=== PATIENT | female | born 1960 | race Caucasian/White ===

== ENCOUNTER 2022-03-24 11:47 | Inpatient (IN) ==
[2022-03-24] MEDS ORDERED: SODIUM CHLORIDE 0.9% 1000ML 1,000 ML IV SCH (12:00)
[2022-03-24] MEDS ORDERED: ONDANSETRON INJ 2 MG/ML 2 ML VIAL IV STA (12:01)
--- NOTE | 2022-03-24 12:17 | Emergency Department Note ---
History of Present Illness General Chief complaint: Illness Stated complaint: MESTATIC BREAST CX/SICK FROM RADIATION TREATMENT Time Seen by Provider: 03/24/22 11:54 History of Present Illness Provider complaint: Diarrhea nausea vomiting headache Onset (ago): week(s) 1 Maximum Pain Intensity: 6 Associated symptoms: + headaches, + malaise and + nausea/vomiting; no chest pain or no fever/chills 61-year-old female with history of breast cancer being treated with radiation by Dr. Earl and chemotherapy with Dr. Kowalski presents emergency department for diarrhea [place] nausea vomiting and headache. Patient reports she started having diarrhea 1 week ago. She states it progressed to nausea and vomiting. The patient reports she has been having blood when wiping her stools. She also reports headache that started at 7 AM. No fever. No hematemesis or coffee- ground emesis. No cough chest pain or difficulty breathing. Home Medications Medication Instructions Recorded Confirmed Type albuterol sulfate 90 mcg/actuation 2 inh inhalation Q6H PRN Shortness 10/06/20 03/24/22 History breath activated powder inhaler Of Breath denosumab 120 mg/1.7 mL (70 mg/mL) 120 mg (1.7 mL) subcut .COMPLEX 10/11/20 03/24/22 Rx subcutaneous solution (Xgeva) breast cancer 3 doses #1.7 mL letrozole 2.5 mg tablet 2.5 mg PO DAILY #30 tabs 10/11/20 03/24/22 Rx ondansetron HCl 8 mg tablet 8 mg PO Q12H PRN Nausea And 01/10/21 03/24/22 History Vomiting venlafaxine 75 mg capsule,extended 150 mg PO DAILY 04/23/21 03/24/22 History release 24 hr (Effexor XR) lorazepam 1 mg tablet 1 mg PO BID PRN Anxiety 04/26/21 03/24/22 History tramadol 50 mg tablet 50 mg PO TID PRN Pain 09/13/21 03/24/22 History venlafaxine 37.5 mg 37.5 mg PO DAILY 09/13/21 03/24/22 History capsule,extended release 24 hr (Effexor XR) palbociclib 75 mg tablet (Ibrance) 100 mg PO DAILY 10/17/21 03/24/22 History Allergies Allergy/AdvReac Type Severity Reaction Status Date / Time No Known Allergies Allergy Verified 03/18/22 13:30 Past Med/Surg History Medical History (Updated 03/24/22 @ 17:08 by Bryce Cabral) Anxiety BRCA gene mutation negative Breast cancer metastasized to bone (~07/2020) History of chemotherapy Doxetaxel and Cyclophosphamide x4 cycles Herceptin x1 year Letrozole with Ibrance started 09/2020 Xgeva Malignant neoplasm of breast Polymyalgia rheumatica Rheumatoid arthritis Right foot pain Right shoulder pain Surgical History H/O lumpectomy Left Breast (2008 and 2009) History of biopsy (09/21/20) Right Breast History of biopsy (09/2020) Left Axillary Lymph Nodes S/P wisdom tooth extraction Family History Mother , Passed Age 74 Breast cancer, Onset Age: 46 COPD (chronic obstructive pulmonary disease) Grandmother (Maternal) , Passed Age 75 Breast cancer Grandmother (Paternal) , Passed Age 45 Breast cancer, Onset Age: 42 due to complication of Breast Cancer Aunt Breast cancer Uncle Myocardial infarction Bone cancer Father , Passed Age 92 COPD (chronic obstructive pulmonary disease) Prostate cancer, Onset Age: 60 Aunt Breast cancer Aunt Breast cancer Brother No problems noted. Brother Skin cancer Sister No problems noted. Son No problems noted. 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 Beliefs That Will Affect Care: None marital status: Current Living Situation: Spouse current occupational status: employed current occupation: [employer] How many Children do You have: 1 Feels Safe at Home: Yes Childhood Exposure to Second-Hand Smoke: Yes (Siblings) caffeine: Yes (daily) during the past year weight has: decreased > 10 lbs Dental Care, Regularly: Yes Physical Activity Frequency: Does not Exercise Seatbelt Use: always Assistive Devices: Glasses Review of Systems A total of 10 systems reviewed and were otherwise negative Physical Exam Vital Signs Vital Signs - 24 hr 03/24/22 11:51 03/24/22 12:46 03/24/22 12:46 Temperature 36.5 C Temperature Source Oral Pulse Rate 76 Pulse Rate [Apical] 63 Pulse Rhythm Regular Pulse Strength Normal Respiratory Rate 18 18 18 Respiratory Effort / Characteristics Non-Labored Spontaneous Non-Labored Non-Labored Respiratory Depth Normal Normal Respiratory Pattern Regular Regular Blood Pressure 132/75 Blood Pressure [Right Arm] 114/75 Blood Pressure Mean 94 Blood Pressure Mean [Right Arm] 88 Blood Pressure Position Sitting Pulse Oximetry 95 98 98 Oxygen Delivery Method Room Air Room Air Room Air Sepsis Recent Fever Within 48 Hours No Sepsis New/Unexplained Change in Mental Status No Sepsis Action Taken by Nursing No Action Required 03/24/22 12:46 03/24/22 13:16 03/24/22 13:16 Temperature Temperature Source Pulse Rate Pulse Rate [Apical] 70 Pulse Rhythm Pulse Strength Respiratory Rate 18 Respiratory Effort / Characteristics Non-Labored Non-Labored Respiratory Depth Normal Respiratory Pattern Blood Pressure Blood Pressure [Right Arm] 122/66 Blood Pressure Mean Blood Pressure Mean [Right Arm] 84 Blood Pressure Position Pulse Oximetry 98 97 Oxygen Delivery Method Room Air Room Air Sepsis Recent Fever Within 48 Hours Sepsis New/Unexplained Change in Mental Status Sepsis Action Taken by Nursing 03/24/22 14:14 03/24/22 14:14 03/24/22 15:02 Temperature Temperature Source Pulse Rate Pulse Rate [Apical] 64 75 Pulse Rhythm Pulse Strength Respiratory Rate 18 18 18 Respiratory Effort / Characteristics Non-Labored Spontaneous Non-Labored Non-Labored Respiratory Depth Normal Normal Respiratory Pattern Regular Blood Pressure Blood Pressure [Right Arm] 129/79 105/59 L Blood Pressure Mean Blood Pressure Mean [Right Arm] 95 74 Blood Pressure Position Pulse Oximetry 99 99 98 Oxygen Delivery Method Room Air Room Air Room Air Sepsis Recent Fever Within 48 Hours Sepsis New/Unexplained Change in Mental Status Sepsis Action Taken by Nursing 03/24/22 15:02 03/24/22 15:39 03/24/22 15:39 Temperature Temperature Source Pulse Rate Pulse Rate [Apical] 78 Pulse Rhythm Pulse Strength Respiratory Rate 20 Respiratory Effort / Characteristics Non-Labored Non-Labored Non-Labored Spontaneous Respiratory Depth Normal Respiratory Pattern Blood Pressure Blood Pressure [Right Arm] 107/79 Blood Pressure Mean Blood Pressure Mean [Right Arm] 88 Blood Pressure Position Pulse Oximetry 99 99 Oxygen Delivery Method Room Air Room Air Sepsis Recent Fever Within 48 Hours Sepsis New/Unexplained Change in Mental Status Sepsis Action Taken by Nursing Physical Exam HENT: Exam performed. -Head: Normocephalic and atraumatic. -Right Ear: External ear normal. No mastoid tenderness. -Left Ear: External ear normal. No mastoid tenderness. -Mouth/Throat: The oropharynx is clear and moist. No trismus in the jaw. No dental abscesses or uvula swelling. No oropharyngeal exudate or tonsillar abscesses. EYES: Conjunctivae and EOM are normal. Pupils are equal, round, and reactive to light. Right eye exhibits no discharge. Left eye exhibits no discharge. No scleral icterus. NECK: Normal range of motion. Neck supple. No JVD present. No spinous process tenderness present. No carotid bruit present. No rigidity. No tracheal deviation and normal range of motion present. No Brudzinski's sign and no Kernig's sign noted. CV: Normal rate, regular rhythm, normal heart sounds and intact distal pulses. There is no peripheral edema. Palpable radial pulses bue. PULM/CHEST: Effort normal and breath sounds normal. No respiratory distress. No stridor. She has no wheezes. She has no rales. -Chest Wall: She exhibits no tenderness. ABD: The abdomen is soft. Bowel sounds are normal. She has no distension. No mass is present. There is tenderness to palpation of the epigastric area. There is no rebound, no guarding, no Mcgregor's sign and no tenderness at McBurney's point. Rovsig negative MUSC/SKEL: Normal range of motion. There is no peripheral edema, tenderness or deformity. LYMPH: No cervical adenopathy. NEURO: She is alert and oriented to person, place, and time. She has normal strength. No cranial nerve deficit or sensory deficit. Coordination and gait normal. GCS eye subscore is 4. GCS verbal subscore is 5. GCS motor subscore is 6. Cerebellar tests wnl. SKIN: Skin is warm and dry. She is not diaphoretic. PSYCH: She has a normal mood and affect. Behavior is normal. Judgment and thought content normal. Course Course 1154: The patient was evaluated in room B6. A complete history and physical exam was performed Cardiac monitoring: An order was placed for continuous cardiac monitoring. The monitor shows a rate of 70 with sinus rhythm 1345: Vital signs stable. Cell count 2.03. Hemoglobin 11. Patient afebrile. Labs are all otherwise within normal limits. CT of the head she has became physically distributed of the calvarial metastatic disease. CT of the abdomen shows mild gallbladder wall thickening. Patient is having epigastric pain. Will order ultrasound 1525:Vital signs stable. Ultrasound shows cholelithiasis with mild gallbladder wall thickening. Patient will be treated empirically with antibiotics and admitted to the medicine service for GI and surgery consult. Dr. Carbajal's team notified. Administered Medications Discontinued Medications Sodium Chloride (Nss 1000ml) 1,000 mls @ 999 mls/hr IV .Q1H1M JAMES Stop: 03/24/22 13:00 Last Infusion: 03/24/22 14:16 Dose: 0 mls/hr Documented By: Admin: 03/24/22 12:31 Dose: 999 mls/hr Documented By: ANTONIO Metronidazole (Flagyl) 500 mg in 100 mls @ 100 mls/hr IV NOW STA Stop: 03/24/22 16:24 Last Admin: 03/24/22 16:38 Dose: Not Given Documented By: ANTONIO Ceftriaxone Sodium (Rocephin) 1,000 mg in 50 mls @ 100 mls/hr IV NOW STA Stop: 03/24/22 15:54 Last Infusion: 03/24/22 16:38 Dose: 0 mls/hr Documented By: Admin: 03/24/22 16:10 Dose: 100 mls/hr Documented By: ANTONIO Ioversol (Optiray 320 100ml) 94 ml IV ONCE ONE Stop: 03/24/22 12:55 Last Admin: 03/24/22 12:54 Dose: 94 ml Documented By: JENNIFER Ondansetron HCl (Ondansetron Inj 2 Mg/Ml 2 Ml Vial) 4 mg IV NOW STA Stop: 03/24/22 12:02 Last Admin: 03/24/22 12:30 Dose: 4 mg Documented By: ANTONIO Medical Decision Making Laboratory Data Result diagrams: 03/24/22 12:16 03/24/22 12:16 Lab Results 03/24/22 03/24/22 03/24/22 Range/Units 12:16 12:16 12:16 WBC 2.03 L (4.8-10.8) K/ul RBC 3.10 L (3.93-5.22) M/uL Hgb 11.0 L (12.0-16.0) g/dl POC Hgb (12.0-16.0) g/dl Hct 31.2 L (34.1-44.9) % POC Hct (37-47) % MCV 100.6 H (80.0-100.0) fL MCH 35.5 H (25.0-34.0) pg MCHC 35.3 (32.0-36.0) g/dL RDW Std Deviation 52.6 H (36.4-46.3) fL RDW Coeff of Aga 14.3 (11.5-14.5) % Plt Count 159 (130-400) K/uL MPV 8.8 L (9.4-12.3) fL Immature Gran % (Auto) 0.0 % Neut % (Auto) 63.0 % Lymph % (Auto) 17.2 % [place] % (Auto) 14.8 % Eos % (Auto) 3.0 % Baso % (Auto) 2.0 % Neut # (Auto) 1.28 L (1.4-6.5) K/uL Lymph # (Auto) 0.35 L (1.2-3.4) K/uL [place] # (Auto) 0.30 (0.24-0.82) K/uL Eos # (Auto) 0.06 (0-0.50) K/uL Baso # (Auto) 0.04 (0-0.2) K/uL Immature Gran # (Auto) 0.00 (0.00-0.02) K/uL PT 10.5 (9.0-12.0) Seconds INR 1.0 (0.9-1.1) APTT 24.5 (21.0-31.0) Seconds PTT Ratio 0.9 POC Sodium (135-144) mmol/L Sodium 139 (136-145) mmol/L POC Potassium (3.3-5.0) mmol/L Potassium 3.4 L (3.5-5.1) mmol/L POC Chloride (101-112) mmol/L Chloride 104 (98-107) mmol/L Carbon Dioxide 28 (21-32) mmol/L POC Total CO2 (24-31) mmol/L Anion Gap 7 (3-11) POC Anion Gap (16-25) mmol/L POC BUN (7-18) mg/dl BUN 11 (6-23) mg/dl Creatinine 0.52 L (0.6-1.2) mg/dl POC Creatinine (0.6-1.3) mg/dl Est Cr Clr Drug Dosing 106.2 ml/min Est GFR ( Amer) 119.5 ml/min Est GFR (Non-Af Amer) 103.1 ml/min BUN/Creatinine Ratio 21.2 H (10-20) Glucose 96 (70-99(Fasting)) mg/dl POC Glucose (other) (70-99) mg/dl Lactate (0.4-2.0) mmol/L Calcium 9.6 (8.5-10.1) mg/dl POC Ioniz Calcium Domenic (1.12-1.32) mmol/l Magnesium 1.7 (1.7-2.4) mg/dl Total Bilirubin 0.4 (0.2-1.0) mg/dl AST 15 (13-39) U/L ALT 10 (7-52) U/L Alkaline Phosphatase 37 (34-104) U/L Total Protein 7.1 (6.0-8.3) gm/dl Albumin 4.2 (3.4-5.0) gm/dl Globulin 2.9 (2.5-4.0) gm/dl Albumin/Globulin Ratio 1.4 (0.9-2) SARS-CoV-2 (PCR) (Negative) Influenza Type A (PCR) (Neg) Influenza Type B (PCR) (Neg) RSV (RT-PCR) (Neg) 03/24/22 03/24/22 03/24/22 Range/Units 12:16 12:23 13:13 WBC (4.8-10.8) K/ul RBC (3.93-5.22) M/uL Hgb (12.0-16.0) g/dl POC Hgb 10.5 L (12.0-16.0) g/dl Hct (34.1-44.9) % POC Hct 31 L (37-47) % MCV (80.0-100.0) fL MCH (25.0-34.0) pg MCHC (32.0-36.0) g/dL RDW Std Deviation (36.4-46.3) fL RDW Coeff of Aga (11.5-14.5) % Plt Count (130-400) K/uL MPV (9.4-12.3) fL Immature Gran % (Auto) % Neut % (Auto) % Lymph % (Auto) % [place] % (Auto) % Eos % (Auto) % Baso % (Auto) % Neut # (Auto) (1.4-6.5) K/uL Lymph # (Auto) (1.2-3.4) K/uL [place] # (Auto) (0.24-0.82) K/uL Eos # (Auto) (0-0.50) K/uL Baso # (Auto) (0-0.2) K/uL Immature Gran # (Auto) (0.00-0.02) K/uL PT (9.0-12.0) Seconds INR (0.9-1.1) APTT (21.0-31.0) Seconds PTT Ratio POC Sodium 140 (135-144) mmol/L Sodium (136-145) mmol/L POC Potassium 3.3 (3.3-5.0) mmol/L Potassium (3.5-5.1) mmol/L POC Chloride 103 (101-112) mmol/L Chloride (98-107) mmol/L Carbon Dioxide (21-32) mmol/L POC Total CO2 26 (24-31) mmol/L Anion Gap (3-11) POC Anion Gap 15.0 L (16-25) mmol/L POC BUN 11 (7-18) mg/dl BUN (6-23) mg/dl Creatinine (0.6-1.2) mg/dl POC Creatinine 0.5 L (0.6-1.3) mg/dl Est Cr Clr Drug Dosing ml/min Est GFR ( Amer) ml/min Est GFR (Non-Af Amer) ml/min BUN/Creatinine Ratio (10-20) Glucose (70-99(Fasting)) mg/dl POC Glucose (other) 103 H (70-99) mg/dl Lactate 0.8 (0.4-2.0) mmol/L Calcium (8.5-10.1) mg/dl POC Ioniz Calcium Domenic 1.15 (1.12-1.32) mmol/l Magnesium (1.7-2.4) mg/dl Total Bilirubin (0.2-1.0) mg/dl AST (13-39) U/L ALT (7-52) U/L Alkaline Phosphatase (34-104) U/L Total Protein (6.0-8.3) gm/dl Albumin (3.4-5.0) gm/dl Globulin (2.5-4.0) gm/dl Albumin/Globulin Ratio (0.9-2) SARS-CoV-2 (PCR) NEGATIVE (Negative) Influenza Type A (PCR) Negative (Neg) Influenza Type B (PCR) Negative (Neg) RSV (RT-PCR) Negative (Neg) Imaging Data Radiologist's Impression: Chest X-Ray 03/24/22 11:54 XR chest 1V portable CLINICAL HISTORY: Sepsis. History of breast cancer. COMPARISON STUDY: Chest CT September 20, 2021. FINDINGS: Lung volumes are mildly diminished. There are left axillary and left breast surgical clips. No pneumothorax or pleural effusion is present. Moderate sized hiatal hernia. Cardiomegaly is unchanged without evidence for pulmonary edema. No definite consolidation to suggest pneumonia. Apparent right midlung opacity is likely artifactual. IMPRESSION: 1. No definite acute cardiopulmonary findings. 2. Apparent lateral right midlung opacity. This is likely artifactual. A small focus of pneumonia could appear similar. Radiographic follow-up is recommended. ACT 112: Negative or not required by law. Electronically signed by: Jesús Knapp M.D. 03/24/2022 12:47 PM Abdomen/Pelvis CT 03/24/22 12:01 CT OF THE ABDOMEN AND PELVIS WITH CONTRAST CLINICAL HISTORY: Abdominal pain, nausea and vomiting. Breast cancer. COMPARISON STUDY: CT of the abdomen and pelvis September 20, 2021. PET/CT January 16, 2022. TECHNIQUE: Following IV administration of 94 mL of Optiray, axial images of the abdomen and pelvis were obtained from the lung bases to the proximal femurs. Images were reviewed in the axial, sagittal, and coronal planes. IV contrast was administered without complication. Automated exposure control was utilized for the study. A dose lowering technique was utilized adhering to the principles of ALARA. CT DOSE: 856.48 mGy.cm FINDINGS: Lung bases are unremarkable. Moderate sized hiatal hernia with partially intrathoracic stomach is noted. There are no hepatic lesions. Spleen, adrenal glands, kidneys and pancreas are unremarkable. There is no hydronephrosis. No biliary or pancreatic ductal dilatation. Splenule is noted. Mild gallbladder wall thickening is present. Major vasculature is patent. No evidence for a bowel obstruction. There is mild rectal wall thickening with mild perirectal stranding. There is apparent mild wall thickening of the descending colon with possible minimal pericolonic stranding. Appendix is normal. No lymphadenopathy is present. No ascites. No abscess. Numerous sclerotic skeletal lesions are similar in appearance to PET/CT of January 16, 2022. No new lesions are identified. There is no pathologic fracture. IMPRESSION: 1. Thickening of the rectum with mild perirectal stranding. Possible mild wall thickening of the descending colon with equivocal pericolonic thickening. These findings represent a nonspecific proctocolitis. No free air or abscess. 2. No bowel obstruction. 3. Mild gallbladder wall thickening, a nonspecific finding. If right upper quadrant pain, ultrasound is recommended. 4. No change in appearance of multiple skeletal metastases since PET/CT of January 16, 2022. ACT 112: Negative or not required by law. Electronically signed by: Jesús Knapp M.D. 03/24/2022 1:[address] 03/24/22 12:01 CT OF THE HEAD WITHOUT CONTRAST CLINICAL HISTORY: Headache. Breast cancer. COMPARISON STUDY: No previous studies for comparison. TECHNIQUE: Helical axial images of the head were obtained without IV contrast. Automated exposure control was utilized for the study. A dose lowering technique was utilized adhering to the principles of ALARA. FINDINGS: No acute intracranial hemorrhage, midline shift or mass effect is present. The ventricular system is unremarkable. The basal cisterns are patent. No extra-axial collections are present. There are no findings to suggest acute dural sinus thrombosis or acute territorial infarct. An 8 mm sclerotic occipital bone lesion on image 13 of 28 favors a skeletal metastasis. This was present on PET/CT of January 16, 2022. IMPRESSION: 1. No acute intracranial findings. 2. Redemonstration of an occipital calvarial metastasis. ACT 112: Negative or not required by law. Electronically signed by: Jesús Knapp M.D. 03/24/2022 1:05 PM Gallbladder Ultrasound 03/24/22 13:37 US gallbladder CLINICAL HISTORY: Right upper quadrant pain. COMPARISON STUDY: CT of the abdomen and pelvis March 24, 2022. FINDINGS: Liver is unremarkable. No hepatic lesions are identified. No biliary ductal dilatation. Common bile duct measures 4 mm in caliber. There are multiple gallstones within the gallbladder. Mild gallbladder wall thickening is noted which corresponds to the finding on CT. No definite sonographic Mcgregor sign. Pancreas is unremarkable by sonography although the tail is slightly obscured. No right hydronephrosis. IMPRESSION: 1. Cholelithiasis and mild gallbladder wall thickening. No definite sonographic Mcgregor sign. Findings equivocal for acute cholecystitis. Nuclear medicine hepatobiliary scan could be obtained as indicated. 2. No biliary ductal dilatation. ACT 112: Negative or not required by law. Electronically signed by: Jesús Knapp M.D. 03/24/2022 2:42 PM ECG Data Indication: + abdominal pain Rate (beats per minute): 67 Rhythm: + normal sinus ECG Intervals/blocks: + Normal GA and + Normal QT-c ECG ST segments: + Normal ST segments Additional Comments: QRS 68 MDM Narrative 1154: The patient was evaluated in room B6. A complete history and physical exam was performed Cardiac monitoring: An order was placed for continuous cardiac monitoring. The monitor shows a rate of 70 with sinus rhythm 1345: Vital signs stable. Cell count 2.03. Hemoglobin 11. Patient afebrile. Labs are all otherwise within normal limits. CT of the head she has became physically distributed of the calvarial metastatic disease. CT of the abdomen shows mild gallbladder wall thickening. Patient is having epigastric pain. Will order ultrasound 1525:Vital signs stable. Ultrasound shows cholelithiasis with mild gallbladder wall thickening. Patient will be treated empirically with antibiotics and admitted to the medicine service for GI and surgery consult. Dr. Carbajal's team notified. Impression & Plan Gallbladder calculus, Breast cancer metastasized to bone, Nausea, vomiting and diarrhea Discharge Plan Visit Data Chief Complaint: Illness Stated Complaint: MESTATIC BREAST CX/SICK FROM RADIATION TREATMENT ED Provider: Bryce Cabral Discharge Problem: Gallbladder calculus, Breast cancer metastasized to bone, Nausea, vomiting and diarrhea Patient Disposition: Admitted As Inpatient Forms Stand Alone Forms: [employer] Prescriptions Prescriptions: No Action venlafaxine [Effexor XR] 75 mg capsule,extended release 24hr 150 mg PO DAILY ondansetron HCl 8 mg tablet 8 mg PO Q12H PRN (Reason: Nausea And Vomiting) venlafaxine [Effexor XR] 37.5 mg capsule,extended release 24hr 37.5 mg PO DAILY tramadol 50 mg tablet 50 mg PO TID PRN (Reason: Pain) lorazepam 1 mg tablet 1 mg PO BID PRN (Reason: Anxiety) letrozole 2.5 mg tablet 2.5 mg PO DAILY Qty: 30 2RF Xgeva 120 mg/1.7 mL (70 mg/mL) solution 120 mg subcut .COMPLEX Qty: 1.7 0RF Rx Instructions: 120 mg subcut MONTHLY; next dose 04/05/2022 albuterol sulfate 90 mcg/actuation aerosol powdr breath activated 2 inh inhalation Q6H PRN (Reason: Shortness Of Breath) Ibrance 75 mg tablet 100 mg PO DAILY Rx Instructions: administer on days 1 through 21 of a 28-day treatment cycle Referrals Referrals: Ganesh Lovell MD [Primary Care Provider] -
[2022-03-24 12:38] LABS: iSTAT Creatinine 0.5 mg/dl (0.6-1.3); iSTAT Hemoglobin 10.5 g/dl (12.0-16.0); iSTAT Ionized Calcium 1.15 mmol/l (1.12-1.32); iSTAT Potassium 3.3 mmol/L (3.3-5.0)
[2022-03-24 12:40] LABS: Basophils # (auto) 0.04 K/uL (0-0.2); Eosinophils # (auto) 0.06 K/uL (0-0.50); Hematocrit (blood only) 31.2 % (34.1-44.9); Lymphocytes # (auto) 0.35 K/uL (1.2-3.4); Lymphocytes % (auto) 17.2 %; Mean Corpuscular Hemoglobin 35.5 pg (25.0-34.0); Mean Corpuscular Hgb Conc 35.3 g/dL (32.0-36.0); Mean Corpuscular Volume 100.6 fL (80.0-100.0); Mean Platelet Volume 8.8 fL (9.4-12.3); Monocytes % (auto) 14.8 %; Neutrophils # (auto) 1.28 K/uL (1.4-6.5); Platelet Count 159 K/uL (130-400); RDW Coefficient of Variation 14.3 % (11.5-14.5); RDW Standard Deviation 52.6 fL (36.4-46.3); White Blood Count 2.03 K/ul (4.8-10.8)
--- NOTE | 2022-03-24 12:48 | XRay Report ---
XR chest 1V portable CLINICAL HISTORY: Sepsis. History of breast cancer. COMPARISON STUDY: Chest CT September 20, 2021. FINDINGS: Lung volumes are mildly diminished. There are left axillary and left breast surgical clips. No pneumothorax or pleural effusion is present. Moderate sized hiatal hernia. Cardiomegaly is unchan ged without evidence for pulmonary edema. No definite consolidation to suggest pneumonia. Apparent ri ght midlung opacity is likely artifactual. IMPRESSION: 1. No definite acute cardiopulmonary findings. 2. Apparent lateral right midlung opacity. This is likely artifactual. A small focus of pneumonia cou ld appear similar. Radiographic follow-up is recommended. ACT 112: Negative or not required by law. Electronically signed by: Jesús Knapp M.D. 03/24/2022 12:47 PM
[2022-03-24 12:52] LABS: Partial Thromboplastin Ratio 0.9; Partial Thromboplastin Time 24.5 Seconds (21.0-31.0); Prothrombin Time 10.5 Seconds (9.0-12.0)
[2022-03-24] MEDS ORDERED: OPTIRAY 320 100ml IV ONE (12:54)
--- NOTE | 2022-03-24 13:07 | CT Scan Report ---
CT OF THE HEAD WITHOUT CONTRAST CLINICAL HISTORY: Headache. Breast cancer. COMPARISON STUDY: No previous studies for comparison. TECHNIQUE: Helical axial images of the head were obtained without IV contrast. Automated exposure con trol was utilized for the study. A dose lowering technique was utilized adhering to the principles o f ALARA. FINDINGS: No acute intracranial hemorrhage, midline shift or mass effect is present. The ventricular system is unremarkable. The basal cisterns are patent. No extra-axial collections are present. There are no findings to suggest acute dural sinus thrombosis or acute territorial infarct. An 8 mm sclerotic occipital bone lesion on image 13 of 28 favors a skeletal metastasis. This was pres ent on PET/CT of January 16, 2022. IMPRESSION: 1. No acute intracranial findings. 2. Redemonstration of an occipital calvarial metastasis. ACT 112: Negative or not required by law. Electronically signed by: Jesús Knapp M.D. 03/24/2022 1:05 PM
[2022-03-24 13:09] LABS: Albumin Globulin Ratio 1.4 (0.9-2); Albumin Level 4.2 gm/dl (3.4-5.0); BUN Creatinine Ratio 21.2 (10-20); Bilirubin,Total 0.4 mg/dl (0.2-1.0); Calcium 9.6 mg/dl (8.5-10.1); Creatinine Clr Calc Pharmacy 106.2 ml/min; Est GFR (African American) 119.5 ml/min; Est GFR (Non-African American) 103.1 ml/min; Globulin 2.9 gm/dl (2.5-4.0); Magnesium 1.7 mg/dl (1.7-2.4); Potassium 3.4 mmol/L (3.5-5.1); Total Protein 7.1 gm/dl (6.0-8.3)
--- NOTE | 2022-03-24 13:20 | CT Scan Report ---
CT OF THE ABDOMEN AND PELVIS WITH CONTRAST CLINICAL HISTORY: Abdominal pain, nausea and vomiting. Breast cancer. COMPARISON STUDY: CT of the abdomen and pelvis September 20, 2021. PET/CT January 16, 2022. TECHNIQUE: Following IV administration of 94 mL of Optiray, axial images of the abdomen and pelvis we re obtained from the lung bases to the proximal femurs. Images were reviewed in the axial, sagittal, and coronal planes. IV contrast was administered without complication. Automated exposure control wa s utilized for the study. A dose lowering technique was utilized adhering to the principles of ALARA . CT DOSE: 856.48 mGy.cm FINDINGS: Lung bases are unremarkable. Moderate sized hiatal hernia with partially intrathoracic stom ach is noted. There are no hepatic lesions. Spleen, adrenal glands, kidneys and pancreas are unremark able. There is no hydronephrosis. No biliary or pancreatic ductal dilatation. Splenule is noted. Mild gallbladder wall thickening is present. Major vasculature is patent. No evidence for a bowel obstruc tion. There is mild rectal wall thickening with mild perirectal stranding. There is apparent mild wal l thickening of the descending colon with possible minimal pericolonic stranding. Appendix is normal. No lymphadenopathy is present. No ascites. No abscess. Numerous sclerotic skeletal lesions are simil ar in appearance to PET/CT of January 16, 2022. No new lesions are identified. There is no pathologic fra cture. IMPRESSION: 1. Thickening of the rectum with mild perirectal stranding. Possible mild wall thickening of the desc ending colon with equivocal pericolonic thickening. These findings represent a nonspecific proctocoli tis. No free air or abscess. 2. No bowel obstruction. 3. Mild gallbladder wall thickening, a nonspecific finding. If right upper quadrant pain, ultrasound is recommended. 4. No change in appearance of multiple skeletal metastases since PET/CT of January 16, 2022. ACT 112: Negative or not required by law. Electronically signed by: Jesús Knapp M.D. 03/24/2022 1:17 PM
[2022-03-24 14:12] LABS: Influenza A virus by PCR Negative (Neg); Influenza B virus by PCR Negative (Neg); RSV by PCR Negative (Neg); SARS CoV2 RNA(COVID-19) InHosp NEGATIVE (Negative)
--- NOTE | 2022-03-24 14:44 | Ultrasound Report ---
US gallbladder CLINICAL HISTORY: Right upper quadrant pain. COMPARISON STUDY: CT of the abdomen and pelvis March 24, 2022. FINDINGS: Liver is unremarkable. No hepatic lesions are identified. No biliary ductal dilatation. Com mon bile duct measures 4 mm in caliber. There are multiple gallstones within the gallbladder. Mild ga llbladder wall thickening is noted which corresponds to the finding on CT. No definite sonographic Mu rphy sign. Pancreas is unremarkable by sonography although the tail is slightly obscured. No right hy dronephrosis. IMPRESSION: 1. Cholelithiasis and mild gallbladder wall thickening. No definite sonographic Mcgregor sign. Findings equivocal for acute cholecystitis. Nuclear medicine hepatobiliary scan could be obtained as indicate d. 2. No biliary ductal dilatation. ACT 112: Negative or not required by law. Electronically signed by: Jesús Knapp M.D. 03/24/2022 2:42 PM
[2022-03-24] MEDS ORDERED: metroNIDAZOLE 500 MG/100 ML BAG IV STA (15:25)
[2022-03-24] MEDS ORDERED: cefTRIAXone SODIUM 1,000 MG/50 ML BAG IV STA (15:25)
--- NOTE | 2022-03-24 17:02 | History & Physical Report ---
Date of Service March 24, 2022 Assessment & Plan (1) Nausea, vomiting and diarrhea: Plan: Watery diarrhea for 5 days. Some very mild blood on wiping and small streaks on the stool; not overly concerning for acute lower GI bleed. - Stool PCR testing -> If negative, can give Imodium - Zofran PRN (patient had not been taking because of concern for constipation) - IV fluids (2) Gallbladder calculus: Plan: CT a/p and RUQ u/s on admission both equivocal for acute cholecystitis. RUQ tenderness on exam, but no rebound or guarding. - HIDA scan ordered - Start Zosyn - Debated this given ongoing diarrhea and concern for C. diff, but patient is immunocompromised and would be worried about not treating - NPO @ midnight - Defer surgery consultation unless HIDA positive. (3) Breast cancer metastasized to bone: Plan: Follows with [facility]. With expected pancytopenia from bone marrow suppression. Counts overall stable. - Starts Ibrance on Friday, 03/26 for her chemotherapy cycle - Next dose of Xgeva is 04/05 - Continue home letrozole (4) Anxiety: Plan: - Continue home venlafaxine 187.5 mg daily - Continue home Ativan PRN (5) DVT prophylaxis: Plan: High risk patient with active cancer. - Lovenox 40 mg SQ daily DNR/DNI - Patient firmly reports DNR/DNI status with in room and aware of her decision. History of Present Illness Primary Care Provider: Ganesh Lovell MD 61yo F w/ hx of metastatic breast cancer who presents with nausea, vomiting, and diarrhea. She reports she was constipated for several days. She took a single dose of Milk of Magnesia on Friday, then on Friday began to have diarrhea. It was mostly watery initially without any blood or mucus. However, starting on , she noted some blood when she wiped. Yesterday, she felt that the stool was mostly water with just a small amount of stool in it. The stool had some mild bloody streaks on it, and she decided to present to the hospital. She denies any fevers or chills. She has not had chest pain or abdominal pain. She has not had any dysuria. She has had lots of nausea and some non-bloody emesis. She had stopped taking Zofran as she reports that someone in the radiation oncology office told her it causes constipation. Allergies Allergy/AdvReac Type Severity Reaction Status Date / Time No Known Allergies Allergy Verified 03/18/22 13:30 Home Medications Medication Instructions Recorded Confirmed Type albuterol sulfate 90 mcg/actuation 2 inh inhalation Q6H PRN Shortness 10/06/20 03/24/22 History breath activated powder inhaler Of Breath denosumab 120 mg/1.7 mL (70 mg/mL) 120 mg (1.7 mL) subcut .COMPLEX 10/11/20 03/24/22 Rx subcutaneous solution (Xgeva) breast cancer 3 doses #1.7 mL letrozole 2.5 mg tablet 2.5 mg PO DAILY #30 tabs 10/11/20 03/24/22 Rx ondansetron HCl 8 mg tablet 8 mg PO Q12H PRN Nausea And 01/10/21 03/24/22 History Vomiting venlafaxine 75 mg capsule,extended 150 mg PO DAILY 04/23/21 03/24/22 History release 24 hr (Effexor XR) lorazepam 1 mg tablet 1 mg PO BID PRN Anxiety 04/26/21 03/24/22 History tramadol 50 mg tablet 50 mg PO TID PRN Pain 09/13/21 03/24/22 History venlafaxine 37.5 mg 37.5 mg PO DAILY 09/13/21 03/24/22 History capsule,extended release 24 hr (Effexor XR) palbociclib 75 mg tablet (Ibrance) 100 mg PO DAILY 10/17/21 03/24/22 History Past Med/Surg History Medical History (Updated 03/24/22 @ 16:54 by Nigel Carbajal MD) Anxiety BRCA gene mutation negative Breast cancer metastasized to bone (~07/2020) History of chemotherapy Doxetaxel and Cyclophosphamide x4 cycles Herceptin x1 year Letrozole with Ibrance started 09/2020 Xgeva Malignant neoplasm of breast Polymyalgia rheumatica Rheumatoid arthritis Right foot pain Right shoulder pain Surgical History H/O lumpectomy Left Breast (2008 and 2009) History of biopsy (09/21/20) Right Breast History of biopsy (09/2020) Left Axillary Lymph Nodes S/P wisdom tooth extraction Family History Mother , Passed Age 74 Breast cancer, Onset Age: 46 COPD (chronic obstructive pulmonary disease) Grandmother (Maternal) , Passed Age 75 Breast cancer Grandmother (Paternal) , Passed Age 45 Breast cancer, Onset Age: 42 due to complication of Breast Cancer Aunt Breast cancer Uncle Myocardial infarction Bone cancer Father , Passed Age 92 COPD (chronic obstructive pulmonary disease) Prostate cancer, Onset Age: 60 Aunt Breast cancer Aunt Breast cancer Brother No problems noted. Brother Skin cancer Sister No problems noted. Son No problems noted. Denies family history of Ovarian cancer Colorectal cancer Uterine cancer Social History Smoking Status: Never smoker Tobacco Type: Cigarettes packs per day: 1; Years Smoked: 20; Second Hand Exposure: Yes (siblings); Hx Alcohol Use: Yes Alcohol type Comment: social Alcohol Intake Frequency: Monthly or Less Hx Substance Use: Yes (social) Prescribed Medications: Marijuana Preferred Language: Martiniquais Communication Ability: Effective Visual Impairment: Limited Hearing Ability: Normal Instrument Operator Required: No Beliefs That Will Affect Care: None marital status: Current Living Situation: Spouse current occupational status: employed 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 How many Children do You have: 1 Feels Safe at Home: Yes Childhood Exposure to Second-Hand Smoke: Yes (Siblings) caffeine: Yes (daily) during the past year weight has: decreased > 10 lbs Dental Care, Regularly: Yes Physical Activity Frequency: Does not Exercise Seatbelt Use: always Assistive Devices: Glasses Review of Systems Review of Systems: All systems reviewed & are unremarkable except as noted in HPI & below Physical Exam Constitutional: WD/WN, vitals as above Eyes: EOM intact bilaterally; no conjunctival abnormality ENMT: external ear and nose normal, oropharynx normal Neck: trachea midline, no thyromegaly normal visual inspection Respiratory: normal respiratory effort, lungs clear to auscultation no respiratory distress Cardiovascular: RRR, no murmur, no edema Gastrointestinal (Abdomen): Inspection/Auscultation: abdomen normal to inspection and + hypoactive bowel sounds; abdomen not distended P ercussion/Palpation: + abdomen tender (RUQ) and abdomen soft; no guarding and abdomen not rigid Musculoskeletal: no cyanosis or clubbing, extremities motor strength 5/5 Skin: no rashes, warm and dry Neurologic: moves all extremities and awake Psychiatric: Orientation: alert, oriented to person and cooperative Results & Data Results & Data ([facility]) Vital Signs (Past 12 Hours) Vital Signs Temp Pulse Pulse Resp BP BP Pulse Ox 03/24/22 15:39 99 03/24/22 15:39 78 20 107/79 99 03/24/22 15:02 75 18 105/59 L 98 03/24/22 14:14 64 18 129/79 99 03/24/22 14:14 18 99 03/24/22 13:16 70 18 122/66 97 03/24/22 12:46 98 03/24/22 12:46 18 98 03/24/22 12:46 63 18 114/75 98 03/24/22 11:51 36.5 C 76 18 132/75 95 O2 Del Method 03/24/22 15:39 Room Air 03/24/22 15:39 Room Air 03/24/22 15:02 Room Air 03/24/22 14:14 Room Air 03/24/22 14:14 Room Air 03/24/22 13:16 Room Air 03/24/22 12:46 Room Air 03/24/22 12:46 Room Air 03/24/22 12:46 Room Air 03/24/22 11:51 Room Air Code Status & VTE Plan VTE Prophylaxis Plan VTE Prophylaxis will be ordered: Yes PG Care Time/CCT Total # of Minutes Spent Total Time Spent with Patient: Total time spent is greater than 50% in coordination of care (as documented) at patient's floor/unit and/or counseling patient: Coding Level of Care Code INT OBSERVATION CARE 70M LVL 3 Diagnoses Nausea, vomiting and diarrhea R11.2; R19.7 Gallbladder calculus K80.20 Breast cancer metastasized to bone C50.919; C79.51 Anxiety F41.9 DVT prophylaxis Z29.9
[2022-03-24] MEDS: LACTATED RINGER'S 1,000 ML IV SCH (17:04)
[2022-03-24 18:16] LABS: Appearance Urine Clear (Clear); Bilirubin Urine Negative (Negative); Blood Urine Negative (Negative); Color Urine Yellow; Glucose Urine UA Negative (Negative); Ketones Urine Negative (Negative); Leukocyte Esterase Urine Negative (Negative); Nitrite Urine Negative (Negative); Protein Urine Negative (Negative); Specific Gravity Urine 1.018 (1.000-1.030); Urobilinogen Urine Negative (Negative); pH Urine 6.5 (4.5-7.5)
[2022-03-24] MEDS ORDERED: traMADol HCL 50 MG TABLET PO PRN (20:37)
[2022-03-24] MEDS ORDERED: ALBUTEROL HFA 8 GM INHALER INH PRN (20:43)
[2022-03-24] MEDS ORDERED: PIPERACILLIN/TAZOBACTAM 3.375 GM in DEXTROSE 5% 100 ML IV ONE (21:00)
[2022-03-24] MEDS: ONDANSETRON INJ 2 MG/ML 2 ML VIAL IV PRN (21:27)
[2022-03-24] MEDS: LORazepam 1 MG TAB PO PRN (21:28)
[2022-03-25] MEDS: LACTATED RINGER'S 1,000 ML IV SCH ×3 (02:51→22:42)
[2022-03-25] MEDS ORDERED: PIPERACILLIN/TAZOBACTAM 3.375 GM in DEXTROSE 5% 100 ML IV SCH ×2 (04:00→12:00)
--- NOTE | 2022-03-25 05:49 | Electrocardiogram Report ---
Test Reason : Blood Pressure : / mmHG Vent. Rate : 067 BPM Atrial Rate : 067 BPM P-R Int : 130 ms QRS Dur : 068 ms QT Int : 422 ms P-R-T Axes : 076 050 031 degrees QTc Int : 445 ms Normal sinus rhythm Normal ECG No previous ECGs available Confirmed by Ra Avila ([id number]) on 03/25/2022 5:48:49 AM Referred By: REFERRED SELF Confirmed By:Ra Avila
[2022-03-25] MEDS: ENOXAPARIN INJ 40 MG/0.4 ML SYR SQ SCH (06:08)
[2022-03-25] MEDS: VENLAFAXINE HCL XR 150 MG CAPXR PO SCH (07:45)
[2022-03-25] MEDS: VENLAFAXINE HCL XR 37.5 MG CAPXR PO SCH (07:45)
[2022-03-25] MEDS: LETROZOLE 2.5 MG TAB PO SCH (07:45)
[2022-03-25 08:00] LABS: Hematocrit (blood only) 30.9 % (34.1-44.9); Hemoglobin 10.5 g/dl (12.0-16.0); Mean Corpuscular Hemoglobin 34.5 pg (25.0-34.0); Mean Corpuscular Volume 101.6 fL (80.0-100.0); Mean Platelet Volume 8.8 fL (9.4-12.3); Platelet Count 151 K/uL (130-400); RDW Coefficient of Variation 14.3 % (11.5-14.5); RDW Standard Deviation 52.8 fL (36.4-46.3); Red Blood Count 3.04 M/uL (3.93-5.22)
[2022-03-25 08:29] LABS: Basophils # (auto) 0.05 K/uL (0-0.2); Basophils % (auto) 2.9 %; Eosinophils # (auto) 0.08 K/uL (0-0.50); Eosinophils % (auto) 4.7 %; Immature Granulocytes # (auto) 0.01 K/uL (0.00-0.02); Immature Granulocytes % (auto) 0.6 %; Lymphocytes # (auto) 0.42 K/uL (1.2-3.4); Lymphocytes % (auto) 24.7 %; Monocytes # (auto) 0.25 K/uL (0.24-0.82); Monocytes % (auto) 14.7 %; Neutrophils # (auto) 0.89 K/uL (1.4-6.5); Neutrophils % (auto) 52.4 %; Ovalocytes 1+
[2022-03-25 08:39] LABS: Albumin Globulin Ratio 1.4 (0.9-2); Albumin Level 3.6 gm/dl (3.4-5.0); BUN Creatinine Ratio 13.5 (10-20); Bilirubin,Total 0.5 mg/dl (0.2-1.0); Calcium 8.6 mg/dl (8.5-10.1); Creatinine Clr Calc Pharmacy 106.1 ml/min; Est GFR (African American) 119.5 ml/min; Est GFR (Non-African American) 103.1 ml/min; Globulin 2.6 gm/dl (2.5-4.0); Magnesium 1.7 mg/dl (1.7-2.4); Potassium 3.5 mmol/L (3.5-5.1); Total Protein 6.2 gm/dl (6.0-8.3)
--- NOTE | 2022-03-25 09:59 | Nuclear Medicine Report ---
NUCLEAR MEDICINE HEPATOBILIARY SCAN HISTORY: Equivocal RUQ u/s with right upper quadrant abdominal pain COMPARISON: Abdominal ultrasound 03/24/2022. TECHNIQUE: Immediately following the intravenous administration of 5.7 mCi Tc-99m Choletec, dynamic a nterior abdominal imaging was performed. FINDINGS: Uniform hepatic tracer accumulation is shown. Prompt intrahepatic biliary excretion is seen. The comm on bile duct and small bowel are visualized at 17 minutes. There is faint visualization of radiotrace r within the gallbladder at 60 minutes. This is confirmed on the 75 minute delayed image. IMPRESSION: 1. No evidence for cystic duct obstruction. ACT 112: Negative or not required by law. Electronically signed by: Maximus Murcia M.D. 03/25/2022 9:58 AM
[2022-03-25] MEDS: ONDANSETRON INJ 2 MG/ML 2 ML VIAL IV PRN (10:22)
[2022-03-25] MEDS ORDERED: PROCHLORPERAZINE 10 MG in SYRINGE 8 ML IV PRN (15:04)
[2022-03-25] MEDS ORDERED: ONDANSETRON INJ 2 MG/ML 2 ML VIAL IV PRN (15:05)
--- NOTE | 2022-03-25 15:27 | Hospitalist Progress Note ---
Date of Service March 25, 2022 Assessment & Plan (1) Nausea, vomiting and diarrhea: Plan: Await stool PCR testing but no more diarrhea; discussed with radiologythey are confident not diverticulitis; Pro-Gaetano negative, stopped Zosyn (2) Gallbladder calculus: Plan: HIDA negative; observe (3) Breast cancer metastasized to bone: Plan: Follows with [facility]. With expected pancytopenia from bone marrow suppression. Counts overall stable. - Starts Ibrance on Friday, 03/26 for her chemotherapy cycle - Next dose of Xgeva is 04/05 - Continue home letrozole 03/25: Profound neutropenia, noted dose reduction of Ibrance before, will solicit oncology input with respect to Ibrance and whether colony-stimulating factors indicated; not yet febrile neutropenia (4) Anxiety: Plan: - Continue home venlafaxine 187.5 mg daily - Continue home Ativan PRN (5) Neutropenia: Plan: Likely Ibrance induced; requested oncology input (6) Proctocolitis: Plan: No diarrhea at present; noted some bleeding on wiping; inclined to observe at present; await stool studies; likely radiation-induced at least to a large part (7) DVT prophylaxis: Plan: High risk patient with active cancer. - Lovenox 40 mg SQ daily DNR/DNI - Patient firmly reports DNR/DNI status with in room and aware of her decision. (8) Leukopenia: Admission and Anticipated Discharge Date Admission Date: March 24, 2022 Subjective Follow-up of presentation with nausea, vomiting, diarrheano diarrhea as such but nausea continues Physical Exam Physical Exam: Constitutional and general: No acute distress, looks biologic age Head and face: No puffiness, atraumatic Eyes: No scleral icterus, extraocular movements normal Neck: Supple, no JVD Musculoskeletal: No acute joint swelling, no bony abnormalities Skin/dermatologic/integument: No rash, no purpura Hematologic and lymphatic: pallor +, no petechia Gastrointestinal/abdomen: Nondistended, soft, nonacute Neurologic: Cranial nerves intact, nonfocal Psychiatry: Awake, alert, pleasant, communicative Cardiovascular: Heart rhythm regular, no rub, no murmur, no gallop Respiratory: Chest movements equal, no use of accessory muscles, no adventitious sounds Extremities: No edema, no cyanosis Results & Data Results & Data ([place]) Vital Signs (Past 12 Hours) Vital Signs Temp Pulse Resp BP Pulse Ox O2 Del Method 03/25/22 07:29 37.0 C 71 16 110/62 98 Room Air Laboratory Results Laboratory Results - last 24 hr 03/24/22 03/25/22 03/25/22 18:01 07:42 07:42 WBC 1.70 L RBC 3.04 L Hgb 10.5 L Hct 30.9 L MCV 101.6 H MCH 34.5 H MCHC 34.0 RDW Std Deviation 52.8 H RDW Coeff of Aga 14.3 Plt Count 151 MPV 8.8 L Immature Gran % (Auto) 0.6 Neut % (Auto) 52.4 Lymph % (Auto) 24.7 [place] % (Auto) 14.7 Eos % (Auto) 4.7 Baso % (Auto) 2.9 Neut # (Auto) 0.89 L* Lymph # (Auto) 0.42 L [place] # (Auto) 0.25 Eos # (Auto) 0.08 Baso # (Auto) 0.05 Immature Gran # (Auto) 0.01 Ovalocytes 1+ Sodium 140 Potassium 3.5 Chloride 104 Carbon Dioxide 30 Anion Gap 6 BUN 7 Creatinine 0.52 L Est Cr Clr Drug Dosing 106.1 Est GFR ( Amer) 119.5 Est GFR (Non-Af Amer) 103.1 BUN/Creatinine Ratio 13.5 Glucose 88 Calcium 8.6 Magnesium 1.7 Total Bilirubin 0.5 AST 15 ALT 14 Alkaline Phosphatase 32 L Total Protein 6.2 Albumin 3.6 Globulin 2.6 Albumin/Globulin Ratio 1.4 Procalcitonin Urine Color Yellow Urine Appearance Clear Urine pH 6.5 Ur Specific [place] 1.018 Urine Protein Negative Urine Glucose (UA) Negative Urine Ketones Negative Urine Blood Negative Urine Nitrite Negative Urine Bilirubin Negative Urine Urobilinogen Negative Ur Leukocyte Esterase Negative 03/25/22 11:31 WBC RBC Hgb Hct MCV MCH MCHC RDW Std Deviation RDW Coeff of Aga Plt Count MPV Immature Gran % (Auto) Neut % (Auto) Lymph % (Auto) [place] % (Auto) Eos % (Auto) Baso % (Auto) Neut # (Auto) Lymph # (Auto) [place] # (Auto) Eos # (Auto) Baso # (Auto) Immature Gran # (Auto) Ovalocytes Sodium Potassium Chloride Carbon Dioxide Anion Gap BUN Creatinine Est Cr Clr Drug Dosing Est GFR ( Amer) Est GFR (Non-Af Amer) BUN/Creatinine Ratio Glucose Calcium Magnesium Total Bilirubin AST ALT Alkaline Phosphatase Total Protein Albumin Globulin Albumin/Globulin Ratio Procalcitonin < 0.05 Urine Color Urine Appearance Urine pH Ur Specific [place] Urine Protein Urine Glucose (UA) Urine Ketones Urine Blood Urine Nitrite Urine Bilirubin Urine Urobilinogen Ur Leukocyte Esterase PG Care Time/CCT Total # of Minutes Spent Total Time Spent with Patient: Total time spent is greater than 50% in coordination of care (as documented) at patient's floor/unit and/or counseling patient: Coding Level of Care Code 14549 Subseq Obs Care Lvl 2 Diagnoses Nausea, vomiting and diarrhea R11.2; R19.7 Gallbladder calculus K80.10 Biliary obstruction: without biliary obstruction Cholecystitis acuity: unspecified acuity Cholecystitis presence: with cholecystitis Breast cancer metastasized to bone C50.919; C79.51 Laterality: unspecified laterality Anxiety F41.9 Neutropenia D70.9 Proctocolitis K52.9 DVT prophylaxis Z29.9 Leukopenia D72.819 (1) Gallbladder calculus Biliary obstruction: without biliary obstruction Cholecystitis acuity: unspecified acuity Cholecystitis presence: with cholecystitis Qualified Code(s): K80.10 - Calculus of gallbladder with chronic cholecystitis without obstruction (2) Breast cancer metastasized to bone Laterality: unspecified laterality Qualified Code(s): C50.919 - Malignant neoplasm of unspecified site of unspecified female breast; C79.51 - Secondary malignant neoplasm of bone
[2022-03-25] MEDS: LORazepam 1 MG TAB PO PRN (22:44)
[2022-03-26 06:11] LABS: Hematocrit (blood only) 29.4 % (34.1-44.9); Hemoglobin 10.2 g/dl (12.0-16.0); Mean Corpuscular Hemoglobin 34.7 pg (25.0-34.0); Mean Corpuscular Hgb Conc 34.7 g/dL (32.0-36.0); Mean Platelet Volume 8.5 fL (9.4-12.3); Platelet Count 143 K/uL (130-400); RDW Coefficient of Variation 13.9 % (11.5-14.5); RDW Standard Deviation 50.9 fL (36.4-46.3); Red Blood Count 2.94 M/uL (3.93-5.22); White Blood Count 1.58 K/ul (4.8-10.8)
[2022-03-26 06:35] LABS: Albumin Globulin Ratio 1.4 (0.9-2); Albumin Level 3.6 gm/dl (3.4-5.0); Bilirubin,Total 0.3 mg/dl (0.2-1.0); Calcium 8.7 mg/dl (8.5-10.1); Creatinine Clr Calc Pharmacy 106.1 ml/min; Est GFR (African American) 119.5 ml/min; Est GFR (Non-African American) 103.1 ml/min; Globulin 2.5 gm/dl (2.5-4.0); Magnesium 1.8 mg/dl (1.7-2.4); Phosphorus 2.9 mg/dl (2.5-4.9); Potassium 3.5 mmol/L (3.5-5.1); Total Protein 6.1 gm/dl (6.0-8.3)
[2022-03-26 06:52] LABS: Basophils # (auto) 0.04 K/uL (0-0.2); Basophils % (auto) 2.5 %; Eosinophils % (auto) 6.3 %; Lymphocytes # (auto) 0.46 K/uL (1.2-3.4); Lymphocytes % (auto) 29.1 %; Monocytes # (auto) 0.31 K/uL (0.24-0.82); Monocytes % (auto) 19.6 %; Neutrophils # (auto) 0.67 K/uL (1.4-6.5); Neutrophils % (auto) 42.5 %; Ovalocytes 1+
[2022-03-26] MEDS: ENOXAPARIN INJ 40 MG/0.4 ML SYR SQ SCH (08:21)
[2022-03-26] MEDS: LETROZOLE 2.5 MG TAB PO SCH (08:21)
[2022-03-26] MEDS: VENLAFAXINE HCL XR 37.5 MG CAPXR PO SCH (08:22)
[2022-03-26] MEDS: VENLAFAXINE HCL XR 150 MG CAPXR PO SCH (08:22)
[2022-03-26 10:37] LABS: Adenovirus F 40/41 PCR Not Detected (NotDetected); Astrovirus PCR Not Detected (NotDetected); Campylobacter PCR Not Detected (NotDetected); Clostridium diff Toxin A/B PCR Not Detected (NotDetected); Cryptosporidium PCR Not Detected (NotDetected); Cyclospora cayetanensis PCR Not Detected (NotDetected); Entamoeba histolytica PCR Not Detected (NotDetected); Enteroaggregative E.coli(EAEC) Not Detected (NotDetected); Enteropathogenic E.coli (EPEC) Not Detected (NotDetected); Enterotoxigenic E.coli (ETEC) Not Detected (NotDetected); Giardia lamblia PCR Not Detected (NotDetected); Norovirus GI/GII PCR Not Detected (NotDetected); Plesiomonas shigelloides PCR Not Detected (NotDetected); Rotavirus A PCR Not Detected (NotDetected); Salmonella PCR Not Detected (NotDetected); Sapovirus PCR Not Detected (NotDetected); Shiga-like Toxin E.coli (STEC) Not Detected (NotDetected); Shigella/Enteroinvasive E.coli Not Detected (NotDetected); Vibrio cholerae PCR Not Detected (NotDetected); Vibrio species PCR Not Detected (NotDetected); Yersinia enterocolitica PCR Not Detected (NotDetected)
[2022-03-26] MEDS: LOPERAMIDE HCL 2 MG CAP PO PRN ×2 (14:50→20:34)
--- NOTE | 2022-03-26 16:38 | Hospitalist Progress Note ---
Date of Service March 26, 2022 Assessment & Plan (1) Nausea, vomiting and diarrhea: Plan: Stool studies negative; could be radiation-induced enterocolitissymptomatic treatment (2) Gallbladder calculus: Plan: HIDA negative; observe (3) Breast cancer metastasized to bone: Plan: Follows with [facility]. With expected pancytopenia from bone marrow suppression. Counts overall stable. - Starts Ibrance on Friday, 03/26 for her chemotherapy cycle - Next dose of Xgeva is 04/05 - Continue home letrozole 03/25: Neutropenia, noted dose reduction of Ibrance before, will solicit oncology input with respect to Ibrance and whether colony-stimulating factors indicated; not yet febrile neutropenia 03/26: ANC downtrend but still not less than 500; stimulating factors only if less than 500 per discussion with oncology; hold Ibrance for now (4) Anxiety: Plan: - Continue home venlafaxine 187.5 mg daily - Continue home Ativan PRN (5) Neutropenia: Plan: Likely Ibrance induced; as above (6) Proctocolitis: Plan: Suspect radiation induced at least in partsymptomatic treatment; noted history of blood streaking but inclined to observe (7) DVT prophylaxis: Plan: High risk patient with active cancer. - Lovenox 40 mg SQ daily DNR/DNI - Patient firmly reports DNR/DNI status with in room and aware of her decision. (8) Leukopenia: Admission and Anticipated Discharge Date Admission Date: March 24, 2022 Subjective Follow-up of presentation with nausea, vomiting, diarrheabetter earlier and then 4 bouts of diarrhea Physical Exam Physical Exam: Constitutional and general: No acute distress, looks biologic age Head and face: No puffiness, atraumatic Eyes: No scleral icterus, extraocular movements normal Neck: Supple, no JVD Musculoskeletal: No acute joint swelling, no bony abnormalities Skin/dermatologic/integument: No rash, no purpura Hematologic and lymphatic: pallor +, no petechia Gastrointestinal/abdomen: Nondistended, soft, nonacute Neurologic: Cranial nerves intact, nonfocal Psychiatry: Awake, alert, pleasant, communicative Cardiovascular: Heart rhythm regular, no rub, no murmur, no gallop Respiratory: Chest movements equal, no use of accessory muscles, no adventitious sounds Extremities: No edema, no cyanosis Results & Data Results & Data ([place]) Vital Signs (Past 12 Hours) Vital Signs Temp Pulse Resp BP Pulse Ox O2 Del Method 03/26/22 15:45 37.0 C 72 14 105/70 96 Room Air 03/26/22 07:44 36.7 C 70 14 101/64 97 Room Air Laboratory Results Laboratory Results - last 24 hr 03/26/22 03/26/22 03/26/22 06:05 06:05 08:45 WBC 1.58 L RBC 2.94 L Hgb 10.2 L Hct 29.4 L MCV 100.0 MCH 34.7 H MCHC 34.7 RDW Std Deviation 50.9 H RDW Coeff of Aga 13.9 Plt Count 143 MPV 8.5 L Immature Gran % (Auto) 0.0 Neut % (Auto) 42.5 Lymph % (Auto) 29.1 [place] % (Auto) 19.6 Eos % (Auto) 6.3 Baso % (Auto) 2.5 Neut # (Auto) 0.67 L* Lymph # (Auto) 0.46 L [place] # (Auto) 0.31 Eos # (Auto) 0.10 Baso # (Auto) 0.04 Immature Gran # (Auto) 0.00 Ovalocytes 1+ Sodium 140 Potassium 3.5 Chloride 105 Carbon Dioxide 32 Anion Gap 3 BUN 5 L Creatinine 0.52 L Est Cr Clr Drug Dosing 106.1 Est GFR ( Amer) 119.5 Est GFR (Non-Af Amer) 103.1 Fasting Glucose 87 Calcium 8.7 Phosphorus 2.9 Magnesium 1.8 Total Bilirubin 0.3 AST 20 ALT 21 Alkaline Phosphatase 33 L Total Protein 6.1 Albumin 3.6 Globulin 2.5 Albumin/Globulin Ratio 1.4 Stl C. cayetanensis PCR Not Detected Stool Rotavirus A PCR Not Detected Stl Adenov F 40/41 PCR Not Detected Stool Astrovirus (PCR) Not Detected Stool Campylobacter PCR Not Detected Stl C. diff Tox A/B PCR Not Detected Stool Cryptosporidium PCR Not Detected Stl E.coli Shiga Tox PCR Not Detected Stl Enterotoxigenic E PCR Not Detected Stool EPEC (PCR) Not Detected Stool EAEC (PCR) Not Detected Stl E. histolytica PCR Not Detected Stool Giardia [place]lia PCR Not Detected Stool Salmonella PCR Not Detected Stool Sapovirus (PCR) Not Detected Stl P. shigelloides PCR Not Detected Stl Shigella/EIEC PCR Not Detected St Y.enterocolitica PCR Not Detected Stool Vibrio (PCR) Not Detected Stl Vibrio cholerae PCR Not Detected Stl Norovirus GI/GII PCR Not Detected PG Care Time/CCT Total # of Minutes Spent Total Time Spent with Patient: Total time spent is greater than 50% in coordination of care (as documented) at patient's floor/unit and/or counseling patient: Coding Level of Care Code 57338 Subseq Hosp Care Lvl 2 Diagnoses Nausea, vomiting and diarrhea R11.2; R19.7 Gallbladder calculus K80.10 Biliary obstruction: without biliary obstruction Cholecystitis acuity: unspecified acuity Cholecystitis presence: with cholecystitis Breast cancer metastasized to bone C50.919; C79.51 Laterality: unspecified laterality Anxiety F41.9 Neutropenia D70.9 Proctocolitis K52.9 DVT prophylaxis Z29.9 Leukopenia D72.819 (1) Gallbladder calculus Biliary obstruction: without biliary obstruction Cholecystitis acuity: unspecified acuity Cholecystitis presence: with cholecystitis Qualified Code(s): K80.10 - Calculus of gallbladder with chronic cholecystitis without obstruction (2) Breast cancer metastasized to bone Laterality: unspecified laterality Qualified Code(s): C50.919 - Malignant neoplasm of unspecified site of unspecified female breast; C79.51 - Secondary malignant neoplasm of bone
[2022-03-26] MEDS: ACETAMINOPHEN 325 MG TAB PO PRN (20:34)
[2022-03-27] MEDS: ENOXAPARIN INJ 40 MG/0.4 ML SYR SQ SCH (06:13)
[2022-03-27 06:28] LABS: Hemoglobin 10.2 g/dl (12.0-16.0); Mean Corpuscular Hemoglobin 35.4 pg (25.0-34.0); Mean Corpuscular Hgb Conc 35.2 g/dL (32.0-36.0); Mean Corpuscular Volume 100.7 fL (80.0-100.0); Mean Platelet Volume 8.9 fL (9.4-12.3); Platelet Count 152 K/uL (130-400); RDW Standard Deviation 51.8 fL (36.4-46.3); Red Blood Count 2.88 M/uL (3.93-5.22); White Blood Count 1.83 K/ul (4.8-10.8)
[2022-03-27 06:52] LABS: Albumin Globulin Ratio 1.4 (0.9-2); Albumin Level 3.6 gm/dl (3.4-5.0); Bilirubin,Total 0.3 mg/dl (0.2-1.0); Calcium 8.7 mg/dl (8.5-10.1); Creatinine Clr Calc Pharmacy 112.6 ml/min; Est GFR (African American) 121.9 ml/min; Est GFR (Non-African American) 105.2 ml/min; Globulin 2.5 gm/dl (2.5-4.0); Magnesium 1.8 mg/dl (1.7-2.4); Phosphorus 3.4 mg/dl (2.5-4.9); Potassium 3.3 mmol/L (3.5-5.1); Total Protein 6.1 gm/dl (6.0-8.3)
[2022-03-27 06:53] LABS: Basophils # (auto) 0.07 K/uL (0-0.2); Basophils % (auto) 3.8 %; Eosinophils # (auto) 0.12 K/uL (0-0.50); Eosinophils % (auto) 6.6 %; Immature Granulocytes # (auto) 0.01 K/uL (0.00-0.02); Immature Granulocytes % (auto) 0.5 %; Lymphocytes # (auto) 0.57 K/uL (1.2-3.4); Lymphocytes % (auto) 31.1 %; Monocytes # (auto) 0.37 K/uL (0.24-0.82); Monocytes % (auto) 20.2 %; Neutrophils # (auto) 0.69 K/uL (1.4-6.5); Neutrophils % (auto) 37.8 %
[2022-03-27] MEDS ORDERED: POTASSIUM CHLORIDE CRTAB 20 MEQ TABCR PO STA (07:09)
--- NOTE | 2022-03-27 08:10 | Discharge Summary ---
Date of Service March 27, 2022 Admission HPI Per Admitting Provider 61yo F w/ hx of metastatic breast cancer who presents with nausea, vomiting, and diarrhea. She reports she was constipated for several days. She took a single dose of Milk of Magnesia on Friday, then on Friday began to have diarrhea. It was mostly watery initially without any blood or mucus. However, starting on , she noted some blood when she wiped. Yesterday, she felt that the stool was mostly water with just a small amount of stool in it. The stool had some mild bloody streaks on it, and she decided to present to the hospital. She denies any fevers or chills. She has not had chest pain or abdominal pain. She has not had any dysuria. She has had lots of nausea and some non-bloody emesis. She had stopped taking Zofran as she reports that someone in the radiation oncology office told her it causes constipation. Principal Diagnosis Diarrhea, exact etiology not certain Discharge Exam Constitutional and general: No acute distress, looks biologic age Head and face: No puffiness, atraumatic Eyes: No scleral icterus, extraocular movements normal Neck: Supple, no JVD Musculoskeletal: No acute joint swelling, no bony abnormalities Skin/dermatologic/integument: No rash, no purpura Hematologic and lymphatic: pallor +, no petechia Gastrointestinal/abdomen: Nondistended, soft, nonacute Neurologic: Cranial nerves intact, nonfocal Psychiatry: Awake, alert, pleasant, communicative Discharge Data Allergies Allergy/AdvReac Type Severity Reaction Status Date / Time No Known Allergies Allergy Verified 03/18/22 13:30 Consultations 03/24/22 15:25 ED Decision to Admit Stat Ordered Studies 03/24/22 12:01 CT abd pelvis IV con only Stat CT head/brain wo con Stat 03/24/22 13:37 US gallbladder Stat Hospital Course (1) Nausea, vomiting and diarrhea: Possibly secondary to radiation-induced enterocolitis or post chemo mucositis Symptomatic treatment, outpatient GI, if persists might merit lower GI endoscopy Discussed ongoing stay versus DCshe wants to go home; may have secondary lactose intolerance, lactose-free diet (2) Gallbladder calculus: HIDA negative; observe (3) Breast cancer metastasized to bone: Follows with [facility]. With expected pancytopenia from bone marrow suppression. Counts overall stable. - Starts Ibrance on Friday, 03/26 for her chemotherapy cycle - Next dose of Xgeva is 04/05 - Continue home letrozole 03/25: Neutropenia, noted dose reduction of Ibrance before, will solicit oncology input with respect to Ibrance and whether colony-stimulating factors indicated; not yet febrile neutropenia 03/26: ANC downtrend but still not less than 500; stimulating factors only if less than 500 per discussion with oncology; hold Ibrance for now 03/27: ANC stabilized to uptrend (4) Anxiety: - Continue home venlafaxine 187.5 mg daily - Continue home Ativan PRN (5) Neutropenia: Likely Ibrance induced; as above (6) Proctocolitis: See #1 Plan Hypokalemiareplace, follow electrolytes as output hold Ibrance, hold Xgeva till notified otherwise by oncology Total Time Total Time Spent Total Time Spent (In Minutes): 35 Discharge Plan Discharge Items Patient Disposition: Home - Self-Care Reason For Visit: NVD, POSSIBLE CHOLECYSTITIS Discharge Diagnosis: 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 Non-emergency contact: Primary Care Provider and Oncologist Call non-emergency contact if: your symptoms worsen Follow-up/Referrals: Shubham Torrez DO [Physician] - (Ongoing diarrhea) Ganesh Lovell MD [Primary Care Provider] - Soraya Kowalski MD [Family Provider] - (Known to you, metastatic breast cancer) Diet: Regular and Other - See Diet Comment Diet Comment: Avoid lactose Addtl Attending Provider Instructions: Do not take Ibrance or Xgeva till you hear from your oncologist Pending Studies at Discharge: No Stand-Alone Forms: [facility], Smoking Cessation Medications and DC Order Prescriptions: New loperamide 2 mg Capsule 2 mg PO Q4 PRN (Reason: loose stool) Qty: 30 0RF Continued venlafaxine [Effexor XR] 75 mg capsule,extended release 24hr 150 mg PO DAILY ondansetron HCl 8 mg tablet 8 mg PO Q12H PRN (Reason: Nausea And Vomiting) venlafaxine [Effexor XR] 37.5 mg capsule,extended release 24hr 37.5 mg PO DAILY tramadol 50 mg tablet 50 mg PO TID PRN (Reason: Pain) lorazepam 1 mg tablet 1 mg PO BID PRN (Reason: Anxiety) letrozole 2.5 mg tablet 2.5 mg PO DAILY Qty: 30 2RF albuterol sulfate 90 mcg/actuation aerosol powdr breath activated 2 inh inhalation Q6H PRN (Reason: Shortness Of Breath) Discontinued Xgeva 120 mg/1.7 mL (70 mg/mL) solution 120 mg subcut .COMPLEX Qty: 1.7 0RF Rx Instructions: 120 mg subcut MONTHLY; next dose 04/05/2022 Ibrance 75 mg tablet 100 mg PO DAILY Rx Instructions: administer on days 1 through 21 of a 28-day treatment cycle Discharge Orders: Discharge Order (Routine); Ordered 03/27/22 Ordered By: Renay Vo Admission Data Admit Date/Time: 03/26/22 16:34 Attending Provider: Renay Vo Admit Provider: Nigel Carbajal Primary Care Provider: Ganesh Lovell V. Other Providers: Nigel Carbajal Coding Level of Care Code D/C DAY MANAGEMENT >30 MINS Diagnoses Nausea, vomiting and diarrhea R11.2; R19.7 Gallbladder calculus K80.10 Biliary obstruction: without biliary obstruction Cholecystitis acuity: unspecified acuity Cholecystitis presence: with cholecystitis Breast cancer metastasized to bone C50.919; C79.51 Laterality: unspecified laterality Anxiety F41.9 Neutropenia D70.9 Proctocolitis K52.9
[2022-03-27] MEDS: ACETAMINOPHEN 325 MG TAB PO PRN (08:33)
[2022-03-27] MEDS: LETROZOLE 2.5 MG TAB PO SCH (08:34)
[2022-03-27] MEDS: VENLAFAXINE HCL XR 37.5 MG CAPXR PO SCH (08:34)
[2022-03-27] MEDS: VENLAFAXINE HCL XR 150 MG CAPXR PO SCH (08:34)
--- NOTE | 2022-03-27 11:04 | Communication Note ---
Date of Service: March 27, 2022 Loose stool with what appears to be fresh bleeding; initially per discussion with oncology outpatient GI referral for consideration of endoscopy if ongoing diarrhea placed; now that bleeding hold discharge, GI input-it is possible that they may still observe or consider sigmoidoscopy
--- NOTE | 2022-03-27 13:07 | Gastrointestinal Consultation ---
Date of Consultation March 27, 2022 Assessment & Plan (1) GI bleeding: Patient reporting both bright red and sarah stools. H/H 10.2/29.0. CT shows proctocolitis. -Keep NPO -Add Protonix 40 mg BID -Seems like lower GI bleeding based on CT findings, however patient is noting some sarah stools as well so we will plan for EGD & colonoscopy on 03/28/2022. -Clear liquid diet today, NPO after midnight -Dulcolax 20 mg total today at 3PM. At 6PM, mix 119 gm Miralax with 32 oz Gatorade and drink. At 3AM, mix another 119 gm Miralax with 32 oz Gatorade and drink. -Monitor H/H Supervising Physician Co-Signing Physician Notes Agree with IFRAH Andrade as above Gen: A+Ox3, cooperative, Chronic ill-appearing, NAD Chest: CTA B/L CVS: RRR Abd: Soft, NT, ND, +BS Ext: -c/c/e Still having Bright red blood per rectum Will start Bowel prep tonight Colonoscopy in AM with Dr. Acuña History of Present Illness Reason for Consultation: Rectal bleeding Attending Physician: Renay Vo MD History of Present Illness Patient is a 61 yo female who was to be discharged from the hospital today (03/27/22) after a brief stay for nausea, vomiting, & diarrhea. She had been constipated for several days prior to her admission, but then began to have jason rrhea. She began noticing blood with wiping. This had improved during her hospitalization and she was monitored conservatively by the hospitalist team. She underwent an evaluation to rule out acute cholecystitis. She is currently on treatment for metastatic breast cancer and follows closely with oncology. She has recently had radiation. She was to be discharged from the hospital today but then developed red/brown stools halting her discharge. H/H is presently 10.2/29.0. She reports her last colonoscopy was approximately 5 years ago in [place], [place]. She denies abdominal pain at present but was previously having right sided pain. She denies significant NSAID use. She has a history of acid reflux in the past but nothing recent. She notes that the stool has varied in presentation with some appearing like coffee-grounds and dark, some has been BRBPR, and most recently she notes a sarah stool. She had a CT scan of the abd/pelv on 03/24/22 that indicated a possible proctocolitis. Allergies Allergy/AdvReac Type Severity Reaction Status Date / Time No Known Allergies Allergy Verified 03/18/22 13:30 Home Medications Medication Instructions Recorded Confirmed Type albuterol sulfate 90 mcg/actuation 2 inh inhalation Q6H PRN Shortness 10/06/20 03/24/22 History breath activated powder inhaler Of Breath letrozole 2.5 mg tablet 2.5 mg PO DAILY #30 tabs 10/11/20 03/24/22 Rx ondansetron HCl 8 mg tablet 8 mg PO Q12H PRN Nausea And 01/10/21 03/24/22 History Vomiting venlafaxine 75 mg capsule,extended 150 mg PO DAILY 04/23/21 03/24/22 History release 24 hr (Effexor XR) lorazepam 1 mg tablet 1 mg PO BID PRN Anxiety 04/26/21 03/24/22 History tramadol 50 mg tablet 50 mg PO TID PRN Pain 09/13/21 03/24/22 History venlafaxine 37.5 mg 37.5 mg PO DAILY 09/13/21 03/24/22 History capsule,extended release 24 hr (Effexor XR) loperamide 2 mg capsule 2 mg PO Q4 PRN loose stool #30 caps 03/27/22 Rx Patient History Medical History (Updated 03/27/22 @ 13:04 by Hayde Williamson PA-C) Anxiety BRCA gene mutation negative Breast cancer metastasized to bone (~07/2020) History of chemotherapy Doxetaxel and Cyclophosphamide x4 cycles Herceptin x1 year Letrozole with Ibrance started 09/2020 Xgeva Malignant neoplasm of breast Polymyalgia rheumatica Rheumatoid arthritis Right foot pain Right shoulder pain Surgical History H/O lumpectomy Left Breast (2008 and 2009) History of biopsy (09/21/20) Right Breast History of biopsy (09/2020) Left Axillary Lymph Nodes S/P wisdom tooth extraction Family History Mother , Passed Age 74 Breast cancer, Onset Age: 46 COPD (chronic obstructive pulmonary disease) Grandmother (Maternal) , Passed Age 75 Breast cancer Grandmother (Paternal) , Passed Age 45 Breast cancer, Onset Age: 42 due to complication of Breast Cancer Aunt Breast cancer Uncle Myocardial infarction Bone cancer Father , Passed Age 92 COPD (chronic obstructive pulmonary disease) Prostate cancer, Onset Age: 60 Aunt Breast cancer Aunt Breast cancer Brother No problems noted. Brother Skin cancer Sister No problems noted. Son No problems noted. 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 How many Children do You have: 1 Feels Safe at Home: Yes Childhood Exposure to Second-Hand Smoke: Yes (Siblings) caffeine: Yes (daily) during the past year weight has: decreased > 10 lbs Dental Care, Regularly: Yes Physical Activity Frequency: Does not Exercise Seatbelt Use: always Assistive Devices: None Review of Systems Constitutional: no fever and no chills Respiratory: no cough and no dyspnea Cardiovascular: no chest pain Gastrointestinal: + blood in stools; no abdominal pain Musculoskeletal: no problem reported Integumentary: no problem reported Psychiatric: no problem reported Hematologic / Lymphatic: no easy bleeding and no unexplained weight loss Physical Exam Constitutional: WD/WN, vitals as above Respiratory: normal respiratory effort, lungs clear to auscultation Cardiovascular: RRR, no murmur, no edema Gastrointestinal (Abdomen): normal bowel sounds, soft, nontender, no hepatosplenomegaly Musculoskeletal: Head/Neck/Chest: normocephalic Psychiatric: Orientation: alert and oriented x 3 Results & Data ([facility]) Vital Signs (Past 12 Hours) Vital Signs Temp Pulse Resp BP Pulse Ox O2 Del Method 03/27/22 07:09 37.2 C 72 16 106/71 97 Room Air PG Care Time/CCT Total # of Minutes Spent Total Time Spent with Patient: Total time spent is greater than 50% in coordination of care (as documented) at patient's floor/unit and/or counseling patient: Coding Level of Care Code 88886 Inpt Consult Level 4 Diagnoses GI bleeding K92.2
[2022-03-27] MEDS ORDERED: bisacodyL 5 MG TABEC PO ONE (15:00)
--- NOTE | 2022-03-27 15:29 | Hospitalist Progress Note ---
Date of Service March 27, 2022 Assessment & Plan (1) GI bleeding: Plan: GI consulted; noted plan for endoscopy in a.m. (2) Nausea, vomiting and diarrhea: Plan: Etiology not completely clear still suspect possible radiation induced versus chemo induced mucositis (GI mucosa has a second highest turnover after bone marrow) (3) Gallbladder calculus: Plan: HIDA negative; observe (4) Breast cancer metastasized to bone: Plan: Follows with [facility]. With expected pancytopenia from bone marrow suppression. Counts overall stable. - Starts Ibrance on Friday, 03/26 for her chemotherapy cycle - Next dose of Xgeva is 04/05 - Continue home letrozole 03/25: Neutropenia, noted dose reduction of Ibrance before, will solicit oncology input with respect to Ibrance and whether colony-stimulating factors indicated; not yet febrile neutropenia 03/26: ANC downtrend but still not less than 500; stimulating factors only if less than 500 per discussion with oncology; hold Ibrance for now 03/27: ANC stabilized to uptrend (5) Anxiety: Plan: - Continue home venlafaxine 187.5 mg daily - Continue home Ativan PRN (6) Neutropenia: Plan: Likely Ibrance induced; on hold (7) Proctocolitis: Plan: See #1 Plan Follow anemia, repeat hemoglobin in pm Admission and Anticipated Discharge Date Admission Date: March 26, 2022 Subjective Follow-up of presentation with nausea, vomiting, diarrheawhen seen in a.m. somewhat better although still with diarrhea, wanted to go home with symptomatic treatment; subsequently bleeding per rectum with some maroon stools Physical Exam Physical Exam: Constitutional and general: No acute distress, looks biologic age Head and face: No puffiness, atraumatic Eyes: No scleral icterus, extraocular movements normal Neck: Supple, no JVD Musculoskeletal: No acute joint swelling, no bony abnormalities Skin/dermatologic/integument: No rash, no purpura Hematologic and lymphatic: pallor +, no petechia Gastrointestinal/abdomen: Nondistended, soft, nonacute Neurologic: Cranial nerves intact, nonfocal Psychiatry: Awake, alert, pleasant, communicative Results & Data Results & Data ([facility]) Vital Signs (Past 12 Hours) Vital Signs Temp Pulse Resp BP Pulse Ox O2 Del Method 03/27/22 07:09 37.2 C 72 16 106/71 97 Room Air Laboratory Results Laboratory Results - last 24 hr 03/27/22 03/27/22 05:32 05:32 WBC 1.83 L RBC 2.88 L Hgb 10.2 L Hct 29.0 L MCV 100.7 H MCH 35.4 H MCHC 35.2 RDW Std Deviation 51.8 H RDW Coeff of Aga 14.0 Plt Count 152 MPV 8.9 L Immature Gran % (Auto) 0.5 Neut % (Auto) 37.8 Lymph % (Auto) 31.1 [place] % (Auto) 20.2 Eos % (Auto) 6.6 Baso % (Auto) 3.8 Neut # (Auto) 0.69 L* Lymph # (Auto) 0.57 L [place] # (Auto) 0.37 Eos # (Auto) 0.12 Baso # (Auto) 0.07 Immature Gran # (Auto) 0.01 Sodium 140 Potassium 3.3 L Chloride 105 Carbon Dioxide 30 Anion Gap 5 BUN 6 Creatinine 0.49 L Est Cr Clr Drug Dosing 112.6 Est GFR ( Amer) 121.9 Est GFR (Non-Af Amer) 105.2 Fasting Glucose 83 Calcium 8.7 Phosphorus 3.4 Magnesium 1.8 Total Bilirubin 0.3 AST 19 ALT 23 Alkaline Phosphatase 33 L Total Protein 6.1 Albumin 3.6 Globulin 2.5 Albumin/Globulin Ratio 1.4 PG Care Time/CCT Total # of Minutes Spent Total Time Spent with Patient: Total time spent is greater than 50% in coordination of care (as documented) at patient's floor/unit and/or counseling patient: Coding Level of Care Code 05615 Subseq Hosp Care Lvl 2 Diagnoses GI bleeding K92.2 Nausea, vomiting and diarrhea R11.2; R19.7 Gallbladder calculus K80.10 Biliary obstruction: without biliary obstruction Cholecystitis acuity: unspecified acuity Cholecystitis presence: with cholecystitis Breast cancer metastasized to bone C50.919; C79.51 Laterality: unspecified laterality Anxiety F41.9 Neutropenia D70.9 Proctocolitis K52.9 (1) Gallbladder calculus Biliary obstruction: without biliary obstruction Cholecystitis acuity: unspecified acuity Cholecystitis presence: with cholecystitis Qualified Code(s): K80.10 - Calculus of gallbladder with chronic cholecystitis without obstruction (2) Breast cancer metastasized to bone Laterality: unspecified laterality Qualified Code(s): C50.919 - Malignant neoplasm of unspecified site of unspecified female breast; C79.51 - Secondary malignant neoplasm of bone
[2022-03-27] MEDS ORDERED: POLYETHYLENE (MIRALAX) 17 GM PACK PO ONE (18:00)
[2022-03-27] MEDS: PANTOprazole 40 MG in SYRINGE 0 ML IV SCH (19:24)
[2022-03-27 19:46] LABS: Hematocrit (blood only) 29.9 % (34.1-44.9); Hemoglobin 10.2 g/dl (12.0-16.0); Mean Corpuscular Hemoglobin 34.5 pg (25.0-34.0); Mean Corpuscular Hgb Conc 34.1 g/dL (32.0-36.0); Mean Platelet Volume 8.8 fL (9.4-12.3); Platelet Count 163 K/uL (130-400); RDW Coefficient of Variation 14.2 % (11.5-14.5); RDW Standard Deviation 52.3 fL (36.4-46.3); Red Blood Count 2.96 M/uL (3.93-5.22); White Blood Count 2.13 K/ul (4.8-10.8)
[2022-03-27 20:52] LABS: Basophils # (auto) 0.07 K/uL (0-0.2); Basophils % (auto) 3.3 %; Eosinophils # (auto) 0.14 K/uL (0-0.50); Eosinophils % (auto) 6.6 %; Immature Granulocytes # (auto) 0.01 K/uL (0.00-0.02); Immature Granulocytes % (auto) 0.5 %; Lymphocytes # (auto) 0.48 K/uL (1.2-3.4); Lymphocytes % (auto) 22.5 %; Monocytes # (auto) 0.44 K/uL (0.24-0.82); Monocytes % (auto) 20.7 %; Neutrophils # (auto) 0.99 K/uL (1.4-6.5); Neutrophils % (auto) 46.4 %
[2022-03-28] MEDS ORDERED: POLYETHYLENE (MIRALAX) 17 GM PACK PO ONE ×2 (03:00)
[2022-03-28 06:42] LABS: Basophils # (auto) 0.07 K/uL (0-0.2); Basophils % (auto) 2.9 %; Eosinophils # (auto) 0.16 K/uL (0-0.50); Eosinophils % (auto) 6.6 %; Hematocrit (blood only) 32.9 % (34.1-44.9); Hemoglobin 11.4 g/dl (12.0-16.0); Immature Granulocytes # (auto) 0.01 K/uL (0.00-0.02); Immature Granulocytes % (auto) 0.4 %; Lymphocytes # (auto) 0.52 K/uL (1.2-3.4); Lymphocytes % (auto) 21.4 %; Mean Corpuscular Hgb Conc 34.7 g/dL (32.0-36.0); Mean Corpuscular Volume 100.9 fL (80.0-100.0); Mean Platelet Volume 8.8 fL (9.4-12.3); Monocytes # (auto) 0.35 K/uL (0.24-0.82); Monocytes % (auto) 14.4 %; Neutrophils # (auto) 1.32 K/uL (1.4-6.5); Neutrophils % (auto) 54.3 %; Platelet Count 185 K/uL (130-400); RDW Standard Deviation 51.8 fL (36.4-46.3); Red Blood Count 3.26 M/uL (3.93-5.22); White Blood Count 2.43 K/ul (4.8-10.8)
[2022-03-28 07:05] LABS: Albumin Globulin Ratio 1.5 (0.9-2); Albumin Level 4.3 gm/dl (3.4-5.0); Bilirubin,Total 0.3 mg/dl (0.2-1.0); Calcium 9.2 mg/dl (8.5-10.1); Creatinine Clr Calc Pharmacy 106.1 ml/min; Est GFR (African American) 119.5 ml/min; Est GFR (Non-African American) 103.1 ml/min; Globulin 2.9 gm/dl (2.5-4.0); Magnesium 1.9 mg/dl (1.7-2.4); Phosphorus 3.6 mg/dl (2.5-4.9); Potassium 3.4 mmol/L (3.5-5.1); Total Protein 7.2 gm/dl (6.0-8.3)
[2022-03-28] MEDS: ENOXAPARIN INJ 40 MG/0.4 ML SYR SQ SCH (07:14)
[2022-03-28] MEDS: PANTOprazole 40 MG in SYRINGE 0 ML IV SCH (08:01)
[2022-03-28] MEDS: POTASSIUM CHLORIDE / WTR 10 MEQ/100 ML PLCT IV SCH ×2 (09:23→11:02)
--- NOTE | 2022-03-28 09:49 | History & Physical Bridge Note ---
Date of Service March 28, 2022 History & Physical Bridge Note I have examined the patient, reviewed the History & Physical and in the interval since the performance of the History & Physical I have noted the following changes of clinical significance: no changes noted Patient notes that she has consumed the majority of her prep and is now having clear stools. H/H 11.4/32.9. She did have some blood while prepping. We discussed that she needs to be strictly NPO and we will proceed with EGD this afternoon.
--- NOTE | 2022-03-28 14:46 | Anesthesiology Consultation ---
Date of Service March 28, 2022 Assessment & Plan Chart Review Chart Review: Acceptable Risk for Surgery Consults Requested none Teaching & Discussion Detailed discussion about DNR status. 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 Arianne Acuña MD Height/Weight Height: 5 ft 4 in Weight: 65.9 kg Allergies Allergy/AdvReac Type Severity Reaction Status Date / Time No Known Allergies Allergy Verified 03/28/22 13:39 Medications Home Medications Medication Instructions Recorded Confirmed Last Taken albuterol sulfate 90 mcg/actuation 2 inh inhalation Q6H PRN Shortness 10/06/20 03/24/22 Unknown breath activated powder inhaler Of Breath letrozole 2.5 mg tablet 2.5 mg PO DAILY #30 tabs 10/11/20 03/24/22 Unknown ondansetron HCl 8 mg tablet 8 mg PO Q12H PRN Nausea And 01/10/21 03/24/22 Unknown Vomiting venlafaxine 75 mg capsule,extended 150 mg PO DAILY 04/23/21 03/24/22 Unknown release 24 hr (Effexor XR) lorazepam 1 mg tablet 1 mg PO BID PRN Anxiety 04/26/21 03/24/22 Unknown tramadol 50 mg tablet 50 mg PO TID PRN Pain 09/13/21 03/24/22 Unknown venlafaxine 37.5 mg 37.5 mg PO DAILY 09/13/21 03/24/22 Unknown capsule,extended release 24 hr (Effexor XR) loperamide 2 mg capsule 2 mg PO Q4 PRN loose stool #30 caps 03/27/22 Unknown Active Medications Generic Name Dose Route Start Last Admin Trade Name Freq PRN Reason Stop Dose Admin Acetaminophen 650 mg 03/24/22 20:37 03/27/22 08:33 Acetaminophen 325 Mg Tab PO 04/23/22 20:36 650 mg Q4H PRN Administration pain/fever Enoxaparin Sodium 40 mg 03/25/22 07:00 03/28/22 07:14 Enoxaparin Inj 40 Mg/0.4 Ml Syr SQ 04/24/22 06:59 Not Given Q24H JAMES Pantoprazole Sodium 40 mg/ 10 mls @ 5 mls/min 03/27/22 21:00 03/28/22 08:01 Syringe IV 04/26/22 20:59 5 mls/min BID JAMES Administration Letrozole 2.5 mg 03/25/22 09:00 03/27/22 08:34 Letrozole 2.5 Mg Tab PO 04/24/22 08:59 2.5 mg DAILY JAMES Administration Loperamide HCl 2 mg 03/26/22 14:01 03/26/22 20:34 Loperamide Hcl 2 Mg Cap PO 04/25/22 14:00 2 mg Q6 PRN Administration Diarrhea Lorazepam 1 mg 03/24/22 20:37 03/25/22 22:44 Lorazepam 1 Mg Tab PO 04/23/22 20:36 1 mg TID PRN Administration Anxiety Venlafaxine HCl 37.5 mg 03/25/22 09:00 03/27/22 08:34 Venlafaxine Hcl Xr 37.5 Mg Capxr PO 04/24/22 08:59 37.5 mg DAILY JAMES Administration Venlafaxine HCl 150 mg 03/25/22 09:00 03/27/22 08:34 Venlafaxine Hcl Xr 150 Mg Capxr PO 04/24/22 08:59 150 mg DAILY JAMES Administration NPO Date Last Intake of Fluids: 03/28/22 Time Last Intake of Fluids: 10:30 Date Last Intake of Solids: 03/23/22 Time Last Intake of Solids: 15:00 Past Medical History Medical History Anxiety BRCA gene mutation negative Breast cancer metastasized to bone (~07/2020) History of chemotherapy Doxetaxel and Cyclophosphamide x4 cycles Herceptin x1 year Letrozole with Ibrance started 09/2020 Xgeva Malignant neoplasm of breast Polymyalgia rheumatica Rheumatoid arthritis Right foot pain Right shoulder pain Exercise / Class Metabolic Activity III < 4 Walking/Shop/Light housework Past Family History Family History Mother , Passed Age 74 Breast cancer, Onset Age: 46 COPD (chronic obstructive pulmonary disease) Grandmother (Maternal) , Passed Age 75 Breast cancer Grandmother (Paternal) , Passed Age 45 Breast cancer, Onset Age: 42 due to complication of Breast Cancer Aunt Breast cancer Uncle Myocardial infarction Bone cancer Father , Passed Age 92 COPD (chronic obstructive pulmonary disease) Prostate cancer, Onset Age: 60 Aunt Breast cancer Aunt Breast cancer Brother No problems noted. Brother Skin cancer Sister No problems noted. Son No problems noted. Denies family history of Ovarian cancer Colorectal cancer Uterine cancer Past Surgical History Surgical History H/O lumpectomy Left Breast (2008 and 2009) History of biopsy (09/21/20) Right Breast History of biopsy (09/2020) Left Axillary Lymph Nodes S/P wisdom tooth extraction Past Anesthesia History No Hx of Anesthesia Complications and No Family Hx of Anesthesia Complications History of PONV No Hx of PONV and No Hx of Motion Sickness Social History Smoking Status: Never smoker Hx Alcohol Use: No Hx Substance Use: No Review of Systems Constitutional: as per Subjective / HPI Eyes: as per Subjective / HPI Ear, Nose, Mouth, Throat: as per Subjective / HPI Respiratory: as per Subjective / HPI Cardiovascular: as per Subjective / HPI Gastrointestinal: as per Subjective / HPI Genitourinary (Female): as per Subjective / HPI Musculoskeletal: as per Subjective / HPI Integumentary: as per Subjective / HPI Neurologic: as per Subjective / HPI Psychiatric: as per Subjective / HPI Endocrine: as per Subjective / HPI Hematologic / Lymphatic: as per Subjective / HPI Allergy / Immunological: as per Subjective / HPI Physical Exam Vital Signs Last Vital Signs Temp 36.7 C 03/28/22 07:40 Pulse 64 03/28/22 07:40 Resp 16 03/28/22 07:40 BP 118/77 03/28/22 07:40 Pulse Ox 96 03/28/22 07:40 O2 Del Method 03/27/22 23:43 ENMT Mouth: no TMJ abnormality and no dentition abnormality Thyromental Distance: > or= 3.5 Finger Breadths Mallampati Class: II Neck normal visual inspection Respiratory normal respiratory effort Auscultation: lungs clear to auscultation bilaterally Cardiovascular Rate/Rhythm: regular rate and regular rhythm Heart Sounds: no murmur Neurologic moves all extremities Psychiatric Orientation: alert and oriented x 3 Testing Laboratory Results 03/28/22 05:49 03/28/22 05:49 PT 10.5 Seconds (9.0-12.0) 03/24/22 12:16 INR 1.0 (0.9-1.1) 03/24/22 12:16 APTT 24.5 Seconds (21.0-31.0) 03/24/22 12:16 Urine Color Yellow 03/24/22 18:01 Urine Appearance Clear (Clear) 03/24/22 18:01 Urine pH 6.5 (4.5-7.5) 03/24/22 18:01 Ur Specific [place] 1.018 (1.000-1.030) 03/24/22 18:01 Urine Protein Negative (Negative) 03/24/22 18:01 Urine Glucose (UA) Negative (Negative) 03/24/22 18:01 Urine Ketones Negative (Negative) 03/24/22 18:01 Urine Nitrite Negative (Negative) 03/24/22 18:01 Ur Leukocyte Esterase Negative (Negative) 03/24/22 18:01 03/24/22 13:13 Aerobic Blood Culture - Preliminary Blood No growth in Aerobic bottle after 48 hours. Anaerobic Blood Culture - Final 03/24/22 12:16 Aerobic Blood Culture - Preliminary Blood No growth in Aerobic bottle after 48 hours. Anaerobic Blood Culture - Preliminary No growth in Anaerobic bottle after 48 hours.
--- NOTE | 2022-03-28 14:49 | Anesthesiology Progress Note ---
Date of Service March 28, 2022 Anesthesia Post Procedure Vital Signs Vital Signs: Temp Pulse Resp BP Pulse Ox O2 Del Method 03/28/22 07:40 36.7 C 64 16 118/77 96 03/27/22 23:43 37.0 C 91 H 17 93/59 L 99 Room Air 03/27/22 15:33 37.0 C 83 20 106/69 95 Room Air Pain Intensity Head: Pain Intensity: 3 Right Hip: Pain Intensity: 2 Transfer of Care Handoff Completed per policy Notes Mental Status: alert / awake / arousable and participated in evaluation Patient Amnestic to Procedure: Yes Nausea / Vomiting: adequately controlled Pain: adequately controlled Airway Patency, RR, SpO2: stable & adequate BP & HR: stable & adequate Hydration State: stable & adequate Anesthetic Complications: no major complications apparent and Pt Satisfied with anesthetic care
[2022-03-28] MEDS ORDERED: ONDANSETRON INJ 2 MG/ML 2 ML VIAL ONE (14:50)
[2022-03-28] MEDS ORDERED: GLYCOPYRROLATE 0.2 MG/ML VIAL ONE (14:50)
[2022-03-28] MEDS ORDERED: LIDOCAINE 2% MPF LOCAL 5 ML VIAL INFIL ONE (14:50)
[2022-03-28] MEDS ORDERED: PROPOFOL IV EMULSION 10 MG/ML 20 ML VIAL IV ONE ×2 (14:50→15:06)
--- NOTE | 2022-03-28 15:13 | GI REPORT ---
Patient Name: Divya Colon Procedure Date: 03/28/2022 2:36 PM Date of : 1960 Admit Type: Inpatient Age: 61 Gender: Female Attending MD: Miky Acuña MD Procedure: Upper GI endoscopy Providers: Miky Acuña MD Referring MD: Referred Self, Renay Vo Md Indications: Gastrointestinal bleeding of unknown origin Medicines: Monitored Anesthesia Care Complications: No immediate complications. Estimated blood loss: None. Estimated Blood Loss: Estimated blood loss: none. Procedure: Pre-Anesthesia Assessment: - Prior Anticoagulants: The patient has taken no previous anticoagulant or antiplatelet agents. - ASA Grade Assessment: II - A patient with mild systemic disease. After obtaining informed consent, the endoscope was passed under direct vision. Throughout the procedure, the patient's blood pressure, pulse, and oxygen saturations were monitored continuously. The Colonoscope was introduced through the mouth, and advanced to the second part of duodenum. The upper GI endoscopy was accomplished without difficulty. The patient tolerated the procedure well. Findings: The examined esophagus was normal. The entire examined stomach was normal. The duodenal bulb and second portion of the duodenum were normal. Impression: - Normal esophagus. - Normal stomach. - Normal duodenal bulb and second portion of the duodenum. - No specimens collected. Recommendation: - [facility]. - Advance diet as tolerated today. Miky Acuña MD 03/28/2022 3:12:18 PM This report has been signed electronically. Note Initiated On: 03/28/2022 2:36 PM Number of Addenda: 0 I attest to the content of the Intraoperative Record and orders documented therein, exceptions below {[id number]}
--- NOTE | 2022-03-28 15:14 | GI REPORT ---
Addendum Number: 1 Addendum Date: 03/28/2022 3:15:13 PM correction: return patient to [facility] for ongoing care. Miky Acuña MD 03/28/2022 3:15:33 PM This report has been signed electronically. Patient Name: Divya Colon Procedure Date: 03/28/2022 2:35 PM Date of : 1960 Admit Type: Inpatient Age: 61 Gender: Female Attending MD: Miky Acuña MD Procedure: Colonoscopy Providers: Miky Acuña MD Referring MD: Referred Self, Renay Vo Md Indications: Gastrointestinal bleeding Medicines: Monitored Anesthesia Care Complications: No immediate complications. Estimated blood loss: None. Estimated Blood Loss: Estimated blood loss: none. Procedure: Pre-Anesthesia Assessment: - Prior Anticoagulants: The patient has taken no previous anticoagulant or antiplatelet agents. - ASA Grade Assessment: II - A patient with mild systemic disease. After I obtained informed consent, the scope was passed under direct vision. Throughout the procedure, the patient's blood pressure, pulse, and oxygen saturations were monitored continuously. The Colonoscope was introduced through the anus and advanced to the cecum, identified by appendiceal orifice and ileocecal valve. The colonoscopy was performed without difficulty. The patient tolerated the procedure well. The quality of the bowel preparation was fair. Findings: A localized area of mildly granular mucosa was found in the ascending colon at 95 cm from the anus. Biopsies were taken with a cold forceps for histology. Estimated blood loss: none. A few small-mouthed diverticula were found in the sigmoid colon. Non-bleeding internal hemorrhoids were found. The hemorrhoids were small. Impression: - Preparation of the colon was fair. - Granular mucosa in the ascending colon. Biopsied. - Diverticulosis in the sigmoid colon. - Non-bleeding internal hemorrhoids. Recommendation: - Discharge patient to home (with escort). - Resume previous diet today. - Await pathology results. Miky Acuña MD 03/28/2022 3:14:05 PM This report has been signed electronically. Note Initiated On: 03/28/2022 2:35 PM Number of Addenda: 1 I attest to the content of the Intraoperative Record and orders documented therein, exceptions below {[id number]}
[2022-03-28 15:52] VITALS: BP 104/71; PULSE 71; TEMP 97.9; O2SAT 100
--- NOTE | 2022-03-28 16:48 | Discharge Summary ---
Date of Service March 28, 2022 Admission HPI Per Admitting Provider 61yo F w/ hx of metastatic breast cancer who presents with nausea, vomiting, and diarrhea. She reports she was constipated for several days. She took a single dose of Milk of Magnesia on Friday, then on Friday began to have diarrhea. It was mostly watery initially without any blood or mucus. However, starting on , she noted some blood when she wiped. Yesterday, she felt that the stool was mostly water with just a small amount of stool in it. The stool had some mild bloody streaks on it, and she decided to present to the hospital. She denies any fevers or chills. She has not had chest pain or abdominal pain. She has not had any dysuria. She has had lots of nausea and some non-bloody emesis. She had stopped taking Zofran as she reports that someone in the radiation oncology office told her it causes constipation. Principal Diagnosis Diarrheaexact etiology not certain Discharge Exam No acute distress Abdomen benign Looks well Vital Signs Temp Pulse Resp BP Pulse Ox O2 Del Method 03/28/22 15:51 36.6 C 71 14 104/71 100 03/28/22 15:41 74 18 114/65 99 Room Air 03/28/22 15:26 79 18 102/59 L 100 Room Air 03/28/22 15:12 94 H 18 92/53 L 97 Room Air 03/28/22 07:40 36.7 C 64 16 118/77 96 03/27/22 23:43 37.0 C 91 H 17 93/59 L 99 Room Air Intake and Output 03/28/22 03/28/22 03/28/22 06:59 14:59 22:59 Intake Total 950 / 1630 200 / 200 Output Total 3 / 3 Balance 950 / 1630 197 / 197 Intake: IV 200 / 200 Potassium Chloride / Wtr 10 meq 200 / 200 In 100 ml @ 100 mls/hr IV Q1H JAMES Rx#:[id number] Oral 950 / 1630 Output: # Bowel Movements 3 / 3 Other: Other Intake Source miralax in 32oz powerade # Unmeasured Voids 1 1 Weight 65.9 kg Patient Weight 03/29/22 06:59 Weight 65.9 kg Discharge Data Allergies Allergy/AdvReac Type Severity Reaction Status Date / Time No Known Allergies Allergy Verified 03/28/22 13:39 Consultations 03/24/22 15:25 ED Decision to Admit Stat 03/27/22 11:02 Consult Gastroenterology Routine Procedures Performed Operation Date: 03/28/22 17:00 Actual Procedures p Esophagogastroduodenoscopy - Miky Acuña MD s Colonoscopy Biopsy Cytology - Miky Acuña MD Ordered Studies 03/24/22 12:01 CT abd pelvis IV con only Stat CT head/brain wo con Stat 03/24/22 13:37 US gallbladder Stat Hospital Course (1) GI bleeding: No more bleeding; hemoglobin if at all better; colonoscopy; granular mucosa in ascending colonbiopsied and results pending; uncertain if any relation to bleeding; EGD normalshe wants to go home (2) Nausea, vomiting and diarrhea: Etiology not completely clear but appears to be resolvedsymptomatic treatment (3) Gallbladder calculus: HIDA negative; observe (4) Breast cancer metastasized to bone: ANC now more than thousand; continue all prior therapy including Ibrance and Xgeva on discharge; oncology follow-up (5) Anxiety: - Continue home venlafaxine 187.5 mg daily - Continue home Ativan PRN (6) Neutropenia: ANC improvingfollow Total Time Total Time Spent Total Time Spent (In Minutes): 25 Discharge Plan Discharge Items Patient Disposition: Home - Self-Care Reason For Visit: NVD, POSSIBLE CHOLECYSTITIS Discharge Diagnosis: Diarrheaexact etiology not clear Activity: As commented below Activity Comment: As tolerated. Non-emergency contact: Primary Care Provider and Oncologist Call non-emergency contact if: your symptoms worsen Follow-up/Referrals: Cathy Conde PA-C [Physician Peeler Operator] - 04/03/22 11:00 am (Please follow up with Cathy Conde PA-C on Friday04/03/22 at 11:00 am. Please arrive to the office at 10:45 am for your appointment. If you are unable to keep this appointment, please call the office to reschedule at [phone].) Shubham Torrez DO [Physician] - (Ongoing diarrhea. Needs outpatient colonoscopy per hospitalist) Ganesh Lovell MD [Primary Care Provider] - (Follow up appointment scheduled with Cathy Conde PA-C.) Soraya Kowalski MD [Family Provider] - (Dr. Kowalski's office will contact you to schedule follow up appointment.) Diet: Regular Addtl Attending Provider Instructions: -return immediately if fever Take Ibrance and Xgeva as previously instructed Do not drive till 24 hours after today's procedures Pending Studies at Discharge: No Stand-Alone Forms: [facility] [place], Smoking Cessation Medications and DC Order Prescriptions: New loperamide 2 mg Capsule 2 mg PO Q4 PRN (Reason: loose stool) Qty: 30 0RF Ibrance 100 mg capsule 100 mg PO DAILY Qty: 28 0RF Rx Instructions: administer on days 1 through 21 of a 28-day treatment cycle Xgeva 120 mg/1.7 mL (70 mg/mL) solution 120 mg subcut .qmonth Qty: 1.7 0RF Continued venlafaxine [Effexor XR] 75 mg capsule,extended release 24hr 150 mg PO DAILY ondansetron HCl 8 mg tablet 8 mg PO Q12H PRN (Reason: Nausea And Vomiting) venlafaxine [Effexor XR] 37.5 mg capsule,extended release 24hr 37.5 mg PO DAILY tramadol 50 mg tablet 50 mg PO TID PRN (Reason: Pain) lorazepam 1 mg tablet 1 mg PO BID PRN (Reason: Anxiety) letrozole 2.5 mg tablet 2.5 mg PO DAILY Qty: 30 2RF albuterol sulfate 90 mcg/actuation aerosol powdr breath activated 2 inh inhalation Q6H PRN (Reason: Shortness Of Breath) Discontinued Xgeva 120 mg/1.7 mL (70 mg/mL) solution 120 mg subcut .COMPLEX Qty: 1.7 0RF Rx Instructions: 120 mg subcut MONTHLY; next dose 04/05/2022 Ibrance 75 mg tablet 100 mg PO DAILY Rx Instructions: administer on days 1 through 21 of a 28-day treatment cycle Discharge Orders: Discharge Order (Routine); Ordered 03/28/22 Ordered By: Renay Liriano/Other Patient Handouts: Self-Care for Vomiting and Diarrhea Admission Data Admit Date/Time: 03/26/22 16:34 Attending Provider: Renay Vo Admit Provider: Nigel Carbajal Primary Care Provider: Ganesh Lovell V. Other Providers: Nigel Carbajal ; Shubham Torrez Other Interventions: Discharge Summary Assessment (RN) Last Done: 03/28/22 15:16 Coding Level of Care Code D/C DAY MANAGEMENT <30 MINS Diagnoses GI bleeding K92.2 Nausea, vomiting and diarrhea R11.2; R19.7 Gallbladder calculus K80.10 Biliary obstruction: without biliary obstruction Cholecystitis acuity: unspecified acuity Cholecystitis presence: with cholecystitis Breast cancer metastasized to bone C50.919; C79.51 Laterality: unspecified laterality Anxiety F41.9 Neutropenia D70.9
[2022-03-28] MEDS: LETROZOLE 2.5 MG TAB PO SCH (17:06)
[2022-03-28] MEDS: VENLAFAXINE HCL XR 37.5 MG CAPXR PO SCH (17:06)
[2022-03-28] MEDS: VENLAFAXINE HCL XR 150 MG CAPXR PO SCH (17:06)
--- NOTE | 2022-05-28 06:27 | Coding Query ---
CODING QUERY To promote full compliance with coding requirements relating to patient care, provider participation is requested in all cases of voltage tester uncertainty. Please assist us with the question(s) below: Coding Question(s): Please clarify if the gallbladder calculus was ruled out. Physician's Response(s): Thank you Anny Schreiber Principal Diagnosis: "that condition established after study, to be chiefly responsible for occasioning the admission of the patient to the hospital for care." Co-Existing Principal Diagnosis: "when two or more diagnoses equally meet the criteria for principal diagnosis as determined by the circumstances of admission, diagnostic work up, and/or therapy provided, and the Alphabetic Index, Tabular List, or another coding guideline does not provide sequencing direction, any one of the diagnoses may be sequenced first." "When the physician has documented what appears to be a current diagnosis in the body of the record, but has not included the diagnosis in the final diagnostic statement, the physician should be asked whether the diagnosis should be added." (Source [facility] 2 QTR90. p3-4) FABBY
--- NOTE | 2022-06-18 08:33 | Coding Query ---
CODING QUERY To promote full compliance with coding requirements relating to patient care, provider participation is requested in all cases of medical records coder uncertainty. Please assist us with the question(s) below: Coding Question(s): Please clarify if the gallbladder calculus was ruled out. Physician's Response(s):patient had a gallbladder calculous on ultrasound. her HIDA scan was negative. but she does have gallstones. Thank you Anny Schreiber Principal Diagnosis: "that condition established after study, to be chiefly responsible for occasioning the admission of the patient to the hospital for care." Co-Existing Principal Diagnosis: "when two or more diagnoses equally meet the criteria for principal diagnosis as determined by the circumstances of admission, diagnostic work up, and/or therapy provided, and the Alphabetic Index, Tabular List, or another coding guideline does not provide sequencing direction, any one of the diagnoses may be sequenced first." "When the physician has documented what appears to be a current diagnosis in the body of the record, but has not included the diagnosis in the final diagnostic statement, the physician should be asked whether the diagnosis should be added." (Source Coding [facility] 2 QTR90. p3-4) FABBY
== END 2022-03-28 17:46 | disposition home or self-care (01) | DRG 392 ==
LOC: ED 11:47 → 3E 11:47 → SUATTDRO 16:47 → 3E 20:00
DX: Z66 Do not resuscitate; K80.20 Calculus of gallbladder without cholecystitis without obstruction; K57.90 Diverticulosis of intestine, part unspecified, without perforation or abscess without bleeding; D89.9 Disorder involving the immune mechanism, unspecified; C50.919 Malignant neoplasm of unspecified site of unspecified female breast; K62.5 Hemorrhage of anus and rectum; E87.6 Hypokalemia; D61.818 Other pancytopenia; K64.8 Other hemorrhoids; F41.9 Anxiety disorder, unspecified; R19.7 Diarrhea, unspecified; C79.51 Secondary malignant neoplasm of bone

== ENCOUNTER 2024-08-13 20:14 | Inpatient (IN) ==
[2024-08-13] MEDS: SODIUM CHLORIDE 0.9% 1,000 ML IV STA (21:12)
[2024-08-13] MEDS: ONDANSETRON INJ 2 MG/ML 2 ML VIAL IV STA (21:13)
[2024-08-13] MEDS: PROMETHAZINE 25 MG/51 ML BAG IV STA (21:32)
[2024-08-13] MEDS: FAMOTIDINE 20MG IV PUSH 20 MG/5 ML SYR IV STA (21:32)
[2024-08-13 21:34] LABS: Albumin Globulin Ratio 1.5 (0.9-2); Albumin Level 3.9 gm/dl (3.4-5.0); Bilirubin,Total 0.8 mg/dl (0.2-1.0); Calcium 9.1 mg/dl (8.6-10.3); Creatinine Clr Calc Pharmacy 103.7 ml/min; Globulin 2.6 gm/dl (2.5-4.0); Potassium 3.7 mmol/L (3.5-5.1); Total Protein 6.5 gm/dl (6.0-8.3)
[2024-08-13 21:38] LABS: INR 1.1 (0.9-1.1); Prothrombin Time 11.9 Seconds (9.0-12.0)
[2024-08-13 21:40] LABS: Troponin I High Sensitivity 3.1 pg/ml (0-14)
[2024-08-13 21:45] LABS: Basophils # (auto) 0.05 K/uL (0.00-0.20); Basophils % (auto) 1.4 %; Eosinophils # (auto) 0.14 K/uL (0.00-0.50); Eosinophils % (auto) 3.9 %; Immature Granulocytes # (auto) 0.04 K/uL (0.01-0.20); Immature Granulocytes % (auto) 1.1 %; Lymphocytes # (auto) 0.29 K/uL (1.20-3.40); Mean Corpuscular Hemoglobin 35.1 pg (25.0-34.0); Mean Corpuscular Hgb Conc 35.7 g/dL (32.0-36.0); Mean Corpuscular Volume 98.2 fL (80.0-100.0); Mean Platelet Volume 9.4 fL (9.4-12.4); Monocytes # (auto) 0.37 K/uL (0.11-0.59); Monocytes % (auto) 10.2 %; Neutrophils # (auto) 2.72 K/uL (1.40-6.50); Neutrophils % (auto) 75.4 %; Nucleated RBC # (auto) 0.02 K/uL (0.00-0.12); Nucleated RBC % (auto) 0.6 %; Platelet Count 167 K/uL (130-400); RDW Coefficient of Variation 13.6 % (11.5-14.5); RDW Standard Deviation 49.5 fL (36.4-46.3); Red Blood Count 2.85 M/uL (4.20-5.40); White Blood Count 3.61 K/ul (4.8-10.8)
--- NOTE | 2024-08-13 21:58 | Emergency Department Note ---
Impression & Plan Metastatic disease, Appendicitis, Gastric mass, Intractable nausea and vomiting ED Provider Note NAME: WANG AU AGE: 63 SEX: F : 1960 ARRIVES VIA: Walk-In INFORMANT: Patient ED PROVIDER(S): Jean Claude Burleson MD CHIEF COMPLAINT: Nausea, vomiting PLAN: Disposition: Admit MEDICAL DECISION MAKING: The patient is a 63-year-old woman with a past medical history of metastatic breast cancer on oral chemotherapy who presents to the emergency department via walk-in accompanied by her for evaluation of ongoing nausea and vomiting for the past couple weeks which became worse over the past 24 hours in the setting of having endoscopy on Friday for biopsy of gastric lesion as well as bone graft from the left iliac. Patient reports she has been unable to keep down her oral chemotherapy and has had poor oral intake. She reports pain at the site of her left iliac biopsy. She denies any abdominal pain. She denies any fevers, cough, congestion, urinary symptoms. On my evaluation the patient is acute on chronically ill-appearing but no acute distress, afebrile with stable vital signs. She appears clinically dry. Abdomen is nontender. EKG without overt acute ischemia. WBC 3.6K without neutrophilia or left shift. H/H approximate 2 prior range values. Platelets within normal limits. Chemistry without metabolic acidosis. AST and ALT are 116 and 87, respectively, slightly increased from prior. Total bilirubin within normal limits. High-sensitivity troponin 3.1, within normal limits. Procalcitonin is not elevated. UA without evidence of infection. Respiratory BioFire was negative. CT of the abdomen pelvis was performed and demonstrates appendix measuring 1 cm with surrounding inflammatory change and fluid. However, additional note is made of focal thickening of the wall of the rectum as well as the wall of the stomach which had recently been assessed for malignancy given recent PET scan. Nonspecific thickening of the wall of the ascending and transverse colon is described. Additional note is made of nodularity of the omentum consistent with metastatic disease. Diffuse osseous metastases are described. Additional description of airspace opacities in lower lobes is noted. Findings were reviewed with the patient on reassessment and she did report improvement in her nausea though still present. Abdomen remained nontender. Thus, unclear if CT findings of the appendix reflect appendicitis versus malignancy. Blood cultures were ordered and empiric treatment initiated with IV Zosyn. Case was discussed with [facility] general surgery REYNA with Dr. Cl camacho on-call. Appreciate consultation and recommendations. Recommend IV antibiotics admission to medicine service. Case was discussed with JERRI Hurd hospitalist, who will evaluate the patient for admission. Further management per admitting team. Triage Nursing notes reviewed and agree them. Prior/external medical records reviewed Vital Signs: reviewed Differential diagnosis: Gastroenteritis, food borne illness, infections, appendicitis, diverticulitis, inflammatory bowel disease, obstruction, GI bleed, biliary pathology, volvulus, as well as other pathologies. ER treatment provided: See below. Diagnostics interpreted by me: ECG: Normal sinus rhythm, 91 bpm, no ectopy, no overt ST elevation or depression, QTc 440, QRS 78. Cardiac Monitoring: An order for continuous cardiac monitoring was placed and demonstrated Normal sinus rhythm, 91 bpm, no ectopy, Laboratory studies: See below Imaging studies: See below Consultation(s): Twin camacho PA-C with Dr. Cl camacho on-call. JERRI Hurd hospitalist. HPI: The patient is a 63-year-old woman with a past medical history of metastatic breast cancer on oral chemotherapy who presents to the emergency department via walk-in accompanied by her for evaluation of ongoing nausea and vomiting for the past couple weeks which became worse over the past 24 hours in the setting of having endoscopy on Friday for biopsy of gastric lesion as well as bone graft from the left iliac. Patient reports she has been unable to keep down her oral chemotherapy and has had poor oral intake. She reports pain at the site of her left iliac biopsy. She denies any abdominal pain. She denies any fevers, cough, congestion, urinary symptoms. ROS: See above HPI for pertinent positives & negatives. A total of 10 systems reviewed and were otherwise negative. VITALS:See Below PHYSICAL EXAMINATION: GENERAL: Awake, alert, fatigued/acute on chronically ill-appearing, in no distress HENT: Normocephalic, atraumatic. Oropharynx with dry mucous membranes and otherwise unremarkable. EYES: Normal conjunctiva. Sclera non-icteric. NECK: Supple. No nuchal rigidity. FROM. No JVD. RESPIRATORY: Clear to auscultation. CARDIAC: Regular rate, normal rhythm. Extremities warm and well perfused. Pulses equal. ABDOMEN: Soft, non-distended. No tenderness to palpation. No rebound or guarding. MUSCULOSKELETAL: Chest examination reveals no tenderness. No midline tenderness to palpation or step-offs of the CTL spine. Left posterior iliac biopsy site without evidence of infection. There is no CVA tenderness to palpation. No joint edema. LOWER EXTREMITIES: Calves are equal size bilaterally and non-tender. No edema. No discoloration. NEURO: Normal sensorium. No sensory or motor deficits noted. SKIN: No rash or jaundice noted. Jean Claude Burleson MD Past Med/Surg History Problem List (Updated 08/14/24 @ 07:17 by Jean Claude Burleson MD) Intractable nausea and vomiting (Acute) Metastatic disease (Acute) Gastric mass (Acute) Bilateral pneumonia Appendicitis (Acute) Dysphagia Cholelithiasis following with general surgery RUQ abdominal pain Vomiting Chest discomfort pt denies any chest discomfort at present time 07/28/24 Echocardiogram abnormal S/P left knee arthroscopy Medial meniscus tear Body, loose, knee Left knee DJD Hamstring strain Internal derangement of knee Knee instability Sacral fracture (08/02/23) from a fall Lung nodule, multiple Thoracic compression fracture (08/02/23) Compression fracture of T5 vertebra-from a fall Epidermoid cyst Hiatal hernia Breast cancer metastasized to bone (Chronic) dx'd 2019 - Ibranz, Letrozole, Xgeva + radiation (spine, rt hip) Emphysematous COPD Arthritis Anemia Mass of left axilla per pt, biopsied and found to be benign Degenerative disc disease, thoracic Leukopenia Proctocolitis Neutropenia Gallbladder calculus (Acute) History of chemotherapy Doxetaxel and Cyclophosphamide x4 cycles Herceptin x1 year Letrozole with Ibrance started 09/2020 Xgeva Anxiety Breast cancer metastasized to bone (Chronic ~07/2020) Medical History Breast cancer metastasized to bone 2019 breast ca (new primary) with mets to spine at time of diagnosis History of postoperative nausea and vomiting can drink apple juice afterward, if drinks water, starts throwing up History of COVID-13 Jul 2023; not hospitalized; no ongoing sx COPD (chronic obstructive pulmonary disease) "mild" per pt > no inhalers Lung nodule, multiple just monitoring, " PET scans are showing they are gone" per pt Hiatal hernia "large" per pt Thoracic compression fracture T5, treated with radiation for pain in October 2023, "the pain comes and goes" Sacral fracture Jul 2023 > no pain now Leukopenia follows with Heme/Onc Osteoarthritis DDD (degenerative disc disease) Anemia follows with Heme/Onc History of breast cancer 2008 L breast: tx with lumpectomy, XRT, chemo; dx of new primary 2019 (with mets to bone at time of diagnosis): tx with oral chemo, XRT (also had L axillary LN dissection) Bipolar disorder Anxiety and depression Snores no apnea dx, no device History of back problems known mets in spine causing pain: T1, T5, T6, T7, T10 BRCA gene mutation negative Polymyalgia rheumatica saw Rheum; per pt no specific dx given; was tx with short course of oral steroids and sx resolved Rheumatoid arthritis saw Rheum; per pt no specific dx given; was tx with short course of oral steroids and sx resolved Surgical History H/O left knee surgery arthroscopy Hx of left cataract extraction History of right cataract extraction History of esophagogastroduodenoscopy (EGD) History of surgery removal of port-A-cath 2009 History of vascular access device 2008 placed; has since been removed Hx of colonoscopy S/P wisdom tooth extraction History of biopsy (09/2020) Left Axillary Lymph Nodes History of biopsy (09/21/20) Right Breast H/O lumpectomy Left Breast (2008 and 2009) Family History Mother , Passed Age 74 Breast cancer, Onset Age: 46 COPD (chronic obstructive pulmonary disease) Hypertension Grandmother (Maternal) , Passed Age 75 Breast cancer Grandmother (Paternal) , Passed Age 45 Breast cancer, Onset Age: 42 due to complication of Breast Cancer Aunt Breast cancer Uncle Diabetes Bone cancer Myocardial infarction Father , Passed Age 92 Prostate cancer, Onset Age: 60 COPD (chronic obstructive pulmonary disease) Cancer Hypertension Aunt Breast cancer Aunt Breast cancer Brother Diabetes Thyroid disorder Brother Skin cancer Sister PONV (postoperative nausea and vomiting) Thyroid disorder Son No problems noted. Denies family history of Ovarian cancer Colorectal cancer Uterine cancer Social History Smoking Status: Former smoker Tobacco Type: Cigarettes Age Started Using Tobacco: 17; Age Quit Using Tobacco: 28; packs per day: 1; Smoking End Date: 20+ years ago; Second Hand Exposure: No; Do You Dip or Chew Tobacco: No; Hx Alcohol Use: Yes Alcohol type: wine Alcohol type Comment: social Alcohol Intake Frequency: Monthly or Less Alcohol Intake Frequency Comment: socially Hx Substance Use: No Preferred Language: Sinhala Communication Ability: Effective Visual Impairment: No Limitations Hearing Ability: Normal 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 Layout 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 Required: No Beliefs That Will Affect Care: None marital status: Current Living Situation: Spouse current occupational status: employed 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 How many Children do You have: 1 Feels Safe at Home: Yes Safety Concerns: Feels Safe At This Time Childhood Exposure to Second-Hand Smoke: Yes (Siblings) Diet: regular caffeine: Yes (daily) during the past year weight has: remained stable Dental Care, Regularly: Yes Physical Activity Frequency: Does not Exercise Seatbelt Use: always Assistive Devices: Denture - Upper and Glasses Assistive Devices Comment: reading glasses, upper permanent bridge Allergies Allergies Allergy/AdvReac Type Severity Reaction Status Date / Time No Known Allergies Allergy Verified 08/09/24 09:09 Home Meds Home Medications Medication Instructions Recorded Confirmed palbociclib 75 mg capsule (Ibrance) 75 mg PO QPM 07/10/22 07/28/24 denosumab 120 mg/1.7 mL (70 mg/mL) 125 mg subcut .qmonth 12/13/22 08/09/24 subcutaneous solution (Xgeva) cyanocobalamin (vitamin B-12) 1,000 mcg IM MONTHLY 12/16/22 07/28/24 1,000 mcg/mL injection solution letrozole 2.5 mg tablet 2.5 mg PO QPM 12/16/22 07/28/24 fentanyl 12 mcg/hr transdermal 1 patch transdermal Q72H PRN Pain 10/09/23 07/28/24 patch valacyclovir 1 gram tablet 2,000 mg PO BID PRN Rash 10/09/23 07/28/24 (Valtrex) calcium 500 mg (as 1 tab PO DAILY 01/23/24 07/28/24 carbonate)-vitamin D3 3.125 mcg (125 unit) tablet Previous Rx's Medication Instructions Recorded ondansetron 4 mg disintegrating 4 mg PO Q6H PRN nausea and 08/02/23 tablet vomiting #10 tabs lorazepam 1 mg tablet 1 mg PO BID PRN Anxiety #30 tabs 09/04/23 cholecalciferol (vitamin D3) 50 50 mcg PO DAILY #90 caps 12/08/23 mcg (2,000 unit) capsule venlafaxine 150 mg 150 mg PO QPM #90 caps 05/23/24 capsule,extended release 24 hr venlafaxine 75 mg capsule,extended 75 mg PO QPM #90 caps 05/23/24 release 24 hr Results & Data (ED) Vital Signs Vital Signs - 24 hr 08/13/24 20:25 08/13/24 21:17 08/13/24 21:36 Temperature 36.4 C L Temperature Source Temporal Artery Scan Pulse Rate 84 Pulse Rate [Apical] Respiratory Rate Respiratory Effort / Characteristics Respiratory Depth Blood Pressure [Left Radial Artery] Blood Pressure Mean [Left Radial Artery] Pulse Oximetry 96 Oxygen Delivery Method Room Air Sepsis New/Unexplained Change in Mental Status No Sepsis Action Taken by Nursing No Action Required 08/13/24 21:36 08/13/24 22:05 08/14/24 00:24 Temperature Temperature Source Pulse Rate Pulse Rate [Apical] 82 97 H 95 H Respiratory Rate 16 18 18 Respiratory Effort / Characteristics Non-Labored Spontaneous Respiratory Depth Normal Blood Pressure [Left Radial Artery] 108/68 127/76 98/60 L Blood Pressure Mean [Left Radial Artery] 81 93 72 Pulse Oximetry 97 95 96 Oxygen Delivery Method Room Air Sepsis New/Unexplained Change in Mental Status Sepsis Action Taken by Nursing 08/14/24 01:32 Temperature Temperature Source Pulse Rate 88 Pulse Rate [Apical] Respiratory Rate Respiratory Effort / Characteristics Respiratory Depth Blood Pressure [Left Radial Artery] Blood Pressure Mean [Left Radial Artery] Pulse Oximetry Oxygen Delivery Method Sepsis New/Unexplained Change in Mental Status Sepsis Action Taken by Nursing Laboratory Data Attestation: I reviewed the patient's lab results. 08/13/24 21:00 08/13/24 21:00 Lab Results 08/13/24 08/13/24 08/13/24 Range/Units 21:00 22:56 Unknown WBC 3.61 L (4.8-10.8) K/ul RBC 2.85 L (4.20-5.40) M/uL Hgb 10.0 L (12.0-16.0) g/dl Hct 28.0 L (37.0-47.0) % MCV 98.2 (80.0-100.0) fL MCH 35.1 H (25.0-34.0) pg MCHC 35.7 (32.0-36.0) g/dL RDW Std Deviation 49.5 H (36.4-46.3) fL RDW Coeff of Aga 13.6 (11.5-14.5) % Plt Count 167 (130-400) K/uL MPV 9.4 (9.4-12.4) fL Immature Gran % (Auto) 1.1 % Neut % (Auto) 75.4 % Lymph % (Auto) 8.0 % [place] % (Auto) 10.2 % Eos % (Auto) 3.9 % Baso % (Auto) 1.4 % Neut # (Auto) 2.72 (1.40-6.50) K/uL Lymph # (Auto) 0.29 L (1.20-3.40) K/uL [place] # (Auto) 0.37 (0.11-0.59) K/uL Eos # (Auto) 0.14 (0.00-0.50) K/uL Baso # (Auto) 0.05 (0.00-0.20) K/uL Immature Gran # (Auto) 0.04 (0.01-0.20) K/uL Absolute Nucleated RBC 0.02 (0.00-0.12) K/uL Nucleated RBC % (auto) 0.6 % PT 11.9 (9.0-12.0) Seconds INR 1.1 (0.9-1.1) Sodium 135 L (136-145) mmol/L Potassium 3.7 (3.5-5.1) mmol/L Chloride 103 (98-107) mmol/L Carbon Dioxide 25 (21-32) mmol/L Anion Gap 7 (3-11) BUN 13 (6-23) mg/dl Creatinine 0.50 L (0.6-1.2) mg/dl Est Cr Clr Drug Dosing 103.7 ml/min eGFR 105.32 BUN/Creatinine Ratio 26.0 H (10-20) Glucose 119 H (70-99(Fasting)) mg/dl Lactate 0.8 (0.4-2.0) mmol/L Calcium 9.1 (8.6-10.3) mg/dl Magnesium 2.0 (1.7-2.4) mg/dl Total Bilirubin 0.8 (0.2-1.0) mg/dl AST 116 H (13-39) U/L ALT 87 H (7-52) U/L Alkaline Phosphatase 106 H (34-104) U/L Troponin I High Sens 3.1 (0-14) pg/ml Total Protein 6.5 (6.0-8.3) gm/dl Albumin 3.9 (3.4-5.0) gm/dl Globulin 2.6 (2.5-4.0) gm/dl Albumin/Globulin Ratio 1.5 (0.9-2) Lipase 14 (11-82) U/L Procalcitonin 0.07 (0-0.5) ng/ml Urine Color Yellow Urine Appearance Clear (Clear) Urine pH 5.5 (4.5-7.5) Ur Specific [place] 1.019 (1.000-1.030) Urine Protein Negative (Negative) Urine Glucose (UA) Negative (Negative) Urine Ketones 1+ H (Negative) Urine Blood Negative (Negative) Urine Nitrite Negative (Negative) Urine Bilirubin Negative (Negative) Urine Urobilinogen Negative (Negative) Ur Leukocyte Esterase Negative (Negative) Adenovirus (PCR) Not Detected (NotDetected) B. pertussis DNA (PCR) Not Detected (NotDetected) B.parapertussis DNA PCR Not Detected (NotDetected) C. pneumoniae DNA (PCR) Not Detected (NotDetected) Coronavirus OC43 (PCR) Not Detected (NotDetected) Coronavirus HKU1 (PCR) Not Detected (NotDetected) Coronavirus 229E (PCR) Not Detected (NotDetected) SARS-CoV-2 (PCR) Not Detected (NotDetected) Coronavirus NL63 (PCR) Not Detected (NotDetected) Human Metapneumovir PCR Not Detected (NotDetected) Influenza Type A (PCR) Not Detected (NotDetected) Influenza Type B (PCR) Not Detected (NotDetected) M. pneumoniae (PCR) Not Detected (NotDetected) Parainfluenza 1 (PCR) Not Detected (NotDetected) Parainfluenza 2 (PCR) Not Detected (NotDetected) Parainfluenza 3 (PCR) Not Detected (NotDetected) Parainfluenza 4 (PCR) Not Detected (NotDetected) RSV (PCR) Not Detected (NotDetected) Entero/Rhino (PCR) Not Detected (NotDetected) Administered Medications Potassium Chloride/Sodium Chloride (Normal Saline W/20 Meq Kcl) 20 meq in 1,000 mls @ 100 mls/hr IV .Q10H JAMES Stop: 08/14/24 22:29 Last Admin: 08/14/24 06:14 Dose: 100 mls/hr Documented By: DORENE Vancomycin HCl 1,250 mg/ (Sodium Chloride) 525 mls @ 200 mls/hr IV NOW ONE Stop: 08/14/24 08:22 Last Admin: 08/14/24 06:14 Dose: 200 mls/hr Documented By: DORENE Miscellaneous (Fentanyl Patch Remove & Waste) 1 each N/A Q3D JAMES Stop: 09/13/24 04:10 Last Admin: 08/14/24 05:49 Dose: 1 each Documented By: DORENE Co-signed By: [facility] Discontinued Medications Sodium Chloride (Nss) 1,000 mls @ 999 mls/hr IV .Q1H1M STA Stop: 08/13/24 21:32 Last Infusion: 08/13/24 22:06 Dose: Infused Documented By: Admin: 08/13/24 21:12 Dose: 999 mls/hr Documented By: DENISE Famotidine (Pepcid 20mg Iv Push) 20 mg in 5 mls @ 2.5 mls/min IV NOW STA Stop: 08/13/24 21:23 Last Admin: 08/13/24 21:32 Dose: 2.5 mls/min Documented By: BUTCH Promethazine HCl (Phenergan) 25 mg in 51 mls @ 204 mls/hr IV NOW STA Stop: 08/13/24 21:36 Last Infusion: 08/13/24 21:54 Dose: Infused Documented By: Admin: 08/13/24 21:32 Dose: 204 mls/hr Documented By: BUTCH Acetaminophen (Ofirmev) 1,000 mg in 100 mls @ 400 mls/hr IV NOW STA Stop: 08/13/24 22:10 Last Infusion: 08/13/24 22:23 Dose: Infused Documented By: Admin: 08/13/24 22:01 Dose: 400 mls/hr Documented By: BUTCH Sodium Chloride (Nss) 500 mls @ 125 mls/hr IV .Q4H JAMES Stop: 08/14/24 01:59 Last Infusion: 08/14/24 02:25 Dose: Infused Documented By: Admin: 08/13/24 22:03 Dose: 125 mls/hr Documented By: BUTCH Piperacillin Sod/Tazobactam Sod (Zosyn) 4.5 gm in 100 mls @ 200 mls/hr IV NOW ONE; Protocol Stop: 08/14/24 01:49 Last Infusion: 08/14/24 02:41 Dose: Infused Documented By: Admin: 08/14/24 01:57 Dose: 200 mls/hr Documented By: CARLY Daptomycin 250 mg/ Syringe 5 mls @ 2.5 mls/min IV Q24H JAMES; Protocol Stop: 08/24/24 02:59 Last Admin: 08/14/24 02:39 Dose: 2.5 mls/min Documented By: CARLY Ioversol (Optiray 320 100ml) 90 ml IV ONCE ONE Stop: 08/13/24 22:21 Last Admin: 08/13/24 22:20 Dose: 90 ml Documented By: EARL Morphine Sulfate (Morphine Sulfate 4 Mg/Ml 1 Ml Carp\\Vial) 4 mg IV NOW STA Stop: 08/13/24 21:57 Last Admin: 08/13/24 22:01 Dose: 4 mg Documented By: BUTCH Ondansetron HCl (Ondansetron Inj 2 Mg/Ml 2 Ml Vial) 4 mg IV NOW STA Stop: 08/13/24 20:33 Last Admin: 08/13/24 21:13 Dose: 4 mg Documented By: DENISE Imaging Data Radiologist's Impression: Abdomen/Pelvis CT 08/13/24 21:56 CR Exam(s): CT ABDOMEN + PELVIS With Contrast IV Amt: 90 cc opti 320 EXAM: CT Abdomen and Pelvis With Intravenous Contrast CLINICAL HISTORY: Nausea and vomiting. Patient has a history of metastatic breast cancer status post endoscopy. TECHNIQUE: Axial computed tomography images of the abdomen and pelvis with intravenous contrast. CTDI is 17.35 mGy and DLP is 855.77 mGy-cm. Automated exposure control was utilized for the study. A dose lowering technique was utilized adhering to the principles of ALARA. CONTRAST: Patient received 90 cc opti 320 of IV contrast COMPARISON: CT abdomen and pelvis 07/21/2024 FINDINGS: Lung bases: Airspace opacities of the lower lobes are greater on the right. Mediastinum: Small hiatal hernia. ABDOMEN: Liver: Unremarkable. No mass. Gallbladder and bile ducts: Unremarkable. No calcified stones. No ductal dilation. Pancreas: Unremarkable. No mass. No ductal dilation. Spleen: Unremarkable. No splenomegaly. Adrenals: Unremarkable. No mass. Kidneys and ureters: Unremarkable. No solid mass. No hydronephrosis. Stomach and bowel: There is focal thickening of the wall of the rectum. Marked thickening of the wall of the stomach. Nonspecific thickening of the wall of the ascending and transverse colon. Diverticulosis. No obstruction. PELVIS: Appendix: Acute appendicitis. The appendix measures 1 cm. Bladder: Unremarkable. No mass. Reproductive: Unremarkable as visualized. ABDOMEN and PELVIS: Intraperitoneal space: Nonspecific free fluid in the abdomen or pelvis. Nodularity of the omentum is most consistent with metastatic disease. No free air. Bones/joints: Diffuse osseous metastases. Mild left wrist Pain. No acute fracture. No dislocation. Soft tissues: Unremarkable. Vasculature: Unremarkable. No abdominal aortic aneurysm. Lymph nodes: Unremarkable. No enlarged lymph nodes. IMPRESSION: 1. Acute appendicitis. The appendix measures 1 cm. No abscess or perforation. 2. Airspace opacities of the lower lobes are greater on the right. This may represent atypical infection and/or aspiration. 3. Nonspecific thickening of the wall of the ascending and transverse colon. This could be infectious or inflammatory, malignancy is considered less likely. 4. Marked thickening of the wall of the stomach. This could be infectious, inflammatory or neoplastic. 5. There is focal thickening of the wall of the rectum. Recommend correlation with colonoscopy as malignancy needs to be excluded. 6. Diffuse osseous metastases. 7. Small hiatal hernia. 8. Nodularity of the omentum is most consistent with metastatic disease. 9. Diverticulosis. 10. Nonspecific free fluid in the abdomen or pelvis. Communications: Call Doctor Appendicitis Electronically signed by: Katherine Edmond MD 08/14/24 01:02 AM Discharge Plan Visit Data Chief Complaint: Vomiting Stated Complaint: VOMITING, NOT EATING, STAGE 4 CANCER ED Provider: Jean Claude Burleson Discharge Problem: Metastatic disease, Appendicitis, Gastric mass, Intractable nausea and vomiting Patient Disposition: Admitted As Inpatient Discharge Instructions Interventions: ED Discharge Assessment Last Done: 08/14/24 03:40 Discharge Problem: Metastatic disease Qualifiers: Area of secondary neoplastic involvement: unspecified site Qualified Code(s): C 79.9 - Secondary malignant neoplasm of unspecified site Appendicitis Qualifiers: Appendicitis type: acute appendicitis Acute appendicitis type: unspecified acute appendicitis type Qualified Code(s): K35.80 - Unspecified acute appendicitis
[2024-08-13] MEDS: ACETAMINOPHEN 1,000 MG/100 ML VIAL IV STA (22:01)
[2024-08-13] MEDS: MoRPHine SULFATE 4 MG/ML 1 ML CARP\\VIAL IV STA (22:01)
[2024-08-13] MEDS: SODIUM CHLORIDE 0.9% 500 ML IV SCH (22:03)
[2024-08-13] MEDS: OPTIRAY 320 100ml IV ONE (22:20)
[2024-08-13 22:36] LABS: Adenovirus PCR Not Detected (NotDetected); Bordetella parapertussis PCR Not Detected (NotDetected); Bordetella pertussis PCR Not Detected (NotDetected); Chlamydia pneumoniae PCR Not Detected (NotDetected); Coronavirus 229E PCR Not Detected (NotDetected); Coronavirus CoV-2 (COVID19)PCR Not Detected (NotDetected); Coronavirus HKU1 PCR Not Detected (NotDetected); Coronavirus NL63 PCR Not Detected (NotDetected); Coronavirus OC43PCR Not Detected (NotDetected); Human Metapneumovirus PCR Not Detected (NotDetected); Influenza A PCR Not Detected (NotDetected); Influenza B PCR Not Detected (NotDetected); Mycoplasma pneumoniae PCR Not Detected (NotDetected); Parainfluenza Virus 1 PCR Not Detected (NotDetected); Parainfluenza Virus 2 PCR Not Detected (NotDetected); Parainfluenza Virus 3 PCR Not Detected (NotDetected); Parainfluenza Virus 4 PCR Not Detected (NotDetected); Respiratory Syncytial VirusPCR Not Detected (NotDetected); Rhinovirus/Enterovirus PCR Not Detected (NotDetected)
[2024-08-13 23:07] LABS: Appearance Urine Clear (Clear); Bilirubin Urine Negative (Negative); Blood Urine Negative (Negative); Color Urine Yellow; Glucose Urine UA Negative (Negative); Ketones Urine 1+ (Negative); Leukocyte Esterase Urine Negative (Negative); Nitrite Urine Negative (Negative); Protein Urine Negative (Negative); Specific Gravity Urine 1.019 (1.000-1.030); Urobilinogen Urine Negative (Negative); pH Urine 5.5 (4.5-7.5)
--- NOTE | 2024-08-14 01:03 | CT Scan Report ---
Exam(s): CT ABDOMEN + PELVIS With Contrast IV Amt: 90 cc opti 320 EXAM: CT Abdomen and Pelvis With Intravenous Contrast CLINICAL HISTORY: Nausea and vomiting. Patient has a history of metastatic breast cancer status post endoscopy. TECHNIQUE: Axial computed tomography images of the abdomen and pelvis with intravenous contrast. CTDI is 17.35 mGy and DLP is 855.77 mGy-cm. Automated exposure control was utilized for the study. A dose lowering technique was utilized adhering to the principles of ALARA. CONTRAST: Patient received 90 cc opti 320 of IV contrast COMPARISON: CT abdomen and pelvis 07/21/2024 FINDINGS: Lung bases: Airspace opacities of the lower lobes are greater on the right. Mediastinum: Small hiatal hernia. ABDOMEN: Liver: Unremarkable. No mass. Gallbladder and bile ducts: Unremarkable. No calcified stones. No ductal dilation. Pancreas: Unremarkable. No mass. No ductal dilation. Spleen: Unremarkable. No splenomegaly. Adrenals: Unremarkable. No mass. Kidneys and ureters: Unremarkable. No solid mass. No hydronephrosis. Stomach and bowel: There is focal thickening of the wall of the rectum. Marked thickening of the wall of the stomach. Nonspecific thickening of the wall of the ascending and transverse colon. Diverticulosis. No obstruction. PELVIS: Appendix: Acute appendicitis. The appendix measures 1 cm. Bladder: Unremarkable. No mass. Reproductive: Unremarkable as visualized. ABDOMEN and PELVIS: Intraperitoneal space: Nonspecific free fluid in the abdomen or pelvis. Nodularity of the omentum is most consistent with metastatic disease. No free air. Bones/joints: Diffuse osseous metastases. Mild left wrist Pain. No acute fracture. No dislocation. Soft tissues: Unremarkable. Vasculature: Unremarkable. No abdominal aortic aneurysm. Lymph nodes: Unremarkable. No enlarged lymph nodes. IMPRESSION: 1. Acute appendicitis. The appendix measures 1 cm. No abscess or perforation. 2. Airspace opacities of the lower lobes are greater on the right. This may represent atypical infection and/or aspiration. 3. Nonspecific thickening of the wall of the ascending and transverse colon. This could be infectious or inflammatory, malignancy is considered less likely. 4. Marked thickening of the wall of the stomach. This could be infectious, inflammatory or neoplastic. 5. There is focal thickening of the wall of the rectum. Recommend correlation with colonoscopy as malignancy needs to be excluded. 6. Diffuse osseous metastases. 7. Small hiatal hernia. 8. Nodularity of the omentum is most consistent with metastatic disease. 9. Diverticulosis. 10. Nonspecific free fluid in the abdomen or pelvis. Communications: Call Doctor Appendicitis Electronically signed by: Katherine Edmond MD 08/14/24 01:02 AM
[2024-08-14] MEDS: PIPERACILLIN/TAZOBACTAM 4.5 GM/100 ML BAG IV ONE (01:57)
--- NOTE | 2024-08-14 02:05 | Surgery Consultation ---
Date of Consultation August 14, 2024 Assessment & Plan (1) Appendicitis: I discussed with the treating emergency room physician and due to the patient's underlying medical comorbidities would recommend admission the hospital service. From surgery perspective we recommend the following: As the patient has documented metastases to her GI tract we feel be best to treat the patient in a conservative manner without surgical invention at the present time Would recommend keeping the patient n.p.o. for the present time Antibiotics in form of Zosyn have been initiated and he should continue Would recommend hydrating her with intravenous fluids Provide analgesics Provide antiemetics Follow serial labs I did discuss the rationale for conservative management with the patient as outlined above. She is in agreement. I did discuss with her that she would be reevaluated the morning of 08/14/2024 to see if there is any interval change in her clinical status and additional recommendations will be made thereafter At the present time the patient is nontoxic-appearing. Addendum (5:10 AM) Patient revisited at bedside upon transfer from the emergency department to the [facility]. She notes that she has noted some slight improvement in her presenting symptomatology. Since arrival to the floor she has not had any nausea or vomiting. She does continue to have some abdominal tenderness similar to what was noted at time in the emergency department. She has not had any fevers. Will continue with plan as outlined above with additional recommendations to follow based on her clinical course as it unfolds History of Present Illness Reason for Consultation: Appendicitis History of Present Illness This is a 63-year-old female who presented to the emergency department secondary to nausea and vomiting and inability to keep any oral intake down for approximately 2 weeks. Patient notes that she has a history of breast cancer. She says it was initially diagnosed in 2008 and she underwent lumpectomy x 2 of her left breast and she also completed chemotherapy and radiation. She said that her breast cancer was HER-2 positive and she also completed an oral chemoth erapy regimen. She does note that in 2019 she was diagnosed with metastatic breast cancer on the right. Concerning treatment for her metastatic breast cancer she is currently receiving an oral chemotherapy medication by the name of Orserdu. Unfortunately the patient notes that she has recently undergone various diagnostic studies that show that she has worsening of her metastatic breast cancer. She underwent a PET scan on 06/30/2024. This showed the patient had numerous sclerotic metastases. She was also noted to have a hypodense FDG avid hepatic lobe lesion. The patient was noted to have gastric wall thickening with FDG uptake in a moderate fashion. She did undergo a CT scan of the abdomen and pelvis on 07/21/2024 that showed diffuse gastric wall thickening. Because of these findings the patient did undergo an EGD on August 09 which showed concerns for metastases to the stomach. Biopsies were taken and did confirm adenocarcinoma on these biopsies. She also underwent a bone biopsy on August 11 and the pathology showed findings consistent with metastatic carcinoma of the breast. Patient further reports that she did go to [facility] for more advanced endoscopy which patient had an endoscopic ultrasound as well as an EGD we will patient was noted to have an infiltrating malignant appearing gastric tumor involving gastric body and antrum presumably from metastatic breast cancer. Pathology from this was not available. Concerning patient's current presentation she does report some generalized abdominal pain over the past 2 weeks that is worse with eating. She has not had any fevers, shakes, or chills. She does note at the present time her pain is most pronounced in the right lower quadrant of her abdomen. She has not had any prior abdominal surgeries. Since arrival of [facility] this evening the patient has had labs and imaging which I independently reviewed. A CT scan of the abdomen pelvis showed findings concerning for acute appendicitis with her appendix measuring 1 cm with no evidence of abscess or perforation. There is an airspace opacities in the lower lobes of the lungs felt to represent either atypical infection or aspiration. She was also noted to have some nonspecific thickening of the wall of the ascending and transverse colon felt to represent either infectious, inflammatory, or malignant processes. Patient was also noted to have some focal thickening of the rectum and diffuse osseous metastases were noted on this study. CBC revealed white blood cell count was 3.6. Hemoglobin and hematocrit were 10.0 and 28.0. Platelet count was normal. Coagulation studies were normal. Ponce profile showed sodium was 135 with a normal potassium. BUN and creatinine were 13 and 0.5. Lactic acid level was not elevated at 0.8. Urinalysis was not indicative of infection and a bio fire study was negative for all viruses tested. At the time of my interview she was resting comfortably in bed and she was in no distress. Allergies Allergy/AdvReac Type Severity Reaction Status Date / Time No Known Allergies Allergy Verified 08/09/24 09:09 Home Medications Medication Instructions Recorded Confirmed Type palbociclib 75 mg capsule (Ibrance) 75 mg PO QPM 07/10/22 07/28/24 History denosumab 120 mg/1.7 mL (70 mg/mL) 125 mg subcut .qmonth 12/13/22 08/09/24 History subcutaneous solution (Xgeva) cyanocobalamin (vitamin B-12) 1,000 mcg IM MONTHLY 12/16/22 07/28/24 History 1,000 mcg/mL injection solution letrozole 2.5 mg tablet 2.5 mg PO QPM 12/16/22 07/28/24 History ondansetron 4 mg disintegrating 4 mg PO Q6H PRN nausea and 08/02/23 08/09/24 Rx tablet vomiting #10 tabs lorazepam 1 mg tablet 1 mg PO BID PRN Anxiety #30 tabs 09/04/23 07/28/24 Rx fentanyl 12 mcg/hr transdermal 1 patch transdermal Q72H PRN Pain 10/09/23 07/28/24 History patch valacyclovir 1 gram tablet 2,000 mg PO BID PRN Rash 10/09/23 07/28/24 History (Valtrex) cholecalciferol (vitamin D3) 50 50 mcg PO DAILY #90 caps 12/08/23 07/28/24 Rx mcg (2,000 unit) capsule calcium 500 mg (as 1 tab PO DAILY 01/23/24 07/28/24 History carbonate)-vitamin D3 3.125 mcg (125 unit) tablet venlafaxine 150 mg 150 mg PO QPM #90 caps 05/23/24 07/28/24 Rx capsule,extended release 24 hr venlafaxine 75 mg capsule,extended 75 mg PO QPM #90 caps 05/23/24 07/28/24 Rx release 24 hr Patient History Medical History Breast cancer metastasized to bone 2019 breast ca (new primary) with mets to spine at time of diagnosis History of postoperative nausea and vomiting can drink apple juice afterward, if drinks water, starts throwing up History of COVID-13 Jul 2023; not hospitalized; no ongoing sx COPD (chronic obstructive pulmonary disease) "mild" per pt > no inhalers Lung nodule, multiple just monitoring, " PET scans are showing they are gone" per pt Hiatal hernia "large" per pt Thoracic compression fracture T5, treated with radiation for pain in October 2023, "the pain comes and goes" Sacral fracture Jul 2023 > no pain now Leukopenia follows with Heme/Onc Osteoarthritis DDD (degenerative disc disease) Anemia follows with Heme/Onc History of breast cancer 2008 L breast: tx with lumpectomy, XRT, chemo; dx of new primary 2020 (with mets to bone at time of diagnosis): tx with oral chemo, XRT (also had L axillary LN dissection) Bipolar disorder Anxiety and depression Snores no apnea dx, no device History of back problems known mets in spine causing pain: T1, T5, T6, T7, T10 BRCA gene mutation negative Polymyalgia rheumatica saw Rheum; per pt no specific dx given; was tx with short course of oral steroids and sx resolved Rheumatoid arthritis saw Rheum; per pt no specific dx given; was tx with short course of oral steroids and sx resolved Surgical History H/O left knee surgery arthroscopy Hx of left cataract extraction History of right cataract extraction History of esophagogastroduodenoscopy (EGD) History of surgery removal of port-A-cath 2009 History of vascular access device 2008 placed; has since been removed Hx of colonoscopy S/P wisdom tooth extraction History of biopsy (09/2020) Left Axillary Lymph Nodes History of biopsy (09/21/20) Right Breast H/O lumpectomy Left Breast (2008 and 2009) Family History Mother , Passed Age 74 Breast cancer, Onset Age: 46 COPD (chronic obstructive pulmonary disease) Hypertension Grandmother (Maternal) , Passed Age 75 Breast cancer Grandmother (Paternal) , Passed Age 45 Breast cancer, Onset Age: 42 due to complication of Breast Cancer Aunt Breast cancer Uncle Diabetes Bone cancer Myocardial infarction Father , Passed Age 92 Prostate cancer, Onset Age: 60 COPD (chronic obstructive pulmonary disease) Cancer Hypertension Aunt Breast cancer Aunt Breast cancer Brother Diabetes Thyroid disorder Brother Skin cancer Sister PONV (postoperative nausea and vomiting) Thyroid disorder Son No problems noted. Denies family history of Ovarian cancer Colorectal cancer Uterine cancer Social History Smoking Status: Former smoker Tobacco Type: Cigarettes Age Started Using Tobacco: 17; Age Quit Using Tobacco: 28; packs per day: 1; Smoking End Date: 20+ years ago; Second Hand Exposure: No; Do You Dip or Chew Tobacco: No; Hx Alcohol Use: Yes Alcohol type: wine Alcohol type Comment: social Alcohol Intake Frequency: Monthly or Less Alcohol Intake Frequency Comment: socially Hx Substance Use: No Preferred Language: Moroccan Communication Ability: Effective Visual Impairment: No Limitations Hearing Ability: Normal Material Hauler Required: No Beliefs That Will Affect Care: None marital status: Current Living Situation: Spouse current occupational status: employed 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 How many Children do You have: 1 Feels Safe at Home: Yes Safety Concerns: Feels Safe At This Time Childhood Exposure to Second-Hand Smoke: Yes (Siblings) Diet: regular caffeine: Yes (daily) during the past year weight has: remained stable Dental Care, Regularly: Yes Physical Activity Frequency: Does not Exercise Seatbelt Use: always Assistive Devices: Denture - Upper and Glasses Assistive Devices Comment: reading glasses, upper permanent bridge Review of Systems Review of Systems: All systems reviewed & are unremarkable except as noted in HPI & below Physical Exam Constitutional: WD/WN, vitals as above Eyes: no conjunctival abnormality ENMT: Ears: no hearing impairment and no external ear abnormality Mouth: no oropharynx abnormality Neck: trachea midline Respiratory: normal respiratory effort, lungs clear to auscultation Cardiovascular: Rate/Rhythm: regular rate and regular rhythm Gastrointestinal (Abdomen): Abdomen, at the time of my exam, was soft and nondistended. There is no rebound tenderness or guarding. Patient did have some generalized pain with palpation which appear to be greatest in the right lower quadrant. Musculoskeletal: No calf tenderness, feet are warm and well-perfused. Dorsalis pedis pulses are palpable. Skin: no rashes Neurologic: moves all extremities Psychiatric: A+Ox3, euthymic affect Results & Data Vital Signs (Past 12 Hours) Vital Signs Temp Pulse Pulse Resp BP Pulse Ox O2 Del Method 08/14/24 00:24 95 H 18 98/60 L 96 Room Air 08/13/24 22:05 97 H 18 127/76 95 08/13/24 21:36 82 16 108/68 97 08/13/24 21:36 96 Room Air 08/13/24 21:17 84 08/13/24 20:25 36.4 C L PG Care Time/CCT Total # of Minutes Spent Total Time Spent with Patient: Total time spent is greater than 50% in coordination of care (as documented) at patient's floor/unit and/or counseling patient: Coding Level of Care Code 59307 IN/OBS CONSULT LVL 5,80M Diagnoses Appendicitis K37
--- NOTE | 2024-08-14 02:26 | History & Physical Report ---
Date of Service August 14, 2024 Assessment & Plan (1) Appendicitis: (2) Bilateral pneumonia: (3) Breast cancer metastasized to bone: (4) Emphysematous COPD: (5) History of chemotherapy: (6) Breast cancer metastasized to bone: (7) Gastric mass: Plan Acute appendicitis- Decision has been made to treat medically, due to metastatic cancer to bone, gastric mass and GI tract Initially started on daptomycin IV and Zosyn IV Changing to vancomycin IV and Zosyn IV, to address bibasilar pneumonia as well N.p.o. Zofran 4 mg IV every 6 hours as needed Pantoprazole 40 mg IV daily Status post 1 L normal saline bolus in the ED Maintenance IV fluids NSS + KCl 20 mEq at 100 mL/h x 2 L Morphine sulfate 2 mg IV every 3 hours as needed for moderate pain Morphine sulfate 4 mg IV every 3 hours as needed for severe pain General Surgery consulted and following Bibasilar pneumonia- Unclear if secondary to aspiration or HAP Antibiotics changed from daptomycin IV and Zosyn IV to vancomycin IV and Zosyn IV MRSA swab DuoNebs every 2 hours as needed Nasal cannula oxygen, titrate to keep pulse ox greater than 94%- BioFire negative Metastatic breast cancer- Imaging with diffuse osseous mets metastases, CT scan abdomen pelvis with nonspecific thickening of the wall of the ascending and transverse colon, thickening of the wall of the stomach, focal thickening of the wall of the rectum. Nodularity of the omentum is most consistent with metastatic disease Endoscopic EUS at [facility] noted gastric mass yesterday Consult her oncologist Dr. Kowalski History of Present Illness Chief Complaint: The patient presents to the emergency department with symptoms of abdominal pain, nausea and vomiting, having started oral chemotherapy for metastatic breast cancer about 2 to 3 weeks ago. She reports the development of nausea, abdominal pain worsening over the past 24 hours, thus presenting to the ED for assessment. Primary Care Provider: Ganesh Lovell MD The patient is a 63-year-old female with a past medical history including metastatic cancer to bone, with recently diagnosed gastric mass on endoscopic EUS performed yesterday at [facility] in [place]. She presents to the emergency department with nausea and vomiting, generalized abdominal pain and malaise. CT scan of abdomen and pelvis questioned the possibility of acute appendicitis, however, with CT also suggesting metastases to the GI tract and stomach, and bone, decision has been made to admit to medicine and assess response to IV antibiotics, IV fluids, IV pain control and nausea control. Allergies Allergy/AdvReac Type Severity Reaction Status Date / Time No Known Allergies Allergy Verified 08/09/24 09:09 Home Medications Medication Instructions Recorded Confirmed Type palbociclib 75 mg capsule (Ibrance) 75 mg PO QPM 07/10/22 07/28/24 History denosumab 120 mg/1.7 mL (70 mg/mL) 125 mg subcut .qmonth 12/13/22 08/09/24 History subcutaneous solution (Xgeva) cyanocobalamin (vitamin B-12) 1,000 mcg IM MONTHLY 12/16/22 07/28/24 History 1,000 mcg/mL injection solution letrozole 2.5 mg tablet 2.5 mg PO QPM 12/16/22 07/28/24 History ondansetron 4 mg disintegrating 4 mg PO Q6H PRN nausea and 08/02/23 08/09/24 Rx tablet vomiting #10 tabs lorazepam 1 mg tablet 1 mg PO BID PRN Anxiety #30 tabs 09/04/23 07/28/24 Rx fentanyl 12 mcg/hr transdermal 1 patch transdermal Q72H PRN Pain 10/09/23 07/28/24 History patch valacyclovir 1 gram tablet 2,000 mg PO BID PRN Rash 10/09/23 07/28/24 History (Valtrex) cholecalciferol (vitamin D3) 50 50 mcg PO DAILY #90 caps 12/08/23 07/28/24 Rx mcg (2,000 unit) capsule calcium 500 mg (as 1 tab PO DAILY 01/23/24 07/28/24 History carbonate)-vitamin D3 3.125 mcg (125 unit) tablet venlafaxine 150 mg 150 mg PO QPM #90 caps 05/23/24 07/28/24 Rx capsule,extended release 24 hr venlafaxine 75 mg capsule,extended 75 mg PO QPM #90 caps 05/23/24 07/28/24 Rx release 24 hr Past Med/Surg History Problem List (Updated 08/14/24 @ 05:47 by Sarkis Banegas MD) Gastric mass Bilateral pneumonia Appendicitis Dysphagia Cholelithiasis following with general surgery RUQ abdominal pain Vomiting Chest discomfort pt denies any chest discomfort at present time 07/28/24 Echocardiogram abnormal S/P left knee arthroscopy Medial meniscus tear Body, loose, knee Left knee DJD Hamstring strain Internal derangement of knee Knee instability Sacral fracture (08/02/23) from a fall Lung nodule, multiple Thoracic compression fracture (08/02/23) Compression fracture of T5 vertebra-from a fall Epidermoid cyst Hiatal hernia Breast cancer metastasized to bone (Chronic) dx'd 2019 - Ibranz, Letrozole, Xgeva + radiation (spine, rt hip) Emphysematous COPD Arthritis Anemia Mass of left axilla per pt, biopsied and found to be benign Degenerative disc disease, thoracic Leukopenia Proctocolitis Neutropenia Gallbladder calculus (Acute) History of chemotherapy Doxetaxel and Cyclophosphamide x4 cycles Herceptin x1 year Letrozole with Ibrance started 09/2020 Xgeva Anxiety Breast cancer metastasized to bone (Chronic ~07/2020) Medical History Breast cancer metastasized to bone 2019 breast ca (new primary) with mets to spine at time of diagnosis History of postoperative nausea and vomiting can drink apple juice afterward, if drinks water, starts throwing up History of COVID-13 Jul 2023; not hospitalized; no ongoing sx COPD (chronic obstructive pulmonary disease) "mild" per pt > no inhalers Lung nodule, multiple just monitoring, " PET scans are showing they are gone" per pt Hiatal hernia "large" per pt Thoracic compression fracture T5, treated with radiation for pain in October 2023, "the pain comes and goes" Sacral fracture Jul 2023 > no pain now Leukopenia follows with Heme/Onc Osteoarthritis DDD (degenerative disc disease) Anemia follows with Heme/Onc History of breast cancer 2008 L breast: tx with lumpectomy, XRT, chemo; dx of new primary 2019 (with mets to bone at time of diagnosis): tx with oral chemo, XRT (also had L axillary LN dissection) Bipolar disorder Anxiety and depression Snores no apnea dx, no device History of back problems known mets in spine causing pain: T1, T5, T6, T7, T10 BRCA gene mutation negative Polymyalgia rheumatica saw Rheum; per pt no specific dx given; was tx with short course of oral steroids and sx resolved Rheumatoid arthritis saw Rheum; per pt no specific dx given; was tx with short course of oral steroids and sx resolved Surgical History H/O left knee surgery arthroscopy Hx of left cataract extraction History of right cataract extraction History of esophagogastroduodenoscopy (EGD) History of surgery removal of port-A-cath 2010 History of vascular access device 2009 placed; has since been removed Hx of colonoscopy S/P wisdom tooth extraction History of biopsy (09/2020) Left Axillary Lymph Nodes History of biopsy (09/21/20) Right Breast H/O lumpectomy Left Breast (2008 and 2009) Family History Mother , Passed Age 74 Breast cancer, Onset Age: 46 COPD (chronic obstructive pulmonary disease) Hypertension Grandmother (Maternal) , Passed Age 75 Breast cancer Grandmother (Paternal) , Passed Age 45 Breast cancer, Onset Age: 42 due to complication of Breast Cancer Aunt Breast cancer Uncle Diabetes Bone cancer Myocardial infarction Father , Passed Age 92 Prostate cancer, Onset Age: 60 COPD (chronic obstructive pulmonary disease) Cancer Hypertension Aunt Breast cancer Aunt Breast cancer Brother Diabetes Thyroid disorder Brother Skin cancer Sister PONV (postoperative nausea and vomiting) Thyroid disorder Son No problems noted. Denies family history of Ovarian cancer Colorectal cancer Uterine cancer Social History Smoking Status: Former smoker Tobacco Type: Cigarettes Age Started Using Tobacco: 17; Age Quit Using Tobacco: 28; packs per day: 1; Smoking End Date: 20+ years ago; Second Hand Exposure: No; Do You Dip or Chew Tobacco: No; Hx Alcohol Use: Yes Alcohol type: wine Alcohol type Comment: social Alcohol Intake Frequency: Monthly or Less Alcohol Intake Frequency Comment: socially Hx Substance Use: No Preferred Language: Syriac Communication Ability: Effective Visual Impairment: No Limitations Hearing Ability: Normal [employer] Required: No Beliefs That Will Affect Care: None marital status: Current Living Situation: Spouse current occupational status: employed current occupation: [employer] How many Children do You have: 1 Feels Safe at Home: Yes Safety Concerns: Feels Safe At This Time Childhood Exposure to Second-Hand Smoke: Yes (Siblings) Diet: regular caffeine: Yes (daily) during the past year weight has: remained stable Dental Care, Regularly: Yes Physical Activity Frequency: Does not Exercise Seatbelt Use: always Assistive Devices: Denture - Upper and Glasses Assistive Devices Comment: reading glasses, upper permanent bridge Review of Systems Review of Systems: The patient denies chest pain, palpitations, shortness of breath, dyspnea on exertion, cough, lower extremity swelling, sore throat, fevers, chills, sweats, blood in urine or stool, dysuria, urinary frequency or urgency, memory loss, loss of consciousness, rash, abnormal bruising or bleeding, imbalance, focal weakness, numbness or tingling in arms or legs, or night sweat s. The review of systems is otherwise negative other than for that already noted above, and at least 10 systems have been reviewed. Physical Exam Physical Exam: The patient is awake, alert and oriented 3, showing signs of weight loss, fatigued, normocephalic and atraumatic, lying in bed and in no acute distress. HEENT--PERRL, EOMI, mucous membranes and oropharynx mildly dry. Neck--supple. No JVD. No bruits. Thyroid normal, trachea midline, no adenopathy. Heart--normal S1 and S2. No murmurs, rubs or gallops. Lungs--clear bilaterally, no respiratory distress, no accessory muscle use. Abdomen--normal bowel sounds and soft. Nontender. Nondistended, no hernias or masses, no organomegaly. Extremities--no cyanosis or clubbing. No edema. Dermatologic--normal skin turgor, normal color, no abnormal lymph nodes, no rash. Neurologic--cranial nerves II through XII grossly intact. Rheumatologic--normal range of motion. Psychiatric--normal affect. Results & Data Results & Data Vital Signs (Past 12 Hours) Vital Signs Temp Pulse Pulse Resp BP Pulse Ox O2 Del Method 08/14/24 01:32 88 08/14/24 00:24 95 H 18 98/60 L 96 Room Air 08/13/24 22:05 97 H 18 127/76 95 08/13/24 21:36 82 16 108/68 97 08/13/24 21:36 96 Room Air 08/13/24 21:17 84 08/13/24 20:25 36.4 C L Laboratory Results Laboratory Results WBC 3.61 K/ul (4.8-10.8) L 08/13/24 21:00 RBC 2.85 M/uL (4.20-5.40) L 08/13/24 21:00 Hgb 10.0 g/dl (12.0-16.0) L 08/13/24 21:00 Hct 28.0 % (37.0-47.0) L 08/13/24 21:00 MCV 98.2 fL (80.0-100.0) 08/13/24 21:00 MCH 35.1 pg (25.0-34.0) H 08/13/24 21:00 MCHC 35.7 g/dL (32.0-36.0) 08/13/24 21:00 RDW Std Deviation 49.5 fL (36.4-46.3) H 08/13/24 21:00 RDW Coeff of Aga 13.6 % (11.5-14.5) 08/13/24 21:00 Plt Count 167 K/uL (130-400) 08/13/24 21:00 MPV 9.4 fL (9.4-12.4) 08/13/24 21:00 Immature Gran % (Auto) 1.1 % 08/13/24 21:00 Neut % (Auto) 75.4 % 08/13/24 21:00 Lymph % (Auto) 8.0 % 08/13/24 21:00 [place] % (Auto) 10.2 % 08/13/24 21:00 Eos % (Auto) 3.9 % 08/13/24 21:00 Baso % (Auto) 1.4 % 08/13/24 21:00 Neut # (Auto) 2.72 K/uL (1.40-6.50) 08/13/24 21:00 Lymph # (Auto) 0.29 K/uL (1.20-3.40) L 08/13/24 21:00 [place] # (Auto) 0.37 K/uL (0.11-0.59) 08/13/24 21:00 Eos # (Auto) 0.14 K/uL (0.00-0.50) 08/13/24 21:00 Baso # (Auto) 0.05 K/uL (0.00-0.20) 08/13/24 21:00 Immature Gran # (Auto) 0.04 K/uL (0.01-0.20) 08/13/24 21:00 Absolute Nucleated RBC 0.02 K/uL (0.00-0.12) 08/13/24 21:00 Nucleated RBC % (auto) 0.6 % 08/13/24 21:00 PT 11.9 Seconds (9.0-12.0) 08/13/24 21:00 INR 1.1 (0.9-1.1) 08/13/24 21:00 Sodium 135 mmol/L (136-145) L 08/13/24 21:00 Potassium 3.7 mmol/L (3.5-5.1) 08/13/24 21:00 Chloride 103 mmol/L (98-107) 08/13/24 21:00 Carbon Dioxide 25 mmol/L (21-32) 08/13/24 21:00 Anion Gap 7 (3-11) 08/13/24 21:00 BUN 13 mg/dl (6-23) 08/13/24 21:00 Creatinine 0.50 mg/dl (0.6-1.2) L 08/13/24 21:00 Est Cr Clr Drug Dosing 103.7 ml/min 08/13/24 21:00 eGFR 105.32 08/13/24 21:00 BUN/Creatinine Ratio 26.0 (10-20) H 08/13/24 21:00 Glucose 119 mg/dl (70-99(Fasting)) H 08/13/24 21:00 Lactate 0.8 mmol/L (0.4-2.0) 08/13/24 21:00 Calcium 9.1 mg/dl (8.6-10.3) 08/13/24 21:00 Magnesium 2.0 mg/dl (1.7-2.4) 08/13/24 21:00 Total Bilirubin 0.8 mg/dl (0.2-1.0) 08/13/24 21:00 AST 116 U/L (13-39) H 08/13/24 21:00 ALT 87 U/L (7-52) H 08/13/24 21:00 Alkaline Phosphatase 106 U/L (34-104) H 08/13/24 21:00 Troponin I High Sens 3.1 pg/ml (0-14) 08/13/24 21:00 Total Protein 6.5 gm/dl (6.0-8.3) 08/13/24 21:00 Albumin 3.9 gm/dl (3.4-5.0) 08/13/24 21:00 Globulin 2.6 gm/dl (2.5-4.0) 08/13/24 21:00 Albumin/Globulin Ratio 1.5 (0.9-2) 08/13/24 21:00 Lipase 14 U/L (11-82) 08/13/24 21:00 Procalcitonin 0.07 ng/ml (0-0.5) 08/13/24 21:00 Urine Color Yellow 08/13/24 22:56 Urine Appearance Clear (Clear) 08/13/24 22:56 Urine pH 5.5 (4.5-7.5) 08/13/24 22:56 Ur Specific [place] 1.019 (1.000-1.030) 08/13/24 22:56 Urine Protein Negative (Negative) 08/13/24 22:56 Urine Glucose (UA) Negative (Negative) 08/13/24 22:56 Urine Ketones 1+ (Negative) H 08/13/24 22:56 Urine Blood Negative (Negative) 08/13/24 22:56 Urine Nitrite Negative (Negative) 08/13/24 22:56 Urine Bilirubin Negative (Negative) 08/13/24 22:56 Urine Urobilinogen Negative (Negative) 08/13/24 22:56 Ur Leukocyte Esterase Negative (Negative) 08/13/24 22:56 Adenovirus (PCR) Not Detected (NotDetected) 08/13/24 Unknown B. pertussis DNA (PCR) Not Detected (NotDetected) 08/13/24 Unknown B.parapertussis DNA PCR Not Detected (NotDetected) 08/13/24 Unknown C. pneumoniae DNA (PCR) Not Detected (NotDetected) 08/13/24 Unknown Coronavirus OC43 (PCR) Not Detected (NotDetected) 08/13/24 Unknown Coronavirus HKU1 (PCR) Not Detected (NotDetected) 08/13/24 Unknown Coronavirus 229E (PCR) Not Detected (NotDetected) 08/13/24 Unknown SARS-CoV-2 (PCR) Not Detected (NotDetected) 08/13/24 Unknown Coronavirus NL63 (PCR) Not Detected (NotDetected) 08/13/24 Unknown Human Metapneumovir PCR Not Detected (NotDetected) 08/13/24 Unknown Influenza Type A (PCR) Not Detected (NotDetected) 08/13/24 Unknown Influenza Type B (PCR) Not Detected (NotDetected) 08/13/24 Unknown M. pneumoniae (PCR) Not Detected (NotDetected) 08/13/24 Unknown Parainfluenza 1 (PCR) Not Detected (NotDetected) 08/13/24 Unknown Parainfluenza 2 (PCR) Not Detected (NotDetected) 08/13/24 Unknown Parainfluenza 3 (PCR) Not Detected (NotDetected) 08/13/24 Unknown Parainfluenza 4 (PCR) Not Detected (NotDetected) 08/13/24 Unknown RSV (PCR) Not Detected (NotDetected) 08/13/24 Unknown Entero/Rhino (PCR) Not Detected (NotDetected) 08/13/24 Unknown Impressions Abdomen/Pelvis CT 08/13/24 21:56 CR Exam(s): CT ABDOMEN + PELVIS With Contrast IV Amt: 90 cc opti 320 EXAM: CT Abdomen and Pelvis With Intravenous Contrast CLINICAL HISTORY: Nausea and vomiting. Patient has a history of metastatic breast cancer status post endoscopy. TECHNIQUE: Axial computed tomography images of the abdomen and pelvis with intravenous contrast. CTDI is 17.35 mGy and DLP is 855.77 mGy-cm. Automated exposure control was utilized for the study. A dose lowering technique was utilized adhering to the principles of ALARA. CONTRAST: Patient received 90 cc opti 320 of IV contrast COMPARISON: CT abdomen and pelvis 07/21/2024 FINDINGS: Lung bases: Airspace opacities of the lower lobes are greater on the right. Mediastinum: Small hiatal hernia. ABDOMEN: Liver: Unremarkable. No mass. Gallbladder and bile ducts: Unremarkable. No calcified stones. No ductal dilation. Pancreas: Unremarkable. No mass. No ductal dilation. Spleen: Unremarkable. No splenomegaly. Adrenals: Unremarkable. No mass. Kidneys and ureters: Unremarkable. No solid mass. No hydronephrosis. Stomach and bowel: There is focal thickening of the wall of the rectum. Marked thickening of the wall of the stomach. Nonspecific thickening of the wall of the ascending and transverse colon. Diverticulosis. No obstruction. PELVIS: Appendix: Acute appendicitis. The appendix measures 1 cm. Bladder: Unremarkable. No mass. Reproductive: Unremarkable as visualized. ABDOMEN and PELVIS: Intraperitoneal space: Nonspecific free fluid in the abdomen or pelvis. Nodularity of the omentum is most consistent with metastatic disease. No free air. Bones/joints: Diffuse osseous metastases. Mild left wrist Pain. No acute fracture. No dislocation. Soft tissues: Unremarkable. Vasculature: Unremarkable. No abdominal aortic aneurysm. Lymph nodes: Unremarkable. No enlarged lymph nodes. IMPRESSION: 1. Acute appendicitis. The appendix measures 1 cm. No abscess or perforation. 2. Airspace opacities of the lower lobes are greater on the right. This may represent atypical infection and/or aspiration. 3. Nonspecific thickening of the wall of the ascending and transverse colon. This could be infectious or inflammatory, malignancy is considered less likely. 4. Marked thickening of the wall of the stomach. This could be infectious, inflammatory or neoplastic. 5. There is focal thickening of the wall of the rectum. Recommend correlation with colonoscopy as malignancy needs to be excluded. 6. Diffuse osseous metastases. 7. Small hiatal hernia. 8. Nodularity of the omentum is most consistent with metastatic disease. 9. Diverticulosis. 10. Nonspecific free fluid in the abdomen or pelvis. Communications: Call Doctor Appendicitis Electronically signed by: Katherine Edmond MD 08/14/24 01:02 AM Code Status & VTE Plan Code Status DNR/DNI VTE Prophylaxis Plan VTE Prophylaxis will be ordered: Yes PG Care Time/CCT Total # of Minutes Spent Total Time Spent with Patient: Total time spent is greater than 50% in coordination of care (as documented) at patient's floor/unit and/or counseling patient: Coding Level of Care Code 01381 INT INP/OBS CARE 3/75MIN Diagnoses Appendicitis K37 Bilateral pneumonia J18.9 Breast cancer metastasized to bone C50.919; C79.51 Emphysematous COPD J43.9 History of chemotherapy Z92.21 Gastric mass K31.89
[2024-08-14] MEDS: DAPTOmycin 250 MG in SYRINGE 0 ML IV SCH (02:39)
[2024-08-14] MEDS ORDERED: fentaNYL 12 MCG/HR TDSY TD PRN (04:11)
--- OUTSIDE RECORDS SUMMARY | 2024-08-14 04:38 | External Medical Summary | Summary of Care ---
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 Name Role Phone Ganesh Maloney MD [facility] Care Provider Reason for Visit * Auth/Cert Specialty Diagnoses / Procedures Referred By Contjusto t Referred To Contact Diagnoses Acute gastritis Breast cancer (HCC) Acute gastritis [K29.00] Breast cancer (HCC) [C50.919] Procedures EGD, FLEXIBLE, DIAGNOSTIC EGD, W/ENDOSCOPIC US ESOPHAGOGASTRODUODENOSCOPY (EGD), FLEXIBLE, TRANSORAL, DIAGNOSTIC ESOPHAGOGASTRODUODENOSCOPY (EGD), FLEXIBLE, TRANSORAL, ENDOSCOPIC ULTRASOUND Phoebe Mills DO [address] [place] [address] Phone: tel: fax: OR [facility], Operating Room, [facility] - 4th Floor [address] [place] [address] Phone: tel: Referral ID Status Reason Start Date Expiration Date Visits Re quested Visits Authorized [id number] Encounter Details Date Type Department Care Team (Latest Contact Info) Description 08/12/2024 12:21 PM EST - 08/12/2024 4:01 PM EST Hospital Encounter OR [facility], Operating Room, [facility] - 4th Floor [address] [place] [phone] Phoebe Mills DO [address] [place] [address] Various: UEUS,UGI Discharge Disposition: Home - Self Care Allergies No known active allergiesdocumented as of this encounter (statuses as of 08/13/2024) Medications LORazepam 1 MG Oral Tablet (Ativan) Take 1 Tablet by mouth. As needed 09/26/19 21 Active oxyCODONE HCl 5 MG Oral Tablet (Oxy IR) Take 1 Tablet by mouth every 8 hours as needed. Active Venlafaxine HCl 75 MG Oral Tablet (Effexor) Take 1 Tablet by mouth in the morning. Active Ondansetron HCl 4 MG Oral Tablet (Zofran) Take 1 Tablet by mouth every 8 hours as needed for Nausea. Active Docusate Sodium 100 MG Oral Capsule Take 1 Capsule by mouth in the morning and 1 Capsule at noon and 1 Capsule before bedtime. Active Xgeva 120 MG/1.7ML Subcutaneous Solution (Denosumab) Inject 120 mg under the skin once. Active Cyanocobalamin 1000 MCG/ML Injection Solution (Cyanocobalamin) Inject 1 mL into a large muscle every 30 days. Active Venlafaxine HCl ER 150 MG Oral Capsule Extended Release 24 Hour (Effexor XR) Take 1 Capsule by mouth daily. Active fentaNYL 12 MCG/HR Transdermal Patch 72 Hour (Duragesic) Place 1 Patch topically on the skin every 3 days. Active Letrozole 2.5 MG Oral Tablet (Femara) Take 1 tablet by mouth daily. 90 Tablet 3 4 10:16 AM EST 10/29/19 24 Active Calcium 250 MG Oral Capsule Take by mouth. Active Vitamin D3 1.25 MG (84543 UT) Oral Tablet Take by mouth. Active Ibrance 75 MG Oral Capsule (Palbociclib) Take 1 tablet by mouth daily. Take on days 1 through 21 of a 28-day treatment cycle. 21 Capsule 6 07/07/20 24 Active Ondansetron 4 MG Oral Tablet Disintegrating (Zofran) Dissolve 1 Tablet on tongue every 8 hours as needed for Nausea. 30 Tablet 1 4 3:31 PM EST 08/12/20 24 Active Venlafaxine HCl ER 37.5 MG Oral Capsule Extended Release 24 Hour (Effexor XR) Take 1 Capsule by mouth in the morning. 2023 Discontinued methylPREDNISolon e 4 MG Oral Tablet Therapy Pack (Medrol Dosepack)Indicati ons:Sinus pain,Otalgia of both ears follow package directions 21 Tablet 07/16/20 23 2023 Discontinued Palbociclib 75 MG Oral Tablet Take 1 Tablet by mouth Daily. Administer on days 1 through 21 of a 28-day treatment cycle. 21 Tablet 6 4 10:16 AM EST 03/17/20 24 2023 Discontinued documented as of this encounter (statuses as of 08/13/2024) Active Problems Problem Noted Date Diagnosed Date History of polymyalgia rheumatica Primary malignant neoplasm of breast with metast asis Overview (12/26/2020): multiple bone mets documented as of this encounter (statuses as of 08/13/2024) Immunizations Name Administration Dates Next Due COVID-19 mRNA, LNP-s, No Pre serve, 2-Dose Series ([employer]) 12/21/2020,12/01/2020 documented as of this encounter Social History Tobacco Use Types Packs/Day Years Used Date Smoking Tobacco: Former Cigarettes Smokeless Tobacco: Never Alcohol Use Standard Drinks/Week Comments Not Currently 0 (1 standard drink = 0.6 oz pur e alcohol) Comments No Sex and Gender Information Value Date Recorded Sex Assigned at Female 08/11/2024 2:30 PM EST Legal Sex Female 9:55 AM EST Gender Identity Female 08/11/2024 2:30 PM EST Sexual Orientation Not on file documented as of this encounter Last Filed Vital Signs Vital Sign Reading Time Taken Comments Blood Pressure 104/64 08/12/2024 3:59 PM EST Pulse 98 08/12/2024 3:59 PM EST Temperature 36.9 C (98.4 F) 08/12/2024 3:59 PM ES T Respiratory Rate 16 08/12/2024 3:59 PM EST Oxygen Saturation 94% 08/12/2024 3:59 PM EST Inhaled Oxygen Concentration - - Weight 67.1 kg (148 lb) 08/12/2024 12:41 PM EST Height 160 cm (5' 2.99") 08/12/2024 12:41 PM EST Body Mass Index 26.22 08/12/2024 12:41 PM EST documented in this encounter H&P Notes * Phoebe Mills DO - 08/12/2024 1:19 PM EST Endoscopy Pre-Procedure Assessment Name: Divya Colon Date: 08/12/2024 Time: 1:19 PM Procedure(s): Upper GI Endoscopy; with Indication(s) of upper abdominal symptoms that persist despite an appropriate trial of therapy Endoscopic Ultrasound; with Indication(s) of evaluation of abnormalities seen during routine endoscopy and evaluation of abnormalities on radiologic study Endoscopy Pre-Procedure Assessment: Prior to the procedure, the patient is identified. The patient's history, medications and allergieshave been reviewed. The patient is competent. The risks and benefits of the proposed procedure and the planned sedation have been discussed with the patient. All questions have been answered and informed consent for the procedure has been obtained. Prior to Admission medications Medication Sig Last Dose Discont. Ibrance 75 MG Oral Capsule (Palbociclib) Take 1 tablet by mouth daily. Take on days 1 through 21 ofa 28-day treatment cycle. 08/06/2024 Calcium 250 MG Oral Capsule Take by mouth. Past Month Vitamin D3 1.25 MG (44856 UT) Oral Tablet Take by mouth. Past Month Letrozole 2.5 MG Oral Tablet (Femara) Take 1 tablet by mouth daily. 08/11/2024 fentaNYL 12 MCG/HR Transdermal Patch 72 Hour (Duragesic) Place 1 Patch topically on the skin every 3 days. Unknown Venlafaxine HCl ER 150 MG Oral Capsule Extended Release 24 Hour (Effexor XR) Take 1 Capsule by mouth daily. 08/11/2024 Cyanocobalamin 1000 MCG/ML Injection Solution (Cyanocobalamin) Inject 1 mL into a large muscle every 30 days. Past Month Xgeva 120 MG/1.7ML Subcutaneous Solution (Denosumab) Inject 120 mg under the skin once. Past Month Docusate Sodium 100 MG Oral Capsule Take 1 Capsule by mouth in the morning and 1 Capsule at noon and 1 Capsule before bedtime. Past Week LORazepam 1 MG Oral Tablet (Ativan) Take 1 Tablet by mouth. As needed Unknown Ondansetron HCl 4 MG Oral Tablet (Zofran) Take 1 Tablet by mouth every 8 hours as needed for Nausea. 08/11/2024 oxyCODONE HCl 5 MG Oral Tablet (Oxy IR) Take 1 Tablet by mouth every 8 hours as needed. Unknown Venlafaxine HCl 75 MG Oral Tablet (Effexor) Take 1 Tablet by mouth in the morning. 08/11/2024 Review of patient's allergies indicates: No Known Allergies BP 107/77 | Pulse 114 | Temp 36.5 C (97.7 F) (Temporal Artery) | Resp 18 | Ht 1.6 m (5' 2.99")| Wt 67.1 kg (148 lb) | SpO2 95% | BMI 26.22 kg/m | BSA 1.73 m Physical Exam: Mental Status Examination: alert and oriented. Airway Examination: normal oropharyngeal airway and neck mobility. Respiratory Examination: clear to auscultation. CV Examination: systolic murmur. ASA Grade: III - A patient with severe systemic disease. Abdomen: nontender EGD pathology A. Stomach, "gastric body biopsy" (biopsy): - Adenocarcinoma (see comment). B. Stomach, antrum (biopsy): - Multiple benign strips of antral mucosa with no pathologic diagnoses are seen. - See comment. Comment: The biopsy tissue submitted in part B shows no significant inflammation and therefore a Helicobacter pylori immunohistochemical stain is not performed. No H. pylori organisms are noted on the routine H&E stain, however this is less sensitive than the immunohistochemical stain, and may not detect small numbers of organisms. If there is a clinical indication that warrants a Helicobacter pylori immunohistochemical stain (ex. ulcer not sampled, follow-up for recent H. pylori treatment), then testing may be ordered through the laboratory and an addendum will be issued to this report upon completion The fragments of tissue submitted in part A, gastric body biopsy, reveal benign gastric mucosa and multiple foci of atypical epithelial cells arranged in flat sheets and small clusters. Gland formation is not seen. Focally, cytoplasmic lumina are identified. The individual atypical cells reveal nucleomegaly, increased nuclear to cytoplasmic ratios, and mild nuclear hyperchromasia. Macronucleoli are not seen but mitotic figures are identified. The differential diagnoses lies between a neuroendocrine tumor versus a poorly differentiated adenocarcinoma. Multiple immunohistochemical stains were obtained to address this differential diagnoses along with a proliferation marker and an alcian blue histochemical stain. The malignant cells are negative for chromogranin, synaptophysin, CD56, and CDX2. These same cells are focally positive for alcian blue. The cells are positive for cytokeratin Gary, CEA, and REGI. An immunohistochemical stain for the Helicobacter pylori organisms is negative. Despite the positive stain for CD56, the immunohistochemical stains in this case strongly favor adenocarcinoma, poorly differentiated, over a neuroendocrine tumor. In particular, please note the carcinoma is Alcian blue positive and positive for CEA and REGI which should be negative in a neuroendocrine tumor. Thus, this patient has an adenocarcinoma at this site. Significantly, the immunohistochemical stain for Ki-67 reveals a remarkably high proliferation rate as 90% of the malignant cells are positive for this antigen. Clearly, this would be atypical for a Surgical Pathology Report Page 1 of 2 This patient has undergone a preprocedural evaluation. A determination has been made to proceed with the planned procedure under [facility] procedural guidelines and the [facility] Non-Emergent, Elective Medical Services and Treatment Recommendations (published on 11-30-19). The community and hospital prevalence of COVID-19 has been discussed as well as this patient's specific risks associated with SARS-CoV-19 infection. Based upon the clinical acuity and patient-specific care considerations, this procedure is deemed a Tier II - Intermediate acuity treatment or service with either progression or the threat of progressive disease related to the delay in treatment. Not providing the service has the potential for increasing morbidity or mortality. After reviewing the risks and benefits, the patient is deemed in satisfactory condition to undergo the procedure. The anesthesia plan is to use general anesthesia. We have discussed the risks and benefits of upper endoscopy to include bleeding, infection, perforation, discomfort, aspiration and need for follow-up studies. I have discussed the risks and benefits of EUS to include (not limited to) bleeding, infection, perforation, pain, aspiration, cardiac complications, pancreatitis and insufficient cellularity. Phoebe Mills DO 08/12/2024 documented in this encounter Procedure Notes * Soraya Kowalski MD - 08/12/2024 1:39 PM ESTAssociated Order(s): UPPER ENDOSCOPIC U/S [facility] Patient Name: Divya Colon Procedure Date: 08/12/2024 1:39 PM Date of : 1960 Admit Type: Outpatient Note Status: Finalized Date of : 1960 Admit Type: Outpatient Age: 63 Room: OR 2 Gender: Female Note Status: Finalized Procedure: Upper EUS Indications: Suspected mass in stomach on CT scan, Suspected mass in liver on CT scan Providers: Phoebe Mills DO (Doctor) Referring MD: Soraya Kowalski MD Medicines: General Anesthesia Complications: No immediate complications. Estimated blood loss: Minimal. Procedure: Pre-Anesthesia Assessment: - Prior to the procedure, a History and Physical was performed, and patient medications, allergies and sensitivities were reviewed. The patient's tolerance of previous anesthesia was reviewed. - The risks and benefits of the procedure and the sedation options and risks were discussed with the patient. All questions were answered and informed consent was obtained. - Patient identification and proposed procedure were verified prior to the procedure by the physician, the nurse and the personnel consultant. The procedure was verified in the procedure room. - Pre-procedure physical examination revealed no contraindications to sedation. - ASA Grade Assessment: III - A patient with severe systemic disease. - After reviewing the risks and benefits, the patient was deemed in satisfactory condition to undergo the procedure. - The anesthesia plan was to use general anesthesia. - Immediately prior to administration of medications, the patient was re- assessed for adequacy to receive sedatives. - The heart rate, respiratory rate, oxygen saturations, blood pressure, adequacy of pulmonary ventilation, and response to care were monitored throughout the procedure. - The physical status of the patient was re-assessed after the procedure. After obtaining informed consent, the endoscope was passed under direct vision. All instruments were visually inspected immediately before and after removal from the patient to ensure they are fully intact. Throughout the procedure, the patient's blood pressure, pulse, and oxygen saturations were monitored continuously.The upper EUS was accomplished without difficulty. The Endosonoscope (loner UCT-180) was introduced through the mouth, and advanced to the antrum of the stomach, it would not traverse the antrum to the pylorus due to fixation of the stomach from an infiltrating mass. Findings & Specimens: ENDOSONOGRAPHIC FINDING: : There was no sign of significant endosonographic abnormality in the left lobe of the liver. Homogeneous parenchyma, no focal pathology and no masses were identified. No lymph nodes were seen during endosonographic examination in the subcarinal mediastinum (level 7), in the retrocardiac region, in the gastrohepatic ligament (level 18), in the celiac region (level 20) and in the perigastric region. Diffuse wall thickening was visualized endosonographically in the greater curve of the stomach, in the body of the stomach and in the antrum of the stomach. This appeared to primarily be due to thickening within the intramural wall, but the wall layer could not be determined. The gastric wall measured up to 12 mm in thickness. Impression: - There was no evidence of significant pathology in the left lobe of the liver. - Wall thickening was seen in the greater curve of the stomach, in the body of the stomach and in the antrum of the stomach. The thickening appeared to be primarily within the intramural wall, but the wall layer could not be determined. This likely represents visceral spread of her underlying MBC. - No specimens collected during EUS. - Unable to pass the EUS endoscope beyond the antrum due to extensive infiltration of a gastric mass. Recommendation: - The patient will be observed post-procedure, until all discharge criteria are met. - Full liquid diet. Phoebe Mills DO 08/12/2024 2:38:07 PM This report has been signed electronically. Estimated Blood Loss: Estimated blood loss was minimal. * Soraya Kowalski MD - 08/12/2024 1:39 PM ESTAssociated Order(s): UPPER GI ENDOSCOPY [facility] Patient Name: Divya Colon Procedure Date: 08/12/2024 1:39 PM Date of : 1960 Admit Type: Outpatient Note Status: Finalized Date of : 1960 Admit Type: Outpatient Age: 63 Room: OR 2 Gender: Female Note Status: Finalized Procedure: Upper GI endoscopy Indications: Epigastric abdominal pain, Nausea with vomiting Providers: Phoebe Mills DO (Doctor) Referring MD: Soraya Kowalski MD, Ganesh Adhikari Medicines: General Anesthesia Complications: No immediate complications. Estimated blood loss: Minimal. Procedure: Pre-Anesthesia Assessment: - Prior to the procedure, a History and Physical was performed, and patient medications, allergies and sensitivities were reviewed. The patient's tolerance of previous anesthesia was reviewed. - The risks and benefits of the procedure and the sedation options and risks were discussed with the patient. All questions were answered and informed consent was obtained. - Patient identification and proposed procedure were verified prior to the procedure by the physician, the nurse and the personnel consultant. The procedure was verified in the procedure room. - Pre-procedure physical examination revealed no contraindications to sedation. - ASA Grade Assessment: III - A patient with severe systemic disease. - After reviewing the risks and benefits, the patient was deemed in satisfactory condition to undergo the procedure. - The anesthesia plan was to use general anesthesia. - Immediately prior to administration of medications, the patient was re- assessed for adequacy to receive sedatives. - The heart rate, respiratory rate, oxygen saturations, blood pressure, adequacy of pulmonary ventilation, and response to care were monitored throughout the procedure. - The physical status of the patient was re-assessed after the procedure. After obtaining informed consent, the endoscope was passed under direct vision. All instruments were visually inspected immediately before and after removal from the patient to ensure they are fully intact. Throughout the procedure, the patient's blood pressure, pulse, and oxygen saturations were monitored continuously.The upper GI endoscopy was accomplished without difficulty. The patient tolerated the procedure well. The GIF-Q190 Endoscope ([id number]) was introduced through the mouth, and advanced to the antrum of the stomach but could not be advanced to the pylorus or duodenum due to resistence of an infiltrating gastric mass. Therefore an XP-190 Endoscope was introduced through the mouth, and advanced to the third part of duodenum after completion of the endoscopic ultrasound. Findings & Specimens: The examined esophagus was normal. The Z-line was regular and was found 38 cm from the incisors. An infiltrating, frond-like/villous, circumferential mass with no bleeding and no stigmata of recent bleeding was found extending from the upper portion of the gastric body up to the pre-pyloric region in the antrum. The mass was thickened in appearance with luminal narrowing and poor distension with CO2 insufflation. The standard GIF endoscope would not traverse the pylorus due to fixed resistence from the infiltrating mass. Biopsies were taken from the stomach body with a cold forceps for histology.The pathology specimen was placed into Bottle A. Estimated blood loss was minimal We exchanged endoscopes to the UCT-180 for a limited EUS (not passed beyond the entrum). After the EUS an XP-180 was utiltizied to evaluate the distal stomach and duodenum. The pylorus was easily traversed after exchanging to the XP-190. The duodenal bulb, second portion of the duodenum and third portion of the duodenum were normal. Impression: - Normal esophagus. - Z-line regular, 38 cm from the incisors. - Infiltratinmg, malignant gastric tumor involving the gastric body and antrum likely from metastatic breast cancer. Biopsied. - Normal duodenal bulb, second portion of the duodenum and third portion of the duodenum. Recommendation: - Perform an upper endoscopic ultrasound (UEUS) today. - Await pathology results - Follow-up with Medical Oncology at [facility]. Phoebe Mills DO 08/12/2024 2:41:05 PM This report has been signed electronically. Estimated Blood Loss: Estimated blood loss was minimal. documented in this encounter Nursing Notes * Kelsi Mccormack RN - 08/12/2024 2:08 PM EST EGD/EUS completed in [facility] OR. Patient tolerated procedure well. Airway patent. Sedated by [facility] anesthesia staff, see anesthesia record for medications and vital signs. Abd soft. Resting with HOB elevated. Transferred to [facility] via stretcher by anesthesia staff and endo staff. Report given at time of transport. Specimens verified with physician and sent to lab by endo staff nurse. Bedside pre clean of endoscope at completion of procedure performed by Yves Wagner RN documented in this encounter Plan of Treatment Pending Results Name Type Priority Associated Diagnoses Date /Time SURGICAL PATHOLOGY Pathology Routine 2023 2:11 PM EST Scheduled Orders Name Type Priority Associated Diagnoses Orde r Schedule SURGICAL PATHOLOGY Pathology Routine One Ti me for 1 Occurrences starting 08/12/2024 until 08/12/2024, 1 completed Health Maintenance Due Date Last Done Comments Lipid Panel 1960 Pneumococcal Vaccine: Pediatrics (0 to 5 Years) and At-Risk Patients (6 to 64 Years) (1 of 2 - PCV) 1966 Depression Screening 1972 HIV Screening 1975 Hepatitis C Screening 1978 DTap/Tdap Vaccines (1 - Tdap) 1979 Pap Smear 1981 Cervical Cancer Screening 1990 HPV/Co-Test 1990 Cologuard 2005 Fecal Occult Blood Test 2005 Sigmoidoscopy 2005 COVID-19 Vaccine (3 - Pfizer risk series) 01/18/2021 12/21/2020, 12/01/2020 Mammogram 11/30/2023 11/29/2022, 08/26, 06/23/2020, Additional history exists Diabetes Screening 12/01/2023 11/30/2020 Colonoscopy 03/28/2032 03/28/2022 Colorectal Cancer Screening 03/28/2032 Zoster Vaccines Completed 03/12/2023, 07/0 08/2022, 12/23/2022, Additional history exists Influenza Vaccine (FLU shot) Completed , 05/23/2022, 06/28/2021, Additional history exists HPV (Gardasil) Vaccine Aged Out No lo nger eligible based on patient's age to complete this topic Hepatitis B Vaccine Aged Out No longe r eligible based on patient's age to complete this topic MENINGOCOCCAL (MENACTRA/MENVEO) Aged Out No longer eligible based on patient's age to complete this topic documented as of this encounter Medical Devices Not on filedocumented as of this encounter Procedures Procedure Name Priority Date/Time Associated Diagnosis Comments UPPER ENDOSCOPIC U/S 08/12/2024 1:39 PM EST UPPER GI ENDOSCOPY 08/12/2024 1: 39 PM EST documented in this encounter Results * UPPER ENDOSCOPIC U/S (08/12/2024 1:39 PM EST) 08/12/2024 1:39 PM EST Narrative Procedure Note Soraya Kowalski MD - 08/12/2024 1:39 PM EST [facility] Patient Name: Divya Colon Procedure Date: 08/12/2024 1:39 PMMRN: [id number] Date of : 1960 Admit Type: Outpatient Note Status:Finalized Date of : 1960 Admit Type: Outpatient Age: 63 Room: OR 2 Gender: Female Note Status: Finalized Procedure: Upper EUS Indications: Suspected mass in stomach on CT scan, Suspectedmass in liver on CT scan Providers: Phoebe Mills DO (Doctor) Referring MD: Soraya Kowalski MD Medicines: General Anesthesia Complications: No immediate complications. Estimated blood loss:Minimal. Procedure: Pre-Anesthesia Assessment: - Prior to the procedure, a History and Physicalwas performed, and patient medications, allergies and sensitivities werereviewed. The patient's tolerance of previous anesthesia was reviewed. - The risks and benefits of the procedure and thesedation options and risks were discussed with the patient. All questions wereanswered and informed consent was obtained. - Patient identification and proposed procedurewere verified prior to the procedure by the physician, the nurse and the personnel consultant.The procedure was verified in the procedure room. - Pre-procedure physical examination revealed nocontraindications to sedation. - ASA Grade Assessment: III - A patient with severesystemic disease. - After reviewing the risks and benefits, thepatient was deemed in satisfactory condition to undergo the procedure. - The anesthesia plan was to use generalanesthesia. - Immediately prior to administration ofmedications, the patient was re-assessed for adequacy to receive sedatives. - The heart rate, respiratory rate, oxygensaturations, blood pressure, adequacy of pulmonary ventilation, and response to care weremonitored throughout the procedure. - The physical status of the patient wasre-assessed after the procedure. After obtaining informed consent, the endoscope waspassed under direct vision. All instruments were visually inspected immediatelybefore and after removal from the patient to ensure they are fully intact. Throughoutthe procedure, the patient's blood pressure, pulse, and oxygen saturations weremonitored continuously.The upper EUS was accomplished without difficulty. TheEndosonoscope (loner UCT-180) was introduced through the mouth, and advanced to theantrum of the stomach, it would not traverse the antrum to the pylorus due to fixationof the stomach from an infiltrating mass. Findings & Specimens: ENDOSONOGRAPHIC FINDING: : There was no sign of significant endosonographic abnormality in theleft lobe of the liver. Homogeneous parenchyma, no focal pathology and no masses were identified. No lymph nodes were seen during endosonographic examination in thesubcarinal mediastinum (level 7), in the retrocardiac region, in the gastrohepatic ligament (level 18), inthe celiac region (level 20) and in the perigastric region. Diffuse wall thickening was visualized endosonographically in thegreater curve of the stomach, in the body of the stomach and in the antrum of the stomach. This appearedto primarily be due to thickening within the intramural wall, but the wall layer could not bedetermined. The gastric wall measured up to 12 mm in thickness. Impression: - There was no evidence of significant pathology inthe left lobe of the liver. - Wall thickening was seen in the greater curve ofthe stomach, in the body of the stomach and in the antrum of the stomach. Thethickening appeared to be primarily within the intramural wall, but the wall layercould not be determined. This likely represents visceral spread of her underlying MBC. - No specimens collected during EUS. - Unable to pass the EUS endoscope beyond theantrum due to extensive infiltration of a gastric mass. Recommendation: - The patient will be observed post-procedure,until all discharge criteria are met. - Full liquid diet. Phoebe Mills DO 08/12/2024 2:38:07 PM This report has been signed electronically. Estimated Blood Loss: Estimated blood loss was minimal. us Soraya Kowalski MD GASTRO UPPER Final Result * UPPER GI ENDOSCOPY (08/12/2024 1:39 PM EST) 08/12/2024 1:39 PM EST Narrative Procedure Note Soraya Kowalski MD - 08/12/2024 1:39 PM EST [facility] Patient Name: Divya Colon Procedure Date: 08/12/2024 1:39 PMMRN: [id number] Date of : 1960 Admit Type: Outpatient Note Status:Finalized Date of : 1960 Admit Type: Outpatient Age: 63 Room: OR 2 Gender: Female Note Status: Finalized Procedure: Upper GI endoscopy Indications: Epigastric abdominal pain, Nausea with vomiting Providers: Phoebe Mills DO (Doctor) Referring MD: Soraya Kowalski MD, Ganesh Adhikari Medicines: General Anesthesia Complications: No immediate complications. Estimated blood loss:Minimal. Procedure: Pre-Anesthesia Assessment: - Prior to the procedure, a History and Physicalwas performed, and patient medications, allergies and sensitivities werereviewed. The patient's tolerance of previous anesthesia was reviewed. - The risks and benefits of the procedure and thesedation options and risks were discussed with the patient. All questions wereanswered and informed consent was obtained. - Patient identification and proposed procedurewere verified prior to the procedure by the physician, the nurse and the personnel consultant.The procedure was verified in the procedure room. - Pre-procedure physical examination revealed nocontraindications to sedation. - ASA Grade Assessment: III - A patient with severesystemic disease. - After reviewing the risks and benefits, thepatient was deemed in satisfactory condition to undergo the procedure. - The anesthesia plan was to use generalanesthesia. - Immediately prior to administration ofmedications, the patient was re-assessed for adequacy to receive sedatives. - The heart rate, respiratory rate, oxygensaturations, blood pressure, adequacy of pulmonary ventilation, and response to care weremonitored throughout the procedure. - The physical status of the patient wasre-assessed after the procedure. After obtaining informed consent, the endoscope waspassed under direct vision. All instruments were visually inspected immediatelybefore and after removal from the patient to ensure they are fully intact. Throughoutthe procedure, the patient's blood pressure, pulse, and oxygen saturations weremonitored continuously.The upper GI endoscopy was accomplished without difficulty.The patient tolerated the procedure well. The GIF-Q190 Endoscope ([id number]) wasintroduced through the mouth, and advanced to the antrum of the stomach but could not beadvanced to the pylorus or duodenum due to resistence of an infiltrating gastric mass.Therefore an XP-190 Endoscope was introduced through the mouth, and advanced to thethird part of duodenum after completion of the endoscopic ultrasound. Findings & Specimens: The examined esophagus was normal. The Z-line was regular and was found 38 cm from the incisors. An infiltrating, frond-like/villous, circumferential mass with nobleeding and no stigmata of recent bleeding was found extending from the upper portion of the gastricbody up to the pre-pyloric region in the antrum. The mass was thickened in appearance with luminalnarrowing and poor distension with CO2 insufflation. The standard GIF endoscope would not traverse thepylorus due to fixed resistence from the infiltrating mass. Biopsies were taken from the stomach body witha cold forceps for histology. The pathology specimen was placed into Bottle A. Estimated blood loss wasminimal We exchanged endoscopes to the UCT-180 for a limited EUS (not passed beyond the entrum).After the EUS an XP-180 was utiltizied to evaluate the distal stomach and duodenum. The pylorus was easilytraversed after exchanging to the XP-190. The duodenal bulb, second portion of the duodenum and third portionof the duodenum were normal. Impression: - Normal esophagus. - Z-line regular, 38 cm from the incisors. - Infiltratinmg, malignant gastric tumor involvingthe gastric body and antrum likely from metastatic breast cancer. Biopsied. - Normal duodenal bulb, second portion of theduodenum and third portion of the duodenum. Recommendation: - Perform an upper endoscopic ultrasound (UEUS)today. - Await pathology results - Follow-up with Medical Oncology at [facility]. Phoebe Mills DO 08/12/2024 2:41:05 PM This report has been signed electronically. Estimated Blood Loss: Estimated blood loss was minimal. us Soraya Kowalski MD GASTRO UPPER Final Result documented in this encounter Visit Diagnoses Diagnosis Gastric mass- Primary Unspecified disorder of stomach and duodenum documented in this encounter Administered Medications Inactive Administered Medications - up to 3 most recent administrations Medication Order MAR Action Action Date Dose Rate Site Famotidine (Pepcid) inj 20 mg 20 mg, IV Push, ONCE, On Samantha 08/12/24 at 1400, For 1 dose, Give IV push over 2 minutes. Given 08/12/2024 1:21 PM EST 20 mg Isolyte-S pH 7.4 infusion Intravenous, at 25 mL/hr, All Patients EXCEPT Dialysis patients Plasma-LYTE 148, isolyte-S, and isolyte-S pH 7.4 are considered equivalent - including for MAR barcode scanning., CONTINUOUS, Starting on Samantha 08/12/24 at 1345, Until Samantha 08/12/24 at 2000, Pre-Op Restarted 08/12/2024 1:55 PM EST Continue from Pre-Op 08/12/2024 1:42 PM EST 25 mL/hr New Bag 08/12/2024 1:21 PM EST 25 mL/hr 25 mL/hr ondansetron (Zofran) inj 4 mg 4 mg, IV Push, ONCE, On Samantha 08/12/24 at 1400, For 1 dose Given 08/12/2024 1:21 PM EST 4 mg documented in this encounter Active and Recently Administered Medications Times are shown in EST. Scheduled Medication Order 08/10/2024 08/11/2024 08/12/2024 Famotidine (Pepcid) inj 20 mg (COMPLETED) 20 mg, IV Push, ONCE, On Samantha 08/12/24 at 1400, For 1 dose, Give IV push over 2 minutes. 1321 (Given - Provid er: Sara Baez RN) hyoscyamine (Levsin) tab 0.125 mg 0.125 mg, Sublingual, ONCE, On Samantha 08/12/24 at 1515, For 1 dose 1515 (Not Given - Pr ovider: Roselyn Abraham RN - Reason: Parameter(s) Not Met) ondansetron (Zofran) inj 4 mg (COMPLETED) 4 mg, IV Push, ONCE, On Samantha 08/12/24 at 1400, For 1 dose 1321 (Given - Provid er: Sara Baez RN) Continuous Medication Order 08/10/2024 08/11/2024 08/12/2024 Isolyte-S pH 7.4 infusion Intravenous, at 25 mL/hr, All Patients EXCEPT Dialysis patients Plasma-LYTE 148, isolyte-S, and isolyte-S pH 7.4 are considered equivalent - including for MAR barcode scanning., CONTINUOUS, Starting on Samantha 08/12/24 at 1345, Until Samantha 08/12/24 at 2000, Pre-Op 1321 (New Bag - Prov ider: Sara Baez RN)1342 (Continue from Pre-Op - Provider: Saloni Grady CRNA)1354 (Paused - Provider: Saloni Grady CRNA - Comment: Switch to gravity)1355 (Restarted - Provider: Saloni Grady CRNA)1438 (Anes Intra-Op Fluid - Provider: Kishore Monahan CRNA)1445 (Anes Intra-Op Fluid - Provider: Kishore Monahan CRNA) documented in this encounter Care Teams Retail Advertising Sales Manager Relationship Specialty Start Date End Date Ganesh Maloney MD [address] [address] PCP - General Internal Medicine 12/26/20 documented as of this encounter
--- OUTSIDE RECORDS SUMMARY | 2024-08-14 04:39 | External Medical Summary | Summary of Care ---
Author Name Unknown Organization [facility] Address [address] [place] [address] Phone [phone] Care Team Providers Care Gynaecological Oncologist Name Role Phone Ganesh Maloney MD [facility] Care Provider Reason for Visit * Reason Onset Date Comments Appointment 08/10/2024 ? Encounter Details Date Type Department Care Team (Late st Contact Info) Description 08/10/2024 Telephone Gastroenterology, [address] [address] Phoebe Mills, DO [address] [place], [place] [phone] Appointment (? ) Allergies No known active allergiesdocumented as of this encounter (statuses as of 08/10/2024) Medications LORazepam 1 MG Oral Tablet (Ativan) Take 1 Tablet by mouth. As needed 1 Active oxyCODONE HCl 5 MG Oral Tablet [...] noon and 1 Capsule before bedtime. Active Venlafaxine HCl ER 37.5 MG Oral Capsule Extended Release 24 Hour (Effexor XR) Take 1 Capsule by mouth in the morning. Active Xgeva 120 MG/1.7ML Subcutaneous Solution (Denosumab) Inject 120 mg under the skin once. Active Cyanocobalamin 1000 MCG/ML Injection Solution (Cyanocobalamin) Inject 1,000 mcg into a large muscle every 30 days. Active methylPREDNISolo ne 4 MG Oral Tablet Therapy Pack (Medrol Dosepack)Indicat ions:Sinus pain,Otalgia of both ears follow package directions 21 Tablet 3 Active Additional Information Patient not taking.Reported on 10/28/2023 Venlafaxine HCl ER 150 MG Oral Capsule Extended Release 24 Hour (Effexor XR) Take 1 Capsule by mouth daily. Active fentaNYL 12 MCG/HR Transdermal Patch 72 Hour (Duragesic) Place 1 Patch topically on the skin every 3 days. Active Letrozole 2.5 MG Oral Tablet (Femara) Take 1 tablet by mouth daily. 90 Tablet 3 08/06/2024 10:16 AM EST 4 Active Calcium 250 MG Oral Capsule Take by mouth. Ac tive Vitamin D3 1.25 MG (10097 UT) Oral Tablet Take by mouth. Act gee Palbociclib 75 MG Oral Tablet Take 1 Tablet by mouth Daily. Administer on days 1 through 21 of a 28-day treatment cycle. 21 Tablet 6 08/06/2024 10:16 AM EST 4 Active Ibrance 75 MG Oral Capsule (Palbociclib) Take 1 tablet by mouth daily. Take on days 1 through 21 of a 28-day treatment cycle. 21 Capsule 6 4 Active documented as of this encounter (statuses as of 08/10/2024) Active Problems Problem Noted Date Diagnosed Date History of polymyalgia rheumatica Primary malignant neoplasm of breast with metast asis Overview (12/26/2020): multiple bone mets documented as of this encounter (statuses as of 08/10/2024) Immunizations Name Administration Dates Next Due COVID-19 mRNA, LNP-s, No Pre serve, 2-Dose Series ([employer]) 12/21/2020,12/01/2020 documented as of this encounter Social History Tobacco Use Types Packs/Day Years Used Date Smoking Tobacco: Former Cigarettes Smokeless Tobacco: Never Alcohol Use Standard Drinks/Week Comments Not Currently 0 (1 standard drink = 0.6 oz pur e alcohol) Utilities Answer Date Recorded Do you have trouble paying y our heating, water, or electric bill? (Adult - for ages 18 years and over) Not on file 02/10/2024 Is your family able to pay t he heat, water, or electric bill? (Household - for ages 0-17 years) Not on file 02/10/2024 Does your family have access to good internet? (Household - for ages 0-17 years) Not on file 02/10/2024 Social Connections Answer Date Recorded How often do you feel lonely or isolated from those around you? (Adult - for ages 18 years and over) Not on file 02/10/2024 Comments No Sex and Gender Information Value Date Recorded Sex Assigned at Not on file Legal Sex Female 9:55 AM EST Gender Identity Not on file Sexual Orientation Not on file documented as of this encounter Miscellaneous Notes * Telephone Encounter - Carrie Lora OSA - 08/10/2024 4:04 PM EST Pt was referred from [facility] / says EUS. Does patient needs anything else. Can you review records from [facility]. Thank you. documented in this encounter Plan of Treatment Health Maintenance Due Date Last Done Comments [...] Cancer Screening 03/28/2032 Zoster Vaccines Completed 03/12/2023, 070 08/2022, 12/23/2022, Additional history exists Influenza Vaccine [...] Not on filedocumented as of this encounter Care Teams Gynaecological Oncologist Relationship Specialty Start Date End Date Ganesh Maloney MD [address] [address] PCP - General Internal Medicine 12/26/20 documented as of this encounter
--- OUTSIDE RECORDS SUMMARY | 2024-08-14 04:39 | External Medical Summary | Summary of Care ---
Author Name Unknown Organization [facility] Address [address] [place] [address] Phone [phone] Care Team Providers Care Advertising Executive Name Role Phone Ganesh Maloney MD [facility] Care Provider Reason for Visit * Reason Onset Date Comments Appointment 08/10/2024 ? Encounter Details Date Type Department Care Team (Late st Contact Info) Description 08/10/2024 Telephone Gastroenterology, [address] [address] Phoebe Mills, DO [address] [place], [place] [phone] Appointment (? ) Allergies No known active allergiesdocumented as of this encounter (statuses as of 08/11/2024) Medications LORazepam 1 MG Oral Tablet (Ativan) [...] mouth. Ac tive Vitamin D3 1.25 MG (51801 UT) Oral Tablet Take by mouth. Act [...] as of this encounter (statuses as of 08/11/2024) Active Problems Problem Noted Date Diagnosed Date History of polymyalgia rheumatica Primary malignant neoplasm of breast with metast asis Overview (12/26/2020): multiple bone mets documented as of this encounter (statuses as of 08/11/2024) Immunizations Name Administration Dates Next Due COVID-19 mRNA, LNP-s, No Pre serve, 2-Dose Series ([employer]) 12/21/2020,12/01/2020 documented as of this encounter Social [...] encounter Miscellaneous Notes * Telephone Encounter - Neeta Mcgowan OSA - 08/11/2024 11:23 AM EST Lmm * Telephone Encounter - Phoebe Mills DO - 08/11/2024 8:35 AM EST Based on the available information it appears the patient has a history of metastatic breast cancer. Direct to upper endoscopy with endoscopic ultrasound Timing: Within 4 weeks Cytology: Likely to be needed Can we obtained pathology results from the patient's recent upper endoscopy * Telephone Encounter - Carrie Lora OSA - 08/10/2024 4:04 PM EST Pt was referred from [facility]astro group / says EUS. Does patient needs anything else. Can you review records from [facility]. Thank you. documented in this [...] filedocumented as of this encounter Care Teams Advertising Executive Relationship Specialty Start Date End Date Ganesh Maloney MD [address] [place] [address] PCP - General Internal Medicine 12/26/20 documented as of this encounter
--- OUTSIDE RECORDS SUMMARY | 2024-08-14 04:39 | External Medical Summary | Summary of Care ---
Author Name Unknown Organization [facility] Address [address] [place] [address] Phone [phone] Care Team Providers Care Trencher Driver Name Role Phone Ganesh Maloney MD [facility] Care Provider Reason for Visit * Reason Onset Date Comments Appointment 08/10/2024 ? Encounter Details Date Type Department Care Team (Late st Contact Info) Description 08/10/2024 Telephone Gastroenterology, [address] [address] Phoebe Mills, DO [address] [place], [place] [phone] Appointment (? ) Allergies No known active [...] mouth. Ac tive Vitamin D3 1.25 MG (67891 UT) Oral Tablet Take by mouth. Act [...] mRNA, LNP-s, No Pre serve, 2-Dose Series (FieldE[employer]) 12/21/2020,12/01/2020 documented as of this encounter Social [...] 4:04 PM EST Pt was referred from [facility]astro group / says EUS. Does patient needs anything else. Can you review records from [facility]. Thank you. documented in this encounter [...] filedocumented as of this encounter Care Teams Trencher Driver Relationship Specialty Start Date End Date Ganesh Maloney MD [address] [address] PCP - General Internal Medicine 12/26/20 documented as of this encounter
--- OUTSIDE RECORDS SUMMARY | 2024-08-14 04:39 | External Medical Summary | Summary of Care ---
Author Name Unknown Organization [facility] Address [address] [place] [address] Phone [phone] Care Team Providers Care Cio Name Role Phone Ganesh Maloney MD [facility] Care Provider Reason for Visit * Reason Onset Date Comments Appointment 08/10/2024 ? Encounter Details Date Type Department Care Team (Late st Contact Info) Description 08/10/2024 Telephone Gastroenterology, [address] [address] Phoebe Mills, DO [address] [place], [place] [phone] Appointment (? ) Allergies No known active [...] mouth. Ac tive Vitamin D3 1.25 MG (54064 UT) Oral Tablet Take by mouth. Act [...] mRNA, LNP-s, No Pre serve, 2-Dose Series ([employer]) 12/21/2020,12/01/2020 documented as of this encounter Social [...] encounter Miscellaneous Notes * Telephone Encounter - Phoebe Mills DO [...] 4:04 PM EST Pt was referred from [facility]astro group / says EUS. Does patient needs anything else. Can you review records from [facility]. Thank you. documented in this encounter [...] filedocumented as of this encounter Care Teams Cio Relationship Specialty Start Date End Date Ganesh Maloney MD [address] [place] [address] PCP - General Internal Medicine 12/26/20 documented as of this encounter
--- OUTSIDE RECORDS SUMMARY | 2024-08-14 04:39 | External Medical Summary | Summary of Care ---
Author Name Unknown Organization [facility] Address [address] [place] [address] Phone [phone] Care Team Providers Care Stretcher Drier Operator Name Role Phone Ganesh Maloney MD [facility] Care Provider Reason for Visit * Reason Onset Date Comments Appointment 08/10/2024 ? Encounter Details Date Type Department Care Team (Late st Contact Info) Description 08/10/2024 Telephone Gastroenterology, [address] [address] Phoebe Mills, DO [address] [place], [place] [phone] Appointment (? ) Allergies No known active [...] mouth. Ac tive Vitamin D3 1.25 MG (70474 UT) Oral Tablet Take by mouth. Act [...] mRNA, LNP-s, No Pre serve, 2-Dose Series ([employer]) 12/21/2020,12/01/2020 documented as of this encounter Social [...] 4:04 PM EST Pt was referred from [facility] / says EUS. Does patient needs anything else. Can you review records from [facility]. Thank you. documented in this encounter Plan [...] filedocumented as of this encounter Care Teams Stretcher Drier Operator Relationship Specialty Start Date End Date Ganesh Maloney MD [address] [address] PCP - General Internal Medicine 12/26/20 documented as of this encounter
[2024-08-14] MEDS ORDERED: VANCOMYCIN CONSULT ACTIVE PRN (05:45)
[2024-08-14] MEDS: NSS + 20MEQ KCL 20 MEQ/1,000 ML BAG IV SCH (06:14)
[2024-08-14] MEDS: VANCOMYCIN HCL 1,250 MG in SODIUM CHLORIDE 0.9% 500 ML IV ONE (06:14)
[2024-08-14 07:21] LABS: Basophils # (auto) 0.04 K/uL (0.00-0.20); Basophils % (auto) 1.5 %; Eosinophils # (auto) 0.16 K/uL (0.00-0.50); Eosinophils % (auto) 6.1 %; Hematocrit (blood only) 25.7 % (37.0-47.0); Hemoglobin 8.7 g/dl (12.0-16.0); Immature Granulocytes # (auto) 0.06 K/uL (0.01-0.20); Immature Granulocytes % (auto) 2.3 %; Lymphocytes # (auto) 0.34 K/uL (1.20-3.40); Mean Corpuscular Hemoglobin 33.9 pg (25.0-34.0); Mean Corpuscular Hgb Conc 33.9 g/dL (32.0-36.0); Mean Platelet Volume 9.1 fL (9.4-12.4); Monocytes # (auto) 0.35 K/uL (0.11-0.59); Monocytes % (auto) 13.4 %; Neutrophils # (auto) 1.66 K/uL (1.40-6.50); Neutrophils % (auto) 63.7 %; Platelet Count 137 K/uL (130-400); RDW Coefficient of Variation 14.2 % (11.5-14.5); RDW Standard Deviation 51.8 fL (36.4-46.3); Red Blood Count 2.57 M/uL (4.20-5.40); White Blood Count 2.61 K/ul (4.8-10.8)
[2024-08-14 07:43] LABS: Albumin Globulin Ratio 1.2 (0.9-2); BUN Creatinine Ratio 25.5 (10-20); Bilirubin,Total 0.6 mg/dl (0.2-1.0); Creatinine Clr Calc Pharmacy 111.7 ml/min; Globulin 2.5 gm/dl (2.5-4.0); Potassium 3.4 mmol/L (3.5-5.1); Total Protein 5.5 gm/dl (6.0-8.3)
--- NOTE | 2024-08-14 07:44 | Electrocardiogram Report ---
Test Reason : Blood Pressure : */* mmHG Vent. Rate : 91 BPM Atrial Rate : 91 BPM P-R Int : 118 ms QRS Dur : 78 ms QT Int : 358 ms P-R-T Axes : 49 26 44 degrees QTcB Int : 440 ms Normal sinus rhythm Normal ECG When compared with ECG of 27-Feb-2024 15:29, No significant change was found Confirmed by Ra Avila ([id number]) on 08/14/2024 7:43:27 AM Referred By: REFERRED SELF Confirmed By: Ra Avila
[2024-08-14] MEDS ORDERED: CHECK fentaNYL PATCH PLACEMENT SCH (08:00)
[2024-08-14] MEDS: PANTOprazole 40 MG/10 ML SYR IV SCH (09:47)
[2024-08-14] MEDS: PIPERACILLIN/TAZOBACTAM 4.5 GM/100 ML BAG IV SCH (09:51)
[2024-08-14] MEDS: ENOXAPARIN INJ 40 MG/0.4 ML SYR SQ SCH (09:55)
--- NOTE | 2024-08-14 11:01 | Surgery Progress Note ---
Date of Service August 14, 2024 Assessment & Plan (1) Gastric mass: Plan: clinically not c/w acute appendicitis. would keep on antibiotics anyway secondary to CT findings will let her try full liquids ( she needs to eat with her oncologic meds) will continue to follow for now. no surgical plans (2) Metastatic disease: (3) Intractable nausea and vomiting: Admission and Anticipated Discharge Date Admission Date: August 14, 2024 Subjective pt feeling much better. no RLQ pain. no nausea. would like a diet Physical Exam Constitutional: WD/WN, vitals as above no acute distress and not ill appearing Eyes: PERRL, conjunctivae normal, anicteric sclerae EOM intact bilaterally ENMT: external ear and nose normal, oropharynx normal Ears: no hearing impairment Neck: trachea midline, no thyromegaly Respiratory: normal respiratory effort; no respiratory distress and does not use accessory muscles Cardiovascular: Rate/Rhythm: regular rate and regular rhythm Gastrointestinal (Abdomen): normal bowel sounds, soft, nontender, no hepatosplenomegaly Skin: no rashes, warm and dry Psychiatric: Orientation: alert, oriented x 3 and cooperative Results & Data Vital Signs (Past 12 Hours) Vital Signs Temp Pulse Pulse Resp BP BP BP 08/14/24 07:58 36.8 C 86 17 90/59 L 08/14/24 07:05 80 08/14/24 06:31 36.6 C 61 16 104/68 08/14/24 04:00 36 C L 84 18 104/69 08/14/24 03:40 77 18 95/59 L 08/14/24 02:41 82 16 94/66 L 08/14/24 01:32 88 08/14/24 00:24 95 H 18 98/60 L Pulse Ox O2 Del Method 08/14/24 07:58 93 Room Air 08/14/24 07:05 08/14/24 06:31 96 Room Air 08/14/24 04:00 91 Room Air 08/14/24 03:40 93 Room Air 08/14/24 02:41 93 Room Air 08/14/24 01:32 08/14/24 00:24 96 Room Air PG Care Time/CCT Total # of Minutes Spent Total Time Spent with Patient: Total time spent is greater than 50% in coordination of care (as documented) at patient's floor/unit and/or counseling patient: Coding Level of Care Code 25392 SUB INP/OBS CARE 09/18MIN Diagnoses Gastric mass K31.89 Metastatic disease C79.9 Area of secondary neoplastic involvement: unspecified site Intractable nausea and vomiting R11.2 (2) Metastatic disease Area of secondary neoplastic involvement: unspecified site Qualified Code(s): C79.9 - Secondary malignant neoplasm of unspecified site
--- NOTE | 2024-08-14 11:21 | Pharmacy Report ---
Pharmacy PK ABX Note - Date of Service August 14, 2024 - Assessment and Plan Assessment 63 year old F receiving vancomycin/zosyn for treatment of possible appendicitis/GI infection/bibasilar pneumonia. patient has hx of metastatic breast cancer with recent oral chemotherapy. Pertinent microbiologic data includes: MRSA nasal swab ordered, uncollected/ blood cultures pending. Plan Vancomycin * Loading dose: 1250 mg IV x 1 * Maintenance dose: 1250 mg IV every 12 hours * Regimen is predicted to achieve target AUC/DENNIS of 400-600 mg/L.hr * Random level ordered for 08/15 @1000 Pharmacy will continue to follow and will adjust dose/frequency as necessary. Thank you. Pharmacy has transitioned to AUC monitoring for vancomycin. AUC/DENNIS is the preferred PK/PD target and is associated with decreased risk of nephrotoxicity compared to traditional trough targets.
--- NOTE | 2024-08-14 11:43 | Hospitalist Progress Note ---
Date of Service August 14, 2024 Assessment & Plan (1) Appendicitis: (2) Bilateral pneumonia: (3) Breast cancer metastasized to bone: (4) Emphysematous COPD: (5) History of chemotherapy: (6) Gastric mass: Plan Patient presents to the [facility] with abd pain CT abd and pelvis shows evidence of acute appendicitis Decision has been made to treat medically, due to metastatic cancer to bone, gastric mass and GI tract Initially started on daptomycin IV and Zosyn IV Changing to vancomycin IV and Zosyn IV, to address bibasilar pneumonia as well Abd pain much improved this morning, started on liquid diet Zofran 4 mg IV every 6 hours as needed Pain control General Surgery consulted and following Bibasilar pneumonia- Unclear if secondary to aspiration or HAP Antibiotics changed from daptomycin IV and Zosyn IV to vancomycin IV and Zosyn IV MRSA swab DuoNebs every 2 hours as needed Nasal cannula oxygen, titrate to keep pulse ox greater than 94%- BioFire negative Metastatic breast cancer- Imaging with diffuse osseous mets metastases, CT scan abdomen pelvis with nonspecific thickening of the wall of the ascending and transverse colon, thickening of the wall of the stomach, focal thickening of the wall of the rectum. Nodularity of the omentum is most consistent with metastatic disease Endoscopic EUS at [facility] noted gastric mass yesterday Consult her oncologist Dr. Kowalski Admission and Anticipated Discharge Date Admission Date: August 14, 2024 Subjective patient seen and examined, says abd pain is better this morning Review of Systems Review of Systems: All systems reviewed are negative, apart from the ones contained in the history. Physical Exam Physical Exam: The patient is awake, alert and oriented 3, well developed and well nourished, normocephalic and atraumatic, lying in bed and in no acute distress. HEENT--PERRL, EOMI, mucous membranes and oropharynx mildly dry Neck--supple. No JVD. No bruits. Thyroid normal, trachea midline, no adenopathy. Heart--normal S1 and S2. No murmurs, rubs or gallops. Lungs--clear bilaterally, no respiratory distress, no accessory muscle use. Abdomen--normal bowel sounds and soft. Extremities--no cyanosis or clubbing. No edema. Dermatologic--normal skin turgor, normal color, no abnormal lymph nodes, no rash. Neurologic--cranial nerves II through XII grossly intact. Rheumatologic--normal range of motion. Psychiatric--normal affect. Results & Data Results & Data Vital Signs (Past 12 Hours) Vital Signs Temp Pulse Pulse Resp BP BP BP 08/14/24 07:58 98.2 F 86 17 90/59 L 08/14/24 07:05 80 08/14/24 06:31 97.9 F 61 16 104/68 08/14/24 04:00 96.8 F L 84 18 104/69 08/14/24 03:40 77 18 95/59 L 08/14/24 02:41 82 16 94/66 L 08/14/24 01:32 88 08/14/24 00:24 95 H 18 98/60 L Pulse Ox O2 Del Method 08/14/24 07:58 93 Room Air 08/14/24 07:05 08/14/24 06:31 96 Room Air 08/14/24 04:00 91 Room Air 08/14/24 03:40 93 Room Air 08/14/24 02:41 93 Room Air 08/14/24 01:32 08/14/24 00:24 96 Room Air PG Care Time/CCT Total # of Minutes Spent Total Time Spent with Patient: Total time spent is greater than 50% in coordination of care (as documented) at patient's floor/unit and/or counseling patient: Coding Level of Care Code 80837 SUB INP/OBS CARE 2/35MIN Diagnoses Appendicitis K35.80 Acute appendicitis type: unspecified acute appendicitis type Appendicitis type: acute appendicitis Bilateral pneumonia J18.9 Breast cancer metastasized to bone C50.919; C79.51 Emphysematous COPD J43.9 History of chemotherapy Z92.21 Gastric mass K31.89 Time Spent (min) 35 (1) Appendicitis Acute appendicitis type: unspecified acute appendicitis type Appendicitis type: acute appendicitis Qualified Code(s): K35.80 - Unspecified acute a ppendicitis
[2024-08-14] MEDS: MoRPHine SULFATE 4 MG/ML 1 ML CARP\\VIAL IV PRN (13:30)
[2024-08-14] MEDS: ONDANSETRON INJ 2 MG/ML 2 ML VIAL IV PRN (13:30)
[2024-08-14] MEDS: VANCOMYCIN HCL 1,250 MG in SODIUM CHLORIDE 0.9% 250 ML IV SCH (13:40)
[2024-08-14] MEDS: ONDANSETRON 4 MG OD TAB PO PRN (16:57)
[2024-08-14] MEDS: [UNRECOGNIZED DRUG - OTHER] PO SCH (20:19)
[2024-08-15] MEDS: PROMETHAZINE 12.5 MG/50.5 ML BAG IV PRN (00:24)
--- NOTE | 2024-08-15 05:26 | Surgery Progress Note ---
Date of Service August 15, 2024 Assessment & Plan (1) Gastric mass: Plan: Patient has been admitted on the hospitalist service. From surgery perspective we recommend the following: CT scan of the abdomen pelvis on 08/13/2024 showed concern for acute appendi citis with an appendiceal diameter of 1 cm. There is no abscess or perforation Patient has metastatic breast cancer with metastatic disease to her GI tract She also has concern for potential colitis of the ascending colon and transverse colon Due to her underlying medical comorbidities and the fact that her abdominal current exam is not entirely consistent with appendicitis we will continue conservative measures with antibiotics Some of her symptomatology may be related to metastatic disease Continue antiemetics and analgesics as needed Continue clear liquids as tolerated At the present time no surgical intervention planned Check a.m. labs when available Patient is receiving Lovenox for DVT prophylaxis as above. primary symptom is nausea. poor appetite. would continue the IV antibiotics for "appendicitis/colitis" Dr. Kowalski requestiong an access port to initiate chemo. will put on OR schedule for tomorrow. no urgent indication for surgical intervention (2) Metastatic disease: (3) Intractable nausea and vomiting: Admission and Anticipated Discharge Date Admission Date: August 14, 2024 Subjective Patient is currently resting comfortably in bed. She notes that since admission her abdominal pain has improved. She does note that she is having some intermittent nausea and vomiting. She denies any fevers, shakes, or chills Physical Exam Gastrointestinal (Abdomen): At the time of my exam this morning abdomen is soft and nondistended. There is no rebound tenderness or guarding and minimal pain with palpation in the right lower quadrant. Results & Data Vital Signs (Past 12 Hours) Vital Signs Temp Pulse Resp BP BP Pulse Ox O2 Del Method 08/15/24 03:51 37.2 C 86 18 110/77 91 Room Air 08/14/24 23:33 37.2 C 92 H 22 107/56 L 93 Room Air 08/14/24 20:00 37.0 C 94 H 20 111/67 94 Room Air PG Care Time/CCT Total # of Minutes Spent Total Time Spent with Patient: Total time spent is greater than 50% in coordination of care (as documented) at patient's floor/unit and/or counseling patient: Coding Level of Care Code 77514 SUB INP/OBS CARE 09/18MIN Diagnoses Gastric mass K31.89 Metastatic disease C79.9 Area of secondary neoplastic involvement: unspecified site Intractable nausea and vomiting R11.2 (2) Metastatic disease Area of secondary neoplastic involvement: unspecified site Qualified Code(s): C79.9 - Secondary malignant neoplasm of unspecified site
--- NOTE | 2024-08-15 06:44 | Oncology Consultation ---
Date of Consultation August 15, 2024 Assessment & Plan (1) Intractable nausea and vomiting: (2) Metastatic disease: (3) Gastric mass: (4) Breast cancer metastasized to bone: Plan Patient with metastatic breast cancer initially diagnosed in 2020 with stable disease on Ibrance/letrozole up until now. Upper endoscopy recently revealed gastric mass for which biopsy revealed adenocarcinoma with possible primary being gastric cancer versus breast cancer. She underwent EUS on 08/12/2024 with biopsy pending at time of today's visit.She was admitted for possible appendicitis. Unclear if she actually has aucute appendicitis or if her symptoms are due to Gastric mass -Had an excessive discussion with patient and her today. Explained to them that based on recent pathology, gastric mass appears fairly aggressive with high Ki-67 and she will need IV chemotherapy regardless of whether it is primary breast malignancy versus gastric malignancy. Since she has poor IV access, recommend consideration for Mediport placement while she is inpatient. -Plan to see her in clinic within 1 to 2 weeks to start IV chemotherapy treatment as this would be more likely to improve her symptoms more rapidly. Thank you for this consult.Will continue to follow peripherally. Please feel free to call if you have any further questions. History of Present Illness Reason for Consultation: Gastric mass, metastatic breast cancer Attending Physician: Elliott Richey MD History of Present Illness Pleasant female known to me for several years with metastatic breast cancer diagnosed originally in 2020 for which she has since been on Ibrance/letrozole.She was recently diagnosed with gastric mass with pathology from EGD On 08/09/2024 revealing adenocarcinoma ? Primary. She underwent EUS with biopsy less than a week ago with pathology pending. She presented with nausea and vomiting. CT abdomen and pelvis on 08/13/2024 revealed acute appendicitis, space opacities of lower lobes possibly representing atypical infection and/or aspiration, nonspecific thickening of the wall of the ascending and transverse colon, marked thickening of the wall of the stomach, focal thickening of the wall of the rectum. Allergies Allergy/AdvReac Type Severity Reaction Status Date / Time No Known Allergies Allergy Verified 08/09/24 09:09 Home Medications Medication Instructions Recorded Confirmed Type palbociclib 75 mg capsule (Ibrance) 75 mg PO QPM 07/10/22 07/28/24 History denosumab 120 mg/1.7 mL (70 mg/mL) 125 mg subcut .qmonth 12/13/22 08/09/24 History subcutaneous solution (Xgeva) cyanocobalamin (vitamin B-12) 1,000 mcg IM MONTHLY 12/16/22 07/28/24 History 1,000 mcg/mL injection solution letrozole 2.5 mg tablet 2.5 mg PO QPM 12/16/22 07/28/24 History ondansetron 4 mg disintegrating 4 mg PO Q6H PRN nausea and 08/02/23 08/09/24 Rx tablet vomiting #10 tabs lorazepam 1 mg tablet 1 mg PO BID PRN Anxiety #30 tabs 09/04/23 07/28/24 Rx fentanyl 12 mcg/hr transdermal 1 patch transdermal Q72H PRN Pain 10/09/23 07/28/24 History patch valacyclovir 1 gram tablet 2,000 mg PO BID PRN Rash 10/09/23 07/28/24 History (Valtrex) cholecalciferol (vitamin D3) 50 50 mcg PO DAILY #90 caps 12/08/23 07/28/24 Rx mcg (2,000 unit) capsule calcium 500 mg (as 1 tab PO DAILY 01/23/24 07/28/24 History carbonate)-vitamin D3 3.125 mcg (125 unit) tablet venlafaxine 150 mg 150 mg PO QPM #90 caps 05/23/24 07/28/24 Rx capsule,extended release 24 hr venlafaxine 75 mg capsule,extended 75 mg PO QPM #90 caps 05/23/24 07/28/24 Rx release 24 hr Patient History Medical History Breast cancer metastasized to bone 2019 breast ca (new primary) with mets to spine at time of diagnosis History of postoperative nausea and vomiting can drink apple juice afterward, if drinks water, starts throwing up History of COVID-13 Jul 2023; not hospitalized; no ongoing sx COPD (chronic obstructive pulmonary disease) "mild" per pt > no inhalers Lung nodule, multiple just monitoring, " PET scans are showing they are gone" per pt Hiatal hernia "large" per pt Thoracic compression fracture T5, treated with radiation for pain in October 2023, "the pain comes and goes" Sacral fracture Jul 2023 > no pain now Leukopenia follows with Heme/Onc Osteoarthritis DDD (degenerative disc disease) Anemia follows with Heme/Onc History of breast cancer 2008 L breast: tx with lumpectomy, XRT, chemo; dx of new primary 2020 (with mets to bone at time of diagnosis): tx with oral chemo, XRT (also had L axillary LN dissection) Bipolar disorder Anxiety and depression Snores no apnea dx, no device History of back problems known mets in spine causing pain: T1, T5, T6, T7, T10 BRCA gene mutation negative Polymyalgia rheumatica saw Rheum; per pt no specific dx given; was tx with short course of oral steroids and sx resolved Rheumatoid arthritis saw Rheum; per pt no specific dx given; was tx with short course of oral steroids and sx resolved Surgical History H/O left knee surgery arthroscopy Hx of left cataract extraction History of right cataract extraction History of esophagogastroduodenoscopy (EGD) History of surgery removal of port-A-cath 2009 History of vascular access device 2008 placed; has since been removed Hx of colonoscopy S/P wisdom tooth extraction History of biopsy (09/2020) Left Axillary Lymph Nodes History of biopsy (09/21/20) Right Breast H/O lumpectomy Left Breast (2008 and 2009) Family History Mother , Passed Age 74 Breast cancer, Onset Age: 46 COPD (chronic obstructive pulmonary disease) Hypertension Grandmother (Maternal) , Passed Age 75 Breast cancer Grandmother (Paternal) , Passed Age 45 Breast cancer, Onset Age: 42 due to complication of Breast Cancer Aunt Breast cancer Uncle Diabetes Bone cancer Myocardial infarction Father , Passed Age 92 Prostate cancer, Onset Age: 60 COPD (chronic obstructive pulmonary disease) Cancer Hypertension Aunt Breast cancer Aunt Breast cancer Brother Diabetes Thyroid disorder Brother Skin cancer Sister PONV (postoperative nausea and vomiting) Thyroid disorder Son No problems noted. Denies family history of Ovarian cancer Colorectal cancer Uterine cancer Social History Smoking Status: Former smoker Tobacco Type: Cigarettes Age Started Using Tobacco: 17; Age Quit Using Tobacco: 28; packs per day: 1; Smoking End Date: 20+ years ago; Second Hand Exposure: No; Do You Dip or Chew Tobacco: No; Hx Alcohol Use: Yes Alcohol type: wine Alcohol type Comment: social Alcohol Intake Frequency: Monthly or Less Alcohol Intake Frequency Comment: socially Hx Substance Use: No Preferred Language: Belarusian Communication Ability: Effective Visual Impairment: No Limitations Hearing Ability: Normal Physician/Ophthalmologist Required: No Beliefs That Will Affect Care: None marital status: Current Living Situation: Spouse current occupational status: employed 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 How many Children do You have: 1 Feels Safe at Home: Yes Safety Concerns: Feels Safe At This Time Childhood Exposure to Second-Hand Smoke: Yes (Siblings) Diet: regular caffeine: Yes (daily) during the past year weight has: remained stable Dental Care, Regularly: Yes Physical Activity Frequency: Does not Exercise Seatbelt Use: always Assistive Devices: Denture - Upper and Glasses Assistive Devices Comment: reading glasses, upper permanent bridge Results & Data Vital Signs (Past 12 Hours) Vital Signs Temp Pulse Resp BP BP Pulse Ox Pulse Ox 08/15/24 04:11 91 08/15/24 03:51 37.2 C 86 18 110/77 91 08/14/24 23:33 37.2 C 92 H 22 107/56 L 93 08/14/24 20:00 37.0 C 94 H 20 111/67 94 O2 Del Method O2 Del Method O2 Flow Rate 08/15/24 04:11 Nasal Cannula 1 08/15/24 03:51 Room Air 08/14/24 23:33 Room Air 08/14/24 20:00 Room Air (2) Metastatic disease Area of secondary neoplastic involvement: unspecified site Qualified Code(s): C79.9 - Secondary malignant neoplasm of unspecified site
--- NOTE | 2024-08-15 10:13 | Hospitalist Progress Note ---
Date of Service August 15, 2024 Assessment & Plan (1) Appendicitis: (2) Bilateral pneumonia: (3) Breast cancer metastasized to bone: (4) Emphysematous COPD: (5) History of chemotherapy: (6) Gastric mass: Plan Patient presents to the [facility] with abd pain CT abd and pelvis shows evidence of acute appendicitis Decision has been made to treat medically, due to metastatic cancer to bone, gastric mass and GI tract Initially started on daptomycin IV and Zosyn IV Changing to vancomycin IV and Zosyn IV, to address bibasilar pneumonia as well Abd pain much improved this morning, started on liquid diet, but she became nauseous Zofran 4 mg IV every 6 hours as needed Pain control General Surgery consulted and following Bibasilar pneumonia- Unclear if secondary to aspiration or HAP Antibiotics changed from daptomycin IV and Zosyn IV to vancomycin IV and Zosyn IV MRSA swab DuoNebs every 2 hours as needed Nasal cannula oxygen, titrate to keep pulse ox greater than 94%- BioFire negative Will de escalate abx if cultures remain negative Metastatic breast cancer- Imaging with diffuse osseous mets metastases, CT scan abdomen pelvis with nonspecific thickening of the wall of the ascending and transverse colon, thickening of the wall of the stomach, focal thickening of the wall of the rectum. Nodularity of the omentum is most consistent with metastatic disease Endoscopic EUS at [facility] noted gastric mass a day prior to presentation Consult her oncologist Dr. Kowalski Admission and Anticipated Discharge Date Admission Date: August 14, 2024 Subjective patient seen and examined, tried some liquid diet, but became nauseous Review of Systems Review of Systems: All systems reviewed are negative, apart from the ones contained in the history. Physical Exam Physical Exam: The patient is awake, alert and oriented 3, well developed and well nourished, normocephalic and atraumatic, lying in bed and in no acute distress. HEENT--PERRL, EOMI, mucous membranes and oropharynx mildly dry Neck--supple. No JVD. No bruits. Thyroid normal, trachea midline, no adenopathy. Heart--normal S1 and S2. No murmurs, rubs or gallops. Lungs--clear bilaterally, no respiratory distress, no accessory muscle use. Abdomen--normal bowel sounds and soft. Extremities--no cyanosis or clubbing. No edema. Dermatologic--normal skin turgor, normal color, no abnormal lymph nodes, no rash. Neurologic--cranial nerves II through XII grossly intact. Rheumatologic--normal range of motion. Psychiatric--normal affect. Results & Data Results & Data Vital Signs (Past 12 Hours) Vital Signs Temp Pulse Resp BP Pulse Ox Pulse Ox O2 Del Method 08/15/24 07:56 99.1 F 93 H 19 108/74 90 Room Air 08/15/24 04:11 91 08/15/24 03:51 99.0 F 86 18 110/77 91 Room Air 08/14/24 23:33 99.0 F 92 H 22 107/56 L 93 Room Air O2 Del Method O2 Flow Rate 08/15/24 07:56 08/15/24 04:11 Nasal Cannula 1 08/15/24 03:51 08/14/24 23:33 PG Care Time/CCT Total # of Minutes Spent Total Time Spent with Patient: Total time spent is greater than 50% in coordination of care (as documented) at patient's floor/unit and/or counseling patient: Coding Level of Care Code 07647 SUB INP/OBS CARE 2/35MIN Diagnoses Appendicitis K35.80 Acute appendicitis type: unspecified acute appendicitis type Appendicitis type: acute appendicitis Bilateral pneumonia J18.9 Breast cancer metastasized to bone C50.919; C79.51 Emphysematous COPD J43.9 History of chemotherapy Z92.21 Gastric mass K31.89 Time Spent (min) 35 (1) Appendicitis Acute appendicitis type: unspecified acute appendicitis type Appendicitis type: acute appendicitis Qualified Code(s): K35.80 - Unspecified acute appendicitis
[2024-08-15 10:32] LABS: Basophils # (auto) 0.07 K/uL (0.00-0.20); Eosinophils # (auto) 0.21 K/uL (0.00-0.50); Eosinophils % (auto) 6.1 %; Hematocrit (blood only) 26.6 % (37.0-47.0); Hemoglobin 9.1 g/dl (12.0-16.0); Immature Granulocytes # (auto) 0.13 K/uL (0.01-0.20); Immature Granulocytes % (auto) 3.7 %; Lymphocytes # (auto) 0.32 K/uL (1.20-3.40); Lymphocytes % (auto) 9.2 %; Mean Corpuscular Hemoglobin 34.7 pg (25.0-34.0); Mean Corpuscular Hgb Conc 34.2 g/dL (32.0-36.0); Mean Corpuscular Volume 101.5 fL (80.0-100.0); Mean Platelet Volume 9.3 fL (9.4-12.4); Monocytes # (auto) 0.48 K/uL (0.11-0.59); Monocytes % (auto) 13.8 %; Neutrophils # (auto) 2.26 K/uL (1.40-6.50); Neutrophils % (auto) 65.2 %; Nucleated RBC # (auto) 0.02 K/uL (0.00-0.12); Nucleated RBC % (auto) 0.6 %; Platelet Count 170 K/uL (130-400); RDW Coefficient of Variation 14.2 % (11.5-14.5); RDW Standard Deviation 52.9 fL (36.4-46.3); Red Blood Count 2.62 M/uL (4.20-5.40); White Blood Count 3.47 K/ul (4.8-10.8)
[2024-08-15 10:45] LABS: Albumin Globulin Ratio 1.2 (0.9-2); Albumin Level 3.3 gm/dl (3.4-5.0); BUN Creatinine Ratio 10.6 (10-20); Bilirubin,Total 0.8 mg/dl (0.2-1.0); Calcium 8.3 mg/dl (8.6-10.3); Creatinine Clr Calc Pharmacy 80.7 ml/min; Globulin 2.7 gm/dl (2.5-4.0); Potassium 4.5 mmol/L (3.5-5.1)
[2024-08-15] MEDS: VANCOMYCIN LEVEL ONE (11:03)
[2024-08-15 11:04] LABS: Ferritin 351.9 ng/ml (8-388)
[2024-08-15 11:08] LABS: Folate (Folic Acid),Ser orPlas 10.56 ng/ml (>5.38)
[2024-08-16] MEDS: ACETAMINOPHEN 1,000 MG/100 ML VIAL IV STA (03:28)
[2024-08-16] MEDS: FAMOTIDINE 20MG IV PUSH 20 MG/5 ML SYR IV STA (03:56)
--- NOTE | 2024-08-16 07:55 | Surgery Progress Note ---
Date of Service August 16, 2024 Assessment & Plan (1) Metastatic disease: Plan: Proceed with port placement with fluoroscopy today Consent obtained, risks discussed bleeding, infection, pneumothorax requiring chest tube placement Admission and Anticipated Discharge Date Admission Date: August 14, 2024 Subjective Patient seen and examined. No acute events overnight. She is for Mediport placement this morning. She is displaced for chemotherapy. Review of Systems Constitutional: no fever and no chills Respiratory: no cough and no dyspnea Cardiovascular: no chest pain and no dyspnea on exertion Gastrointestinal: no abdominal pain, no bloating and no nausea Musculoskeletal: no back pain and no neck pain Integumentary: no acne and no changing lesions Physical Exam Constitutional: WD/WN, vitals as above Respiratory: normal respiratory effort, lungs clear to auscultation Cardiovascular: RRR, no murmur, no edema Gastrointestinal (Abdomen): normal bowel sounds, soft, nontender, no hepatosplenomegaly Musculoskeletal: no cyanosis or clubbing, extremities motor strength 5/5 Skin: no rashes, warm and dry Results & Data Vital Signs (Past 12 Hours) Vital Signs Temp Pulse Pulse Resp BP Pulse Ox O2 Del Method 08/16/24 07:47 36.7 C 84 18 96/65 L 95 Room Air 08/16/24 04:00 08/16/24 03:05 100/64 08/16/24 02:46 37.9 C H 91 H 18 90/63 L 94 Room Air 08/15/24 22:40 37.6 C H 88 18 99/66 L 91 Room Air 08/15/24 22:00 83 O2 Del Method 08/16/24 07:47 08/16/24 04:00 Room Air 08/16/24 03:05 08/16/24 02:46 08/15/24 22:40 08/15/24 22:00 PG Care Time/CCT Total # of Minutes Spent Total Time Spent with Patient: Total time spent is greater than 50% in coordination of care (as documented) at patient's floor/unit and/or counseling patient: Coding Level of Care Code 70576 SUB INP/OBS CARE 25MIN Diagnoses Metastatic disease C79.9 Area of secondary neoplastic involvement: unspecified site (1) Metastatic disease Area of secondary neoplastic involvement: unspecified site Qualified Code(s): C79.9 - Secondary malignant neoplasm of unspecified site
[2024-08-16 07:59] LABS: Basophils # (auto) 0.04 K/uL (0.00-0.20); Basophils % (auto) 1.5 %; Eosinophils # (auto) 0.19 K/uL (0.00-0.50); Eosinophils % (auto) 6.9 %; Hematocrit (blood only) 25.7 % (37.0-47.0); Hemoglobin 8.9 g/dl (12.0-16.0); Immature Granulocytes # (auto) 0.11 K/uL (0.01-0.20); Lymphocytes # (auto) 0.31 K/uL (1.20-3.40); Lymphocytes % (auto) 11.3 %; Mean Corpuscular Hemoglobin 34.2 pg (25.0-34.0); Mean Corpuscular Hgb Conc 34.6 g/dL (32.0-36.0); Mean Corpuscular Volume 98.8 fL (80.0-100.0); Mean Platelet Volume 9.1 fL (9.4-12.4); Monocytes # (auto) 0.35 K/uL (0.11-0.59); Monocytes % (auto) 12.7 %; Neutrophils # (auto) 1.75 K/uL (1.40-6.50); Neutrophils % (auto) 63.6 %; Platelet Count 149 K/uL (130-400); RDW Coefficient of Variation 13.9 % (11.5-14.5); White Blood Count 2.75 K/ul (4.8-10.8)
[2024-08-16 08:18] LABS: Albumin Globulin Ratio 1.2 (0.9-2); BUN Creatinine Ratio 13.1 (10-20); Creatinine Clr Calc Pharmacy 87.2 ml/min; Globulin 2.6 gm/dl (2.5-4.0); Magnesium 1.9 mg/dl (1.7-2.4); Potassium 3.2 mmol/L (3.5-5.1); Total Protein 5.6 gm/dl (6.0-8.3)
[2024-08-16] MEDS ORDERED: ATROPINE SULFATE 0.1 MG/ML 10ML SYR IV PRN (08:27)
[2024-08-16] MEDS ORDERED: HYDROmorphone INJ 1 MG/ML SYRINGE IV PRN (08:27)
[2024-08-16] MEDS ORDERED: fentaNYL citrate PF 100 MCG/2 ML VIAL IV PRN (08:27)
[2024-08-16] MEDS ORDERED: ePHEDrine sulfate 50 MG/ML AMP IV PRN (08:27)
[2024-08-16] MEDS ORDERED: ONDANSETRON INJ 2 MG/ML 2 ML VIAL IV PRN (08:27)
--- NOTE | 2024-08-16 08:27 | Anesthesiology Consultation ---
Date of Service August 16, 2024 Assessment & Plan ASA ASA4 Proposed Anesthesia Anesthesia Type: MAC Risk / Benefits Reviewed With: PT / POA / Parent / Guardian, Accepts Plan and Informed Consent Obtained History Surgery Operation Date: 08/16/24 07:00 Proposed Procedures p Mediport Insertion - Freddie Vivas DO Height/Weight Height: 5 ft 3 in Weight: 67.7 kg Allergies Allergy/AdvReac Type Severity Reaction Status Date / Time No Known Allergies Allergy Verified 08/09/24 09:09 Medications Home Medications Medication Instructions Recorded Confirmed Last Taken palbociclib 75 mg capsule (Ibrance) 75 mg PO QPM 07/10/22 07/28/24 08/08/24 denosumab 120 mg/1.7 mL (70 mg/mL) 125 mg subcut .qmonth 12/13/22 08/09/24 07/24/24 subcutaneous solution (Xgeva) cyanocobalamin (vitamin B-12) 1,000 mcg IM MONTHLY 12/16/22 07/28/24 08/08/24 1,000 mcg/mL injection solution letrozole 2.5 mg tablet 2.5 mg PO QPM 12/16/22 07/28/24 08/08/24 ondansetron 4 mg disintegrating 4 mg PO Q6H PRN nausea and 08/02/23 08/09/24 08/08/24 tablet vomiting #10 tabs lorazepam 1 mg tablet 1 mg PO BID PRN Anxiety #30 tabs 09/04/23 07/28/24 Unknown fentanyl 12 mcg/hr transdermal 1 patch transdermal Q72H PRN Pain 10/09/23 07/28/24 Unknown patch valacyclovir 1 gram tablet 2,000 mg PO BID PRN Rash 10/09/23 07/28/24 Unknown (Valtrex) cholecalciferol (vitamin D3) 50 50 mcg PO DAILY #90 caps 12/08/23 07/28/24 08/08/24 mcg (2,000 unit) capsule calcium 500 mg (as 1 tab PO DAILY 01/23/24 07/28/24 08/08/24 carbonate)-vitamin D3 3.125 mcg (125 unit) tablet venlafaxine 150 mg 150 mg PO QPM #90 caps 05/23/24 07/28/24 08/08/24 capsule,extended release 24 hr venlafaxine 75 mg capsule,extended 75 mg PO QPM #90 caps 05/23/24 07/28/24 Unknown release 24 hr Active Medications Generic Name Dose Route Start Last Admin Trade Name Freq PRN Reason Stop Dose Admin Enoxaparin Sodium 40 mg 08/14/24 09:00 08/15/24 08:07 Enoxaparin Inj 40 Mg/0.4 Ml Syr SQ 09/13/24 08:59 40 mg Q24H JAMES Administration Piperacillin Sod/Tazobactam Sod 4.5 gm in 100 mls @ 25 mls/hr 08/14/24 08:00 08/16/24 04:00 Zosyn IV 08/24/24 07:59 Infused Q8H JAMES Infusion Protocol Pantoprazole Sodium 40 mg in 10 mls @ 5 mls/min 08/14/24 09:00 08/15/24 08:17 Protonix IV 09/13/24 08:59 5 mls/min DAILY JAMES Administration Promethazine HCl 12.5 mg in 50.5 mls @ 202 mls/hr 08/15/24 00:06 08/15/24 23:30 Phenergan IV 09/14/24 00:05 Infused Q6H PRN Infusion Nausea And Vomiting Morphine Sulfate 4 mg 08/14/24 04:11 08/15/24 16:01 Morphine Sulfate 4 Mg/Ml 1 Ml Carp\\Vial IV 08/28/24 04:10 4 mg Q3H PRN Administration Severe Pain (Scale 7, 8, 9,10) Elacestrant: Non- 1 each 08/14/24 12:00 08/15/24 09:46 Formulary Patient's PO 09/13/24 11:59 Not Given Own Med QDB JAMES NPO Date Last Intake of Fluids: 08/15/24 Time Last Intake of Fluids: 23:00 Date Last Intake of Solids: 08/15/24 Time Last Intake of Solids: 23:00 Past Medical History Medical History Breast cancer metastasized to bone 2019 breast ca (new primary) with mets to spine at time of diagnosis History of postoperative nausea and vomiting can drink apple juice afterward, if drinks water, starts throwing up History of COVID-13 Jul 2023; not hospitalized; no ongoing sx COPD (chronic obstructive pulmonary disease) "mild" per pt > no inhalers Lung nodule, multiple just monitoring, " PET scans are showing they are gone" per pt Hiatal hernia "large" per pt Thoracic compression fracture T5, treated with radiation for pain in October 2023, "the pain comes and goes" Sacral fracture Jul 2023 > no pain now Leukopenia follows with Heme/Onc Osteoarthritis DDD (degenerative disc disease) Anemia follows with Heme/Onc History of breast cancer 2008 L breast: tx with lumpectomy, XRT, chemo; dx of new primary 2019 (with mets to bone at time of diagnosis): tx with oral chemo, XRT (also had L axillary LN dissection) Bipolar disorder Anxiety and depression Snores no apnea dx, no device History of back problems known mets in spine causing pain: T1, T5, T6, T7, T10 BRCA gene mutation negative Polymyalgia rheumatica saw Rheum; per pt no specific dx given; was tx with short course of oral steroids and sx resolved Rheumatoid arthritis saw Rheum; per pt no specific dx given; was tx with short course of oral steroids and sx resolved Exercise / Class Metabolic Activity II 4-5 Yardwork/Stairs/Walk up hill Past Family History Family History Mother , Passed Age 74 Breast cancer, Onset Age: 46 COPD (chronic obstructive pulmonary disease) Hypertension Grandmother (Maternal) , Passed Age 75 Breast cancer Grandmother (Paternal) , Passed Age 45 Breast cancer, Onset Age: 42 due to complication of Breast Cancer Aunt Breast cancer Uncle Diabetes Bone cancer Myocardial infarction Father , Passed Age 92 Prostate cancer, Onset Age: 60 COPD (chronic obstructive pulmonary disease) Cancer Hypertension Aunt Breast cancer Aunt Breast cancer Brother Diabetes Thyroid disorder Brother Skin cancer Sister PONV (postoperative nausea and vomiting) Thyroid disorder Son No problems noted. Denies family history of Ovarian cancer Colorectal cancer Uterine cancer Past Surgical History Surgical History H/O left knee surgery arthroscopy Hx of left cataract extraction History of right cataract extraction History of esophagogastroduodenoscopy (EGD) History of surgery removal of port-A-cath 2009 History of vascular access device 2008 placed; has since been removed Hx of colonoscopy S/P wisdom tooth extraction History of biopsy (09/2020) Left Axillary Lymph Nodes History of biopsy (09/21/20) Right Breast H/O lumpectomy Left Breast (2008 and 2009) Past Anesthesia History No Hx of Anesthesia Complications and No Family Hx of Anesthesia Complications History of PONV No Hx of PONV and No Hx of Motion Sickness Social History Smoking Status: Former smoker Do You Dip or Chew Tobacco: No Smoking End Date: 20+ years ago Hx Alcohol Use: Yes Alcohol type: wine alcohol intake frequency: holidays/special occasions only Hx Substance Use: No substance use type: does not use Review of Systems denies fever/cough/ colds/ chest pain/ SOB/ SANCHEZ denies SANCHEZ Physical Exam Vital Signs Last Vital Signs Temp 36.9 C 08/16/24 08:00 Pulse 82 08/16/24 08:00 Resp 20 08/16/24 08:00 BP 113/67 08/16/24 08:00 Pulse Ox 95 08/16/24 08:00 O2 Del Method Room Air 08/16/24 08:00 O2 Flow Rate 1 08/15/24 04:11 ENMT Mouth: no TMJ abnormality and no dentition abnormality Thyromental Distance: > or= 3.5 Finger Breadths Mallampati Class: II Neck neck extension not limited Respiratory normal respiratory effort; no respiratory distress Auscultation: lungs clear to auscultation bilaterally Cardiovascular Rate/Rhythm: regular rate and regular rhythm Neurologic moves all extremities Psychiatric Orientation: alert and oriented x 3 Testing Laboratory Results 08/16/24 07:30 08/16/24 07:30 PT 11.9 Seconds (9.0-12.0) 08/13/24 21:00 INR 1.1 (0.9-1.1) 08/13/24 21:00 Urine Color Yellow 08/13/24 22:56 Urine Appearance Clear (Clear) 08/13/24 22:56 Urine pH 5.5 (4.5-7.5) 08/13/24 22:56 Ur Specific [place] 1.019 (1.000-1.030) 08/13/24 22:56 Urine Protein Negative (Negative) 08/13/24 22:56 Urine Glucose (UA) Negative (Negative) 08/13/24 22:56 Urine Ketones 1+ (Negative) H 08/13/24 22:56 Urine Nitrite Negative (Negative) 08/13/24 22:56 Ur Leukocyte Esterase Negative (Negative) 08/13/24 22:56 08/14/24 01:53 Aerobic Blood Culture - Preliminary Blood No growth in Aerobic bottle after 48 hours. Anaerobic Blood Culture - Preliminary No growth in Anaerobic bottle after 48 hours. 08/14/24 01:43 Aerobic Blood Culture - Preliminary Blood No growth in Aerobic bottle after 48 hours. Anaerobic Blood Culture - Preliminary No growth in Anaerobic bottle after 48 hours.
[2024-08-16] MEDS ORDERED: PROPOFOL IV EMULSION 10 MG/ML 20 ML VIAL IV ONE (08:56)
[2024-08-16] MEDS ORDERED: LIDOCAINE 2% 2 ML VIAL/AMP(20MG/ML) INFIL ONE (08:56)
[2024-08-16] MEDS ORDERED: fentaNYL citrate PF 100 MCG/2 ML VIAL ONE (08:57)
[2024-08-16] MEDS ORDERED: MIDAZOLAM HCL 1 MG/ML 2ML VIAL ONE (08:57)
[2024-08-16] MEDS: HEPARIN (PORCINE) 1000 UNIT/ML 10 ML (CATH LAB USE ONLY) ONE (09:40)
[2024-08-16] MEDS: BUPIVACAINE/EPINEPHRINE 0.25% 1:200,000 30 ML VIAL ONE (09:40)
--- NOTE | 2024-08-16 09:44 | Post Operative Brief Note ---
PG Immediate Post Op with CF Date of Surgery August 16, 2024 Pre & Post Diagnosis Operation Date: 08/16/24 07:00 Pre-Op Diagnosis: Breast Cancer Metastatasized to bone Post-Op Diagnosis: Breast Cancer Metastatasized to bone I identified the patient and participated in the time-out.: Yes Procedure Operation Date: 08/16/24 07:00 Actual Procedures p Insertion Access Port with Flouroscopy(Left) - Freddie Vivas DO Surgeon Freddie Vivas DO Community Association Manager Quentin AVENDANO Estimated Blood Loss 5 Findings Consistent with Post-Op Diagnosis Specimens Specimen Description: no specimens per surgeon Anesthesia Type General Complications none Disposition Disposition: Recovery Room
--- NOTE | 2024-08-16 09:47 | Operative Report ---
PG Post Operative Report Pre & Post Diagnosis Operation Date: 08/16/24 07:00 Pre-Op Diagnosis: Breast Cancer Metastatasized to bone Post-Op Diagnosis: Breast Cancer Metastatasized to bone I identified the patient and participated in the time-out.: Yes Procedure Operation Date: 08/16/24 07:00 Actual Procedures p Insertion Access Port with Flouroscopy(Left) - Freddie Vivas DO Surgeon Freddie Vivas DO Career Agent Quentin AVENDANO Estimated Blood Loss 5 Findings Consistent with Post-Op Diagnosis Specimens None Drains Mediport Anesthesia Type General Complications none Disposition Disposition: Recovery Room Indications 63 yo female with metastatic cancer with need for vascular access Description of Procedure Patient was brought to the operating room and placed in the supine position with both arms tucked. At this time MAC sedation was administered and the patients bilateral chest and neck were prepped and draped in the usual sterile fashion. A timeout was called, the procedure was verified as insertion of mediport. Appropriate pre-operative antibiotics were administered. Surgical, anesthesia and nursing teams agreed and the procedure was begun. The patient was placed in steep Trendelenburg position. The area of the left chest as well as the trajectory of the subclavian access point were anesthetized using 0.25% Marcaine with epinephrine. At this point the left subclavian vein was accessed without issue and non-pulsatile blood flow returned. Guide wire was introduced and fluoroscopy confirmed position. At this point using a #15 blade scalpel a transverse incision was made on the left chest and the port pocket was made using blunt dissection. The dilator-sheath complex was then introduced under di rect fluoroscopy. The catheter was then tunneled from the incision to the needle stick point and introduced into the sheath. Adequate position was confirmed using fluoroscopy. The sheath was then removed while holding the catheter in place. The catheter was then attached onto the port. Port was accessed and blood return was noted. Port was then flushed using heparinized saline and placed in the pocket. Hemostasis was achieved using electrocautery and was complete. The incision was then closed using 3-0 Vicryl suture at the deep dermal level and 4-0 Monocryl in the skin in a running subcuticular fashion. Surgical glue was applied to the incision and stab incision. The patient was awakened from anesthesia having remained stable throughout the entire case and transported to PACU. Post-operative chest X-ray was ordered. The nurse practitioner was present and scrubbed for the entire case. She was essential in positioning, prepping and draping the patient, retraction and expos ure, closure of the incision and placement of the dressing. I attest to the content of the Intraoperative Record and any orders documented therein. Any exceptions are noted below.
--- NOTE | 2024-08-16 09:48 | Operative Report ---
PG Post Operative Report Pre & Post Diagnosis Operation Date: 08/16/24 07:00 Pre-Op Diagnosis: Breast Cancer Metastatasized to bone Post-Op Diagnosis: Breast Cancer Metastatasized to bone I identified the patient and participated in the time-out.: Yes Procedure Operation Date: 08/16/24 07:00 Actual Procedures p Insertion Access Port with Flouroscopy(Left) - Freddie Vivas DO Surgeon Freddie Vivas DO Non Licensed Nuclear Plant Operator Quentin AVENDANO Estimated Blood Loss 5 Findings Consistent with Post-Op Diagnosis Specimens None Anesthesia Type General Complications none Disposition Disposition: Recovery Room Indications 63 yo female with metastatic cancer with need for vascular access Description of Procedure I personally used and interpreted the intra-operative fluoroscopy images which guided proper catheter placement during the procedure. I attest to the content of the Intraoperative Record and any orders documented therein. Any exceptions are noted below.
--- NOTE | 2024-08-16 10:34 | XRay Report ---
XR chest 1V portable CLINICAL HISTORY: s/p mediport insertion COMPARISON STUDY: Chest CT July 21, 2024. FINDINGS: There is no pneumothorax following placement of a left subclavian [id number]. Catheter i s intact. Tip projects over the mid SVC. Interstitial thickening and bilateral opacities have progres sed since prior CT. There are trace bilateral pleural effusions. Sclerotic skeletal metastases are be tter depicted on prior CT. There is left hilar fullness. IMPRESSION: 1. No pneumothorax following placement of a left subclavian [id number]. 2. Interstitial thickening and bilateral opacities which have significantly progressed since prior CT . These are nonspecific but favor pulmonary edema. Superimposed pneumonia could appear similar. 3. Trace bilateral pleural effusions. ACT 112: Negative or not required by law. Electronically signed by: Jesús Knapp M.D. 08/16/2024 10:33 AM
--- NOTE | 2024-08-16 11:10 | Anesthesiology Progress Note ---
Date of Service August 16, 2024 Anesthesia Post Procedure Vital Signs Vital Signs: Temp Pulse Pulse Pulse Resp BP Pulse Ox 08/16/24 11:00 94 H 16 106/63 97 08/16/24 10:45 93 H 16 106/72 96 08/16/24 10:35 91 H 14 107/74 97 08/16/24 10:25 90 13 103/72 98 08/16/24 10:15 36.6 C 94 H 15 112/77 93 08/16/24 10:05 101 H 16 107/74 94 08/16/24 09:56 36.6 C 101 H 16 122/73 95 08/16/24 08:00 83 08/16/24 08:00 36.9 C 82 20 113/67 95 08/16/24 07:47 36.7 C 84 18 96/65 L 95 08/16/24 04:00 08/16/24 03:05 100/64 08/16/24 02:46 37.9 C H 91 H 18 90/63 L 94 08/15/24 22:40 37.6 C H 88 18 99/66 L 91 08/15/24 22:00 83 08/15/24 19:27 37.8 C H 86 18 101/66 91 08/15/24 15:30 37.1 C 92 H 20 104/71 90 O2 Del Method O2 Del Method O2 Flow Rate 08/16/24 11:00 Nasal Cannula 2 08/16/24 10:45 Nasal Cannula 2 08/16/24 10:35 Nasal Cannula 2 08/16/24 10:25 Nasal Cannula 2 08/16/24 10:15 Room Air 08/16/24 10:05 Room Air 08/16/24 09:56 Nasal Cannula 3 08/16/24 08:00 08/16/24 08:00 Room Air 08/16/24 07:47 Room Air 08/16/24 04:00 Room Air 08/16/24 03:05 08/16/24 02:46 Room Air 08/15/24 22:40 Room Air 08/15/24 22:00 08/15/24 19:27 Room Air 08/15/24 15:30 Room Air Pain Intensity Bilateral Generalized: Pain Intensity: 2 Transfer of Care Handoff Completed per policy Notes Mental Status: alert / awake / arousable and participated in evaluation Patient Amnestic to Procedure: Yes Nausea / Vomiting: adequately controlled Pain: adequately controlled Airway Patency, RR, SpO2: stable & adequate BP & HR: stable & adequate Hydration State: stable & adequate Anesthetic Complications: no major complications apparent and Pt Satisfied with anesthetic care Notes: pt c/o right lower lung pain with breathing. pt cta b/l. pt was indicating area near her hips which maybe referred cancer pain. pt also has a bibasiliar pneumonia.
--- NOTE | 2024-08-16 11:41 | Hospitalist Progress Note ---
Date of Service August 16, 2024 Assessment & Plan (1) Appendicitis: Plan: Ruled out. She has no current clinical signs or symptoms of acute appendicitis (2) Bilateral pneumonia: Plan: Suspected on admission although she has no sputum production at this time. She remains on intravenous antibiotics. (3) Breast cancer metastasized to bone: Plan: Supportive care. Pain control measures. Appreciate oncology consultation and recommendations (4) Emphysematous COPD: Plan: Stable. Continue current medical management (5) Gastric mass: Plan: Seen on imaging. This will need further outpatient evaluation Plan Hopeful discharge to home tomorrow, August 17 Admission and Anticipated Discharge Date Admission Date: August 14, 2024 Subjective The patient is seen after placement of her venous access port. She is alert and oriented and states her nausea and vomiting have resolved. She has no symptoms or clinical findings of acute appendicitis at this time. Full liquid diet has been started and IV fluids discontinued. Hopefully she can go home tomorrowAugust 17 Review of Systems 2 Review of Systems: Constitutionalno fever or chills ENTno blurred vision, no double vision, no epistaxis, no sore throat Respiratoryno cough, no wheezing, no shortness of breath Cardiacno palpitations, no chest pain, no syncope Terry nausea, vomiting, diarrhea, melena, hematochezia GUno urinary retention, no urinary incontinence, no dysuria, no hematuria Musculoskeletalno joint pain, no muscle tenderness Skinno bruising, no rashes, no pruritus Neurono isolated weakness, no paresthesia, no weakness Psychno depression, no anxiety Physical Exam 2 Physical Exam: General-alert and oriented x3, no fever, no chills HEENT-head atraumatic and normocephalic, pupils equal and reactive to light, extraocular muscles intact Neck-no lymphadenopathy or thyromegaly, trachea midline Chest-clear to auscultation. No rales, wheezing or rhonchi. Left upper anterior chest wall venous access port site is unremarkable Cardiac-regular rate and rhythm, normal S1 and S2 Abdomen-normal bowel sounds, no hepatosplenomegaly. No right lower quadrant tenderness Extremities-no cyanosis, clubbing, or edema Neuro-cranial nerves II through XII intact, motor and sensory function within normal limits, strength symmetrical, no focal deficits Psych-normal affect, normal mood Results & Data Results & Data Vital Signs (Past 12 Hours) Vital Signs Temp Pulse Pulse Pulse Resp BP Pulse Ox 08/16/24 11:00 94 H 16 106/63 97 08/16/24 10:45 93 H 16 106/72 96 08/16/24 10:35 91 H 14 107/74 97 08/16/24 10:25 90 13 103/72 98 08/16/24 10:15 36.6 C 94 H 15 112/77 93 08/16/24 10:05 101 H 16 107/74 94 08/16/24 09:56 36.6 C 101 H 16 122/73 95 08/16/24 08:00 83 08/16/24 08:00 36.9 C 82 20 113/67 95 08/16/24 07:47 36.7 C 84 18 96/65 L 95 08/16/24 04:00 08/16/24 03:05 100/64 08/16/24 02:46 37.9 C H 91 H 18 90/63 L 94 O2 Del Method O2 Del Method O2 Flow Rate 08/16/24 11:00 Nasal Cannula 2 08/16/24 10:45 Nasal Cannula 2 08/16/24 10:35 Nasal Cannula 2 08/16/24 10:25 Nasal Cannula 2 08/16/24 10:15 Room Air 08/16/24 10:05 Room Air 08/16/24 09:56 Nasal Cannula 3 08/16/24 08:00 08/16/24 08:00 Room Air 08/16/24 07:47 Room Air 08/16/24 04:00 Room Air 08/16/24 03:05 08/16/24 02:46 Room Air Laboratory Results 08/16/24 07:30 08/16/24 07:30 PG Care Time/CCT Total # of Minutes Spent Total Time Spent with Patient: Total time spent is greater than 50% in coordination of care (as documented) at patient's floor/unit and/or counseling patient: Coding Level of Care Code 20375 SUB INP/OBS CARE 3/50MIN Diagnoses Appendicitis K35.80 Acute appendicitis type: unspecified acute appendicitis type Appendicitis type: acute appendicitis Bilateral pneumonia J18.9 Breast cancer metastasized to bone C50.919; C79.51 Emphysematous COPD J43.9 Gastric mass K31.89 (1) Appendicitis Acute appendicitis type: unspecified acute appendicitis type Appendicitis type: acute appendicitis Qualified Code(s): K35.80 - Unspecified acute appendicitis
[2024-08-16] MEDS: POTASSIUM CHLORIDE / WTR 10 MEQ/100 ML PLCT IV SCH (12:07)
[2024-08-16] MEDS: D5NSS + 20MEQ KCL 20 MEQ/1,000 ML BAG IV SCH (12:58)
[2024-08-16] MEDS: OPTIRAY 320 125ml IV ONE (14:29)
--- NOTE | 2024-08-16 15:08 | CT Scan Report ---
CT ANGIOGRAPHY OF THE CHEST, PULMONARY EMBOLUS PROTOCOL CLINICAL HISTORY: Evaluate for pulmonary embolus. Sepsis. Metastatic breast cancer. COMPARISON STUDY: Chest CT July 21, 2024. TECHNIQUE: Following IV administration of 120 mL of Optiray, helical axial images of the chest were o btained utilizing the pulmonary embolus protocol. Maximal intensity projections and sagittal and cor onal reformats were viewed on an independent 3D workstation. IV contrast was administered without co mplication. Automated exposure control was utilized for the study. A dose lowering technique was ut ilized adhering to the principles of ALARA. CT DOSE: 442.26 mGy.cm FINDINGS: Left subclavian [id number]-[id number] is in place. There is no thoracic aortic dissection. There i s no pericardial effusion. No pulmonary emboli are identified although the segmental and subsegmental pulmonary arteries are suboptimally assessed due to respiratory motion. No enlarged axillary, medias tinal or hilar lymph nodes are present. A moderate size right pleural effusion is noted. This contain s hyperdense material. No acute right-sided rib fractures are identified. There is a small low-attenu ation left pleural effusion. There is no pneumothorax. Subpleural lower lobe opacities are present. A symmetric interlobular septal thickening within the left upper lobe is noted. Left upper lung opaciti es are present. These are increased compared to prior chest CT. Patchy additional airspace opacities within lungs have also progressed. Pleural effusions have significantly increased since CT of e 2023. Numerous sclerotic skeletal metastases are present. Peritoneal/omental nodularity within the visualized upper abdomen is noted. There is gastric wall thickening. IMPRESSION: 1. No pulmonary emboli identified although segmental and subsegmental pulmonary arteries suboptimally assessed. 2. Moderate size right pleural effusion which has developed since CT of August 13, 2024. This conta ins hyperdense material which raises the possibility of a hemothorax. Small low-attenuation left pleu ral effusion. 3. Multifocal airspace opacities which have progressed since CT of July 21, 2024. These could ref lect pneumonia, alveolar pulmonary edema or treatment related pneumonitis. Interlobular septal thicke patty which could reflect asymmetric interstitial pulmonary edema or lymphangitic tumor. 4. Peritoneal/omental nodularity within visualized portions of the upper abdomen which raises the pos sibility of peritoneal carcinomatosis. 5. Redemonstration of numerous sclerotic skeletal metastases. ACT 112: Negative or not required by law. Electronically signed by: Jesús Knapp M.D. 08/16/2024 3:06 PM
--- NOTE | 2024-08-17 00:08 | Communication Note ---
Date of Service: August 17, 2024 I was notified by shift supervisor hospitalist at approximately 11:40 PM the patient underwent a CT scan of the chest earlier today. This study showed the patient had no evidence of pulmonary emboli. The patient was noted to have a moderate size pleural effusion on the right which appear to be new when compared to previous imaging. Hyperdense material was noted in the interpreting radiologist could not exclude hemothorax. Earlier this admission on 08/13/2024 the patient did have an abdominal CT scan and this study did visualize the inferior portion of the pleural spaces and there did not appear to be any pleural effusion noted. The patient did undergo a left-sided a port placement earlier today by Dr. Freddie Vivas of [facility] general surgery. (This is the contralateral side of the noted moderate-sized pleural effusion) the patient did have a postoperative chest x-ray performed that showed no evidence of pneumothorax. Postoperative chest x-ray by my interpretation did suggest patient had the possibility of small bilateral pleural effusions. I did report to the patient's bedside to evaluate her within 5 minutes of receiving the notification from the hospitalist. Patient was resting comfortably in bed. She did report some slight pain particular at the right base of her chest with deep inspirations. She said while she was resting in bed she is not short of breath. Physical exam reveals patient's blood pressure is 96/65 (this value is consistent with what her blood pressure has been running since hospitalization). Her pulse is 84 and regular and she is afebrile. Her pulse ox is 95% on 2 L (this is consistent with what her oxygenation has been since admission). Auscultation of her chest revealed breath sounds are decreased at the bases bilaterally with the right being greater than the left. She was not using accessory muscles to aid in respiration. She did not appear dyspneic on inspection. As the patient is stable and not feel any intervention is required emergently at this time. I do feel tomorrow consultation to be placed with either pulmonary medicine or interventional radiology to see if ultrasound-guided thoracentesis is warranted. I did discuss with the patient that the best way to ascertain the cause of the fluid would be to sample this and send it for analysis. I did tell her that the possibilities of her pleural effusion include malignant effusion, hemothorax, or even the possibility of an infectious pleural effusion. Again, the patient is resting comfortably in bed is noted hemodynamically stable. Will continue to monitor closely.
[2024-08-17] MEDS: FAMOTIDINE 20MG IV PUSH 20 MG/5 ML SYR IV STA (05:00)
[2024-08-17] MEDS: MoRPHine SULFATE 2 MG/ML CARP IV PRN (08:45)
[2024-08-17 08:49] LABS: Basophils # (auto) 0.05 K/uL (0.00-0.20); Basophils % (auto) 1.4 %; Eosinophils # (auto) 0.17 K/uL (0.00-0.50); Eosinophils % (auto) 4.8 %; Hematocrit (blood only) 23.8 % (37.0-47.0); Hemoglobin 8.2 g/dl (12.0-16.0); Immature Granulocytes # (auto) 0.12 K/uL (0.01-0.20); Immature Granulocytes % (auto) 3.4 %; Lymphocytes # (auto) 0.29 K/uL (1.20-3.40); Lymphocytes % (auto) 8.2 %; Mean Corpuscular Hemoglobin 34.5 pg (25.0-34.0); Mean Corpuscular Hgb Conc 34.5 g/dL (32.0-36.0); Mean Platelet Volume 9.5 fL (9.4-12.4); Monocytes # (auto) 0.31 K/uL (0.11-0.59); Monocytes % (auto) 8.8 %; Neutrophils # (auto) 2.58 K/uL (1.40-6.50); Neutrophils % (auto) 73.4 %; Nucleated RBC # (auto) 0.02 K/uL (0.00-0.12); Nucleated RBC % (auto) 0.6 %; Platelet Count 165 K/uL (130-400); RDW Standard Deviation 51.1 fL (36.4-46.3); Red Blood Count 2.38 M/uL (4.20-5.40); White Blood Count 3.52 K/ul (4.8-10.8)
[2024-08-17 08:59] LABS: BUN Creatinine Ratio 12.1 (10-20); Calcium 8.4 mg/dl (8.6-10.3); Creatinine Clr Calc Pharmacy 91.3 ml/min; Potassium 3.2 mmol/L (3.5-5.1)
[2024-08-17] MEDS: ALBUT/IPRATROP 3MG/0.5MG NEB 3 ML VIAL NEB PRN (10:36)
--- NOTE | 2024-08-17 11:38 | XRay Report ---
XR chest 1V portable CLINICAL HISTORY: Hypoxia. COMPARISON STUDY: Chest radiograph and chest CT August 16, 2024. FINDINGS: Left subclavian [id number]-n-Ptcf is in place. Small moderate bilateral pleural effusions, bila teral airspace opacities and interstitial thickening have progressed. There is no pneumothorax. IMPRESSION: 1. Progression of interstitial thickening. This favors pulmonary edema. Increase in bilateral airspac e opacities, left greater than right. The findings may represent superimposed pneumonia. 2. Increase in small to moderate bilateral pleural effusions. ACT 112: Negative or not required by law. Electronically signed by: Jesús Knapp M.D. 08/17/2024 11:36 AM
--- NOTE | 2024-08-17 12:16 | Surgery Progress Note ---
Date of Service August 17, 2024 Assessment & Plan (1) History of vascular access device: Plan POD 1 Mediport placement during exam pt in NAD, on room air (took O2 off for lunch) no respiratory distress CTA last night showing concern for Moderate size right pleural effusion which has developed since CT of August 13, 2024. This contains hyperdense material which raises the possibility of a hemothorax. Likely from surgical placement of Mediport . Consult pulmonary for recommendations. dermabond to post surgical site CDI Continue care per medicine pt seen and examined with Dr. Vivas Admission and Anticipated Discharge Date Admission Date: August 14, 2024 Supervising Physician Co-Signing Physician Notes Postop day 1 left subclavian port placement She is doing well and her CT of the chest was reviewed from yesterday Her small amount hemothorax is likely due to her port placement There is almost no signs of active bleeding or increasing oxygen requirements, likely nothing needs to be done other than had to be followed Would have pulmonary on board to follow the patient and give recommendations The port is functioning well, surgery will sign off at this time, please call back with any questions or concerns Subjective pt reports slight decrease in SOB post respiratory tx no pain Review of Systems Respiratory: + dyspnea Physical Exam Constitutional: cooperative and comfortable; no acute distress Respiratory: normal respiratory effort and able to speak in complete sentences; no respiratory distress Chest (Breasts): Chest: + vascular access device or port Results & Data Vital Signs (Past 12 Hours) Vital Signs Temp Pulse Pulse Resp BP Pulse Ox O2 Del Method 08/17/24 11:20 97.9 F 87 18 88/50 L 96 Nasal Cannula 08/17/24 10:36 85 16 96 Nasal Cannula 08/17/24 08:00 Nasal Cannula 08/17/24 08:00 78 08/17/24 07:43 98.1 F 77 18 92/61 L 96 Nasal Cannula 08/17/24 03:25 98.8 F 83 18 88/60 L 97 Room Air O2 Flow Rate 08/17/24 11:20 2 08/17/24 10:36 2 08/17/24 08:00 2 08/17/24 08:00 08/17/24 07:43 2 08/17/24 03:25 Diagnostic Findings [facility], [place] [phone] CT Scan Report Patient: ANGELYWANG Emmy Admit Date: 08/14/24 MR#: [id number] [address] Acct ID:[id number] Address2: Date: 1960 [facility] Zip: [place] [address] Age: 63 Location: 2S Sex: F Room/Bed: [facility] Att Phy: Rogers Head MD Diagnosis: SEPSIS,APPENDICITIS,BREAST CA W/METS, GASTRIC MASS Yennifer Phy: RV. Ballard MD Service Date: 08/16/24 [facility] Phy: Interpreting Phy: Jesús Knapp MDAdmit Phy: Sarkis Banegas MD Ordering Phy: Rogers Head MD cc: ~ CT ANGIOGRAPHY OF THE CHEST, PULMONARY EMBOLUS PROTOCOL CLINICAL HISTORY: Evaluate for pulmonary embolus. Sepsis. Metastatic breast cancer. COMPARISON STUDY: Chest CT July 21, 2024. TECHNIQUE: Following IV administration of 120 mL of Optiray, helical axial images of the chest were obtained utilizing the pulmonary embolus protocol. Maximal intensity projections and sagittal and coronal reformats were viewed on an independent 3D workstation. IV contrast was administered without complication. Automated exposure control was utilized for the study. A dose lowering technique was utilized adhering to the principles of ALARA. CT DOSE: 442.26 mGy.cm FINDINGS: Left subclavian Hailrv-m-Yyue is in place. There is no thoracic aortic dissection. There is no pericardial effusion. No pulmonary emboli are identified although the segmental and subsegmental pulmonary arteries are suboptimally assessed due to respiratory motion. No enlarged axillary, mediastinal or hilar lymph nodes are present. A moderate size right pleural effusion is noted. This contains hyperdense material. No acute right-sided rib fractures are identified. There is a small low-attenuation left pleural effusion. There is no pneumothorax. Subpleural lower lobe opacities are present. Asymmetric interlobular septal thickening within the left upper lobe is noted. Left upper lung opacities are present. These are increased compared to prior chest CT. Patchy additional airspace opacities within lungs have also progressed. Pleural effusions have significantly increased since CT of August 13, 2024. Numerous sclerotic skeletal metastases are present. Peritoneal/omental nodularity within the visualized upper abdomen is noted. There is gastric wall thickening. IMPRESSION: 1. No pulmonary emboli identified although segmental and subsegmental pulmonary arteries suboptimally assessed. 2. Moderate size right pleural effusion which has developed since CT of August 13, 2024. This contains hyperdense material which raises the possibility of a hemothorax. Small low-attenuation left pleural effusion. 3. Multifocal airspace opacities which have progressed since CT of July 21, 2024. These could reflect pneumonia, alveolar pulmonary edema or treatment related pneumonitis. Interlobular septal thickening which could reflect asymmetric interstitial pulmonary edema or lymphangitic tumor. 4. Peritoneal/omental nodularity within visualized portions of the upper abdomen which raises the possibility of peritoneal carcinomatosis. 5. Redemonstration of numerous sclerotic skeletal metastases. ACT 112: Negative or not required by law. Electronically signed by: Jesús Knapp M.D. 08/16/2024 3:06 PM Dictated: 08/16/24 1449 Transcribed: 08/16/24 1452 PG Care Time/CCT Total # of Minutes Spent Total Time Spent with Patient: Total time spent is greater than 50% in coordination of care (as documented) at patient's floor/unit and/or counseling patient: Coding Level of Care Code 01611 Post Operative Follow-Up Diagnoses History of vascular access device Z98.890
--- NOTE | 2024-08-17 12:22 | Pulmonary Consultation ---
Date of Consultation August 17, 2024 Assessment & Plan (1) Acute respiratory failure with hypoxia: (2) Pleural effusion: (3) Emphysematous COPD: (4) Breast cancer metastasized to bone: Laterality: unspecified laterality Qualified Code(s): C50.919 - Malignant neoplasm of unspecified site of unspecified female breast; C79.51 - Secondary malignant neoplasm of bone (5) Abnormal chest CT: Plan CT chest 08/16/2024 personally reviewed: Centrilobular emphysema appreciated bilaterally Groundglass opacities appreciated bilaterally with consolidative process on the periphery left upper lobe Bilateral pleural effusion moderate on the right, small on the left Dependent atelectasis of the right lower lobe No significant mediastinal lymphadenopathy 2D echo 05/25/2024: EF 45-50%, grade 1 diastolic dysfunction, RV normal in size and function -- Acute hypoxic respiratory failure Multifactorial Likely secondary to pleural effusion along with atelectasis of the right lower lobe Respiratory BioFire negative for everything on 08/13/2024 Nasal MRSA negative 08/14/2024 Procalcitonin 0.07 --Bilateral pleural effusion R>L New compared to CT abdomen 08/13/2024 On bedside ultrasound 08/17/2024, there was minimal pleural effusion on the right side but significant atelectasis of the right lung. Small left-sided pleural effusion -- COPD with emphysema Not on any inhalers at home --Abnormal chest CT Patient likely has scarring of the left upper lobe anteriorly because she got the radiation back in 2009 --Metastatic breast cancer Plan: In/out: +7.5 L since coming to the hospital, there has been no strict output measurement Recommend strict urine output measurement Recommend diuresis Follow-up BNP No indication for thoracentesis. Recommend monitoring H&H I highly doubt hemothorax in this patient. This is most likely dilutional drop in hemoglobin. Recommend incentive spirometry Budesonide and Brovana nebulized Mucinex with flutter valve Case was discussed with RN at bedside Please note the above document was generated using voice recognition software. It may contain grammatical, syntax or spelling errors.Any formal questions or concerns about the content, text or information contained within the body of this dictation should be directly addressed to the provider for clarification. History of Present Illness Attending Physician: Rogers Head MD History of Present Illness 63-year-old female admitted to the hospital for abdominal pain Past medical history: Metastatic breast cancer initially diagnosed 2009 s/p chemo and radiation, recent metastatic right-sided breast cancer Pulmonary consulted for possibility of hemothorax At the time of examination patient was saturating 97% on 2 L nasal cannula She was not in any respiratory distress. She stated she is feeling better compared to before She does complain of pain when she takes of breath and on the right side posteriorly. It is nonradiating Occasional cough with clear phlegm. Denies any hemoptysis No unusual headache or blurry vision No dysuria, no diarrhea No hematuria, no hematochezia Afebrile in the last 48 hours Social history: Approximately [id number] smoking quit in 1995 History of lung cancer in one of the aunts who was a heavy smoker Allergies Allergy/AdvReac Type Severity Reaction Status Date / Time No Known Allergies Allergy Verified 08/09/24 09:09 Home Medications Medication Instructions Recorded Confirmed Type palbociclib 75 mg capsule (Ibrance) 75 mg PO QPM 07/10/22 07/28/24 History denosumab 120 mg/1.7 mL (70 mg/mL) 125 mg subcut .qmonth 12/13/22 08/09/24 History subcutaneous solution (Xgeva) cyanocobalamin (vitamin B-12) 1,000 mcg IM MONTHLY 12/16/22 07/28/24 History 1,000 mcg/mL injection solution letrozole 2.5 mg tablet 2.5 mg PO QPM 12/16/22 07/28/24 History ondansetron 4 mg disintegrating 4 mg PO Q6H PRN nausea and 08/02/23 08/09/24 Rx tablet vomiting #10 tabs lorazepam 1 mg tablet 1 mg PO BID PRN Anxiety #30 tabs 09/04/23 07/28/24 Rx fentanyl 12 mcg/hr transdermal 1 patch transdermal Q72H PRN Pain 10/09/23 07/28/24 History patch valacyclovir 1 gram tablet 2,000 mg PO BID PRN Rash 10/09/23 07/28/24 History (Valtrex) cholecalciferol (vitamin D3) 50 50 mcg PO DAILY #90 caps 12/08/23 07/28/24 Rx mcg (2,000 unit) capsule calcium 500 mg (as 1 tab PO DAILY 01/23/24 07/28/24 History carbonate)-vitamin D3 3.125 mcg (125 unit) tablet venlafaxine 150 mg 150 mg PO QPM #90 caps 05/23/24 07/28/24 Rx capsule,extended release 24 hr venlafaxine 75 mg capsule,extended 75 mg PO QPM #90 caps 05/23/24 07/28/24 Rx release 24 hr Patient History Medical History (Updated 08/17/24 @ 13:33 by Keon Aquino MD, [facility]) Breast cancer metastasized to bone 2019 breast ca (new primary) with mets to spine at time of diagnosis History of postoperative nausea and vomiting can drink apple juice afterward, if drinks water, starts throwing up History of COVID-13 Jul 2023; not hospitalized; no ongoing sx COPD (chronic obstructive pulmonary disease) "mild" per pt > no inhalers Lung nodule, multiple just monitoring, " PET scans are showing they are gone" per pt Hiatal hernia "large" per pt Thoracic compression fracture T5, treated with radiation for pain in October 2023, "the pain comes and goes" Sacral fracture Jul 2023 > no pain now Leukopenia follows with Heme/Onc Osteoarthritis DDD (degenerative disc disease) Anemia follows with Heme/Onc History of breast cancer 2008 L breast: tx with lumpectomy, XRT, chemo; dx of new primary 2019 (with mets to bone at time of diagnosis): tx with oral chemo, XRT (also had L axillary LN dissection) Bipolar disorder Anxiety and depression Snores no apnea dx, no device History of back problems known mets in spine causing pain: T1, T5, T6, T7, T10 BRCA gene mutation negative Polymyalgia rheumatica saw Rheum; per pt no specific dx given; was tx with short course of oral steroids and sx resolved Rheumatoid arthritis saw Rheum; per pt no specific dx given; was tx with short course of oral steroids and sx resolved Surgical History (Updated 08/17/24 @ 12:12 by ROMANA Cheney) Port-A-Cath in place (08/16/24) Insertion Access Port with Flouroscopy(Left) - Freddie Vivas, H/O left knee surgery arthroscopy Hx of left cataract extraction History of right cataract extraction History of esophagogastroduodenoscopy (EGD) History of surgery removal of port-A-cath 2009 Hx of colonoscopy S/P wisdom tooth extraction History of biopsy (09/2020) Left Axillary Lymph Nodes History of biopsy (09/21/20) Right Breast H/O lumpectomy Left Breast (2008 and 2009) Family History Mother , Passed Age 74 Breast cancer, Onset Age: 46 COPD (chronic obstructive pulmonary disease) Hypertension Grandmother (Maternal) , Passed Age 75 Breast cancer Grandmother (Paternal) , Passed Age 45 Breast cancer, Onset Age: 42 due to complication of Breast Cancer Aunt Breast cancer Uncle Diabetes Bone cancer Myocardial infarction Father , Passed Age 92 Prostate cancer, Onset Age: 60 COPD (chronic obstructive pulmonary disease) Cancer Hypertension Aunt Breast cancer Aunt Breast cancer Brother Diabetes Thyroid disorder Brother Skin cancer Sister PONV (postoperative nausea and vomiting) Thyroid disorder Son No problems noted. Denies family history of Ovarian cancer Colorectal cancer Uterine cancer Social History Smoking Status: Former smoker Tobacco Type: Cigarettes Age Started Using Tobacco: 17; Age Quit Using Tobacco: 28; packs per day: 1; Smoking End Date: 20+ years ago; Second Hand Exposure: No; Do You Dip or Chew Tobacco: No; Hx Alcohol Use: Yes Alcohol type: wine Alcohol type Comment: social Alcohol Intake Frequency: Monthly or Less Alcohol Intake Frequency Comment: socially Hx Substance Use: No Preferred Language: Stateless Communication Ability: Effective Visual Impairment: No Limitations Hearing Ability: Normal Coach Required: No Beliefs That Will Affect Care: None marital status: Current Living Situation: Spouse current occupational status: employed current occupation: [employer] How many Children do You have: 1 Feels Safe at Home: Yes Safety Concerns: Feels Safe At This Time Childhood Exposure to Second-Hand Smoke: Yes (Siblings) Diet: regular caffeine: Yes (daily) during the past year weight has: remained stable Dental Care, Regularly: Yes Physical Activity Frequency: Does not Exercise Seatbelt Use: always Assistive Devices: None Assistive Devices Comment: reading glasses, upper permanent bridge Review of Systems 2 Review of Systems: All systems reviewed & are unremarkable except as noted in HPI & below Physical Exam 2 Physical Exam: Constitutional: No acute distress HEENT: EOMI, PERRLA Respiratory system: Decreased air entry bilaterally, no wheeze, rhonchi, mild crackles bilateral lower lobes CVS: S1-S2 positive, no murmurs or gallops Abdomen: Soft, nontender, nondistended, positive bowel sounds x4 Extremities: +2 pulses bilaterally radialis/ dorsalis pedis, no cyanosis, no edema Neuro: Awake alert oriented x3 Psych: Normal mood and affect G/U: No Khan Skin: no rashes, warm and dry Lymphatic: no cervical or axillary lymphadenopathy Results & Data Results & Data Vital Signs (Past 12 Hours) Vital Signs Temp Pulse Pulse Resp BP Pulse Ox O2 Del Method 08/17/24 11:20 36.6 C 87 18 88/50 L 96 Nasal Cannula 08/17/24 10:36 85 16 96 Nasal Cannula 08/17/24 08:00 Nasal Cannula 08/17/24 08:00 78 08/17/24 07:43 36.7 C 77 18 92/61 L 96 Nasal Cannula 08/17/24 03:25 37.1 C 83 18 88/60 L 97 Room Air O2 Flow Rate 08/17/24 11:20 2 08/17/24 10:36 2 08/17/24 08:00 2 08/17/24 08:00 08/17/24 07:43 2 08/17/24 03:25 Laboratory Results 08/17/24 08:23 08/17/24 08:23 PG Care Time/CCT Total # of Minutes Spent Total Time Spent with Patient: Total time spent is greater than 50% in coordination of care (as documented) at patient's floor/unit and/or counseling patient: Coding Level of Care Code 86774 INT INP/OBS CARE 3/75MIN Diagnoses Acute respiratory failure with hypoxia J96.01 Pleural effusion J90 Emphysematous COPD J43.9 Breast cancer metastasized to bone C50.919; C79.51 Laterality: unspecified laterality Abnormal chest CT R93.89
[2024-08-17] MEDS: POTASSIUM CHLORIDE / WTR 10 MEQ/100 ML PLCT IV SCH (12:31)
--- NOTE | 2024-08-17 13:35 | Procedure Note ---
Procedure Note Date of Service August 17, 2024 Bedside Ultrasound: Lung: Right:-Minimal limited right-sided pleural effusion, no septation, significant atelectasis of the right lower lobe Left:-Small left-sided pleural effusion Please note the above document was generated using voice recognition software. It may contain grammatical, syntax or spelling errors.Any formal questions or concerns about the content, text or information contained within the body of this dictation should be directly addressed to the provider for clarification. [facility] [place] Procedure Codes (Charges) Pulmonary/Thoracic Procedure 1: Pulmonary and Thoracic: 06920 US, Chest, real time with imaging documentation Coding CPT Codes Pulmonary/Thoracic - Pulmonary and Thoracic: 30484 US, Chest, real time with imaging documentation ([id number]) Additional Codes Date of Service (PG.SURGERY)
--- NOTE | 2024-08-17 14:53 | Hematology/Oncology Prog Note ---
Date of Service August 17, 2024 Assessment & Plan (1) Breast cancer metastasized to bone: (2) Gastric mass: Plan Patient with metastatic breast cancer to the gastric wall. Discussed pathology results with patient and her . Discussed treatment options and patient would like to be aggressive. Given rapid disease progression, recommend starting chemotherapy with carboplatin/gemcitabine. If she is still inpatient on , we will plan to start while inpatient. If she is discharged prior to , plan to start treatment on Friday outpatient Admission and Anticipated Discharge Date Admission Date: August 14, 2024 Subjective Discussed with pathologist at [facility] [place]. EUS with biopsy consistent with poorly differentiated adenocarcinoma of breast primary. Prognostic markers for ER/UT and HER2 receptors pending. Results & Data Vital Signs (Past 12 Hours) Vital Signs Temp Pulse Pulse Resp BP Pulse Ox O2 Del Method 08/17/24 11:20 36.6 C 87 18 88/50 L 96 Nasal Cannula 08/17/24 10:36 85 16 96 Nasal Cannula 08/17/24 08:00 Nasal Cannula 08/17/24 08:00 78 08/17/24 07:43 36.7 C 77 18 92/61 L 96 Nasal Cannula 08/17/24 03:25 37.1 C 83 18 88/60 L 97 Room Air O2 Flow Rate 08/17/24 11:20 2 08/17/24 10:36 2 08/17/24 08:00 2 08/17/24 08:00 08/17/24 07:43 2 08/17/24 03:25 (1) Breast cancer metastasized to bone Laterality: unspecified laterality Qualified Code(s): C50.919 - Malignant neoplasm of unspecified site of unspecified female breast; C79.51 - Secondary malignant neoplasm of bone
--- NOTE | 2024-08-17 15:27 | Hospitalist Progress Note ---
Date of Service August 17, 2024 Assessment & Plan (1) Appendicitis: Plan: Ruled out. She has no current clinical signs or symptoms of acute appendicitis (2) Bilateral pneumonia: Plan: Suspected on admission although she has no sputum production at this time. She remains on intravenous antibiotics. (3) Breast cancer metastasized to bone: Plan: Supportive care. Pain control measures. Appreciate oncology consultation and recommendations. She may have developed lymphangitic spread involving the lungs (4) Emphysematous COPD: Plan: Stable. Continue current medical management. Small bilateral pleural effusions now present along with right lower lobe atelectasis. Incentive spirometry ordered. Appreciate pulmonary medicine consultation recommendations. 1 dose of parenteral Lasix ordered today, August 17, in order to induce diuresis. Repeat chest x-ray again tomorrowAugust 18 (5) Gastric mass: Plan: Recent biopsy reveals adenocarcinoma. Oncology is aware (6) Hypokalemia: Plan: Parenteral and oral supplementation underway. Serial labs Plan Hopeful discharge to home tomorrowAugust 18 Admission and Anticipated Discharge Date Admission Date: August 14, 2024 Subjective Alert and oriented. No distress. She has atelectasis of the right lower lobe with associated small bilateral pleural effusions. Highly doubt presence of hemothorax as suggested as a possibility by the chest CTA. Pulmonary medicine consultation noted. Will repeat portable chest x-ray again tomorrowAugust 18. 1 dose of parenteral Lasix ordered. Potassium supplementation underway. Hopefully she can go home tomorrow, August 18, to spend [place] with her family, if she is stable Review of Systems 2 Review of Systems: Constitutionalno fever or chills ENTno blurred vision, no double vision, no epistaxis, no sore throat Respiratoryno cough, no wheezing, no shortness of breath Cardiacno palpitations, no chest pain, no syncope Terry nausea, vomiting, diarrhea, melena, hematochezia GUno urinary retention, no urinary incontinence, no dysuria, no hematuria Musculoskeletalno joint pain, no muscle tenderness Skinno bruising, no rashes, no pruritus Neurono isolated weakness, no paresthesia, no weakness Psychno depression, no anxiety Physical Exam 2 Physical Exam: General-alert and oriented x3, no fever, no chills HEENT-head atraumatic and normocephalic, pupils equal and reactive to light, extraocular muscles intact Neck-no lymphadenopathy or thyromegaly, trachea midline Chest-clear to auscultation. No rales, wheezing or rhonchi. Left upper anterior chest wall venous access port site is unremarkable Cardiac-regular rate and rhythm, normal S1 and S2 Abdomen-normal bowel sounds, no hepatosplenomegaly. No right lower quadrant tenderness Extremities-no cyanosis, clubbing, or edema Neuro-cranial nerves II through XII intact, motor and sensory function within normal limits, strength symmetrical, no focal deficits Psych-normal affect, normal mood Results & Data Results & Data Vital Signs (Past 12 Hours) Vital Signs Temp Pulse Pulse Resp BP Pulse Ox O2 Del Method 08/17/24 15:07 87 08/17/24 15:04 36.7 C 88 18 90/60 L 96 Nasal Cannula 08/17/24 11:20 36.6 C 87 18 88/50 L 96 Nasal Cannula 08/17/24 10:36 85 16 96 Nasal Cannula 08/17/24 08:00 Nasal Cannula 08/17/24 08:00 78 08/17/24 07:43 36.7 C 77 18 92/61 L 96 Nasal Cannula 08/17/24 03:25 37.1 C 83 18 88/60 L 97 Room Air O2 Flow Rate 08/17/24 15:07 08/17/24 15:04 1 08/17/24 11:20 2 08/17/24 10:36 2 08/17/24 08:00 2 08/17/24 08:00 08/17/24 07:43 2 08/17/24 03:25 Laboratory Results 08/17/24 08:23 08/17/24 08:23 PG Care Time/CCT Total # of Minutes Spent Total Time Spent with Patient: Total time spent is greater than 50% in coordination of care (as documented) at patient's floor/unit and/or counseling patient: Coding Level of Care Code 54990 SUB INP/OBS CARE 3/50MIN Diagnoses Appendicitis K35.80 Acute appendicitis type: unspecified acute appendicitis type Appendicitis type: acute appendicitis Bilateral pneumonia J18.9 Breast cancer metastasized to bone C50.919; C79.51 Emphysematous COPD J43.9 Gastric mass K31.89 Hypokalemia E87.6 (1) Appendicitis Acute appendicitis type: unspecified acute appendicitis type Appendicitis type: acute appendicitis Qualified Code(s): K35.80 - Unspecified acute appendicitis
[2024-08-17] MEDS: HEPARIN 100 UNIT/ML 5ML FLUSH FLUSH PRN (15:58)
[2024-08-17] MEDS: POTASSIUM CHLORIDE CRTAB 20 MEQ TABCR PO SCH (17:44)
[2024-08-17] MEDS: FUROSEMIDE 40 MG/4 ML VIAL IV ONE (17:44)
[2024-08-17] MEDS: FORMOTEROL 20 MCG/2 ML VIAL INH SCH (19:18)
[2024-08-17] MEDS: BUDESONIDE 0.5 MG/2 ML VIAL (PULMICORT) NEB SCH (19:19)
[2024-08-17] MEDS: guaiFENesin 600 MG TABCR PO SCH (21:12)
[2024-08-18] MEDS: MoRPHine SULFATE 2 MG/ML CARP IV STA (05:03)
[2024-08-18 07:14] LABS: Basophils # (auto) 0.06 K/uL (0.00-0.20); Basophils % (auto) 1.8 %; Eosinophils # (auto) 0.14 K/uL (0.00-0.50); Eosinophils % (auto) 4.2 %; Hematocrit (blood only) 22.1 % (37.0-47.0); Hemoglobin 7.6 g/dl (12.0-16.0); Immature Granulocytes # (auto) 0.14 K/uL (0.01-0.20); Immature Granulocytes % (auto) 4.2 %; Lymphocytes # (auto) 0.28 K/uL (1.20-3.40); Lymphocytes % (auto) 8.4 %; Mean Corpuscular Hemoglobin 33.9 pg (25.0-34.0); Mean Corpuscular Hgb Conc 34.4 g/dL (32.0-36.0); Mean Corpuscular Volume 98.7 fL (80.0-100.0); Mean Platelet Volume 9.3 fL (9.4-12.4); Monocytes # (auto) 0.34 K/uL (0.11-0.59); Monocytes % (auto) 10.2 %; Neutrophils # (auto) 2.37 K/uL (1.40-6.50); Neutrophils % (auto) 71.2 %; Nucleated RBC # (auto) 0.02 K/uL (0.00-0.12); Nucleated RBC % (auto) 0.6 %; Platelet Count 169 K/uL (130-400); RDW Coefficient of Variation 13.8 % (11.5-14.5); RDW Standard Deviation 49.8 fL (36.4-46.3); Red Blood Count 2.24 M/uL (4.20-5.40); White Blood Count 3.33 K/ul (4.8-10.8)
[2024-08-18 07:21] LABS: BUN Creatinine Ratio 12.5 (10-20); Calcium 8.5 mg/dl (8.6-10.3); Creatinine Clr Calc Pharmacy 93.9 ml/min; Potassium 3.4 mmol/L (3.5-5.1)
[2024-08-18 07:42] LABS: Ovalocytes 1+; Polychromasia 1+; Tear Drop Cells 1+
--- NOTE | 2024-08-18 08:30 | XRay Report ---
EXAM: XR chest 1V portable CLINICAL HISTORY: F/U. TECHNIQUE: An X-ray image of the chest is obtained using an AP projection. COMPARISON: Prior studies, latest dated 08/16/2024 FINDINGS: Left central venous line with its tip at atriocaval junction. Pulmonary Parenchyma: Bilateral upper lung zones diffuse radio-opacities and to a lesser extent seen at lower lung zones as well. Obliterated both costophrenic angles bilateral, keeping with pleural effusion. Heart and Mediastinum: Cardiomegaly with dilated unfolded aorta Bilateral prominent hilar vascularity Bony Thorax: The bony thorax appears intact without fractures or deformities. Soft Tissues: Soft tissues overlying the chest wall are unremarkable. IMPRESSION: 1. Left central venous line with its tip at atriocaval junction. 2. Bilateral upper lung zones diffuse radio-opacities seen, and to a lesser extent seen at lower lung zones as well. 3. Obliterated both costophrenic angles bilateral, keeping with pleural effusion. 4. Cardiomegaly with dilated unfolded aorta. 5. Bilateral prominent hilar vascularity. 6. No interval changes. Electronically signed by Sagar Reina 08-18-2024 08:30 AM
--- NOTE | 2024-08-18 09:45 | Pulmonology Progress Note ---
Date of Service August 18, 2024 Assessment & Plan (1) Acute respiratory failure with hypoxia: (2) Pleural effusion: (3) Emphysematous COPD: (4) Breast cancer metastasized to bone: Laterality: unspecified laterality Qualified Code(s): C50.919 - Malignant neoplasm of unspecified site of unspecified female breast; C79.51 - Secondary malignant neoplasm of bone (5) Abnormal chest CT: Plan CT chest 08/16/2024 personally reviewed: Centrilobular emphysema appreciated bilaterally Groundglass opacities appreciated bilaterally with consolidative process on the periphery left upper lobe Bilateral pleural effusion moderate on the right, small on the left Dependent atelectasis of the right lower lobe No significant mediastinal lymphadenopathy 2D echo 05/25/2024: EF 45-50%, grade 1 diastolic dysfunction, RV normal in size and function -- Acute hypoxic respiratory failure Multifactorial Likely secondary to pleural effusion along with atelectasis of the right lower lobe Respiratory BioFire negative for everything on 08/13/2024 Nasal MRSA negative 08/14/2024 Procalcitonin 0.07 --Bilateral pleural effusion R>L New compared to CT abdomen 08/13/2024 BNP 22 On bedside ultrasound 08/17/2024, there was minimal pleural effusion on the right side but significant atelectasis of the right lung. Small left-sided pleural effusion No indication for thoracentesis. Recommend monitoring H&H I highly doubt hemothorax in this patient. This is most likely dilutional drop in hemoglobin. -- COPD with emphysema Not on any inhalers at home --Abnormal chest CT Patient likely has scarring of the left upper lobe anteriorly because she got the radiation back in 2009 --Metastatic breast cancer Plan: In/out: -273, urine output 1400 mL, +7 L since coming to the hospital, there has been no strict output measurement Chest x-ray from today shows improvement compared to yesterday Still obliteration of the right costophrenic angle is there likely from atelectasis. There has been drop in hemoglobin, I think it is more related to her chemo pills. Transfuse to keep hemoglobin greater than 7.5 Recommend strict urine output measurement Recommend diuresis Recommend aggressive incentive spirometry Budesonide and Brovana nebulized Mucinex with flutter valve Case was discussed with RN at bedside and Dr. Kowalski Please note the above document was generated using voice recognition software. It may contain grammatical, syntax or spelling errors.Any formal questions or concerns about the content, text or information contained within the body of this dictation should be directly addressed to the provider for clarification. Admission and Anticipated Discharge Date Admission Date: August 14, 2024 Subjective Patient seen and examined at bedside. No acute distress Patient said that she is feeling more lethargic today. She was saturating 92-93% on 3 L. She has been complaining of some nausea and abdominal discomfort Denied any headache, no dizziness Appetite is poor Review of Systems 2 Review of Systems: All systems reviewed & are unremarkable except as noted in Subjective Physical Exam 2 Physical Exam: Constitutional: No acute distress HEENT: EOMI, PERRLA Respiratory system: Decreased air entry bilaterally, more decreased on the right, no wheeze, rhonchi, mild crackles bilateral lower lobes CVS: S1-S2 positive, no murmurs or gallops Abdomen: Soft, nontender, nondistended, positive bowel sounds x4 Extremities: +2 pulses bilaterally radialis/ dorsalis pedis, no cyanosis, no edema Neuro: Awake alert oriented x3 Psych: Normal mood and affect G/U: No Khan Skin: no rashes, warm and dry Lymphatic: no cervical or axillary lymphadenopathy Results & Data Results & Data Vital Signs (Past 12 Hours) Vital Signs Temp Pulse Pulse Pulse Resp BP Pulse Ox 08/18/24 08:35 97 08/18/24 07:59 37.2 C 98 H 18 98/65 L 93 08/18/24 05:14 112 H 18 88 L 08/18/24 05:11 102 H 24 95/65 L 08/18/24 05:00 08/18/24 03:20 36.8 C 87 18 95/56 L 93 08/17/24 23:18 37.2 C 91 H 18 100/63 93 08/17/24 22:10 92 H Pulse Ox O2 Del Method O2 Del Method O2 Flow Rate 08/18/24 08:35 Nasal Cannula 3 08/18/24 07:59 Room Air 08/18/24 05:14 Room Air 08/18/24 05:11 08/18/24 05:00 93 Room Air 08/18/24 03:20 Nasal Cannula 2.0 08/17/24 23:18 Nasal Cannula 2.0 08/17/24 22:10 Laboratory Results 08/18/24 06:38 08/18/24 06:38 PG Care Time/CCT Total # of Minutes Spent Total Time Spent with Patient: Total time spent is greater than 50% in coordination of care (as documented) at patient's floor/unit and/or counseling patient: Coding Level of Care Code 38907 SUB INP/OBS CARE 3/50MIN Diagnoses Acute respiratory failure with hypoxia J96.01 Pleural effusion J90 Emphysematous COPD J43.9 Breast cancer metastasized to bone C50.919; C79.51 Laterality: unspecified laterality Abnormal chest CT R93.89
[2024-08-18] MEDS ORDERED: SODIUM CHLORIDE 0.9% 50 ML IV PRN (10:16)
[2024-08-18] MEDS ORDERED: SODIUM CHLORIDE 0.9% 100 ML IV PRN (10:16)
[2024-08-18] MEDS: HYDROCODONE/ACETAMOPHEN 5/325MG TAB PO PRN (11:09)
[2024-08-18] MEDS: POTASSIUM CHLORIDE CRTAB 20 MEQ TABCR PO SCH (11:10)
--- NOTE | 2024-08-18 11:45 | Hospitalist Progress Note ---
Date of Service August 18, 2024 Assessment & Plan (1) Appendicitis: Plan: Ruled out. She has no current clinical signs or symptoms of acute appendicitis (2) Bilateral pneumonia: Plan: Suspected on admission although she has no sputum production at this time and chest x-ray appearance appears to be due to underlying metastatic disease. Antibiotics have been discontinued (3) Breast cancer metastasized to bone: Plan: Supportive care. Pain control measures. Appreciate oncology consultation and recommendations. She may have developed lymphangitic spread involving the lungs. Chemotherapy will commence tomorrow, August 19 (4) Emphysematous COPD: Plan: Stable. Continue current medical management. Small bilateral pleural effusions now present along with right lower lobe atelectasis. Incentive spirometry ordered. Appreciate pulmonary medicine consultation recommendations. She received 1 dose of parenteral Lasix yesterday, August 17. Repeat chest x-ray done today, August 18, is stable (5) Gastric mass: Plan: Recent biopsy reveals adenocarcinoma. Oncology is aware (6) Hypokalemia: Plan: Potassium remains slightly low at 3.4. Oral supplementation increased to 3 times daily. Serial labs Plan Eventual discharge to home. Chemotherapy will commence tomorrow, August 19, per oncology Admission and Anticipated Discharge Date Admission Date: August 14, 2024 Subjective Alert and oriented. She is aware her hemoglobin has dropped to 7.6 and has given consent for blood transfusion today. She now states she is willing to begin chemotherapy during this hospital stay. Oncology has been notified. Chemotherapy will commence tomorrow, August 19. Ultrasound of the bilateral pleural effusions was performed and there was not any need for a thoracentesis procedure. Review of Systems 2 Review of Systems: Constitutionalno fever or chills ENTno blurred vision, no double vision, no epistaxis, no sore throat Respiratoryno cough, no wheezing, no shortness of breath Cardiacno palpitations, no chest pain, no syncope Terry nausea, vomiting, diarrhea, melena, hematochezia GUno urinary retention, no urinary incontinence, no dysuria, no hematuria Musculoskeletalno joint pain, no muscle tenderness Skinno bruising, no rashes, no pruritus Neurono isolated weakness, no paresthesia, no weakness Psychno depression, no anxiety Physical Exam 2 Physical Exam: General-alert and oriented x3, no fever, no chills HEENT-head atraumatic and normocephalic, pupils equal and reactive to light, extraocular muscles intact Neck-no lymphadenopathy or thyromegaly, trachea midline Chest-clear to auscultation. No rales, wheezing or rhonchi. Left upper anterior chest wall venous access port site is unremarkable Cardiac-regular rate and rhythm, normal S1 and S2 Abdomen-normal bowel sounds, no hepatosplenomegaly. No right lower quadrant tenderness Extremities-no cyanosis, clubbing, or edema Neuro-cranial nerves II through XII intact, motor and sensory function within normal limits, strength symmetrical, no focal deficits Psych-normal affect, normal mood Results & Data Results & Data Vital Signs (Past 12 Hours) Vital Signs Temp Pulse Pulse Pulse Resp BP Pulse Ox 08/18/24 11:38 37.0 C 96 H 20 119/73 96 08/18/24 08:35 97 08/18/24 08:00 100 H 08/18/24 07:59 37.2 C 98 H 18 98/65 L 93 08/18/24 05:14 112 H 18 88 L 08/18/24 05:11 102 H 24 95/65 L 08/18/24 05:00 08/18/24 03:20 36.8 C 87 18 95/56 L 93 Pulse Ox O2 Del Method O2 Del Method O2 Flow Rate 08/18/24 11:38 Nasal Cannula 3 08/18/24 08:35 Nasal Cannula 3 08/18/24 08:00 08/18/24 07:59 Room Air 08/18/24 05:14 Room Air 08/18/24 05:11 08/18/24 05:00 93 Room Air 08/18/24 03:20 Nasal Cannula 2.0 Laboratory Results 08/18/24 06:38 08/18/24 06:38 PG Care Time/CCT Total # of Minutes Spent Total Time Spent with Patient: Total time spent is greater than 50% in coordination of care (as documented) at patient's floor/unit and/or counseling patient: Coding Level of Care Code 90638 SUB INP/OBS CARE 3/50MIN Diagnoses Appendicitis K35.80 Acute appendicitis type: unspecified acute appendicitis type Appendicitis type: acute appendicitis Bilateral pneumonia J18.9 Breast cancer metastasized to bone C50.919; C79.51 Emphysematous COPD J43.9 Gastric mass K31.89 Hypokalemia E87.6 (1) Appendicitis Acute appendicitis type: unspecified acute appendicitis type Appendicitis type: acute appendicitis Qualified Code(s): K35.80 - Unspecified acute appendicitis
[2024-08-18 17:38] LABS: Hematocrit (blood only) 25.5 % (37.0-47.0); Hemoglobin 8.9 g/dl (12.0-16.0)
[2024-08-19 08:04] LABS: Potassium 4.1 mmol/L (3.5-5.1)
[2024-08-19 08:05] LABS: BUN Creatinine Ratio 20.8 (10-20); Calcium 8.8 mg/dl (8.6-10.3); Creatinine Clr Calc Pharmacy 109.6 ml/min
[2024-08-19 08:07] LABS: Hematocrit (blood only) 26.3 % (37.0-47.0); Hemoglobin 8.8 g/dl (12.0-16.0); Mean Corpuscular Hemoglobin 32.5 pg (25.0-34.0); Mean Corpuscular Hgb Conc 33.5 g/dL (32.0-36.0); Mean Platelet Volume 9.3 fL (9.4-12.4); Nucleated RBC # (auto) 0.02 K/uL (0.00-0.12); Nucleated RBC % (auto) 0.4 %; Platelet Count 185 K/uL (130-400); RDW Standard Deviation 56.8 fL (36.4-46.3); Red Blood Count 2.71 M/uL (4.20-5.40); White Blood Count 4.46 K/ul (4.8-10.8)
--- NOTE | 2024-08-19 08:22 | Pulmonology Progress Note ---
Date of Service August 19, 2024 Assessment & Plan (1) Acute respiratory failure with hypoxia: (2) Pleural effusion: (3) Emphysematous COPD: (4) Breast cancer metastasized to bone: Laterality: unspecified laterality Qualified Code(s): C50.919 - Malignant neoplasm of unspecified site of unspecified female breast; C79.51 - Secondary malignant neoplasm of bone (5) Abnormal chest CT: Plan CT chest 08/16/2024 personally reviewed: Centrilobular emphysema appreciated bilaterally Groundglass opacities appreciated bilaterally with consolidative process on the periphery left upper lobe Bilateral pleural effusion moderate on the right, small on the left Dependent atelectasis of the right lower lobe No significant mediastinal lymphadenopathy 2D echo 05/25/2024: EF 45-50%, grade 1 diastolic dysfunction, RV normal in size and function -- Acute hypoxic respiratory failure Multifactorial Likely secondary to pleural effusion along with atelectasis of the right lower lobe Respiratory BioFire negative for everything on 08/13/2024 Nasal MRSA negative 08/14/2024 Procalcitonin 0.07 --Bilateral pleural effusion R>L New compared to CT abdomen 08/13/2024 BNP 22 On bedside ultrasound 08/17/2024, there was minimal pleural effusion on the right side but significant atelectasis of the right lung. Small left-sided pleural effusion No indication for thoracentesis. Recommend monitoring H&H I highly doubt hemothorax in this patient. This is most likely dilutional drop in hemoglobin. S/p 1 unit PRBC. 2524 -- COPD with emphysema Not on any inhalers at home --Abnormal chest CT Patient likely has scarring of the left upper lobe anteriorly because she got the radiation back in 2009 --Metastatic breast cancer Plan: In/out: -1162, urine output 1665 mL, +6 L since coming to the hospital, there has been no strict output measurement for the first half of hospital admission Drop in hemoglobin is likely related to her chemo pills. Continue with diuresis. If the patient blood pressure is on the lower side then would recommend 25% albumin to be given prior to diuresis Continue with aggressive incentive spirometry Continue with budesonide and Brovana nebulized Continue with Mucinex with flutter valve Case was discussed with RN at bedside Please note the above document was generated using voice recognition software. It may contain grammatical, syntax or spelling errors.Any formal questions or concerns about the content, text or information contained within the body of this dictation should be directly addressed to the provider for clarification. Admission and Anticipated Discharge Date Admission Date: August 14, 2024 Subjective Patient seen and examined at bedside. No acute distress, no adverse events overnight She looks more energetic compared to yesterday She was saturating 95% on 3 L, I went down to 2 L She did complain of some vomiting last night which was preceded by bouts of coughing. She has been making up some phlegm, no hemoptysis Denied any headache or blurry vision Has been afebrile Diuresing well Review of Systems 2 Review of Systems: All systems reviewed & are unremarkable except as noted in Subjective Physical Exam 2 Physical Exam: Constitutional: No acute distress HEENT: EOMI, PERRLA Respiratory system: Decreased air entry bilaterally, more decreased on the right, no wheeze, rhonchi, mild crackles bilateral lower lobes CVS: S1-S2 positive, no murmurs or gallops Abdomen: Soft, nontender, nondistended, positive bowel sounds x4 Extremities: +2 pulses bilaterally radialis/ dorsalis pedis, no cyanosis, no edema Neuro: Awake alert oriented x3 Psych: Normal mood and affect G/U: No Khan Skin: no rashes, warm and dry Lymphatic: no cervical or axillary lymphadenopathy Results & Data Results & Data Vital Signs (Past 12 Hours) Vital Signs Temp Pulse Pulse Resp BP Pulse Ox O2 Del Method 08/19/24 07:26 Nasal Cannula 08/19/24 07:21 36.7 C 87 19 93/59 L 98 Nebulizer 08/19/24 07:16 80 16 93 Nasal Cannula 08/19/24 07:07 90 08/19/24 03:33 37.3 C 80 17 105/62 92 Nasal Cannula 08/18/24 23:51 97 H 08/18/24 23:41 37.3 C 77 19 101/61 95 Nasal Cannula 08/18/24 22:16 Nasal Cannula O2 Flow Rate 08/19/24 07:26 2 08/19/24 07:21 08/19/24 07:16 3 08/19/24 07:07 08/19/24 03:33 3.0 08/18/24 23:51 08/18/24 23:41 3.0 08/18/24 22:16 2 Laboratory Results 08/19/24 07:23 08/19/24 07:23 PG Care Time/CCT Total # of Minutes Spent Total Time Spent with Patient: Total time spent is greater than 50% in coordination of care (as documented) at patient's floor/unit and/or counseling patient: Coding Level of Care Code 23786 SUB INP/OBS CARE 2/35MIN Diagnoses Acute respiratory failure with hypoxia J96.01 Pleural effusion J90 Emphysematous COPD J43.9 Breast cancer metastasized to bone C50.919; C79.51 Laterality: unspecified laterality Abnormal chest CT R93.89
[2024-08-19 08:40] LABS: Basophils # (auto) 0.07 K/uL (0.00-0.20); Basophils % (auto) 1.6 %; Eosinophils % (auto) 4.5 %; Immature Granulocytes # (auto) 0.27 K/uL (0.01-0.20); Immature Granulocytes % (auto) 6.1 %; Lymphocytes # (auto) 0.43 K/uL (1.20-3.40); Lymphocytes % (auto) 9.6 %; Monocytes # (auto) 0.48 K/uL (0.11-0.59); Monocytes % (auto) 10.8 %; Neutrophils # (auto) 3.01 K/uL (1.40-6.50); Neutrophils % (auto) 67.4 %; Ovalocytes 1+; Polychromasia 1+
[2024-08-19] MEDS: FUROSEMIDE 40 MG/4 ML VIAL IV SCH (08:54)
--- NOTE | 2024-08-19 10:56 | Hospitalist Progress Note ---
Date of Service August 19, 2024 Assessment & Plan (1) Appendicitis: Plan: Ruled out. She has no current clinical signs or symptoms of acute appendicitis (2) Bilateral pneumonia: Plan: Suspected on admission although she has no sputum production at this time and chest x-ray appearance appears to be due to underlying metastatic disease. Antibiotics have been discontinued (3) Breast cancer metastasized to bone: Plan: Supportive care. Pain control measures. Appreciate oncology consultation and recommendations. She may have developed lymphangitic spread involving the lungs. Chemotherapy will commence today, August 19 (4) Emphysematous COPD: Plan: Stable. Continue current medical management. Small bilateral pleural effusions now present along with right lower lobe atelectasis. Incentive spirometry ordered. Appreciate pulmonary medicine consultation recommendations. She will remain on daily parenteral Lasix therapy. Will repeat chest x-ray again tomorrow, August 20. Doubt presence of right hemothorax (5) Gastric mass: Plan: Recent biopsy reveals adenocarcinoma. Oncology is aware (6) Hypokalemia: Plan: Corrected with oral replacement. Serial labs Plan Eventual discharge to home. Chemotherapy will commence today, August 19, per oncology Admission and Anticipated Discharge Date Admission Date: August 14, 2024 Subjective Malays this morning, August 19. Oncology will start chemotherapy today. Hemoglobin remains stable at 8.8. She received 1 unit packed red blood cells yesterday, August 18. Potassium has now normalized with oral replacement. Pulmonary medicine recommends continued parenteral Lasix diuresis which is ordered. Will repeat chest x-ray again tomorrow, August 20. Review of Systems 2 Review of Systems: Constitutionalno fever or chills ENTno blurred vision, no double vision, no epistaxis, no sore throat Respiratoryno cough, no wheezing, no shortness of breath Cardiacno palpitations, no chest pain, no syncope Terry nausea, vomiting, diarrhea, melena, hematochezia GUno urinary retention, no urinary incontinence, no dysuria, no hematuria Musculoskeletalno joint pain, no muscle tenderness Skinno bruising, no rashes, no pruritus Neurono isolated weakness, no paresthesia, no weakness Psychno depression, no anxiety Physical Exam 2 Physical Exam: General-alert and oriented x3, no fever, no chills HEENT-head atraumatic and normocephalic, pupils equal and reactive to light, extraocular muscles intact Neck-no lymphadenopathy or thyromegaly, trachea midline Chest-clear to auscultation. No rales, wheezing or rhonchi. Left upper anterior chest wall venous access port site is unremarkable Cardiac-regular rate and rhythm, normal S1 and S2 Abdomen-normal bowel sounds, no hepatosplenomegaly. No right lower quadrant tenderness Extremities-no cyanosis, clubbing, or edema Neuro-cranial nerves II through XII intact, motor and sensory function within normal limits, strength symmetrical, no focal deficits Psych-normal affect, normal mood Results & Data Results & Data Vital Signs (Past 12 Hours) Vital Signs Temp Pulse Pulse Resp BP Pulse Ox O2 Del Method 08/19/24 10:32 36.8 C 108 H 20 107/73 95 Nasal Cannula 08/19/24 07:26 Nasal Cannula 08/19/24 07:21 36.7 C 87 19 93/59 L 98 Nebulizer 08/19/24 07:16 80 16 93 Nasal Cannula 08/19/24 07:07 90 08/19/24 03:33 37.3 C 80 17 105/62 92 Nasal Cannula 08/18/24 23:51 97 H 08/18/24 23:41 37.3 C 77 19 101/61 95 Nasal Cannula O2 Flow Rate 08/19/24 10:32 2 08/19/24 07:26 2 08/19/24 07:21 08/19/24 07:16 3 08/19/24 07:07 08/19/24 03:33 3.0 08/18/24 23:51 08/18/24 23:41 3.0 Laboratory Results 08/19/24 07:23 08/19/24 07:23 PG Care Time/CCT Total # of Minutes Spent Total Time Spent with Patient: Total time spent is greater than 50% in coordination of care (as documented) at patient's floor/unit and/or counseling patient: Coding Level of Care Code 50423 SUB INP/OBS CARE 3/50MIN Diagnoses Appendicitis K35.80 Acute appendicitis type: unspecified acute appendicitis type Appendicitis type: acute appendicitis Bilateral pneumonia J18.9 Breast cancer metastasized to bone C50.919; C79.51 Emphysematous COPD J43.9 Gastric mass K31.89 Hypokalemia E87.6 (1) Appendicitis Acute appendicitis type: unspecified acute appendicitis type Appendicitis type: acute appendicitis Qualified Code(s): K35.80 - Unspecified acute appendicitis
[2024-08-19] MEDS: FOSAPREPITANT DIMEGLUMINE 150 MG in SODIUM CHLORIDE 0.9% 145 ML IV ONE (12:04)
[2024-08-19] MEDS: dexAMETHasone 12 MG, PALONOSETRON 0.25 MG in SODIUM CHLORIDE 0.9% 50 ML IV ONE (12:04)
[2024-08-19] MEDS: SODIUM CHLORIDE 0.9% IV ONE ×2 (12:54→13:38)
[2024-08-19] MEDS: GEMCITABINE HCL IV ONE (12:54)
[2024-08-19] MEDS ORDERED: GEMCITABINE HCL IV ONE (13:00)
[2024-08-19] MEDS ORDERED: SODIUM CHLORIDE 0.9% IV ONE (13:00)
[2024-08-19] MEDS: CARBOPLATIN IV ONE (13:38)
--- NOTE | 2024-08-19 15:39 | Hematology/Oncology Prog Note ---
Date of Service August 19, 2024 Assessment & Plan (1) Breast cancer metastasized to bone: (2) Intractable nausea and vomiting: (3) Gastric mass: Plan -Labs reviewed and significant for anemia with hemoglobin of 8.8, hematocrit 26.3, renal function stable. Will proceed with cycle 1, day 1 of treatment with carboplatin and gemcitabine. She will follow-up with me in about 1 week for cycle 1, day 8 of treatment. Admission and Anticipated Discharge Date Admission Date: August 14, 2024 Subjective No new issues. Still endorses nausea. Tolerating liquids. Results & Data Vital Signs (Past 12 Hours) Vital Signs Temp Pulse Pulse Resp BP Pulse Ox Pulse Ox 08/19/24 15:11 36.9 C 96 H 19 95/59 L 93 08/19/24 12:00 93 08/19/24 10:32 36.8 C 108 H 20 107/73 95 08/19/24 07:26 08/19/24 07:21 36.7 C 87 19 93/59 L 98 08/19/24 07:16 80 16 93 08/19/24 07:07 90 O2 Del Method O2 Del Method O2 Flow Rate O2 Flow Rate 08/19/24 15:11 Nasal Cannula 2 08/19/24 12:00 Nasal Cannula 2 08/19/24 10:32 Nasal Cannula 2 08/19/24 07:26 Nasal Cannula 2 08/19/24 07:21 Nebulizer 08/19/24 07:16 Nasal Cannula 3 08/19/24 07:07
[2024-08-20 08:10] LABS: Basophils # (auto) 0.01 K/uL (0.00-0.20); Basophils % (auto) 0.2 %; Hematocrit (blood only) 26.5 % (37.0-47.0); Hemoglobin 9.1 g/dl (12.0-16.0); Immature Granulocytes # (auto) 0.16 K/uL (0.01-0.20); Lymphocytes # (auto) 0.21 K/uL (1.20-3.40); Lymphocytes % (auto) 3.9 %; Mean Corpuscular Hemoglobin 33.3 pg (25.0-34.0); Mean Corpuscular Hgb Conc 34.3 g/dL (32.0-36.0); Mean Corpuscular Volume 97.1 fL (80.0-100.0); Mean Platelet Volume 9.5 fL (9.4-12.4); Monocytes # (auto) 0.26 K/uL (0.11-0.59); Monocytes % (auto) 4.8 %; Neutrophils # (auto) 4.77 K/uL (1.40-6.50); Neutrophils % (auto) 88.1 %; Platelet Count 222 K/uL (130-400); RDW Coefficient of Variation 15.4 % (11.5-14.5); RDW Standard Deviation 54.4 fL (36.4-46.3); Red Blood Count 2.73 M/uL (4.20-5.40); White Blood Count 5.41 K/ul (4.8-10.8)
[2024-08-20 08:14] LABS: BUN Creatinine Ratio 42.6 (10-20); Calcium 8.4 mg/dl (8.6-10.3); Creatinine Clr Calc Pharmacy 111.9 ml/min; Potassium 4.1 mmol/L (3.5-5.1)
--- NOTE | 2024-08-20 08:19 | XRay Report ---
EXAM: XR chest 1V portable CLINICAL HISTORY: F/U [facility] TECHNIQUE: An X-ray image of the chest is obtained in AP projection. COMPARISON: Prior study dated 08/18/2024 FINDINGS: Left central venous line with its tip at atriocaval junction. Pulmonary Parenchyma: Mild regression in bilateral upper lung zones diffuse radio-opacities and to a lesser extent seen at lower lung zones as well. Obliterated both costophrenic angles bilateral, keeping with pleural effusion. Heart and Mediastinum: Cardiomegaly with dilated unfolded aorta Bilateral prominent hilar vascularity Bony Thorax: The bony thorax appears intact without fractures or deformities. Soft Tissues: Soft tissues overlying the chest wall are unremarkable. IMPRESSION: 1. Mild regression in bilateral upper lung zones diffuse radio-opacities and to a lesser extent seen at lower lung zones as well. 2. Obliterated both costophrenic angles bilateral, keeping with pleural effusion (stationary). 3. Left central venous line with its tip at atriocaval junction (stationary) 4. Cardiomegaly with dilated unfolded aorta (stationary) 5. Bilateral prominent hilar vascularity (stationary) Electronically signed by Sagar Reina 08-20-2024 08:19 AM
--- NOTE | 2024-08-20 08:44 | Pulmonology Progress Note ---
Date of Service August 20, 2024 Assessment & Plan (1) Acute respiratory failure with hypoxia: (2) Pleural effusion: (3) Emphysematous COPD: (4) Breast cancer metastasized to bone: Laterality: unspecified laterality Qualified Code(s): C50.919 - Malignant neoplasm of unspecified site of unspecified female breast; C79.51 - Secondary malignant neoplasm of bone (5) Abnormal chest CT: Plan CT chest 08/16/2024 personally reviewed: Centrilobular emphysema appreciated bilaterally Groundglass opacities appreciated bilaterally with consolidative process on the periphery left upper lobe Bilateral pleural effusion moderate on the right, small on the left Dependent atelectasis of the right lower lobe No significant mediastinal lymphadenopathy 2D echo 05/25/2024: EF 45-50%, grade 1 diastolic dysfunction, RV normal in size and function -- Acute hypoxic respiratory failure Multifactorial Likely secondary to pleural effusion along with atelectasis of the right lower lobe Respiratory BioFire negative for everything on 08/13/2024 Nasal MRSA negative 08/14/2024 Procalcitonin 0.07 --Bilateral pleural effusion R>L New compared to CT abdomen 08/13/2024 BNP 22 On bedside ultrasound 08/17/2024, there was minimal pleural effusion on the right side but significant atelectasis of the right lung. Small left-sided pleural effusion No indication for thoracentesis. Recommend monitoring H&H I highly doubt hemothorax in this patient. This is most likely dilutional drop in hemoglobin. S/p 1 unit PRBC. 08/18/24 -- COPD with emphysema Not on any inhalers at home --Abnormal chest CT Patient likely has scarring of the left upper lobe anteriorly because she got the radiation back in 2009 --Metastatic breast cancer Inpatient chemotherapy started 08/19/2024 Plan: In/out: - 573, urine output 1450 mL, + 5.2 L since coming to the hospital, there has been no strict output measurement for the first half of hospital admission Chest x-ray from today shows improvement in alveolar opacities as well as a right lower lobe atelectasis compared to 08/18 Continue with diuresis. If the patient blood pressure is on the lower side then would recommend 25% albumin to be given prior to diuresis Continue with aggressive incentive spirometry Continue with budesonide and Brovana nebulized Continue with Mucinex with flutter valve Case was discussed with RN at bedside Please note the above document was generated using voice recognition software. It may contain grammatical, syntax or spelling errors.Any formal questions or concerns about the content, text or information contained within the body of this dictation should be directly addressed to the provider for clarification. Admission and Anticipated Discharge Date Admission Date: August 14, 2024 Subjective Patient seen and examined at bedside. No acute distress, no adverse events overnight She was saturating 96% on 2 L nasal cannula. I went down to 1 L She stated she is feeling better when it comes to her breathing She is compliant with incentive spirometry as well as flutter valve Bringing up clear phlegm. No hemoptysis Back pain has subsided/better controlled Poor appetite Review of Systems Review of Systems: All systems reviewed & are unremarkable except as noted in Subjective Physical Exam Physical Exam: Constitutional: No acute distress HEENT: EOMI, PERRLA Respiratory system: Decreased air entry bilaterally, no wheeze, no rhonchi, mild crackles bilateral lower lobes CVS: S1-S2 positive, no murmurs or gallops Abdomen: Soft, nontender, nondistended, positive bowel sounds x4 Extremities: +2 pulses bilaterally radialis/ dorsalis pedis, no cyanosis, no edema Neuro: Awake alert oriented x3 Psych: Normal mood and affect G/U: No Khan Skin: no rashes, warm and dry Lymphatic: no cervical or axillary lymphadenopathy Results & Data Results & Data Vital Signs (Past 12 Hours) Vital Signs Temp Pulse Pulse Resp BP Pulse Ox O2 Del Method 08/20/24 08:00 36.7 C 74 18 97/62 L 96 Nasal Cannula 08/20/24 07:04 87 16 97 Nasal Cannula 08/20/24 07:00 83 08/20/24 03:00 36.9 C 86 17 100/58 L 95 Nasal Cannula 08/20/24 02:52 36.8 C 82 18 95 Nasal Cannula 08/19/24 23:12 36.9 C 88 19 101/68 91 Nasal Cannula 08/19/24 21:43 85 O2 Flow Rate 08/20/24 08:00 2 08/20/24 07:04 2 08/20/24 07:00 08/20/24 03:00 2.0 08/20/24 02:52 2.0 08/19/24 23:12 2.0 08/19/24 21:43 PG Care Time/CCT Total # of Minutes Spent Total Time Spent with Patient: Total time spent is greater than 50% in coordination of care (as documented) at patient's floor/unit and/or counseling patient: Coding Level of Care Code 24432 SUB INP/OBS CARE 2/35MIN Diagnoses Acute respiratory failure with hypoxia J96.01 Pleural effusion J90 Emphysematous COPD J43.9 Breast cancer metastasized to bone C50.919; C79.51 Laterality: unspecified laterality Abnormal chest CT R93.89
[2024-08-20] MEDS ORDERED: ALUMINUM/MAGNESIUM/SIMETH (MAALOX MAX) 30 ML UDC PO PRN (12:46)
--- NOTE | 2024-08-20 12:50 | Hospitalist Progress Note ---
Date of Service August 20, 2024 Assessment & Plan (1) Appendicitis: Plan: Ruled out. She has no current clinical signs or symptoms of acute appendicitis (2) Bilateral pneumonia: Plan: Suspected on admission although she has no sputum production at this time and chest x-ray appearance appears to be due to underlying metastatic disease. Antibiotics have been discontinued (3) Breast cancer metastasized to bone: Plan: Supportive care. Pain control measures. Appreciate oncology consultation and recommendations. She may have developed lymphangitic spread involving the lungs. Chemotherapy commenced on August 19 (4) Emphysematous COPD: Plan: Stable. Continue current medical management. Small bilateral pleural effusions now present along with right lower lobe atelectasis. Incentive spirometry ordered. Appreciate pulmonary medicine consultation recommendations. She will remain on daily parenteral Lasix therapy. No clear-cut evidence of right hemothorax (5) Gastric mass: Plan: Recent biopsy reveals adenocarcinoma. Oncology is aware (6) Hypokalemia: Plan: Corrected with oral replacement. Serial labs (7) GERD (gastroesophageal reflux disease): Plan: Protonix and Pepcid ordered. Will use oral liquid antacids as needed Plan Eventual discharge to home Admission and Anticipated Discharge Date Admission Date: August 14, 2024 Subjective Alert and oriented. She is complaining of GERD symptoms. Protonix and Pepcid have been ordered and Mylanta as needed. Hemoglobin stable at 9.1. She started her chemotherapy yesterday, August 19, with carboplatin and gemcitabine. Management per oncology. Review of Systems 2 Review of Systems: Constitutionalno fever or chills ENTno blurred vision, no double vision, no epistaxis, no sore throat Respiratoryno cough, no wheezing, no shortness of breath Cardiacno palpitations, no chest pain, no syncope Terry nausea, vomiting, diarrhea, melena, hematochezia. She is complaining of GERD symptoms GUno urinary retention, no urinary incontinence, no dysuria, no hematuria Musculoskeletalno joint pain, no muscle tenderness Skinno bruising, no rashes, no pruritus Neurono isolated weakness, no paresthesia, no weakness Psychno depression, no anxiety Physical Exam 2 Physical Exam: General-alert and oriented x3, no fever, no chills HEENT-head atraumatic and normocephalic, pupils equal and reactive to light, extraocular muscles intact Neck-no lymphadenopathy or thyromegaly, trachea midline Chest-clear to auscultation. No rales, wheezing or rhonchi. Left upper anterior chest wall venous access port site is unremarkable Cardiac-regular rate and rhythm, normal S1 and S2 Abdomen-normal bowel sounds, no hepatosplenomegaly. No right lower quadrant tenderness Extremities-no cyanosis, clubbing, or edema Neuro-cranial nerves II through XII intact, motor and sensory function within normal limits, strength symmetrical, no focal deficits Psych-normal affect, normal mood Results & Data Results & Data Vital Signs (Past 12 Hours) Vital Signs Temp Pulse Pulse Resp BP Pulse Ox O2 Del Method 08/20/24 12:14 36.9 C 100 H 20 90/57 L 97 Nasal Cannula 08/20/24 12:00 08/20/24 11:48 Nasal Cannula 08/20/24 08:00 36.7 C 74 18 97/62 L 96 Nasal Cannula 08/20/24 07:04 87 16 97 Nasal Cannula 08/20/24 07:00 83 08/20/24 03:00 36.9 C 86 17 100/58 L 95 Nasal Cannula 08/20/24 02:52 36.8 C 82 18 95 Nasal Cannula O2 Del Method O2 Flow Rate 08/20/24 12:14 08/20/24 12:00 Nasal Cannula 08/20/24 11:48 2 08/20/24 08:00 2 08/20/24 07:04 2 08/20/24 07:00 08/20/24 03:00 2.0 08/20/24 02:52 2.0 Laboratory Results 08/20/24 07:15 08/20/24 07:15 PG Care Time/CCT Total # of Minutes Spent Total Time Spent with Patient: Total time spent is greater than 50% in coordination of care (as documented) at patient's floor/unit and/or counseling patient: Coding Level of Care Code 78771 SUB INP/OBS CARE 3/50MIN Diagnoses Appendicitis K35.80 Acute appendicitis type: unspecified acute appendicitis type Appendicitis type: acute appendicitis Bilateral pneumonia J18.9 Breast cancer metastasized to bone C50.919; C79.51 Emphysematous COPD J43.9 Gastric mass K31.89 Hypokalemia E87.6 GERD (gastroesophageal reflux disease) K21.9 (1) Appendicitis Acute appendicitis type: unspecified acute appendicitis type Appendicitis type: acute appendicitis Qualified Code(s): K35.80 - Unspecified acute appendicitis
[2024-08-20] MEDS: FAMOTIDINE 20 MG TAB PO SCH (14:15)
[2024-08-20] MEDS: PANTOprazole 40 MG TAB PO SCH (14:15)
--- NOTE | 2024-08-21 06:28 | Hematology/Oncology Prog Note ---
Date of Service August 21, 2024 Assessment & Plan (1) Metastatic disease: (2) Gastric mass: (3) Breast cancer metastasized to bone: Plan Outpatient follow-up with me and for cycle 1, day 8 of chemo on 08/26/2024 Prescription for Compazine and Promethazine sent to her pharmacy Admission and Anticipated Discharge Date Admission Date: August 14, 2024 Subjective Feels well overall and wants to go home Results & Data Vital Signs (Past 12 Hours) Vital Signs Temp Pulse Pulse Resp BP Pulse Ox O2 Del Method 08/21/24 03:53 36.8 C 76 18 101/55 L 96 Nasal Cannula 08/20/24 22:50 36.7 C 88 20 93/68 L 98 Nasal Cannula 08/20/24 22:15 80 08/20/24 20:00 Nasal Cannula 08/20/24 19:58 36.6 C 87 20 91/59 L 98 Nasal Cannula 08/20/24 19:27 93 H 18 94 Nasal Cannula O2 Flow Rate 08/21/24 03:53 1.0 08/20/24 22:50 1.0 08/20/24 22:15 08/20/24 20:00 2 08/20/24 19:58 2.0 08/20/24 19:27 2 (1) Metastatic disease Area of secondary neoplastic involvement: unspecified site Qualified Code(s): C79.9 - Secondary malignant neoplasm of unspecified site
--- NOTE | 2024-08-21 08:19 | Pulmonology Progress Note ---
Date of Service August 21, 2024 Assessment & Plan (1) Acute respiratory failure with hypoxia: (2) Pleural effusion: (3) Emphysematous COPD: (4) Breast cancer metastasized to bone: Laterality: unspecified laterality Qualified Code(s): C50.919 - Malignant neoplasm of unspecified site of unspecified female breast; C79.51 - Secondary malignant neoplasm of bone (5) Abnormal chest CT: Plan CT chest 08/16/2024 personally reviewed: Centrilobular emphysema appreciated bilaterally Groundglass opacities appreciated bilaterally with consolidative process on the periphery left upper lobe Bilateral pleural effusion moderate on the right, small on the left Dependent atelectasis of the right lower lobe No significant mediastinal lymphadenopathy 2D echo 05/25/2024: EF 45-50%, grade 1 diastolic dysfunction, RV normal in size and function -- Acute hypoxic respiratory failure Multifactorial Likely secondary to pleural effusion along with atelectasis of the right lower lobe Respiratory BioFire negative for everything on 08/13/2024 Nasal MRSA negative 08/14/2024 Procalcitonin 0.07 --Bilateral pleural effusion R>L New compared to CT abdomen 08/13/2024 BNP 22 On bedside ultrasound 08/17/2024, there was minimal pleural effusion on the right side but significant atelectasis of the right lung. Small left-sided pleural effusion No indication for thoracentesis. Recommend monitoring H&H I highly doubt hemothorax in this patient. This is most likely dilutional drop in hemoglobin. S/p 1 unit PRBC. 08/18/24 -- COPD with emphysema Not on any inhalers at home --Abnormal chest CT Patient likely has scarring of the left upper lobe anteriorly because she got the radiation back in 2009 --Metastatic breast cancer Inpatient chemotherapy started 08/19/2024 Plan: In/out: -179, urine output 450 mL, + 4.8 L since coming to the hospital, there has been no strict output measurement for the first half of hospital admission Patient will likely need oxygen on exertion. Continue with aggressive incentive spirometry Continue with budesonide and Brovana nebulized Continue with Mucinex with flutter valve Case was discussed with RN at bedside Please note the above document was generated using voice recognition software. It may contain grammatical, syntax or spelling errors.Any formal questions or concerns about the content, text or information contained within the body of this dictation should be directly addressed to the provider for clarification. Admission and Anticipated Discharge Date Admission Date: August 14, 2024 Subjective Patient seen and examined at bedside. No acute distress, no adverse events overnight She was saturating 88-89% on room air, on asking her to take deep breaths it did go up to 91% Denies any chest pain Has been using incentive spirometry as well as flutter valve, bringing up clear phlegm Fair appetite. No nausea or vomiting Has been complaining of constipation and asking for something to help with the Review of Systems 2 Review of Systems: All systems reviewed & are unremarkable except as noted in Subjective Physical Exam 2 Physical Exam: Constitutional: No acute distress HEENT: EOMI, PERRLA Respiratory system: Decreased air entry bilaterally, no wheeze, no rhonchi, mild crackles bilateral lower lobes CVS: S1-S2 positive, no murmurs or gallops Abdomen: Soft, nontender, nondistended, positive bowel sounds x4 Extremities: +2 pulses bilaterally radialis/ dorsalis pedis, no cyanosis, no edema Neuro: Awake alert oriented x3 Psych: Normal mood and affect G/U: No Khan Skin: no rashes, warm and dry Lymphatic: no cervical or axillary lymphadenopathy Results & Data Results & Data Vital Signs (Past 12 Hours) Vital Signs Temp Pulse Pulse Pulse Resp BP Pulse Ox 08/21/24 08:01 36.5 C 91 H 18 95/63 L 95 08/21/24 07:11 95 H 18 97 08/21/24 03:53 36.8 C 76 18 101/55 L 96 08/20/24 22:50 36.7 C 88 20 93/68 L 98 08/20/24 22:15 80 O2 Del Method O2 Flow Rate 08/21/24 08:01 Room Air 08/21/24 07:11 Nasal Cannula 2 08/21/24 03:53 Nasal Cannula 1.0 08/20/24 22:50 Nasal Cannula 1.0 08/20/24 22:15 Laboratory Results 08/20/24 07:15 08/20/24 07:15 PG Care Time/CCT Total # of Minutes Spent Total Time Spent with Patient: Total time spent is greater than 50% in coordination of care (as documented) at patient's floor/unit and/or counseling patient: Coding Level of Care Code 95708 SUB INP/OBS CARE 2/35MIN Diagnoses Acute respiratory failure with hypoxia J96.01 Pleural effusion J90 Emphysematous COPD J43.9 Breast cancer metastasized to bone C50.919; C79.51 Laterality: unspecified laterality Abnormal chest CT R93.89
[2024-08-21 09:10] LABS: Hematocrit (blood only) 26.7 % (37.0-47.0); Hemoglobin 9.1 g/dl (12.0-16.0); Mean Corpuscular Hemoglobin 33.3 pg (25.0-34.0); Mean Corpuscular Hgb Conc 34.1 g/dL (32.0-36.0); Mean Corpuscular Volume 97.8 fL (80.0-100.0); Mean Platelet Volume 9.4 fL (9.4-12.4); Platelet Count 220 K/uL (130-400); RDW Coefficient of Variation 15.5 % (11.5-14.5); RDW Standard Deviation 54.8 fL (36.4-46.3); Red Blood Count 2.73 M/uL (4.20-5.40)
[2024-08-21 09:28] LABS: BUN Creatinine Ratio 41.1 (10-20); Calcium 8.5 mg/dl (8.6-10.3); Potassium 3.8 mmol/L (3.5-5.1)
[2024-08-21 09:32] LABS: Basophils # (auto) 0.01 K/uL (0.00-0.20); Basophils % (auto) 0.2 %; Eosinophils # (auto) 0.13 K/uL (0.00-0.50); Eosinophils % (auto) 3.1 %; Immature Granulocytes # (auto) 0.05 K/uL (0.01-0.20); Immature Granulocytes % (auto) 1.2 %; Lymphocytes # (auto) 0.17 K/uL (1.20-3.40); Monocytes # (auto) 0.09 K/uL (0.11-0.59); Monocytes % (auto) 2.1 %; Neutrophils # (auto) 3.75 K/uL (1.40-6.50); Neutrophils % (auto) 89.4 %; Ovalocytes 1+; Polychromasia 1+
[2024-08-21] MEDS ORDERED: POLYETHYLENE (MIRALAX) 17 GM PACK PO SCH (10:30)
[2024-08-21 11:33] VITALS: RESP 20; TEMP 99.5; O2SAT 94
--- NOTE | 2024-08-21 11:35 | Discharge Summary ---
Discharge Summary Date of Service August 21, 2024 Principal Dx & Hospital Course #1 = Principal Diagnosis (1) Appendicitis: Ruled out. She has no current clinical signs or symptoms of acute appendicitis (2) Bilateral pneumonia: Suspected on admission although she has no sputum production at this time and chest x-ray appearance appears to be due to underlying metastatic disease. Antibiotics have been discontinued (3) Breast cancer metastasized to bone: Supportive care. Pain control measures. Appreciate oncology consultation and recommendations. She may have developed lymphangitic spread involving the lungs. Chemotherapy commenced on August 19. This will be done on a weekly basis. She does have a follow-up appointment with oncology (4) Emphysematous COPD: Stable. Continue current medical management. Small bilateral pleural effusions now present along with right lower lobe atelectasis. Incentive spirometry ordered. Appreciate pulmonary medicine consultation recommendations. Treated while hospitalized with parenteral Lasix therapy. No clear-cut evidence of right hemothorax (5) Gastric mass: Recent biopsy reveals adenocarcinoma. Oncology is aware (6) Hypokalemia: Corrected with oral replacement. Serial labs (7) GERD (gastroesophageal reflux disease): Protonix and Pepcid ordered. Will use oral liquid antacids as needed. Famotidine will be continued at discharge Plan Home today, August 21, with home health services. She will follow-up with oncology within 1 week Admission HPI Per Admitting Provider The patient is a 63-year-old female with a past medical history including metastatic cancer to bone, with recently diagnosed gastric mass on endoscopic EUS performed yesterday at [facility] in [place]. She presents to the emergency department with nausea and vomiting, generalized abdominal pain and malaise. CT scan of abdomen and pelvis questioned the possibility of acute appendicitis, however, with CT also suggesting metastases to the GI tract and stomach, and bone, decision has been made to admit to medicine and assess response to IV antibiotics, IV fluids, IV pain control and nausea control. Discharge Exam General-alert and oriented x3, no fever, no chills HEENT-head atraumatic and normocephalic, pupils equal and reactive to light, extraocular muscles intact Neck-no lymphadenopathy or thyromegaly, trachea midline Chest-clear to auscultation. No rales, wheezing or rhonchi. Left upper anterior chest wall venous access port site is unremarkable Cardiac-regular rate and rhythm, normal S1 and S2 Abdomen-normal bowel sounds, no hepatosplenomegaly. No right lower quadrant tenderness Extremities-no cyanosis, clubbing, or edema Neuro-cranial nerves II through XII intact, motor and sensory function within normal limits, strength symmetrical, no focal deficits Psych-normal affect, normal mood Discharge Plan Discharge Items Patient Disposition: Home - Home Health Services Reason For Visit: SEPSIS,APPENDICITIS,BREAST CA W/METS, GASTRIC MASS Discharge Diagnosis: Acute hypoxic respiratory failure, abdominal pain with nausea and vomiting, hypokalemia Activity: Resume your previous activity Bathing Comment: you can shower 08/17. No soaking in pools/bath for 2 weeks Non-emergency contact: Surgeon Call non-emergency contact if: you have any medication questions, your symptoms worsen, your temperature is above 101.5, your wound has increased redness, your wound has increased drainage and your wound pain has increased Follow-up/Referrals: Ganesh Lovell MD [Primary Care Provider] - Freddie Vivas DO [Physician] - (call office for follow up in 2 weeks ) Diet: Regular Addtl Attending Provider Instructions: You have skin glue over your incision. This is dissolve on its own over the next week. Do not pick at it. You can use your port today if needed. Take over the counter Tylenol OR Ibuprofen per manufacture instructions for pain. * You may shower . NO soaking in pools or baths for 2 weeks Call your doctor if: * Temperature above 101 degrees, nausea/vomiting, fever/chills * Pain not relieved by pain medicine ordered * There is increased drainage or redness from any incision * You have any unanswered questions or concerns [phone]. FOLLOW UP VISIT: If not already scheduled, please call the general surgery office for a follow-up visit. Office Wear oxygen with any activity at 2 L/min per nasal cannula A prescription for famotidine has been sent to [facility] in [place]. This is for acid reflux symptoms Follow-up with oncology, Dr. Kowalski, as scheduled Pending Studies at Discharge: No Stand-Alone Forms: My [employer], Smoking Cessation Medications and DC Order Prescriptions: New famotidine 20 mg Tablet 20 mg PO BID Qty: 60 0RF Continued Ibrance 75 mg capsule 75 mg PO QPM Rx Instructions: administer on days 1 through 21 of a 28-day treatment cycle valacyclovir [Valtrex] 1 gram tablet 2,000 mg PO BID PRN (Reason: Rash) fentanyl 12 mcg/hr patch 72 hour 1 patch transdermal Q72H PRN (Reason: Pain) venlafaxine 150 mg capsule,extended release 24hr 150 mg PO QPM Qty: 90 3RF venlafaxine 75 mg capsule,extended release 24hr 75 mg PO QPM Qty: 90 3RF Rx Instructions: add to 150 mg Xgeva 120 mg/1.7 mL (70 mg/mL) solution 125 mg subcut .qmonth Patient Comments: last dose December 30, none till after dos 01/23/24 cholecalciferol (vitamin D3) 50 mcg (2,000 unit) capsule 50 mcg PO DAILY Qty: 90 3RF Rx Instructions: with heaviest meal of the day lorazepam 1 mg tablet 1 mg PO BID PRN (Reason: Anxiety) Qty: 30 0RF ondansetron 4 mg tablet,disintegrating 4 mg PO Q6H PRN (Reason: nausea and vomiting) Qty: 10 0RF cyanocobalamin (vitamin B-12) 1,000 mcg/mL Solution 1,000 mcg IM MONTHLY letrozole 2.5 mg tablet 2.5 mg PO QPM calcium carbonate-vitamin D3 500 mg-3.125 mcg (125 unit) Tablet 1 tab PO DAILY Discharge Orders: Discharge Order (Routine); Ordered 08/21/24 Ordered By: Rogers Head Admission Data Admit Date/Time: 08/14/24 02:24 Attending Provider: Rogers Head Admit Provider: Sarkis Banegas Primary Care Provider: Ganesh Lovell V. Other Providers: Sarkis Banegas; Carlitos Smallwood; Mercy Kowalski Seth D.; Logan Mota; Atif James; Keon Aquino; Padmini Julian; Tanesha Calderon; Gwyn Cloud; Gary Fontanez; Anuja Ruiz Hospital Stay Data Consultations 08/14/24 01:36 ED Decision to Admit Stat 08/14/24 02:24 Consult General Surgery Routine 08/14/24 04:11 Consult Hematology Routine 08/17/24 12:06 Consult Pulmonology Routine Procedures Performed Operation Date: 08/16/24 07:00 Actual Procedures p Insertion Left Subclavian Access Port with Flouroscopy(Left) - Freddie Vivas, Diagnostic Imagining Performed 08/13/24 21:56 CT abd pelvis IV con only Stat 08/16/24 FL fluoro (infusaport) to 1 hr Routine 08/16/24 13:55 CT angio chest PE protocol Stat 08/17/24 12:19 US point of care ultrasound Urgent Pending Results Patient Have Any Pending Studies at Discharge: No Discharge Instructions Given to Patient (Per Discharging Provider) You have skin glue over your incision. This is dissolve on its own over the next week. Do not pick at it. You can use your port today if needed. Take over the counter Tylenol OR Ibuprofen per manufacture instructions for pain. * You may shower . NO soaking in pools or baths for 2 weeks Call your doctor if: * Temperature above 101 degrees, nausea/vomiting, fever/chills * Pain not relieved by pain medicine ordered * There is increased drainage or redness from any incision * You have any unanswered questions or concerns [phone]. FOLLOW UP VISIT: If not already scheduled, please call the general surgery office for a follow-up visit. Office Wear oxygen with any activity at 2 L/min per nasal cannula A prescription for famotidine has been sent to [facility] in [place]. This is for acid reflux symptoms Follow-up with oncology, Dr. Kowalski, as scheduled Total Time Total Time Spent Total Time Spent (In Minutes): 45 minutes Coding Level of Care Code 06178 INP/OBS DISCH >30 MIN Diagnoses Appendicitis K35.80 Acute appendicitis type: unspecified acute appendicitis type Appendicitis type: acute appendicitis Bilateral pneumonia J18.9 Breast cancer metastasized to bone C50.919; C79.51 Emphysematous COPD J43.9 Gastric mass K31.89 Hypokalemia E87.6 GERD (gastroesophageal reflux disease) K21.9
[2024-08-21 14:32] VITALS: BP 94/66; PULSE 95
== END 2024-08-21 16:00 | disposition home health service (06) | DRG 193 ==
LOC: ED 20:14 → 2S 08-14 02:24 → SUATTDRO 08-14 02:24 → 2S 08-14 03:40

== ENCOUNTER 2024-10-20 15:32 | Inpatient (IN) ==
[2024-10-20] MEDS ORDERED: SODIUM CHLORIDE 0.9% 100 ML IV PRN ×2 (16:12→17:43)
[2024-10-20] MEDS ORDERED: SODIUM CHLORIDE 0.9% 50 ML IV PRN ×2 (16:12→17:43)
--- NOTE | 2024-10-20 16:15 | Emergency Department Note ---
Impression & Plan Anemia, Generalized weakness, Hypokalemia, MCCLURE (dyspnea on exertion) ED Provider Note NAME: WANG AU AGE: 64 SEX: F : 1960 ARRIVES VIA: Walk-In INFORMANT: Patient, ED PROVIDER(S): Xavi Moran DO CHIEF COMPLAINT: weakness HPI: The patient is a 64-year-old male who manage inferior into department at the patient for evaluation of generalized aches. She is having shortness of breath with exertion. She denies having any chest pain or fever. She had outpatient laboratory studies done with her oncologist and was sent directly to the emergency department for hemoglobin that was low. The patient denies having any black or tarry stools. She denies having any vomiting. ROS: See above HPI for pertinent positives & negatives. A total of 10 systems reviewed and were otherwise negative. PAST MEDICAL HISTORY: See Below PAST SURGICAL HISTORY: See Below FAMILY HISTORY: See Below SOCIAL HISTORY: See Below HOME MEDICATIONS: See Below ALLERGIES: See Below VITALS: See Below PHYSICAL EXAMINATION: GENERAL: The patient is awake and alert. She is frail. EYES: The conjunctivae are clear. The pupils are round and reactive. EARS, NOSE, MOUTH AND THROAT: The nose is without any evidence of any deformity NECK: The neck is nontender and supple. RESPIRATORY: Normal respiratory effort is noted there is no evidence of wheezing rhonchi or rales CARDIOVASCULAR: Tachycardic and regular heart sounds were noted to auscultation. There is no definite murmur. GASTROINTESTINAL: The abdomen is soft. Abdomen is nontender. MUSCULOSKELETAL/EXTREMITIES: There is no evidence of gross deformity full range of motion is noted in the hips and shoulders. SKIN: The skin was cool and pale. There is no significant pedal edema. NEUROLOGIC: Patient is awake alert and oriented x3 MEDICAL DECISION MAKING: The patient is a 64-year-old female who presented to the emergency department for an evaluation of shortness of breath with exertion as well as low hemoglobin. Today, patient had outpatient laboratory studies done saturation she was found to have anemia. The patient ordered for blood transfusion by myself. I consented the patient for blood. She will I discussed the patient's laboratory results with her. She did not report any dark or tarry stools. I discussed her condition with the on-call [facility] hospitalist. They have agreed to evaluate the patient in the emergency department for further management and disposition. Triage Nursing notes reviewed. Prior medical records reviewed Vital Signs: reviewed and remarkable for hypotension and tachycardia. Differential diagnosis: Infection, dehydration, metabolic abnormality, hypo/hyperglycemia, electrolyte disturbance, anemia, hypoxia, cardiac sources, intracerebral event, toxicologic, neurologic, as well as other pathologies. ER treatment provided: See below Diagnostics interpreted by me: ECG: EKG was obtained in the emergency department. My interpretation is sinus tachycardia at 105 bpm. PVCs were noted. There is no acute ST segment abnormalities noted. This was compared to a tracing from August 16, 2024, no changes were noted Cardiac Monitoring: An order was placed for continuous cardiac monitoring. The monitor shows a rate of 93 bpm with sinus rhythm. Laboratory studies: As stated above and show below. Imaging studies: See below. Consultation(s): I discussed this case with Dr. Baca [facility] COURSE: Procedures: none Critical Care: I have personally spent greater than 45 minutes of critical care time in the direct management of this patient. This includes bedside care, interpretation of diagnostic studies, and testing, discussion with consultants, patient, and family members, and other required patient management activities. This 45 minutes is in excess of all separately billable procedures. Past Med/Surg History Problem List (Updated 10/20/24 @ 18:06 by Dong Baca, PhD, DO) Symptomatic anemia MCCLURE (dyspnea on exertion) (Acute) Hypokalemia (Acute) Generalized weakness (Acute) Breast cancer metastasized to bone dx'd 2019 - Ibranz, Letrozole, Xgeva + radiation (spine, rt hip) Emphysematous COPD Gastric mass Hypotension Cardiomyopathy GERD (gastroesophageal reflux disease) Acute respiratory failure with hypoxia History of vascular access device 2009 placed; has since been removed Intractable nausea and vomiting (Acute) Dysphagia Cholelithiasis Echocardiogram abnormal Left knee DJD Internal derangement of knee Sacral fracture (08/02/23) from a fall Lung nodule, multiple Thoracic compression fracture (08/02/23) Compression fracture of T5 vertebra-from a fall Hiatal hernia Arthritis Anemia (Acute) Degenerative disc disease, thoracic Leukopenia Proctocolitis Neutropenia Gallbladder calculus (Acute) Anxiety Medical History Hypokalemia RUQ abdominal pain Vomiting Chest discomfort Medial meniscus tear Body, loose, knee Hamstring strain Knee instability Epidermoid cyst Mass of left axilla per pt, biopsied and found to be benign Metastatic disease History of chemotherapy Doxetaxel and Cyclophosphamide x4 cycles Herceptin x1 year Letrozole with Ibrance started 09/2020 Xgeva Breast cancer metastasized to bone 2019 breast ca (new primary) with mets to spine at time of diagnosis History of postoperative nausea and vomiting can drink apple juice afterward, if drinks water, starts throwing up History of COVID-13 Jul 2023; not hospitalized; no ongoing sx COPD (chronic obstructive pulmonary disease) "mild" per pt > no inhalers Lung nodule, multiple just monitoring, " PET scans are showing they are gone" per pt Hiatal hernia "large" per pt Thoracic compression fracture T5, treated with radiation for pain in October 2023, "the pain comes and goes" Sacral fracture Jul 2023 > no pain now Leukopenia follows with Heme/Onc Osteoarthritis DDD (degenerative disc disease) Anemia follows with Heme/Onc History of breast cancer 2008 L breast: tx with lumpectomy, XRT, chemo; dx of new primary 2019 (with mets to bone at time of diagnosis): tx with oral chemo, XRT (also had L axillary LN dissection) Bipolar disorder Anxiety and depression Snores no apnea dx, no device History of back problems known mets in spine causing pain: T1, T5, T6, T7, T10 BRCA gene mutation negative Polymyalgia rheumatica saw Rheum; per pt no specific dx given; was tx with short course of oral steroids and sx resolved Rheumatoid arthritis saw Rheum; per pt no specific dx given; was tx with short course of oral steroids and sx resolved Surgical History S/P left knee arthroscopy Port-A-Cath in place (08/16/24) Insertion Access Port with Flouroscopy(Left) - Freddie Vivas DO H/O left knee surgery arthroscopy Hx of left cataract extraction History of right cataract extraction History of esophagogastroduodenoscopy (EGD) History of surgery removal of port-A-cath 2009 Hx of colonoscopy S/P wisdom tooth extraction History of biopsy (09/2020) Left Axillary Lymph Nodes History of biopsy (09/21/20) Right Breast H/O lumpectomy Left Breast (2008 and 2009) Family History Mother , Passed Age 74 Breast cancer, Onset Age: 46 COPD (chronic obstructive pulmonary disease) Hypertension Grandmother (Maternal) , Passed Age 75 Breast cancer Grandmother (Paternal) , Passed Age 45 Breast cancer, Onset Age: 42 due to complication of Breast Cancer Aunt Breast cancer Uncle Diabetes Bone cancer Myocardial infarction Father , Passed Age 92 Prostate cancer, Onset Age: 60 COPD (chronic obstructive pulmonary disease) Cancer Hypertension Aunt Breast cancer Aunt Breast cancer Brother Diabetes Thyroid disorder Brother Skin cancer Sister PONV (postoperative nausea and vomiting) Thyroid disorder Son No problems noted. Denies family history of Ovarian cancer Colorectal cancer Uterine cancer Social History Smoking Status: Former smoker Tobacco Type: Cigarettes Age Started Using Tobacco: 17; Age Quit Using Tobacco: 28; packs per day: 1; Second Hand Exposure: No; Do You Dip or Chew Tobacco: No; Hx Alcohol Use: Yes Alcohol type: wine Alcohol type Comment: social Alcohol Intake Frequency: Monthly or Less Alcohol Intake Frequency Comment: socially Hx Substance Use: No Preferred Language: [place]an Communication Ability: Effective Visual Impairment: No Limitations Hearing Ability: Normal Arcgis Developer Required: No Beliefs That Will Affect Care: None marital status: Current Living Situation: Spouse current occupational status: employed current occupation: [employer] How many Children do You have: 1 Feels Safe at Home: Yes Childhood Exposure to Second-Hand Smoke: Yes (Siblings) Diet: regular caffeine: Yes (daily) during the past year weight has: remained stable Dental Care, Regularly: Yes Physical Activity Frequency: Does not Exercise Seatbelt Use: always Assistive Devices: None Allergies Allergies Allergy/AdvReac Type Severity Reaction Status Date / Time No Known Allergies Allergy Verified 09/15/24 11:39 Home Meds Home Medications Medication Instructions Recorded Confirmed denosumab 120 mg/1.7 mL (70 mg/mL) 125 mg subcut .qmonth 12/13/22 10/20/24 subcutaneous solution (Xgeva) cyanocobalamin (vitamin B-12) 1,000 mcg IM MONTHLY 12/16/22 10/20/24 1,000 mcg/mL injection solution valacyclovir 1 gram tablet 2,000 mg PO BID PRN Rash 10/09/23 10/20/24 (Valtrex) GemCarbo 1 dose IV DIRECTED 09/07/24 10/20/24 olanzapine 2.5 mg tablet 2.5 mg PO QPM 09/07/24 10/20/24 prochlorperazine maleate 10 mg 10 mg PO BID Nausea 09/07/24 10/20/24 tablet (Compazine) promethazine 12.5 mg tablet 12.5 mg PO Q6H PRN Nausea 09/07/24 10/20/24 ondansetron HCl 8 mg tablet 8 mg PO BID Nausea 09/29/24 10/20/24 pantoprazole 40 mg tablet,delayed 40 mg PO BID 09/29/24 10/20/24 release potassium chloride 10 mEq 10 meq PO DAILY 09/29/24 10/20/24 tablet,extended release sucralfate 100 mg/mL oral 10 ml PO ACHS 09/29/24 10/20/24 suspension Previous Rx's Medication Instructions Recorded lorazepam 1 mg tablet 1 mg PO BID PRN Anxiety #30 tabs 09/04/23 venlafaxine 150 mg 150 mg PO QPM #90 caps 05/23/24 capsule,extended release 24 hr venlafaxine 75 mg capsule,extended 75 mg PO QPM #90 caps 05/23/24 release 24 hr famotidine 20 mg tablet 20 mg PO BID #60 tabs 08/21/24 Results & Data (ED) Vital Signs Vital Signs - 24 hr 10/20/24 15:57 10/20/24 16:39 10/20/24 16:50 Temperature 36.5 C Temperature Source Temporal Artery Scan Pulse Rate 119 H 91 H Pulse Rate [Apical] 92 H Pulse Rhythm Pulse Strength Respiratory Rate 16 17 Respiratory Effort / Characteristics Non-Labored Spontaneous Non-Labored Spontaneous Respiratory Depth Normal Normal Blood Pressure 95/59 L Blood Pressure [Right Arm] 98/60 L Blood Pressure Mean 71 Blood Pressure Mean [Right Arm] 72 Blood Pressure Position Sitting Blood Pressure Position [Right Arm] Lying Pulse Oximetry 98 95 Oxygen Delivery Method Nasal Cannula Room Air Oxygen Flow Rate 1 Sepsis Recent Fever Within 48 Hours No Sepsis New/Unexplained Change in Mental Status N/A Sepsis Action Taken by Nursing No Action Required 10/20/24 17:42 10/20/24 17:57 10/20/24 18:12 Temperature 37.2 C 36.6 C 36.7 C Temperature Source Oral Oral Oral Pulse Rate 100 H 99 H 93 H Pulse Rate [Apical] Pulse Rhythm Pulse Strength Respiratory Rate 19 19 18 Respiratory Effort / Characteristics Respiratory Depth Blood Pressure 98/60 L 96/58 L 95/63 L Blood Pressure [Right Arm] Blood Pressure Mean 72 70 73 Blood Pressure Mean [Right Arm] Blood Pressure Position Sitting Sitting Sitting Blood Pressure Position [Right Arm] Pulse Oximetry 97 97 96 Oxygen Delivery Method Oxygen Flow Rate Sepsis Recent Fever Within 48 Hours Sepsis New/Unexplained Change in Mental Status Sepsis Action Taken by Nursing 10/20/24 18:42 10/20/24 19:12 10/20/24 19:48 Temperature 36.7 C 36.8 C 36.8 C Temperature Source Oral Oral Oral Pulse Rate 93 H 94 H 97 H Pulse Rate [Apical] Pulse Rhythm Regular Regular Pulse Strength Normal Normal Respiratory Rate 18 18 18 Respiratory Effort / Characteristics Respiratory Depth Blood Pressure 96/59 L 93/57 L 99/61 L Blood Pressure [Right Arm] Blood Pressure Mean 71 69 73 Blood Pressure Mean [Right Arm] Blood Pressure Position Sitting Semi-fowlers Semi-fowlers Blood Pressure Position [Right Arm] Pulse Oximetry 97 97 97 Oxygen Delivery Method Oxygen Flow Rate 0 Sepsis Recent Fever Within 48 Hours Sepsis New/Unexplained Change in Mental Status Sepsis Action Taken by Nursing 10/20/24 20:04 10/20/24 20:28 10/20/24 20:35 Temperature 36.7 C 37.0 C 37.0 C Temperature Source Oral Oral Oral Pulse Rate 97 H 99 H 98 H Pulse Rate [Apical] Pulse Rhythm Regular Regular Pulse Strength Normal Normal Respiratory Rate 18 18 18 Respiratory Effort / Characteristics Respiratory Depth Blood Pressure 90/56 L 98/62 L 93/62 L Blood Pressure [Right Arm] Blood Pressure Mean 67 74 72 Blood Pressure Mean [Right Arm] Blood Pressure Position Semi-fowlers Sitting Semi-fowlers Blood Pressure Position [Right Arm] Pulse Oximetry 98 96 96 Oxygen Delivery Method Oxygen Flow Rate 0 Sepsis Recent Fever Within 48 Hours Sepsis New/Unexplained Change in Mental Status Sepsis Action Taken by Nursing 10/20/24 20:40 10/20/24 20:45 10/20/24 20:46 Temperature 36.9 C 37.0 C Temperature Source Oral Oral Pulse Rate 95 H 98 H 96 H Pulse Rate [Apical] Pulse Rhythm Regular Regular Pulse Strength Normal Normal Respiratory Rate 18 18 Respiratory Effort / Characteristics Respiratory Depth Blood Pressure 92/55 L 88/60 L Blood Pressure [Right Arm] Blood Pressure Mean 67 69 Blood Pressure Mean [Right Arm] Blood Pressure Position Semi-fowlers Semi-fowlers Blood Pressure Position [Right Arm] Pulse Oximetry 99 97 Oxygen Delivery Method Oxygen Flow Rate 0 0 Sepsis Recent Fever Within 48 Hours Sepsis New/Unexplained Change in Mental Status Sepsis Action Taken by Nursing 10/20/24 21:00 10/20/24 21:30 Temperature 37.0 C 36.9 C Temperature Source Oral Oral Pulse Rate 97 H 93 H Pulse Rate [Apical] Pulse Rhythm Regular Regular Pulse Strength Normal Normal Respiratory Rate 18 18 Respiratory Effort / Characteristics Respiratory Depth Blood Pressure 93/55 L 97/61 L Blood Pressure [Right Arm] Blood Pressure Mean 67 73 Blood Pressure Mean [Right Arm] Blood Pressure Position Semi-fowlers Semi-fowlers Blood Pressure Position [Right Arm] Pulse Oximetry 97 99 Oxygen Delivery Method Oxygen Flow Rate 0 Sepsis Recent Fever Within 48 Hours Sepsis New/Unexplained Change in Mental Status Sepsis Action Taken by Jail Medications Current Medication List: was personally reviewed by me Laboratory Data Attestation: I reviewed the patient's lab results. 10/20/24 16:21 10/20/24 16:21 Lab Results 10/20/24 10/20/24 10/20/24 Range/Units 16:13 16:17 16:21 WBC 13.87 H (4.8-10.8) K/ul RBC 1.45 L (4.20-5.40) M/uL Hgb 4.4 L* (12.0-16.0) g/dl Hct 13.3 L* (37.0-47.0) % MCV 91.7 (80.0-100.0) fL MCH 30.3 (25.0-34.0) pg MCHC 33.1 (32.0-36.0) g/dL RDW Std Deviation 63.1 H (36.4-46.3) fL RDW Coeff of Aga 21.5 H (11.5-14.5) % Plt Count 89 L (130-400) K/uL MPV 9.9 (9.4-12.4) fL Absolute Nucleated RBC 0.26 H (0.00-0.12) K/uL Nucleated RBC % (auto) 1.9 % PT 11.9 (9.0-12.0) Seconds INR 1.1 (0.9-1.1) APTT 25 (21-31) Seconds PTT Ratio 0.9 Sodium 138 (136-145) mmol/L Potassium 2.9 L (3.5-5.1) mmol/L Chloride 106 (98-107) mmol/L Carbon Dioxide 28 (21-32) mmol/L Anion Gap 4 (3-11) BUN 11 (6-23) mg/dl Creatinine 0.44 L (0.6-1.2) mg/dl Est Cr Clr Drug Dosing Not Reportable eGFR 107.95 BUN/Creatinine Ratio 25.0 H (10-20) Glucose 115 H (70-99(Fasting)) mg/dl Calcium 7.2 L (8.6-10.3) mg/dl Total Bilirubin 0.8 (0.2-1.0) mg/dl AST 67 H (13-39) U/L ALT 35 (7-52) U/L Alkaline Phosphatase 240 H (34-104) U/L Troponin I High Sens 15.3 H (0-14) pg/ml Total Protein 5.7 L (6.0-8.3) gm/dl Albumin 3.0 L (3.4-5.0) gm/dl Globulin 2.7 (2.5-4.0) gm/dl Albumin/Globulin Ratio 1.1 (0.9-2) Blood Type A Positive Antibody Screen NEGATIVE Crossmatch See Detail 10/20/24 Range/Units 19:09 WBC (4.8-10.8) K/ul RBC (4.20-5.40) M/uL Hgb (12.0-16.0) g/dl Hct (37.0-47.0) % MCV (80.0-100.0) fL MCH (25.0-34.0) pg MCHC (32.0-36.0) g/dL RDW Std Deviation (36.4-46.3) fL RDW Coeff of Aga (11.5-14.5) % Plt Count (130-400) K/uL MPV (9.4-12.4) fL Absolute Nucleated RBC (0.00-0.12) K/uL Nucleated RBC % (auto) % PT (9.0-12.0) Seconds INR (0.9-1.1) APTT (21-31) Seconds PTT Ratio Sodium (136-145) mmol/L Potassium (3.5-5.1) mmol/L Chloride (98-107) mmol/L Carbon Dioxide (21-32) mmol/L Anion Gap (3-11) BUN (6-23) mg/dl Creatinine (0.6-1.2) mg/dl Est Cr Clr Drug Dosing eGFR BUN/Creatinine Ratio (10-20) Glucose (70-99(Fasting)) mg/dl Calcium (8.6-10.3) mg/dl Total Bilirubin (0.2-1.0) mg/dl AST (13-39) U/L ALT (7-52) U/L Alkaline Phosphatase (34-104) U/L Troponin I High Sens 15.2 H (0-14) pg/ml Total Protein (6.0-8.3) gm/dl Albumin (3.4-5.0) gm/dl Globulin (2.5-4.0) gm/dl Albumin/Globulin Ratio (0.9-2) Blood Type Antibody Screen Crossmatch Administered Medications Potassium Chloride (K Cash / Wtr) 10 meq in 100 mls @ 100 mls/hr IV Q1H [facility] Stop: 10/20/24 21:59 Last Admin: 10/20/24 21:23 Dose: 100 mls/hr Documented By: Infusion: 10/20/24 21:20 Dose: Infused Documented By: Admin: 10/20/24 20:08 Dose: 100 mls/hr Documented By: Infusion: 10/20/24 19:43 Dose: Infused Documented By: Admin: 10/20/24 18:43 Dose: 100 mls/hr Documented By: CC Discontinued Medications Magnesium Sulfate/Dextrose (Magnesium Sulfate / D5w) 1 gm in 100 mls @ 50 mls/hr IV ONE ONE Stop: 10/20/24 19:54 Last Infusion: 10/20/24 20:58 Dose: Infused Documented By: Admin: 10/20/24 18:42 Dose: 50 mls/hr Documented By: CC Potassium Chloride (Potassium Chloride 20 Meq/15 Ml Udc) 20 meq PO NOW STA Stop: 10/20/24 17:51 Last Admin: 10/20/24 20:59 Dose: Not Given Documented By: IDD Discharge Plan Visit Data Chief Complaint: Abnormal Labs/Diagnostic Testing Stated Complaint: HEMOGLOBIN IS REALLY LOW, DIZZY AND UNWELL ED Provider: Xavi Moran Discharge Problem: Anemia, Generalized weakness, Hypokalemia, MCCLURE (dyspnea on exertion) Patient Disposition: Being Evaluated by Hospitalist Forms Stand Alone Forms: My [facility] Prescriptions Prescriptions: No Action valacyclovir [Valtrex] 1 gram tablet 2,000 mg PO BID PRN (Reason: Rash) venlafaxine 150 mg capsule,extended release 24hr 150 mg PO QPM Qty: 90 3RF venlafaxine 75 mg capsule,extended release 24hr 75 mg PO QPM Qty: 90 3RF Rx Instructions: add to 150 mg Xgeva 120 mg/1.7 mL (70 mg/mL) solution 125 mg subcut .qmonth Patient Comments: last dose December 30, none till after dos 01/23/24 lorazepam 1 mg tablet 1 mg PO BID PRN (Reason: Anxiety) Qty: 30 0RF promethazine 12.5 mg tablet 12.5 mg PO Q6H PRN (Reason: Nausea) Rx Instructions: takes if other 2 meds doesnt work. olanzapine 2.5 mg tablet 2.5 mg PO QPM prochlorperazine maleate [Compazine] 10 mg tablet 10 mg PO BID GemCarbo 1 dose IV DIRECTED Rx Instructions: 2 weeks on, 1 week off. CHEMO cyanocobalamin (vitamin B-12) 1,000 mcg/mL Solution 1,000 mcg IM MONTHLY potassium chloride 10 mEq tablet extended release 10 meq PO DAILY pantoprazole 40 mg tablet,delayed release (DR/EC) 40 mg PO BID sucralfate 100 mg/mL suspension 10 ml PO ACHS ondansetron HCl 8 mg tablet 8 mg PO BID MDD 24 MG Rx Instructions: per pt she takes bid famotidine 20 mg Tablet 20 mg PO BID Qty: 60 0RF Referrals Referrals: Ganesh Lovell MD [Primary Care Provider] -
[2024-10-20 16:54] LABS: Alanine Aminotransferase 35 U/L (7-52); Albumin Globulin Ratio 1.1 (0.9-2); Alkaline Phosphatase 240 U/L (34-104); Anion Gap 4 (3-11); Aspartate Aminotransferase 67 U/L (13-39); Bilirubin,Total 0.8 mg/dl (0.2-1.0); Blood Urea Nitrogen 11 mg/dl (6-23); Calcium 7.2 mg/dl (8.6-10.3); Carbon Dioxide 28 mmol/L (21-32); Chloride 106 mmol/L (98-107); Globulin 2.7 gm/dl (2.5-4.0); Glucose 115 mg/dl (70-99(Fasting)); Potassium 2.9 mmol/L (3.5-5.1); Sodium 138 mmol/L (136-145); Total Protein 5.7 gm/dl (6.0-8.3)
[2024-10-20 17:00] LABS: Hematocrit (blood only) 13.3 % (37.0-47.0); Hemoglobin 4.4 g/dl (12.0-16.0); Mean Corpuscular Hemoglobin 30.3 pg (25.0-34.0); Mean Corpuscular Hgb Conc 33.1 g/dL (32.0-36.0); Mean Corpuscular Volume 91.7 fL (80.0-100.0); Mean Platelet Volume 9.9 fL (9.4-12.4); Nucleated RBC # (auto) 0.26 K/uL (0.00-0.12); Nucleated RBC % (auto) 1.9 %; Platelet Count 89 K/uL (130-400); RDW Coefficient of Variation 21.5 % (11.5-14.5); RDW Standard Deviation 63.1 fL (36.4-46.3); Red Blood Count 1.45 M/uL (4.20-5.40); Troponin I High Sensitivity 15.3 pg/ml (0-14); White Blood Count 13.87 K/ul (4.8-10.8)
[2024-10-20 17:00] LABS: INR 1.1 (0.9-1.1); Partial Thromboplastin Ratio 0.9; Partial Thromboplastin Time 25 Seconds (21-31); Prothrombin Time 11.9 Seconds (9.0-12.0)
--- NOTE | 2024-10-20 18:00 | History & Physical Report ---
Date of Service October 20, 2024 Assessment & Plan (1) Symptomatic anemia: Plan: Assessment: 1. Severe symptomatic anemia. Hemoglobin 4.4. Transfused 2 units of packed red blood cells. Placed on hold 2 more units of packed red blood cells. Repeat H&H overnight. Continue to transfuse if needed. 2. Rule out occult GI bleed. Stool for occult blood ordered. GI consulted. Personally communicated with GI on-call for possible EGD in the morning. Will keep n.p.o. after midnight. IV Protonix twice daily. 3. Hypokalemia. 2.9. 4K riders 10 mEq each +20 mill equivalents of oral potassium. 4. Borderline hypomagnesemia. Give gram of mag sulfate x 1. 5. Breast carcinoma which is widely metastatic to the bone and stomach. Hematology consulted. They directed her to the ER. 6. Mild leukocytosis. Monitor carefully. Could be stress response. The patient's not endorsing any type of infectious symptoms including fever cough shortness of breath excetra. 7. Mild thrombocytopenia probably chemotherapy-induced. Stable at 89,000. Monitor. 8. Transaminitis. Question possible secondary to malignancy. Monitor. 9. Mildly elevated troponin. Probably secondary to stress due to symptomatic anemia. Recheck to ensure stability. Plan: As discussed above. Please refer to orders for further planning. History of Present Illness Chief Complaint: Symptomatic anemia Primary Care Provider: Ganesh Lovell MD Pleasant but unfortunate 64-year-old female has a history of breast carcinoma with widely metastatic disease to the bone and stomach. Was at oncology today for preparing for ongoing chemo tomorrow. Routine labs were obtained. She was found to have a hemoglobin of 4.4 and was directed to the ER for further evaluation and treatment. 2 units of packed red blood cells were ordered in the ER. She was found to have a potassium of 2.9 as well. We were called to admit the patient for further evaluation and treatment for symptomatic anemia. We have placed 2 more units of packed red blood cells on hold in addition to the 2 things being transfused. Will repeat labs overnight and transfuse as needed. We have ordered 4K riders 10 mill equivalents each as well as 20 mill equivalents of oral potassium x 1. Magnesium was low normal at 1.7. And we ordered a gram of magnesium sulfate as well. We have consulted GI for possible EGD in the morning given her metastatic gastric disease to see if there is any active bleeding but the patient denies any black or tarry stools or bloody stools. Allergies Allergy/AdvReac Type Severity Reaction Status Date / Time No Known Allergies Allergy Verified 09/15/24 11:39 Home Medications Medication Instructions Recorded Confirmed Type denosumab 120 mg/1.7 mL (70 mg/mL) 125 mg subcut .qmonth 12/13/22 10/20/24 History subcutaneous solution (Xgeva) cyanocobalamin (vitamin B-12) 1,000 mcg IM MONTHLY 12/16/22 10/20/24 History 1,000 mcg/mL injection solution lorazepam 1 mg tablet 1 mg PO BID PRN Anxiety #30 tabs 09/04/23 10/20/24 Rx valacyclovir 1 gram tablet 2,000 mg PO BID PRN Rash 10/09/23 10/20/24 History (Valtrex) venlafaxine 150 mg 150 mg PO QPM #90 caps 05/23/24 10/20/24 Rx capsule,extended release 24 hr venlafaxine 75 mg capsule,extended 75 mg PO QPM #90 caps 05/23/24 10/20/24 Rx release 24 hr famotidine 20 mg tablet 20 mg PO BID #60 tabs 08/21/24 10/20/24 Rx GemCarbo 1 dose IV DIRECTED 09/07/24 10/20/24 History olanzapine 2.5 mg tablet 2.5 mg PO QPM 09/07/24 10/20/24 History prochlorperazine maleate 10 mg 10 mg PO BID Nausea 09/07/24 10/20/24 History tablet (Compazine) promethazine 12.5 mg tablet 12.5 mg PO Q6H PRN Nausea 09/07/24 10/20/24 History ondansetron HCl 8 mg tablet 8 mg PO BID Nausea 09/29/24 10/20/24 History pantoprazole 40 mg tablet,delayed 40 mg PO BID 09/29/24 10/20/24 History release potassium chloride 10 mEq 10 meq PO DAILY 09/29/24 10/20/24 History tablet,extended release sucralfate 100 mg/mL oral 10 ml PO ACHS 09/29/24 10/20/24 History suspension Past Med/Surg History Problem List (Updated 10/20/24 @ 18:06 by Dong Baca, PhD, DO) Symptomatic anemia MCCLURE (dyspnea on exertion) (Acute) Hypokalemia (Acute) Generalized weakness (Acute) Breast cancer metastasized to bone dx'd 2019 - Ibranz, Letrozole, Xgeva + radiation (spine, rt hip) Emphysematous COPD Gastric mass Hypotension Cardiomyopathy GERD (gastroesophageal reflux disease) Acute respiratory failure with hypoxia History of vascular access device 2009 placed; has since been removed Intractable nausea and vomiting (Acute) Dysphagia Cholelithiasis Echocardiogram abnormal Left knee DJD Internal derangement of knee Sacral fracture (08/02/23) from a fall Lung nodule, multiple Thoracic compression fracture (08/02/23) Compression fracture of T5 vertebra-from a fall Hiatal hernia Arthritis Anemia (Acute) Degenerative disc disease, thoracic Leukopenia Proctocolitis Neutropenia Gallbladder calculus (Acute) Anxiety Medical History Hypokalemia RUQ abdominal pain Vomiting Chest discomfort Medial meniscus tear Body, loose, knee Hamstring strain Knee instability Epidermoid cyst Mass of left axilla per pt, biopsied and found to be benign Metastatic disease History of chemotherapy Doxetaxel and Cyclophosphamide x4 cycles Herceptin x1 year Letrozole with Ibrance started 09/2020 Xgeva Breast cancer metastasized to bone 2019 breast ca (new primary) with mets to spine at time of diagnosis History of postoperative nausea and vomiting can drink apple juice afterward, if drinks water, starts throwing up History of COVID-13 Jul 2023; not hospitalized; no ongoing sx COPD (chronic obstructive pulmonary disease) "mild" per pt > no inhalers Lung nodule, multiple just monitoring, " PET scans are showing they are gone" per pt Hiatal hernia "large" per pt Thoracic compression fracture T5, treated with radiation for pain in October 2023, "the pain comes and goes" Sacral fracture Jul 2023 > no pain now Leukopenia follows with Heme/Onc Osteoarthritis DDD (degenerative disc disease) Anemia follows with Heme/Onc History of breast cancer 2008 L breast: tx with lumpectomy, XRT, chemo; dx of new primary 2019 (with mets to bone at time of diagnosis): tx with oral chemo, XRT (also had L axillary LN dissection) Bipolar disorder Anxiety and depression Snores no apnea dx, no device History of back problems known mets in spine causing pain: T1, T5, T6, T7, T10 BRCA gene mutation negative Polymyalgia rheumatica saw Rheum; per pt no specific dx given; was tx with short course of oral steroids and sx resolved Rheumatoid arthritis saw Rheum; per pt no specific dx given; was tx with short course of oral steroids and sx resolved Surgical History S/P left knee arthroscopy Port-A-Cath in place (08/16/24) Insertion Access Port with Flouroscopy(Left) - Freddie Vivas DO H/O left knee surgery arthroscopy Hx of left cataract extraction History of right cataract extraction History of esophagogastroduodenoscopy (EGD) History of surgery removal of port-A-cath 2009 Hx of colonoscopy S/P wisdom tooth extraction History of biopsy (09/2020) Left Axillary Lymph Nodes History of biopsy (09/21/20) Right Breast H/O lumpectomy Left Breast (2008 and 2009) Family History Mother , Passed Age 74 Breast cancer, Onset Age: 46 COPD (chronic obstructive pulmonary disease) Hypertension Grandmother (Maternal) , Passed Age 75 Breast cancer Grandmother (Paternal) , Passed Age 45 Breast cancer, Onset Age: 42 due to complication of Breast Cancer Aunt Breast cancer Uncle Diabetes Bone cancer Myocardial infarction Father , Passed Age 92 Prostate cancer, Onset Age: 60 COPD (chronic obstructive pulmonary disease) Cancer Hypertension Aunt Breast cancer Aunt Breast cancer Brother Diabetes Thyroid disorder Brother Skin cancer Sister PONV (postoperative nausea and vomiting) Thyroid disorder Son No problems noted. Denies family history of Ovarian cancer Colorectal cancer Uterine cancer Social History Smoking Status: Former smoker Tobacco Type: Cigarettes Age Started Using Tobacco: 17; Age Quit Using Tobacco: 28; packs per day: 1; Second Hand Exposure: No; Do You Dip or Chew Tobacco: No; Hx Alcohol Use: Yes Alcohol type: wine Alcohol type Comment: social Alcohol Intake Frequency: Monthly or Less Alcohol Intake Frequency Comment: socially Hx Substance Use: No Preferred Language: Bermudian Communication Ability: Effective Visual Impairment: No Limitations Hearing Ability: Normal Retail Team Leader Required: No Beliefs That Will Affect Care: None marital status: Current Living Situation: Spouse current occupational status: employed 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 Physical Exam Physical Exam: In General: In general very pleasant 63-year-old female she is alert and oriented x 3, exam she denies any pain or symptoms except being short of breath with exertion and mildly lightheaded with exertion. HEENT: Normocephalic, atraumatic. Pupils are equal round and react to light bilaterally. Conjunctive are pale. Chemotherapy-induced alopecia noted. NECK: Supple no rigidity no lymphadenopathy no thyromegaly no carotid bruits no JVD no masses. HEART: Regular rate and rhythm I do not appreciate any ectopy or rub. No murmur. Mediport accessed and noted in the left chest wall LUNGS: Clear to auscultation bilaterally and anteriorly with no evidence of adventitious sounds/wheezes rales or rhonchi. ABDOMEN: Soft nontender, no rebound, no peritoneal signs, positive bowel sounds, no appreciable organomegaly. EXTREMITIES: Intact, no peripheral cyanosis, clubbing. Bilateral lower extremity dependent edema. Strength is 5 out of 5 in extremities x4, no pathological reflexes. NEUROLOGICAL: Cranial nerves II through XII are grossly intact with no focal deficit elicited upon examination. Results & Data Results & Data Vital Signs (Past 12 Hours) Vital Signs Temp Pulse Pulse Resp BP BP Pulse Ox 10/20/24 17:42 37.2 C 100 H 19 98/60 L 97 10/20/24 16:50 92 H 17 98/60 L 95 10/20/24 16:39 91 H 10/20/24 15:57 36.5 C 119 H 16 95/59 L 98 O2 Del Method O2 Flow Rate 10/20/24 17:42 10/20/24 16:50 Room Air 10/20/24 16:39 10/20/24 15:57 Nasal Cannula 1 Code Status & VTE Plan Code Status DNR/DNI. I personally discussed with the patient's sister which she is back July 2024. She does want all treatment necessary but in case of cardiopulmonary arrest she would not want attempted resuscitation given her diagnoses described above. VTE Prophylaxis Plan VTE Prophylaxis will be ordered: Yes PG Care Time/CCT Total # of Minutes Spent Total Time Spent with Patient: Total time spent is greater than 50% in coordination of care (as documented) at patient's floor/unit and/or counseling patient: Coding Level of Care Code 96302 INT INP/OBS CARE 3/75MIN Diagnoses Symptomatic anemia D64.9
[2024-10-20] MEDS: MAGNESIUM SULFATE / D5W 1 GM/100 ML BAG IV ONE (18:42)
[2024-10-20] MEDS: POTASSIUM CHLORIDE / WTR 10 MEQ/100 ML PLCT IV SCH (18:43)
[2024-10-20] MEDS: POTASSIUM CHLORIDE 20 MEQ/15 ML UDC PO STA (20:59)
[2024-10-20] MEDS ORDERED: LORazepam 1 MG TAB PO PRN (21:51)
[2024-10-20] MEDS ORDERED: PROMETHAZINE HCL 25 MG TAB PO PRN (21:51)
[2024-10-20] MEDS ORDERED: ACETAMINOPHEN 325 MG TAB PO PRN (21:51)
[2024-10-20] MEDS: PANTOprazole 40 MG/10 ML SYR IV SCH (23:25)
[2024-10-20] MEDS: VENLAFAXINE HCL XR 75 MG CAPXR PO SCH (23:26)
[2024-10-20] MEDS: SUCRALFATE 1 GM/10 ML UDC PO SCH (23:26)
[2024-10-20] MEDS: PROCHLORPERAZINE MALEATE 10 MG TAB PO SCH (23:26)
[2024-10-20] MEDS: VENLAFAXINE HCL XR 150 MG CAPXR PO SCH (23:26)
[2024-10-20] MEDS: OLANZAPINE 2.5 MG TAB PO SCH (23:26)
[2024-10-20] MEDS: FAMOTIDINE 20 MG TAB PO SCH (23:26)
[2024-10-21 00:16] LABS: Hematocrit (blood only) 20.3 % (37.0-47.0)
[2024-10-21] MEDS ORDERED: SODIUM CHLORIDE 0.9% 50 ML IV PRN (02:50)
[2024-10-21] MEDS ORDERED: SODIUM CHLORIDE 0.9% 100 ML IV PRN (02:50)
[2024-10-21 07:54] LABS: Hematocrit (blood only) 23.4 % (37.0-47.0); Hemoglobin 8.1 g/dl (12.0-16.0); Mean Corpuscular Hemoglobin 30.3 pg (25.0-34.0); Mean Corpuscular Hgb Conc 34.6 g/dL (32.0-36.0); Mean Corpuscular Volume 87.6 fL (80.0-100.0); Mean Platelet Volume 9.3 fL (9.4-12.4); Nucleated RBC # (auto) 0.12 K/uL (0.00-0.12); Nucleated RBC % (auto) 1.1 %; Platelet Count 58 K/uL (130-400); RDW Coefficient of Variation 16.5 % (11.5-14.5); RDW Standard Deviation 46.8 fL (36.4-46.3); Red Blood Count 2.67 M/uL (4.20-5.40); White Blood Count 10.93 K/ul (4.8-10.8)
[2024-10-21 08:13] LABS: BUN Creatinine Ratio 21.1 (10-20); Calcium 7.1 mg/dl (8.6-10.3); Creatinine Clr Calc Pharmacy 123.7 ml/min; Potassium 3.4 mmol/L (3.5-5.1)
--- NOTE | 2024-10-21 08:13 | Oncology Consultation ---
Date of Consultation October 21, 2024 Assessment & Plan (1) Symptomatic anemia: (2) Breast cancer metastasized to bone: Plan -Anemia due to bone marrow suppression from chemotherapy. Would recommend monitoring for another 24 hours and transfuse for Hb below 7.5. - Plan to delay treatment by 2 weeks and if she develops significant worsening in anemia despite being off chemotherapy would recommend consideration for upper endoscopy especially since she has metastases involving the gastric wall. Thank you for this consult please call if you have questions History of Present Illness Reason for Consultation: Anemia, metastatic breast cancer Attending Physician: Elliott Richey MD History of Present Illness 64 year old with metastatic breast cancer currently on chemotherapy with carboplatin/gemcitabine. She was admitted with symptomatic severe anemia with hemoglobin of 4.6 and hematocrit of 14. Received 3 units of PRBC transfusion with improvement in hemoglobin to 8.1 and hematocrit to 23.4. She feels much better following transfusion. Allergies Allergy/AdvReac Type Severity Reaction Status Date / Time No Known Allergies Allergy Verified 09/15/24 11:39 Home Medications Medication Instructions Recorded Confirmed Type denosumab 120 mg/1.7 mL (70 mg/mL) 125 mg subcut .qmonth 12/13/22 10/20/24 History subcutaneous solution (Xgeva) cyanocobalamin (vitamin B-12) 1,000 mcg IM MONTHLY 12/16/22 10/20/24 History 1,000 mcg/mL injection solution lorazepam 1 mg tablet 1 mg PO BID PRN Anxiety #30 tabs 09/04/23 10/20/24 Rx valacyclovir 1 gram tablet 2,000 mg PO BID PRN Rash 10/09/23 10/20/24 History (Valtrex) venlafaxine 150 mg 150 mg PO QPM #90 caps 05/23/24 10/20/24 Rx capsule,extended release 24 hr venlafaxine 75 mg capsule,extended 75 mg PO QPM #90 caps 05/23/24 10/20/24 Rx release 24 hr famotidine 20 mg tablet 20 mg PO BID #60 tabs 08/21/24 10/20/24 Rx GemCarbo 1 dose IV DIRECTED 09/07/24 10/20/24 History olanzapine 2.5 mg tablet 2.5 mg PO QPM 09/07/24 10/20/24 History prochlorperazine maleate 10 mg 10 mg PO BID Nausea 09/07/24 10/20/24 History tablet (Compazine) promethazine 12.5 mg tablet 12.5 mg PO Q6H PRN Nausea 09/07/24 10/20/24 History ondansetron HCl 8 mg tablet 8 mg PO BID Nausea 09/29/24 10/20/24 History pantoprazole 40 mg tablet,delayed 40 mg PO BID 09/29/24 10/20/24 History release potassium chloride 10 mEq 10 meq PO DAILY 09/29/24 10/20/24 History tablet,extended release sucralfate 100 mg/mL oral 10 ml PO ACHS 09/29/24 10/20/24 History suspension Patient History Medical History Hypokalemia RUQ abdominal pain Vomiting Chest discomfort Medial meniscus tear Body, loose, knee Hamstring strain Knee instability Epidermoid cyst Mass of left axilla per pt, biopsied and found to be benign Metastatic disease History of chemotherapy Doxetaxel and Cyclophosphamide x4 cycles Herceptin x1 year Letrozole with Ibrance started 09/2020 Xgeva Breast cancer metastasized to bone 2019 breast ca (new primary) with mets to spine at time of diagnosis History of postoperative nausea and vomiting can drink apple juice afterward, if drinks water, starts throwing up History of COVID-13 Jul 2023; not hospitalized; no ongoing sx COPD (chronic obstructive pulmonary disease) "mild" per pt > no inhalers Lung nodule, multiple just monitoring, " PET scans are showing they are gone" per pt Hiatal hernia "large" per pt Thoracic compression fracture T5, treated with radiation for pain in October 2023, "the pain comes and goes" Sacral fracture Jul 2023 > no pain now Leukopenia follows with Heme/Onc Osteoarthritis DDD (degenerative disc disease) Anemia follows with Heme/Onc History of breast cancer 2008 L breast: tx with lumpectomy, XRT, chemo; dx of new primary 2019 (with mets to bone at time of diagnosis): tx with oral chemo, XRT (also had L axillary LN dissection) Bipolar disorder Anxiety and depression Snores no apnea dx, no device History of back problems known mets in spine causing pain: T1, T5, T6, T7, T10 BRCA gene mutation negative Polymyalgia rheumatica saw Rheum; per pt no specific dx given; was tx with short course of oral steroids and sx resolved Rheumatoid arthritis saw Rheum; per pt no specific dx given; was tx with short course of oral steroids and sx resolved Surgical History S/P left knee arthroscopy Port-A-Cath in place (08/16/24) Insertion Access Port with Flouroscopy(Left) - Freddie Vivas DO H/O left knee surgery arthroscopy Hx of left cataract extraction History of right cataract extraction History of esophagogastroduodenoscopy (EGD) History of surgery removal of port-A-cath 2009 Hx of colonoscopy S/P wisdom tooth extraction History of biopsy (09/2020) Left Axillary Lymph Nodes History of biopsy (09/21/20) Right Breast H/O lumpectomy Left Breast (2008 and 2009) Family History Mother , Passed Age 74 Breast cancer, Onset Age: 46 COPD (chronic obstructive pulmonary disease) Hypertension Grandmother (Maternal) , Passed Age 75 Breast cancer Grandmother (Paternal) , Passed Age 45 Breast cancer, Onset Age: 42 due to complication of Breast Cancer Aunt Breast cancer Uncle Diabetes Bone cancer Myocardial infarction Father , Passed Age 92 Prostate cancer, Onset Age: 60 COPD (chronic obstructive pulmonary disease) Cancer Hypertension Aunt Breast cancer Aunt Breast cancer Brother Diabetes Thyroid disorder Brother Skin cancer Sister PONV (postoperative nausea and vomiting) Thyroid disorder Son No problems noted. Denies family history of Ovarian cancer Colorectal cancer Uterine cancer Social History Smoking Status: Former smoker Tobacco Type: Cigarettes Age Started Using Tobacco: 17; Age Quit Using Tobacco: 28; packs per day: 1; Smoking End Date: 30 years ago; Second Hand Exposure: No; Do You Dip or Chew Tobacco: No; Hx Alcohol Use: No Hx Substance Use: No Preferred Language: Greenlandic Communication Ability: Effective Visual Impairment: No Limitations Hearing Ability: Normal Tour Consultant Required: No Beliefs That Will Affect Care: None marital status: Current Living Situation: Spouse current occupational status: employed 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 How many Children do You have: 1 Other Information That Helps Us Care for You: No Feels Safe at Home: Yes Safety Concerns: Feels Safe At This Time Childhood Exposure to Second-Hand Smoke: Yes (Siblings) Diet: regular caffeine: Yes (daily) during the past year weight has: remained stable Dental Care, Regularly: Yes Physical Activity Frequency: Does not Exercise Seatbelt Use: always Assistive Devices: Oxygen - Continuous Assistive Devices Comment: uses O2 at home only when needed Results & Data Vital Signs (Past 12 Hours) Vital Signs Temp Pulse Pulse Resp BP BP Pulse Ox 10/21/24 07:25 86 10/21/24 07:17 36.8 C 82 18 102/55 L 91 10/21/24 06:01 37 C 94 H 16 104/69 93 10/21/24 05:20 36.9 C 94 H 16 103/68 90 10/21/24 04:20 36.5 C 98 H 16 100/68 92 10/21/24 03:50 37.1 C 91 H 16 95/60 L 93 10/21/24 03:35 37.1 C 90 16 106/68 91 10/21/24 03:16 37.2 C 88 16 101/68 91 10/21/24 02:00 94 H 10/21/24 01:45 37 C 94 H 18 106/62 97 10/21/24 01:00 94 H 18 105/64 97 10/20/24 22:30 37.0 C 94 H 18 103/65 97 10/20/24 21:51 10/20/24 21:30 36.9 C 93 H 18 97/61 L 99 10/20/24 21:00 37.0 C 97 H 18 93/55 L 97 10/20/24 20:46 96 H 10/20/24 20:45 37.0 C 98 H 18 88/60 L 97 10/20/24 20:40 36.9 C 95 H 18 92/55 L 99 10/20/24 20:35 37.0 C 98 H 18 93/62 L 96 10/20/24 20:28 37.0 C 99 H 18 98/62 L 96 Pulse Ox O2 Del Method O2 Del Method O2 Flow Rate 10/21/24 07:25 10/21/24 07:17 Room Air 10/21/24 06:01 10/21/24 05:20 10/21/24 04:20 10/21/24 03:50 10/21/24 03:35 10/21/24 03:16 10/21/24 02:00 10/21/24 01:45 Room Air 10/21/24 01:00 Room Air 10/20/24 22:30 0 10/20/24 21:51 97 Room Air 10/20/24 21:30 0 10/20/24 21:00 10/20/24 20:46 10/20/24 20:45 0 10/20/24 20:40 0 10/20/24 20:35 0 10/20/24 20:28
[2024-10-21 08:53] LABS: ALC (manual) 0.33 K/uL (1.2-3.4); ANC (manual) 9.29 K/uL (1.4-6.5); Blast # (manual) 0.11 K/uL (0-0); Blast Cells % (manual) 1 %; Dohle Bodies 1+; Lymphocytes # (manual) 0.33 K/uL (1.2-3.4); Lymphocytes % (manual) 3 %; Metamyelocytes # (manual) 0.55 K/uL (0-0); Metamyelocytes % (manual) 5 %; Monocytes # (manual) 0.33 K/uL (0.11-0.59); Monocytes % (manual) 3 %; Myelocytes # (manual) 0.33 K/uL (0-0); Myelocytes % (manual) 3 %; Neutrophils # (manual) 9.29 K/uL (1.40-6.50); Neutrophils % (manual) 85 %; Toxic Granulation 1+
[2024-10-21] MEDS: POTASSIUM CHLORIDE 10 MEQ TABCR PO SCH (09:00)
--- NOTE | 2024-10-21 09:46 | Gastrointestinal Consultation ---
Date of Consultation October 21, 2024 Assessment & Plan (1) Anemia: Plan Patient with a history of breast cancer with metastasis to bone/stomach, currently admitted with significant anemia. She does not seem to be having any GI bleeding at this time. She does endorse issues with nosebleeds and tells me that a week ago she had an episode that lasted all day and was heavy. This may be what contributed to her anemia in addition to a possible blood production issue given metastatic disease to bone. - continue to monitor hgb/hct. transfuse as needed. - monitor for any signs of GI bleeding. - continue with protonix 40mg bid. - will hold off on EGD at this time given no obvious signs of active GI bleeding. Supervising Physician Co-Signing Physician Notes 64-year-old female with a history of metastatic breast cancer. Endoscopy July 2024 did show evidence of infiltrative neoplasia of the stomach biopsy consistent with metastatic breast cancer. Patient now comes in with severe anemia. She has had a history of significant nosebleeds where she bled over at least the day. Described as a large amount with clots. She has not noticed obvious melena though states she does not look. Her BUN/creatinine ratio were normal which is again significant amounts of blood in the GI tract. She has documented metastatic cancers of the bone. Current PET scan shows diffuse skeletal radiotracer uptake. Possible marrow. reactivation Patient's hemoglobin is improved posttransfusion there is no signs of active gastrointestinal bleeding. At this point I think there is limited role for endoscopy. Her anemia may be related both losses from her nosebleed and poor production related to chemo and/or bone marrow metastases, PPI therapy seems appropriate. History of Present Illness Reason for Consultation: EGD Requesting Physician: Maximus RG Attending Physician: Elliott Richey MD History of Present Illness Patient is a 64 year old female who has a past medical history of breast carcinoma with widely metastatic disease to both the bone and stomach. She was at oncology yesterday for preparing for ongoing chemo treatments and had routine labs done that found she had a hemoglobin of 4.4 and was directed to the ED for further evaluation and treatment. Since arrival she was given 3 units of blood and hgb improved to 8.1 today. She tells me that she has been having issues with nosebleeds, of which, she had heavy bleeding all day 1 week ago. She attributes this to dry air as well as oxygen use. She can get some nausea/emesis with chemo, but overall she has no issues with this, and no current issues. no acid reflux. She tells me that she does tend to have constipation. she denies any blood in her stools or melena. Allergies Allergy/AdvReac Type Severity Reaction Status Date / Time No Known Allergies Allergy Verified 09/15/24 11:39 Home Medications Medication Instructions Recorded Confirmed Type denosumab 120 mg/1.7 mL (70 mg/mL) 125 mg subcut .qmonth 12/13/22 10/20/24 History subcutaneous solution (Xgeva) cyanocobalamin (vitamin B-12) 1,000 mcg IM MONTHLY 12/16/22 10/20/24 History 1,000 mcg/mL injection solution lorazepam 1 mg tablet 1 mg PO BID PRN Anxiety #30 tabs 09/04/23 10/20/24 Rx valacyclovir 1 gram tablet 2,000 mg PO BID PRN Rash 10/09/23 10/20/24 History (Valtrex) venlafaxine 150 mg 150 mg PO QPM #90 caps 05/23/24 10/20/24 Rx capsule,extended release 24 hr venlafaxine 75 mg capsule,extended 75 mg PO QPM #90 caps 05/23/24 10/20/24 Rx release 24 hr famotidine 20 mg tablet 20 mg PO BID #60 tabs 08/21/24 10/20/24 Rx GemCarbo 1 dose IV DIRECTED 09/07/24 10/20/24 History olanzapine 2.5 mg tablet 2.5 mg PO QPM 09/07/24 10/20/24 History prochlorperazine maleate 10 mg 10 mg PO BID Nausea 09/07/24 10/20/24 History tablet (Compazine) promethazine 12.5 mg tablet 12.5 mg PO Q6H PRN Nausea 09/07/24 10/20/24 History ondansetron HCl 8 mg tablet 8 mg PO BID Nausea 09/29/24 10/20/24 History pantoprazole 40 mg tablet,delayed 40 mg PO BID 09/29/24 10/20/24 History release potassium chloride 10 mEq 10 meq PO DAILY 09/29/24 10/20/24 History tablet,extended release sucralfate 100 mg/mL oral 10 ml PO ACHS 09/29/24 10/20/24 History suspension Patient History Medical History Hypokalemia RUQ abdominal pain Vomiting Chest discomfort Medial meniscus tear Body, loose, knee Hamstring strain Knee instability Epidermoid cyst Mass of left axilla per pt, biopsied and found to be benign Metastatic disease History of chemotherapy Doxetaxel and Cyclophosphamide x4 cycles Herceptin x1 year Letrozole with Ibrance started 09/2020 Xgeva Breast cancer metastasized to bone 2019 breast ca (new primary) with mets to spine at time of diagnosis History of postoperative nausea and vomiting can drink apple juice afterward, if drinks water, starts throwing up History of COVID-13 Jul 2023; not hospitalized; no ongoing sx COPD (chronic obstructive pulmonary disease) "mild" per pt > no inhalers Lung nodule, multiple just monitoring, " PET scans are showing they are gone" per pt Hiatal hernia "large" per pt Thoracic compression fracture T5, treated with radiation for pain in October 2023, "the pain comes and goes" Sacral fracture Jul 2023 > no pain now Leukopenia follows with Heme/Onc Osteoarthritis DDD (degenerative disc disease) Anemia follows with Heme/Onc History of breast cancer 2008 L breast: tx with lumpectomy, XRT, chemo; dx of new primary 2019 (with mets to bone at time of diagnosis): tx with oral chemo, XRT (also had L axillary LN dissection) Bipolar disorder Anxiety and depression Snores no apnea dx, no device History of back problems known mets in spine causing pain: T1, T5, T6, T7, T10 BRCA gene mutation negative Polymyalgia rheumatica saw Rheum; per pt no specific dx given; was tx with short course of oral steroids and sx resolved Rheumatoid arthritis saw Rheum; per pt no specific dx given; was tx with short course of oral steroids and sx resolved Surgical History S/P left knee arthroscopy Port-A-Cath in place (08/16/24) Insertion Access Port with Flouroscopy(Left) - Freddie Vivas DO H/O left knee surgery arthroscopy Hx of left cataract extraction History of right cataract extraction History of esophagogastroduodenoscopy (EGD) History of surgery removal of port-A-cath 2009 Hx of colonoscopy S/P wisdom tooth extraction History of biopsy (09/2020) Left Axillary Lymph Nodes History of biopsy (09/21/20) Right Breast H/O lumpectomy Left Breast (2008 and 2009) Family History Mother , Passed Age 74 Breast cancer, Onset Age: 46 COPD (chronic obstructive pulmonary disease) Hypertension Grandmother (Maternal) , Passed Age 75 Breast cancer Grandmother (Paternal) , Passed Age 45 Breast cancer, Onset Age: 42 due to complication of Breast Cancer Aunt Breast cancer Uncle Diabetes Bone cancer Myocardial infarction Father , Passed Age 92 Prostate cancer, Onset Age: 60 COPD (chronic obstructive pulmonary disease) Cancer Hypertension Aunt Breast cancer Aunt Breast cancer Brother Diabetes Thyroid disorder Brother Skin cancer Sister PONV (postoperative nausea and vomiting) Thyroid disorder Son No problems noted. Denies family history of Ovarian cancer Colorectal cancer Uterine cancer Social History Smoking Status: Former smoker Tobacco Type: Cigarettes Age Started Using Tobacco: 17; Age Quit Using Tobacco: 28; packs per day: 1; Smoking End Date: 30 years ago; Second Hand Exposure: No; Do You Dip or Chew Tobacco: No; Hx Alcohol Use: No Hx Substance Use: No Preferred Language: Georgian Communication Ability: Effective Visual Impairment: No Limitations Hearing Ability: Normal Tooling Mechanic Required: No Beliefs That Will Affect Care: None marital status: Current Living Situation: Spouse current occupational status: employed 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 How many Children do You have: 1 Other Information That Helps Us Care for You: No Feels Safe at Home: Yes Safety Concerns: Feels Safe At This Time Childhood Exposure to Second-Hand Smoke: Yes (Siblings) Diet: regular caffeine: Yes (daily) during the past year weight has: remained stable Dental Care, Regularly: Yes Physical Activity Frequency: Does not Exercise Seatbelt Use: always Assistive Devices: Oxygen - Continuous Assistive Devices Comment: uses O2 at home only when needed Review of Systems Review of Systems: All systems reviewed & are unremarkable except as noted in HPI & below Physical Exam Physical Exam: thin appearing Respiratory: normal respiratory effort, lungs clear to auscultation Cardiovascular: Rate/Rhythm: regular rate and regular rhythm Gastrointestinal (Abdomen): normal bowel sounds, soft, nontender, no hepatosplenomegaly Psychiatric: Orientation: alert and oriented x 3 Affect: euthymic affect Results & Data Vital Signs (Past 12 Hours) Vital Signs Temp Pulse Pulse Resp BP BP Pulse Ox 10/21/24 07:25 86 10/21/24 07:17 98.2 F 82 18 102/55 L 91 10/21/24 06:01 98.6 F 94 H 16 104/69 93 10/21/24 05:20 98.4 F 94 H 16 103/68 90 10/21/24 04:20 97.7 F 98 H 16 100/68 92 10/21/24 03:50 98.8 F 91 H 16 95/60 L 93 10/21/24 03:35 98.8 F 90 16 106/68 91 10/21/24 03:16 99.0 F 88 16 101/68 91 10/21/24 02:00 94 H 10/21/24 01:45 98.6 F 94 H 18 106/62 97 10/21/24 01:00 94 H 18 105/64 97 10/20/24 22:30 98.6 F 94 H 18 103/65 97 10/20/24 21:51 Pulse Ox O2 Del Method O2 Del Method O2 Flow Rate 10/21/24 07:25 10/21/24 07:17 Room Air 10/21/24 06:01 10/21/24 05:20 10/21/24 04:20 10/21/24 03:50 10/21/24 03:35 10/21/24 03:16 10/21/24 02:00 10/21/24 01:45 Room Air 10/21/24 01:00 Room Air 10/20/24 22:30 0 10/20/24 21:51 97 Room Air Coding Level of Care Code 54687 IN/OBS CONSULT LVL 4,60M Diagnoses Anemia D64.9
--- NOTE | 2024-10-21 13:34 | Hospitalist Progress Note ---
Date of Service October 21, 2024 Assessment & Plan (1) Symptomatic anemia: Plan: Assessment: 1. Severe symptomatic anemia. Anemia due to antineoplastic chemotherapy Hemoglobin 4.4 on admission could be from cancer or GI bleed Transfused 3 units of packed red blood cells. Repeat Hb 8.1 Continue to transfuse if needed. 2. Rule out occult GI bleed. Stool for occult blood ordered. Patient denies dark stools GI consulted. No plans for EGD or colonoscopy 3. Hypokalemia. 2.9. 4K riders 10 mEq each +20 mill equivalents of oral potassium. 4. Borderline hypomagnesemia. Give gram of mag sulfate x 1. 5. Breast carcinoma which is widely metastatic to the bone and stomach. Hematology consulted. They directed her to the ER. 6. Mild leukocytosis. Monitor carefully. Could be stress response. The patient's not endorsing any type of infectious symptoms including fever cough shortness of breath excetra. 7. Mild thrombocytopenia probably chemotherapy-induced. Stable at 89,000. Monitor. 8. Transaminitis. Question possible secondary to malignancy. Monitor. 9. Mildly elevated troponin. Probably secondary to stress due to symptomatic anemia. Recheck to ensure stability. Plan: hopefully d/c in the next 24 hrs Admission and Anticipated Discharge Date Admission Date: October 20, 2024 Subjective patient seen and examined, no new complaints Review of Systems Review of Systems: All systems reviewed are negative, apart from the ones contained in the history. Physical Exam Physical Exam: The patient is awake, alert and oriented 3, well developed and well nourished, normocephalic and atraumatic, lying in bed and in no acute distress. HEENT--PERRL, EOMI, mucous membranes and oropharynx mildly dry Neck--supple. No JVD. No bruits. Thyroid normal, trachea midline, no adenopathy. Heart--normal S1 and S2. No murmurs, rubs or gallops. Lungs--clear bilaterally, no respiratory distress, no accessory muscle use. Abdomen--normal bowel sounds and soft. Extremities--no cyanosis or clubbing. No edema. Dermatologic--normal skin turgor, normal color, no abnormal lymph nodes, no rash. Neurologic--cranial nerves II through XII grossly intact. Rheumatologic--normal range of motion. Psychiatric--normal affect. Results & Data Results & Data Vital Signs (Past 12 Hours) Vital Signs Temp Pulse Pulse Resp BP BP Pulse Ox 10/21/24 11:50 98.2 F 88 18 102/67 92 10/21/24 08:00 10/21/24 07:25 86 10/21/24 07:17 98.2 F 82 18 102/55 L 91 10/21/24 06:01 98.6 F 94 H 16 104/69 93 10/21/24 05:20 98.4 F 94 H 16 103/68 90 10/21/24 04:20 97.7 F 98 H 16 100/68 92 10/21/24 03:50 98.8 F 91 H 16 95/60 L 93 10/21/24 03:35 98.8 F 90 16 106/68 91 10/21/24 03:16 99.0 F 88 16 101/68 91 10/21/24 02:00 94 H 10/21/24 01:45 98.6 F 94 H 18 106/62 97 O2 Del Method 10/21/24 11:50 Room Air 10/21/24 08:00 Room Air 10/21/24 07:25 10/21/24 07:17 Room Air 10/21/24 06:01 10/21/24 05:20 10/21/24 04:20 10/21/24 03:50 10/21/24 03:35 10/21/24 03:16 10/21/24 02:00 10/21/24 01:45 Room Air PG Care Time/CCT Total # of Minutes Spent Total Time Spent with Patient: Total time spent is greater than 50% in coordination of care (as documented) at patient's floor/unit and/or counseling patient: Coding Level of Care Code 65728 SUB INP/OBS CARE 2/35MIN Diagnoses Symptomatic anemia D64.9 Time Spent (min) 35
[2024-10-21] MEDS: CALCIUM 600MG + VIT D 400 IU TAB PO SCH (20:50)
--- NOTE | 2024-10-21 21:49 | Electrocardiogram Report ---
Test Reason : Blood Pressure : */* mmHG Vent. Rate : 105 BPM Atrial Rate : 105 BPM P-R Int : 118 ms QRS Dur : 80 ms QT Int : 364 ms P-R-T Axes : 63 42 8 degrees QTcB Int : 481 ms Sinus tachycardia with occasional Premature ventricular complexes Nonspecific T wave abnormality Prolonged QT Abnormal ECG When compared with ECG of 13-Aug-2024 20:35, Premature ventricular complexes are now Present Nonspecific T wave abnormality now evident in Anterior leads Confirmed by Ra Avila [id number]) on 10/21/2024 9:49:22 PM Referred By: Confirmed By: Ra Avila
[2024-10-22 07:53] LABS: Hemoglobin 8.7 g/dl (12.0-16.0); Mean Corpuscular Hemoglobin 30.5 pg (25.0-34.0); Mean Corpuscular Hgb Conc 34.8 g/dL (32.0-36.0); Mean Corpuscular Volume 87.7 fL (80.0-100.0); Mean Platelet Volume 9.9 fL (9.4-12.4); Nucleated RBC # (auto) 0.13 K/uL (0.00-0.12); Nucleated RBC % (auto) 1.1 %; Platelet Count 76 K/uL (130-400); RDW Coefficient of Variation 17.2 % (11.5-14.5); RDW Standard Deviation 47.5 fL (36.4-46.3); Red Blood Count 2.85 M/uL (4.20-5.40); White Blood Count 11.75 K/ul (4.8-10.8)
[2024-10-22 08:13] LABS: BUN Creatinine Ratio 19.4 (10-20); Calcium 7.4 mg/dl (8.6-10.3); Creatinine Clr Calc Pharmacy 151.7 ml/min; Potassium 3.5 mmol/L (3.5-5.1)
--- NOTE | 2024-10-22 11:02 | Gastroenterology Progress Note ---
Date of Service October 22, 2024 Assessment & Plan (1) Anemia: Plan: hgb has improved and no signs of active bleeding. - continue to monitor hgb/hct. transfuse as needed. - continue with protonix 40mg bid. - will hold off on EGD at this time given no obvious signs of active GI bleeding. - if further issues with nosebleeding, recommend ENT evaluation. Admission and Anticipated Discharge Date Admission Date: October 20, 2024 Subjective Patient has not had a bowel movement since admission. no signs of obvious GI bleeding. no further issues with nosebleeds. 10/22/24 hgb 8.7 (previously 8.1). no current GI concerns. Review of Systems Review of Systems: All systems reviewed & are unremarkable except as noted in HPI & below Physical Exam Constitutional: WD/WN, vitals as above Respiratory: normal respiratory effort, lungs clear to auscultation Cardiovascular: Rate/Rhythm: regular rate and regular rhythm Gastrointestinal (Abdomen): normal bowel sounds, soft, nontender, no hepatosplenomegaly Psychiatric: Orientation: alert and oriented x 3 Affect: euthymic affect Results & Data Results & Data Vital Signs (Past 12 Hours) Vital Signs Temp Pulse Pulse Pulse Resp BP Pulse Ox 10/22/24 08:16 97.9 F 85 14 104/72 92 10/22/24 07:44 75 10/22/24 03:38 98.1 F 95 H 16 95/65 L 94 10/21/24 23:29 98.4 F 94 H 16 107/71 94 O2 Del Method 10/22/24 08:16 Room Air 10/22/24 07:44 10/22/24 03:38 Room Air 10/21/24 23:29 Room Air Coding Level of Care Code 24661 SUB INP/OBS CARE 09/18MIN Diagnoses Anemia D64.9
[2024-10-22 11:28] VITALS: BP 104/70; PULSE 86; RESP 15; TEMP 98.6; O2SAT 96
--- NOTE | 2024-10-22 12:23 | Discharge Summary ---
Date of Service October 22, 2024 Admission HPI Per Admitting Provider Pleasant but unfortunate 64-year-old female has a history of breast carcinoma with widely metastatic disease to the bone and stomach. Was at oncology today for preparing for ongoing chemo tomorrow. Routine labs were obtained. She was found to have a hemoglobin of 4.4 and was directed to the ER for further evaluation and treatment. 2 units of packed red blood cells were ordered in the ER. She was found to have a potassium of 2.9 as well. We were called to admit the patient for further evaluation and treatment for symptomatic anemia. We have placed 2 more units of packed red blood cells on hold in addition to the 2 things being transfused. Will repeat labs overnight and transfuse as needed. We have ordered 4K riders 10 mill equivalents each as well as 20 mill equivalents of oral potassium x 1. Magnesium was low normal at 1.7. And we ordered a gram of magnesium sulfate as well. We have consulted GI for possible EGD in the morning given her metastatic gastric disease to see if there is any active bleeding but the patient denies any black or tarry stools or bloody stools. Admission Exam (Per Admitting) Constitutional The patient is awake, alert and oriented 3, well developed and well nourished, normocephalic and atraumatic, lying in bed and in no acute distress. HEENT--PERRL, EOMI, mucous membranes and oropharynx mildly dry Neck--supple. No JVD. No bruits. Thyroid normal, trachea midline, no adenopathy. Heart--normal S1 and S2. No murmurs, rubs or gallops. Lungs--clear bilaterally, no respiratory distress, no accessory muscle use. Abdomen--normal bowel sounds and soft. Extremities--no cyanosis or clubbing. No edema. Dermatologic--normal skin turgor, normal color, no abnormal lymph nodes, no rash. Neurologic--cranial nerves II through XII grossly intact. Rheumatologic--normal range of motion. Psychiatric--normal affect. Discharge Data Consultations 10/20/24 17:17 ED Decision to Admit Stat 10/20/24 21:51 Consult Gastroenterology Routine Consult Oncology Routine Hospital Course (1) Symptomatic anemia: Assessment: 1. Severe symptomatic anemia. Anemia due to antineoplastic chemotherapy Hemoglobin 4.4 on admission could be from cancer or GI bleed Transfused 3 units of packed red blood cells. Repeat Hb 8.1 2. Rule out occult GI bleed. Patient denies dark stools No plans for EGD or colonoscopy per GI 3. Hypokalemia. resolved 4. Borderline hypomagnesemia. Give gram of mag sulfate x 1. 5. Breast carcinoma which is widely metastatic to the bone and stomach. Hematology consulted. They directed her to the ER. 6. Mild leukocytosis. Monitor carefully. Could be stress response. The patient's not endorsing any type of infectious symptoms including fever cough shortness of breath excetra. 7. Mild thrombocytopenia probably chemotherapy-induced. Stable at 89,000. Monitor. 8. Transaminitis. Question possible secondary to malignancy. Monitor. 9. Mildly elevated troponin. Probably secondary to stress due to symptomatic anemia. Recheck to ensure stability. Plan: d/c home Coding Level of Care Code 69376 INP/OBS DISCH >30 MIN Diagnoses Symptomatic anemia D64.9 Time Spent (min) 35
== END 2024-10-22 14:02 | disposition home or self-care (01) | DRG 812 ==
LOC: ED 15:32 → EDINP 17:55 → SUATTDRO 17:55 → 2N 21:51

== ENCOUNTER 2024-11-05 12:24 | Inpatient (IN) ==
--- NOTE | 2024-11-05 12:38 | Emergency Department Note ---
Impression & Plan Obstructive jaundice due to cancer, Anemia, Thrombocytopenia, Hyperbilirubinemia, Cancer, metastatic to liver ED Provider Note NAME: WANG AU AGE: 64 SEX: F : 1960 ARRIVES VIA: Walk-In INFORMANT: Patient, family ED PROVIDER(S): Sukhdeep Mckeon MD CHIEF COMPLAINT: Outpatient referral, abnormal blood work MEDICAL DECISION MAKING: Patient presents due to concern for abnormal outpatient blood work and transaminitis. Port accessed. Patient was ordered IV fluids magnesium and potassium. Patient also already did receive some Maalox dexamethasone and 40 mEq of KCl. Patient ordered additional IV Zofran. CT abdomen pelvis ordered. I did review the patient's blood work from earlier today which is noted below. CT abdomen and pelvis shows numerous small hepatic lesions similar to CT from October 27. [place] cirrhosis cannot be excluded borderline biliary ductal dilatation possible narrowing of distal CBD. There is concern the patient does have biliary obstruction. I did speak with Dr. Estrella who stated that the patient may benefit from referral to tertiary center but states that the patient likely does not require emergent ERCP at this time. Dr. aWrd is on service tomorrow and can potentially place a stent and complete ERCP but this would be discussed in follow-up tomorrow morning about risks and benefits of doing the procedure whether or not the patient would ultimately require transfer. Patient without evidence of ascending cholangitis. The patient did receive some IV Phenergan additional IV fluids. I did speak with the on-call hospitalist Dr. Baca as well and the patient was admitted to the medicine service. Discussion w/ other healthcare providers: Dr. Estrella GI Dr. Baca inpatient medicine service Prior /Outside records reviewed: I reviewed part of a discharge summary from October 22 patient with a known history of breast cancer metastatic disease to bone and stomach but have low hemoglobin at that time as well as low potassium. Patient was transfused. Patient was noted to have hypokalemia borderline hypomag, possible stress response leukocytosis no evidence of infectious symptoms at that time mild thrombocytopenia with platelet count of 89,000 that time. Mild transaminitis and elevated troponin as well. I reviewed blood work that was completed prior to arrival which showed a white count of 10 hemoglobin of 10 platelet count of 15. Patient's kidney function unremarkable but hypokalemic at 2.7. Patient's bilirubin of 8.5 most recently was 5.6 several days ago. Transaminitis still persistent. Differential diagnosis: Appendicitis, ovarian cyst, ovarian torsion, ectopic , TOA, PID, diverticulitis, UTI, obstruction, inflammatory bowel disease, renal colic, PUD, pancreatitis, biliary pathology, hernia, volvulus, constipation, as well as other pathologies were considered. Diagnostics, as interpreted by me: ECG: Normal sinus rhythm, rate of 89, normal intervals, normal axis no obvious ST elevations, motion artifact noted at the end of the EKG. Cardiac monitoring: An order was placed for continuous cardiac monitoring. The monitor shows a rate of 95 with sinus rhythm. Patient was placed on pulse oximetry Medical decision rules: None Imaging studies: I informally interpreted the patient's CT abdomen pelvis does show liver lesions with formal report to follow. HPI: Patient presents as a referral due to concern for abnormal outpatient blood work. Patient reports that she was seen yesterday and did have a transfusion of blood and platelets. Patient seen today was noted to have hypokalemia. The patient was given 40 mEq of KCl today Alox 0.25 mg and dexamethasone 10 mg. The patient does follow with Dr. Kowalski for known history of metastatic breast cancer. Patient was also noted to have a worsening transaminitis. Patient reportedly had vomiting for several days. Not eating or drinking much. Did try to take some diet soda today as well as some crackers but has not kept much down at all. Patient denies any chest pains or shortness of breath. Patient states that her last chemo was 3 weeks ago and that was pushed back given her most recent blood work the following week. Patient was referred here for further evaluation treatment. PAST MEDICAL HISTORY: See Below PAST SURGICAL HISTORY: See Below SOCIAL HISTORY: See Below HOME MEDICATIONS: See Below ALLERGIES: See Below VITALS: See Below PHYSICAL EXAMINATION: GENERAL: Fatigable but nontoxic. EYE EXAM: Scleral icterus noted. PERRL, no anisocoria and EOM's grossly intact w/o pain. OROPHARYNX: Moist mucus membranes, grossly normal dentition. NECK: Trachea midline, no stridor. Supple, no nuchal rigidity, no adenopathy, non-tender. No signs of meningismus. FROM of the neck with good chin to chest and neck extension. LUNGS: Clear to auscultation. Normal chest wall mechanics. HEART: NSR, no MRG. ABDOMEN: Abdomen soft, tender in the upper abdomen most prominent left upper quadrant, no lower abdominal pain, no masses, no rebound or guarding. BACK: No CVA TTP. SKIN: No rashes and no bruising. UPPER EXTREMITIES: Upper extremities are grossly normal. LOWER EXTREMITIES: Grossly normal, no edema. NEURO EXAM: A&O x3, cranial nerves II-XII grossly intact, normal speech, moves all 4 extremities. Past Med/Surg History Problem List (Updated 11/05/24 @ 19:01 by Sukhdeep Mckeon MD) Cancer, metastatic to liver (Acute) Hyperbilirubinemia (Acute) Thrombocytopenia (Acute) Obstructive jaundice due to cancer (Acute) Obstructive jaundice Anemia (Acute) Elevated bilirubin (Acute) Metastatic cancer (Acute) Symptomatic anemia MCCLURE (dyspnea on exertion) (Acute) Hypokalemia (Acute) Generalized weakness (Acute) Breast cancer metastasized to bone dx'd 2019 - Ibranz, Letrozole, Xgeva + radiation (spine, rt hip) Emphysematous COPD Gastric mass Hypotension Cardiomyopathy GERD (gastroesophageal reflux disease) Acute respiratory failure with hypoxia History of vascular access device 2009 placed; has since been removed Intractable nausea and vomiting (Acute) Dysphagia Cholelithiasis Echocardiogram abnormal Left knee DJD Internal derangement of knee Sacral fracture (08/02/23) from a fall Lung nodule, multiple Thoracic compression fracture (08/02/23) Compression fracture of T5 vertebra-from a fall Hiatal hernia Arthritis Anemia (Acute) Degenerative disc disease, thoracic Leukopenia Proctocolitis Neutropenia Gallbladder calculus (Acute) Anxiety Medical History Hypokalemia RUQ abdominal pain Vomiting Chest discomfort Medial meniscus tear Body, loose, knee Hamstring strain Knee instability Epidermoid cyst Mass of left axilla per pt, biopsied and found to be benign Metastatic disease History of chemotherapy Doxetaxel and Cyclophosphamide x4 cycles Herceptin x1 year Letrozole with Ibrance started 09/2020 Xgeva Breast cancer metastasized to bone 2019 breast ca (new primary) with mets to spine at time of diagnosis History of postoperative nausea and vomiting can drink apple juice afterward, if drinks water, starts throwing up History of COVID-13 Jul 2023; not hospitalized; no ongoing sx COPD (chronic obstructive pulmonary disease) "mild" per pt > no inhalers Lung nodule, multiple just monitoring, " PET scans are showing they are gone" per pt Hiatal hernia "large" per pt Thoracic compression fracture T5, treated with radiation for pain in October 2023, "the pain comes and goes" Sacral fracture Jul 2023 > no pain now Leukopenia follows with Heme/Onc Osteoarthritis DDD (degenerative disc disease) Anemia follows with Heme/Onc History of breast cancer 2008 L breast: tx with lumpectomy, XRT, chemo; dx of new primary 2020 (with mets to bone at time of diagnosis): tx with oral chemo, XRT (also had L axillary LN dissection) Bipolar disorder Anxiety and depression Snores no apnea dx, no device History of back problems known mets in spine causing pain: T1, T5, T6, T7, T10 BRCA gene mutation negative Polymyalgia rheumatica saw Rheum; per pt no specific dx given; was tx with short course of oral steroids and sx resolved Rheumatoid arthritis saw Rheum; per pt no specific dx given; was tx with short course of oral lynda roids and sx resolved Surgical History S/P left knee arthroscopy Port-A-Cath in place (08/16/24) Insertion Access Port with Flouroscopy(Left) - Freddie Vivas, H/O left knee surgery arthroscopy Hx of left cataract extraction History of right cataract extraction History of esophagogastroduodenoscopy (EGD) History of surgery removal of port-A-cath 2009 Hx of colonoscopy S/P wisdom tooth extraction History of biopsy (09/2020) Left Axillary Lymph Nodes History of biopsy (09/21/20) Right Breast H/O lumpectomy Left Breast (2008 and 2009) Family History Mother , Passed Age 74 Breast cancer, Onset Age: 46 COPD (chronic obstructive pulmonary disease) Hypertension Grandmother (Maternal) , Passed Age 75 Breast cancer Grandmother (Paternal) , Passed Age 45 Breast cancer, Onset Age: 42 due to complication of Breast Cancer Aunt Breast cancer Uncle Diabetes Bone cancer Myocardial infarction Father , Passed Age 92 Prostate cancer, Onset Age: 60 COPD (chronic obstructive pulmonary disease) Cancer Hypertension Aunt Breast cancer Aunt Breast cancer Brother Diabetes Thyroid disorder Brother Skin cancer Sister PONV (postoperative nausea and vomiting) Thyroid disorder Son No problems noted. Denies family history of Ovarian cancer Colorectal cancer Uterine cancer Social History Smoking Status: Unknown if ever smoked Tobacco Type: Cigarettes Age Started Using Tobacco: 17; Age Quit Using Tobacco: 28; packs per day: 1; Second Hand Exposure: No; Do You Dip or Chew Tobacco: No; Hx Alcohol Use: No Hx Substance Use: No Preferred Language: Spanish Communication Ability: Effective Visual Impairment: No Limitations Hearing Ability: Normal Civil Design Technician Required: No Beliefs That Will Affect Care: None marital status: Current Living Situation: Spouse current occupational status: employed 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 How many Children do You have: 1 Feels Safe at Home: Yes Childhood Exposure to Second-Hand Smoke: Yes (Siblings) Diet: regular caffeine: Yes (daily) during the past year weight has: remained stable Dental Care, Regularly: Yes Physical Activity Frequency: Does not Exercise Seatbelt Use: always Assistive Devices: Oxygen - Continuous Allergies Allergies Allergy/AdvReac Type Severity Reaction Status Date / Time No Known Allergies Allergy Verified 10/29/24 07:09 Home Meds Home Medications Medication Instructions Recorded Confirmed denosumab 120 mg/1.7 mL (70 mg/mL) 125 mg subcut .qmonth 12/13/22 11/05/24 subcutaneous solution (Xgeva) cyanocobalamin (vitamin B-12) 1,000 mcg IM MONTHLY 12/16/22 11/05/24 1,000 mcg/mL injection solution valacyclovir 1 gram tablet 2,000 mg PO BID PRN Rash 10/09/23 11/05/24 (Valtrex) GemCarbo 1 dose IV DIRECTED 09/07/24 11/05/24 olanzapine 2.5 mg tablet 2.5 mg PO QPM 09/07/24 11/05/24 prochlorperazine maleate 10 mg 10 mg PO BID Nausea 09/07/24 11/05/24 tablet (Compazine) promethazine 12.5 mg tablet 12.5 mg PO Q6H PRN Nausea 09/07/24 11/05/24 ondansetron HCl 8 mg tablet 8 mg PO BID Nausea 09/29/24 11/05/24 pantoprazole 40 mg tablet,delayed 40 mg PO BID 09/29/24 11/05/24 release potassium chloride 10 mEq 10 meq PO DAILY 09/29/24 11/05/24 tablet,extended release sucralfate 100 mg/mL oral 10 ml PO ACHS 09/29/24 11/05/24 suspension prednisone 10 mg tablet 10 mg PO DIRECTED 11/05/24 11/05/24 Previous Rx's Medication Instructions Recorded lorazepam 1 mg tablet 1 mg PO BID PRN Anxiety #30 tabs 09/04/23 venlafaxine 150 mg 150 mg PO QPM #90 caps 05/23/24 capsule,extended release 24 hr venlafaxine 75 mg capsule,extended 75 mg PO QPM #90 caps 05/23/24 release 24 hr famotidine 20 mg tablet 20 mg PO BID #60 tabs 08/21/24 Results & Data (ED) Vital Signs Vital Signs - 24 hr 11/05/24 12:28 11/05/24 12:53 11/05/24 13:34 Temperature 36.8 C Temperature Source Temporal Artery Scan Pulse Rate 98 H 89 Pulse Rate [Apical] Respiratory Rate 20 Respiratory Effort / Characteristics Non-Labored Spontaneous Respiratory Depth Normal Respiratory Pattern Blood Pressure 93/63 L Blood Pressure [Right Arm] Blood Pressure Mean 73 Blood Pressure Mean [Right Arm] Blood Pressure Position [Right Arm] Pulse Oximetry 98 96 Oxygen Delivery Method Room Air Room Air Sepsis Recent Fever Within 48 Hours No Sepsis New/Unexplained Change in Mental Status No Sepsis Action Taken by Nursing No Action Required 11/05/24 13:34 11/05/24 15:00 11/05/24 16:00 Temperature 37.0 C Temperature Source Oral Pulse Rate Pulse Rate [Apical] 86 93 H 94 H Respiratory Rate 18 20 20 Respiratory Effort / Characteristics Non-Labored Spontaneous Non-Labored Spontaneous Non-Labored Spontaneous Respiratory Depth Normal Normal Normal Respiratory Pattern Regular Regular Blood Pressure Blood Pressure [Right Arm] 96/68 L 98/72 L 107/65 Blood Pressure Mean Blood Pressure Mean [Right Arm] 77 80 79 Blood Pressure Position [Right Arm] Semi-fowlers Semi-fowlers Pulse Oximetry 96 94 96 Oxygen Delivery Method Room Air Room Air Room Air Sepsis Recent Fever Within 48 Hours Sepsis New/Unexplained Change in Mental Status Sepsis Action Taken by Nursing 11/05/24 17:00 11/05/24 17:02 11/05/24 18:22 Temperature Temperature Source Pulse Rate 97 H Pulse Rate [Apical] 105 H 94 H Respiratory Rate 20 18 Respiratory Effort / Characteristics Non-Labored Spontaneous Respiratory Depth Normal Respiratory Pattern Regular Blood Pressure Blood Pressure [Right Arm] 103/64 103/70 Blood Pressure Mean Blood Pressure Mean [Right Arm] 77 81 Blood Pressure Position [Right Arm] Semi-fowlers Semi-fowlers Pulse Oximetry 95 93 Oxygen Delivery Method Room Air Room Air Sepsis Recent Fever Within 48 Hours Sepsis New/Unexplained Change in Mental Status Sepsis Action Taken by [facility] Medications Current Medication List: was personally reviewed by me Laboratory Data Attestation: I reviewed the patient's lab results. Administered Medications Magnesium Sulfate/Dextrose (Magnesium Sulfate / D5w) 1 gm in 100 mls @ 50 mls/hr IV Q2H JAMES Stop: 11/05/24 20:44 Last Admin: 11/05/24 18:25 Dose: 50 mls/hr Documented By: EMILIANO Discontinued Medications Sodium Chloride (Nss) 1,000 mls @ 999 mls/hr IV .Q1H1M ONE Stop: 11/05/24 13:50 Last Infusion: 11/05/24 13:59 Dose: Infused Documented By: Admin: 11/05/24 12:58 Dose: 999 mls/hr Documented By: ARCHANA Magnesium Sulfate/Dextrose (Magnesium Sulfate / D5w) 1 gm in 100 mls @ 100 mls/hr IV NOW STA Stop: 11/05/24 13:49 Last Infusion: 11/05/24 13:58 Dose: Infused Documented By: Admin: 11/05/24 12:58 Dose: 100 mls/hr Documented By: ARCHANA Potassium Chloride (K Cash / Wtr) 20 meq in 100 mls @ 50 mls/hr IV ONE ONE Stop: 11/05/24 14:49 Last Infusion: 11/05/24 16:11 Dose: Infused Documented By: EMILIANO Co-signed By: KEVIN Admin: 11/05/24 14:02 Dose: 50 mls/hr Documented By: HELEN Co-signed By: ARCHANA Promethazine HCl (Phenergan) 6.25 mg in 50.25 mls @ 201 mls/hr IV NOW STA Stop: 11/05/24 16:30 Last Infusion: 11/05/24 17:48 Dose: Infused Documented By: Admin: 11/05/24 16:20 Dose: 201 mls/hr Documented By: EMILIANO Sodium Chloride (Nss) 500 mls @ 999 mls/hr IV .Q31M ONE Stop: 11/05/24 16:46 Last Infusion: 11/05/24 17:48 Dose: Infused Documented By: Admin: 11/05/24 16:19 Dose: 999 mls/hr Documented By: EMILIANO Potassium Chloride (K Cash / Wtr) 10 meq in 100 mls @ 100 mls/hr IV Q1H JAMES Stop: 11/05/24 18:44 Last Admin: 11/05/24 18:26 Dose: 100 mls/hr Documented By: EMILIANO Piperacillin Sod/Tazobactam Sod (Zosyn) 4.5 gm in 100 mls @ 200 mls/hr IV ONE ONE; Protocol Stop: 11/05/24 17:14 Last Admin: 11/05/24 18:24 Dose: 200 mls/hr Documented By: EMILIANO Ioversol (Optiray 320 100ml) 94 ml IV ONCE ONE Stop: 11/05/24 13:56 Last Admin: 11/05/24 13:55 Dose: 94 ml Documented By: EDK Imaging Data Radiologist's Impression: Abdomen/Pelvis CT 11/05/24 12:50 CT OF THE ABDOMEN AND PELVIS WITH CONTRAST CLINICAL HISTORY: worsening transaminitis, liver mets, eval biliary. Breast cancer. COMPARISON STUDY: CT of the abdomen and pelvis October 27, 2024. Right upper quadrant ultrasound October 27, 2024. PET/CT October 13, 2024. TECHNIQUE: Following IV administration of 94 mL of Optiray, axial images of the abdomen and pelvis were obtained from the lung bases to the proximal femurs. Images were reviewed in the axial, sagittal, and coronal planes. IV contrast was administered without complication. Automated exposure control was utilized for the study. A dose lowering technique was utilized adhering to the principles of ALARA. CT DOSE: 597.91 mGy.cm FINDINGS: A few small groundglass opacities within the lower lungs are present. A small left pleural effusion is unchanged since CT of October 27, 2024. There is no pneumatosis, free air or portal venous gas. Heterogeneity of the liver parenchyma is noted. There is slight nodularity of the liver surface. Numerous small hypodense hepatic lesions measure up to 1.3 cm. These appear similar to CT of October 27, 2024. The main, left and right portal veins are patent. There is borderline biliary ductal dilatation with possible narrowing of the distal common bile duct. Spleen, adrenal glands, kidneys and pancreas are unremarkable. Is no hydronephrosis. Gastric wall thickening is again noted. There is no evidence for a bowel obstruction. The gallbladder is distended. This is unchanged. A small amount of abdominal and major vasculature is patent. Numerous skeletal lesions are similar appearance to prior CT. No pathologic fractures are identified. IMPRESSION: 1. Heterogeneous liver parenchyma with numerous small hepatic lesions, similar to CT of October 27, 2024. These are consistent with metastases. Pseudocirrhosis cannot be excluded. 2. Borderline biliary ductal dilatation with possible narrowing of the distal common bile duct. Findings could be correlated with obstructive liver function tests. 3. Increase in small amount of abdominal and pelvic ascites since prior exam. Redemonstration of peritoneal/omental nodularity consistent with metastatic disease. 4. No significant change in appearance of skeletal metastases. 5. Gastric wall thickening, similar to prior exam. This could represent gastritis. Metastatic disease could appear similar. ACT 112: Negative or not required by law. Electronically signed by: Jesús Knapp M.D. 11/05/2024 2:27 PM Discharge Plan Visit Data Chief Complaint: Recheck/Abnormal Lab/Rx Stated Complaint: VOMIT, LIVER FUNCTIONING, BLOOD COUNT ED Provider: Sukhdeep Mckeon Discharge Problem: Obstructive jaundice due to cancer, Anemia, Thrombocytopenia, Hyperbilirubinemia, Cancer, metastatic to liver Forms Stand Alone Forms: My [facility] [place] Prescriptions Prescriptions: No Action valacyclovir [Valtrex] 1 gram tablet 2,000 mg PO BID PRN (Reason: Rash) venlafaxine 150 mg capsule,extended release 24hr 150 mg PO QPM Qty: 90 3RF venlafaxine 75 mg capsule,extended release 24hr 75 mg PO QPM Qty: 90 3RF Rx Instructions: add to 150 mg Xgeva 120 mg/1.7 mL (70 mg/mL) solution 125 mg subcut .qmonth Patient Comments: last dose December 30, none till after dos 01/23/24 lorazepam 1 mg tablet 1 mg PO BID PRN (Reason: Anxiety) Qty: 30 0RF promethazine 12.5 mg tablet 12.5 mg PO Q6H PRN (Reason: Nausea) Rx Instructions: takes if other 2 meds doesnt work. olanzapine 2.5 mg tablet 2.5 mg PO QPM prochlorperazine maleate [Compazine] 10 mg tablet 10 mg PO BID GemCarbo 1 dose IV DIRECTED Rx Instructions: 2 weeks on, 1 week off. CHEMO cyanocobalamin (vitamin B-12) 1,000 mcg/mL Solution 1,000 mcg IM MONTHLY potassium chloride 10 mEq tablet extended release 10 meq PO DAILY pantoprazole 40 mg tablet,delayed release (DR/EC) 40 mg PO BID sucralfate 100 mg/mL suspension 10 ml PO ACHS ondansetron HCl 8 mg tablet 8 mg PO BID MDD 24 MG Rx Instructions: per pt she takes bid famotidine 20 mg Tablet 20 mg PO BID Qty: 60 0RF prednisone 10 mg tablet 10 mg PO DIRECTED Referrals Referrals: Ganesh Lovell MD [Primary Care Provider] - Discharge Problem: Anemia Qualifiers: Anemia type: unspecified type Qualified Code(s): D64.9 - Anemia, unspecified
[2024-11-05] MEDS: SODIUM CHLORIDE 0.9% 1,000 ML IV ONE (12:58)
[2024-11-05] MEDS: MAGNESIUM SULFATE / D5W 1 GM/100 ML BAG IV STA (12:58)
[2024-11-05] MEDS: OPTIRAY 320 100ml IV ONE (13:55)
[2024-11-05] MEDS: POTASSIUM CHLORIDE / WTR 20 MEQ/100 ML PLCT IV ONE (14:02)
--- NOTE | 2024-11-05 14:30 | CT Scan Report ---
CT OF THE ABDOMEN AND PELVIS WITH CONTRAST CLINICAL HISTORY: worsening transaminitis, liver mets, eval biliary. Breast cancer. COMPARISON STUDY: CT of the abdomen and pelvis October 27, 2024. Right upper quadrant ultrasound October 27, 2024. PET/CT October 13, 2024. TECHNIQUE: Following IV administration of 94 mL of Optiray, axial images of the abdomen and pelvis we re obtained from the lung bases to the proximal femurs. Images were reviewed in the axial, sagittal, and coronal planes. IV contrast was administered without complication. Automated exposure control wa s utilized for the study. A dose lowering technique was utilized adhering to the principles of ALARA . CT DOSE: 597.91 mGy.cm FINDINGS: A few small groundglass opacities within the lower lungs are present. A small left pleural effusion is unchanged since CT of October 27, 2024. There is no pneumatosis, free air or portal venous g as. Heterogeneity of the liver parenchyma is noted. There is slight nodularity of the liver surface. Numerous small hypodense hepatic lesions measure up to 1.3 cm. These appear similar to CT of October 27, 2024. The main, left and right portal veins are patent. There is borderline biliary ductal dilatatio n with possible narrowing of the distal common bile duct. Spleen, adrenal glands, kidneys and pancrea s are unremarkable. Is no hydronephrosis. Gastric wall thickening is again noted. There is no evidenc e for a bowel obstruction. The gallbladder is distended. This is unchanged. A small amount of abdomin al and major vasculature is patent. Numerous skeletal lesions are similar appearance to prior CT. No pathologic fractures are identified. IMPRESSION: 1. Heterogeneous liver parenchyma with numerous small hepatic lesions, similar to CT of October 27, 2024 . These are consistent with metastases. Pseudocirrhosis cannot be excluded. 2. Borderline biliary ductal dilatation with possible narrowing of the distal common bile duct. Findi ngs could be correlated with obstructive liver function tests. 3. Increase in small amount of abdominal and pelvic ascites since prior exam. Redemonstration of glenys toneal/omental nodularity consistent with metastatic disease. 4. No significant change in appearance of skeletal metastases. 5. Gastric wall thickening, similar to prior exam. This could represent gastritis. Metastatic disease could appear similar. ACT 112: Negative or not required by law. Electronically signed by: Jesús Knapp M.D. 11/05/2024 2:27 PM
--- NOTE | 2024-11-05 15:35 | Gastrointestinal Consultation ---
Date of Consultation November 05, 2024 Assessment & Plan (1) Metastatic cancer: 64 year old female with history of metastatic breast cancer to bone/stomach on carboplatin/gemcitabine, cardiomyopathy, hypotension, GERD, anxiety and others below who presented to the ED w/ abnormal labs w/ severe thrombocytopenia at 15 and elevated transaminases of Tbili 8.5, AST 164, ALT 76, ALKP 360. CT w/ numerous small hepatic lesions consistent with metastases, pseudocirrhosis and borderline biliary ductal dilatation with possible narrowing of the distal common bile duct. Complex case given the metastasis to stomach. As she is afebrile without leukocytosis and severe thrombocytopenia no plan for ERCP unless urgently indicated. Recommend supportive measures for now. No current indication for ABX from a GI standpoint. Will follow clinically. Consider transfer to tertiary center given the complexity of her case. I spent a total of 60 minutes on the date of service in review of patient's record, and previously obtained information in person and appropriate medical visit, discussion and education of plan, with patient and/or caregiver, placing orders for tests/referral/procedures as medically necessary and documentation of pertinent clinical information in patient's medical records for their visit today.Thank you for allowing us to participate in the care of this patient. Please call with any acute changes, questions or concerns. Please see addendum below with additional recommendation from my supervising physician. Supervising Physician Co-Signing Physician Notes I personally saw and examined the patient. I have reviewed the chart and agree with the documentation provided by the BISQUE CLEANER including discussion about the assessment, treatment and plan. Briefly, 64 year old female with history of metastatic breast cancer to bone/stomach on carboplatin/gemcitabine, cardiomyopathy, hypotension, GERD, anxiety and others below who presented to the ED w/ abnormal labs w/ severe thrombocytopenia at 15 and elevated transaminases of Tbili 8.5, AST 164, ALT 76, ALKP 360. CT w/ numerous small hepatic lesions consistent with metastases, pseudocirrhosis and borderline biliary ductal dilatation with possible narrowing of the distal common bile duct. Complex case given the metastasis to stomach. She appears to have some ductal dilatation but is not clear to me that all of her hyperbilirubinemia is from extrahepatic obstruction. She really cannot eat anything and I suspect this is from impaired gastric accommodation and relaxation of her stomach because it is infiltrated with cancer we did see that on the EGD in September. While she is here, we need to address her nutrition issue because she has not eaten for 2 months per her and her she just is getting IV fluids and liquids at home. Last few days liquids are coming up as well. I think she needs TPN. Issue #2, can we get an MRCP to get a roadmap and see how dilated her ducts are. She appears to have a fair amount of liver mets and this alone could be causing some of the hyperbilirubinemia. I do think she would be better suited to do an ERCP at a tertiary care facility and I spoke to the family about this. They will agree to [facility] and we can consider a transfer on Friday. History of Present Illness Reason for Consultation: ERCP Requesting Physician: Dr. Mckeon Attending Physician: Dr. Mckeon History of Present Illness 64 year old female with history of metastatic breast cancer to bone/stomach on carboplatin/gemcitabine, cardiomyopathy, hypotension, GERD, anxiety and others below who presented to the ED w/ abnormal labs. GI was asked to evaluate for ERCP. Pt was seen and evaluated, chart reviewed. She notes she started to notices some yellowing to her skin/eyes about 1-2 weeks ago. She denies abd pain but she does report emesis. Bilious. No report of black or bloody emesis. Denies black or bloody stools. No fever, chills, CP, SOB. WBC 10 HGB 10 PLT 53 --> 21 --> 15 Tbili 8.5 AST 164 ALT 76 ALKP 360 CTAP 2024: 1. Heterogeneous liver parenchyma with numerous small hepatic lesions, similar to CT of October 27, 2024. These are consistent with metastases. Pseudocirrhosis cannot be excluded.2. Borderline biliary ductal dilatation with possible narrowing of the distal common bile duct. Findings could be correlated with obstructive liver function tests.3. Increase in small amount of abdominal and pelvic ascites since prior exam. Redemonstration of peritoneal/omental nodularity consistent with metastatic disease.4. No significant change in appearance of skeletal metastases.5. Gastric wall thickening, similar to prior exam. This could represent gastritis. Metastatic disease could appear similar. Allergies Allergy/AdvReac Type Severity Reaction Status Date / Time No Known Allergies Allergy Verified 10/29/24 07:09 Home Medications Medication Instructions Recorded Confirmed Type denosumab 120 mg/1.7 mL (70 mg/mL) 125 mg subcut .qmonth 12/13/22 11/05/24 History subcutaneous solution (Xgeva) cyanocobalamin (vitamin B-12) 1,000 mcg IM MONTHLY 12/16/22 11/05/24 History 1,000 mcg/mL injection solution lorazepam 1 mg tablet 1 mg PO BID PRN Anxiety #30 tabs 09/04/23 11/05/24 Rx valacyclovir 1 gram tablet 2,000 mg PO BID PRN Rash 10/09/23 11/05/24 History (Valtrex) venlafaxine 150 mg 150 mg PO QPM #90 caps 05/23/24 11/05/24 Rx capsule,extended release 24 hr venlafaxine 75 mg capsule,extended 75 mg PO QPM #90 caps 05/23/24 11/05/24 Rx release 24 hr famotidine 20 mg tablet 20 mg PO BID #60 tabs 08/21/24 11/05/24 Rx GemCarbo 1 dose IV DIRECTED 09/07/24 11/05/24 History olanzapine 2.5 mg tablet 2.5 mg PO QPM 09/07/24 11/05/24 History prochlorperazine maleate 10 mg 10 mg PO BID Nausea 09/07/24 11/05/24 History tablet (Compazine) promethazine 12.5 mg tablet 12.5 mg PO Q6H PRN Nausea 09/07/24 11/05/24 History ondansetron HCl 8 mg tablet 8 mg PO BID Nausea 09/29/24 11/05/24 History pantoprazole 40 mg tablet,delayed 40 mg PO BID 09/29/24 11/05/24 History release potassium chloride 10 mEq 10 meq PO DAILY 09/29/24 11/05/24 History tablet,extended release sucralfate 100 mg/mL oral 10 ml PO ACHS 09/29/24 11/05/24 History suspension prednisone 10 mg tablet 10 mg PO DIRECTED 11/05/24 11/05/24 History Patient History Medical History Hypokalemia RUQ abdominal pain Vomiting Chest discomfort Medial meniscus tear Body, loose, knee Hamstring strain Knee instability Epidermoid cyst Mass of left axilla per pt, biopsied and found to be benign Metastatic disease History of chemotherapy Doxetaxel and Cyclophosphamide x4 cycles Herceptin x1 year Letrozole with Ibrance started 09/2020 Xgeva Breast cancer metastasized to bone 2019 breast ca (new primary) with mets to spine at time of diagnosis History of postoperative nausea and vomiting can drink apple juice afterward, if drinks water, starts throwing up History of COVID-13 Jul 2023; not hospitalized; no ongoing sx COPD (chronic obstructive pulmonary disease) "mild" per pt > no inhalers Lung nodule, multiple just monitoring, " PET scans are showing they are gone" per pt Hiatal hernia "large" per pt Thoracic compression fracture T5, treated with radiation for pain in October 2023, "the pain comes and goes" Sacral fracture Jul 2023 > no pain now Leukopenia follows with Heme/Onc Osteoarthritis DDD (degenerative disc disease) Anemia follows with Heme/Onc History of breast cancer 2008 L breast: tx with lumpectomy, XRT, chemo; dx of new primary 2019 (with mets to bone at time of diagnosis): tx with oral chemo, XRT (also had L axillary LN dissection) Bipolar disorder Anxiety and depression Snores no apnea dx, no device History of back problems known mets in spine causing pain: T1, T5, T6, T7, T10 BRCA gene mutation negative Polymyalgia rheumatica saw Rheum; per pt no specific dx given; was tx with short course of oral steroids and sx resolved Rheumatoid arthritis saw Rheum; per pt no specific dx given; was tx with short course of oral steroids and sx resolved Surgical History S/P left knee arthroscopy Port-A-Cath in place (08/16/24) Insertion Access Port with Flouroscopy(Left) - Freddie Vivas DO H/O left knee surgery arthroscopy Hx of left cataract extraction History of right cataract extraction History of esophagogastroduodenoscopy (EGD) History of surgery removal of port-A-cath 2009 Hx of colonoscopy S/P wisdom tooth extraction History of biopsy (09/2020) Left Axillary Lymph Nodes History of biopsy (09/21/20) Right Breast H/O lumpectomy Left Breast (2008 and 2009) Family History Mother , Passed Age 74 Breast cancer, Onset Age: 46 COPD (chronic obstructive pulmonary disease) Hypertension Grandmother (Maternal) , Passed Age 75 Breast cancer Grandmother (Paternal) , Passed Age 45 Breast cancer, Onset Age: 42 due to complication of Breast Cancer Aunt Breast cancer Uncle Diabetes Bone cancer Myocardial infarction Father , Passed Age 92 Prostate cancer, Onset Age: 60 COPD (chronic obstructive pulmonary disease) Cancer Hypertension Aunt Breast cancer Aunt Breast cancer Brother Diabetes Thyroid disorder Brother Skin cancer Sister PONV (postoperative nausea and vomiting) Thyroid disorder Son No problems noted. 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 Physical Exam Constitutional: WD/WN, vitals as above Respiratory: normal respiratory effort Cardiovascular: Rate/Rhythm: regular rate Gastrointestinal (Abdomen): Inspection/Auscultation: normal bowel sounds Percussion/Palpation: abdomen soft; abdomen nontender Skin: no rashes, warm and dry Results & Data Vital Signs (Past 12 Hours) Vital Signs Temp Pulse Pulse Resp BP BP Pulse Ox 11/05/24 15:00 93 H 20 98/72 L 94 11/05/24 13:34 86 18 96/68 L 96 11/05/24 13:34 96 11/05/24 12:53 89 11/05/24 12:28 98.2 F 98 H 20 93/63 L 98 O2 Del Method 11/05/24 15:00 Room Air 11/05/24 13:34 Room Air 11/05/24 13:34 Room Air 11/05/24 12:53 11/05/24 12:28 Room Air PG Care Time/CCT Total # of Minutes Spent Total Time Spent with Patient: Total time spent is greater than 50% in coordination of care (as documented) at patient's floor/unit and/or counseling patient: Coding Level of Care Code 28646 IN/OBS CONSULT LVL 4,60M Diagnoses Metastatic cancer C78.7 Area of secondary neoplastic involvement: digestive structure Digestive structure secondary neoplasm location: metastatic to liver (1) Metastatic cancer Area of secondary neoplastic involvement: digestive structure Digestive structure secondary neoplasm location: metastatic to liver Qualified Code(s): C78.7 - Secondary malignant neoplasm of liver and intrahepatic bile duct
[2024-11-05] MEDS: SODIUM CHLORIDE 0.9% 500 ML IV ONE (16:19)
[2024-11-05] MEDS: PROMETHAZINE 6.25 MG/50.25 ML BAG IV STA (16:20)
[2024-11-05] MEDS ORDERED: ONDANSETRON INJ 2 MG/ML 2 ML VIAL IV PRN (16:34)
--- NOTE | 2024-11-05 16:53 | History & Physical Report ---
Date of Service November 05, 2024 Assessment & Plan (1) Obstructive jaundice due to cancer: Plan: Assessment: 1. Obstructive jaundice secondary to malignancy. GI consulted. N.p.o. after midnight. Tentative plans for ERCP in the morning. Thrombocytopenia noted. I do not know the GIs threshold for ERCP. I am going to type and cross the patient in the morning. If her platelet count would be below 50 we would probably recommend platelet transfusion prior to ERCP. 2. Grossly abnormal liver function studies secondary to #1. 3. Widely metastatic breast carcinoma to the bone liver and stomach. Under active chemotherapy. 4. Anemia. 6.92 days ago. Had blood transfusion now 10.0. Monitor. This is chemotherapy-induced. 5. Thrombocytopenia. Chemotherapy induced. Had steroids and an additional injection yesterday. Had steroids today. Recheck platelet count in the morning. Type and screen and anticipate probable need for platelet transfusion perioperatively. 6. Probably electrolyte abnormality. Includin. Hypokalemia. 2.7. 20 mill equivalents potassium chloride given in the ER. Have ordered an additional 20 mill equivalents potassium chloride intravenously. 2. Borderline hypomagnesemia. 1.7. With a concomitant hypokalemia, we will give 2 g of magnesium sulfate IV x 1. Plan: As described above. Please refer to orders for further planning. History of Present Illness Chief Complaint: Abnormal liver function studies, jaundice Primary Care Provider: Ganesh Lovell MD This is a pleasant 64-year-old female who is well-known to me from previous admission specifically October 2024 with a history of widely metastatic breast carcinoma to the bone and stomach. She is under active chemotherapy treatment. The patient has developed jaundice had outpatient laboratory studies done today which were grossly abnormal. Patient had a hemoglobin of 10. On November 03 it was 6.9 she was transfused. Platelet count of 15,000. She has recently received steroid therapy the last 2 days. Potassium level noted to be 2.7. Magnesium level noted to be 1.7. Renal function studies unremarkable. Liver function studies grossly abnormal with a total bilirubin of 8.5 with a direct bilirubin of 4.4 with an AST ALT of 164 and 76 respectively with an alkaline phosphatase of 360 and lactate dehydrogenase of 635. CT of the abdomen pelvis demonstrated a heterogeneous liver parenchyma with numerous hepatic lesions. This was stable since October. Consistent with metastatic disease. There is borderline biliary ductal dilatation with possible narrowing of the distal common bile duct. Findings consistent with obstructive jaundice. There was small amount of intrapelvic ascites. Redemonstration of multiple peritoneal and omental metastatic lesions. With gastric wall thickening unchanged from prior exam. Course in the emergency department she received some promethazine. 1.5 L of normal saline. 20 mEq potassium chloride IV. Blood cultures were obtained. GI was consulted and planning for ERCP in the morning. We were contacted to entertain admission for GI consultation as above. We have ordered 2 g of magnesium sulfate. We have ordered an additional 20 mill equivalents potassium chloride. We have starting IV Zosyn. The patient is borderline hypotensive with blood pressures 90s over 60s. Borderline tachycardic heart rate 94. Allergies Allergy/AdvReac Type Severity Reaction Status Date / Time No Known Allergies Allergy Verified 10/29/24 07:09 Home Medications Medication Instructions Recorded Confirmed Type denosumab 120 mg/1.7 mL (70 mg/mL) 125 mg subcut .qmonth 12/13/22 11/05/24 History subcutaneous solution (Xgeva) cyanocobalamin (vitamin B-12) 1,000 mcg IM MONTHLY 12/16/22 11/05/24 History 1,000 mcg/mL injection solution lorazepam 1 mg tablet 1 mg PO BID PRN Anxiety #30 tabs 09/04/23 11/05/24 Rx valacyclovir 1 gram tablet 2,000 mg PO BID PRN Rash 10/09/23 11/05/24 History (Valtrex) venlafaxine 150 mg 150 mg PO QPM #90 caps 05/23/24 11/05/24 Rx capsule,extended release 24 hr venlafaxine 75 mg capsule,extended 75 mg PO QPM #90 caps 05/23/24 11/05/24 Rx release 24 hr famotidine 20 mg tablet 20 mg PO BID #60 tabs 08/21/24 11/05/24 Rx GemCarbo 1 dose IV DIRECTED 09/07/24 11/05/24 History olanzapine 2.5 mg tablet 2.5 mg PO QPM 09/07/24 11/05/24 History prochlorperazine maleate 10 mg 10 mg PO BID Nausea 09/07/24 11/05/24 History tablet (Compazine) promethazine 12.5 mg tablet 12.5 mg PO Q6H PRN Nausea 09/07/24 11/05/24 History ondansetron HCl 8 mg tablet 8 mg PO BID Nausea 09/29/24 11/05/24 History pantoprazole 40 mg tablet,delayed 40 mg PO BID 09/29/24 11/05/24 History release potassium chloride 10 mEq 10 meq PO DAILY 09/29/24 11/05/24 History tablet,extended release sucralfate 100 mg/mL oral 10 ml PO ACHS 09/29/24 11/05/24 History suspension prednisone 10 mg tablet 10 mg PO DIRECTED 11/05/24 11/05/24 History Past Med/Surg History Problem List (Updated 11/05/24 @ 16:48 by Dong Baca, PhD, ) Obstructive jaundice due to cancer Obstructive jaundice Anemia (Acute) Elevated bilirubin (Acute) Metastatic cancer (Acute) Symptomatic anemia MCCLURE (dyspnea on exertion) (Acute) Hypokalemia (Acute) Generalized weakness (Acute) Breast cancer metastasized to bone dx'd 2019 - Ibranz, Letrozole, Xgeva + radiation (spine, rt hip) Emphysematous COPD Gastric mass Hypotension Cardiomyopathy GERD (gastroesophageal reflux disease) Acute respiratory failure with hypoxia History of vascular access device 2009 placed; has since been removed Intractable nausea and vomiting (Acute) Dysphagia Cholelithiasis Echocardiogram abnormal Left knee DJD Internal derangement of knee Sacral fracture (08/02/23) from a fall Lung nodule, multiple Thoracic compression fracture (08/02/23) Compression fracture of T5 vertebra-from a fall Hiatal hernia Arthritis Anemia (Acute) Degenerative disc disease, thoracic Leukopenia Proctocolitis Neutropenia Gallbladder calculus (Acute) Anxiety Medical History Hypokalemia RUQ abdominal pain Vomiting Chest discomfort Medial meniscus tear Body, loose, knee Hamstring strain Knee instability Epidermoid cyst Mass of left axilla per pt, biopsied and found to be benign Metastatic disease History of chemotherapy Doxetaxel and Cyclophosphamide x4 cycles Herceptin x1 year Letrozole with Ibrance started 09/2020 Xgeva Breast cancer metastasized to bone 2019 breast ca (new primary) with mets to spine at time of diagnosis History of postoperative nausea and vomiting can drink apple juice afterward, if drinks water, starts throwing up History of COVID-13 Jul 2023; not hospitalized; no ongoing sx COPD (chronic obstructive pulmonary disease) "mild" per pt > no inhalers Lung nodule, multiple just monitoring, " PET scans are showing they are gone" per pt Hiatal hernia "large" per pt Thoracic compression fracture T5, treated with radiation for pain in October 2023, "the pain comes and goes" Sacral fracture Jul 2023 > no pain now Leukopenia follows with Heme/Onc Osteoarthritis DDD (degenerative disc disease) Anemia follows with Heme/Onc History of breast cancer 2008 L breast: tx with lumpectomy, XRT, chemo; dx of new primary 2019 (with mets to bone at time of diagnosis): tx with oral chemo, XRT (also had L axillary LN dissection) Bipolar disorder Anxiety and depression Snores no apnea dx, no device History of back problems known mets in spine causing pain: T1, T5, T6, T7, T10 BRCA gene mutation negative Polymyalgia rheumatica saw Rheum; per pt no specific dx given; was tx with short course of oral steroids and sx resolved Rheumatoid arthritis saw Rheum; per pt no specific dx given; was tx with short course of oral steroids and sx resolved Surgical History S/P left knee arthroscopy Port-A-Cath in place (08/16/24) Insertion Access Port with Flouroscopy(Left) - Freddie Vivas DO H/O left knee surgery arthroscopy Hx of left cataract extraction History of right cataract extraction History of esophagogastroduodenoscopy (EGD) History of surgery removal of port-A-cath 2009 Hx of colonoscopy S/P wisdom tooth extraction History of biopsy (09/2020) Left Axillary Lymph Nodes History of biopsy (09/21/20) Right Breast H/O lumpectomy Left Breast (2008 and 2009) Family History Mother , Passed Age 74 Breast cancer, Onset Age: 46 COPD (chronic obstructive pulmonary disease) Hypertension Grandmother (Maternal) , Passed Age 75 Breast cancer Grandmother (Paternal) , Passed Age 45 Breast cancer, Onset Age: 42 due to complication of Breast Cancer Aunt Breast cancer Uncle Diabetes Bone cancer Myocardial infarction Father , Passed Age 92 Prostate cancer, Onset Age: 60 COPD (chronic obstructive pulmonary disease) Cancer Hypertension Aunt Breast cancer Aunt Breast cancer Brother Diabetes Thyroid disorder Brother Skin cancer Sister PONV (postoperative nausea and vomiting) Thyroid disorder Son No problems noted. Denies family history of Ovarian cancer Colorectal cancer Uterine cancer Social History Smoking Status: Unknown if ever smoked Tobacco Type: Cigarettes Age Started Using Tobacco: 17; Age Quit Using Tobacco: 28; packs per day: 1; Second Hand Exposure: No; Do You Dip or Chew Tobacco: No; Hx Alcohol Use: No Hx Substance Use: No Preferred Language: Ukrainian Communication Ability: Effective Visual Impairment: No Limitations Hearing Ability: Normal Prison Teacher Required: No Beliefs That Will Affect Care: None marital status: Current Living Situation: Spouse current occupational status: employed 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 Physical Exam Physical Exam: In General: In general very pleasant 64-year-old female who is accompanied by her her brother and her [id number] at the time of my exam. She is not in any acute distress interacts appropriately and pleasantly. She has obvious jaundice on gross inspection. HEENT: Normocephalic atraumatic pupils are equal round and reactive to light bilaterally. Positive for bilateral scleral icterus. No conjunctival injection external auditory canals are patent septum is in the midline nose is without discharge oral mucosa is pink and moist without lesion. Chemotherapy-induced alopecia noted NECK: Supple no rigidity no lymphadenopathy no thyromegaly no carotid bruits no JVD no masses. HEART: Regular rate and rhythm I do not appreciate any ectopy or rub. No murmur. [id number] noted in the left upper chest wall which is currently accessed. LUNGS: Clear to auscultation bilaterally and anteriorly with no evidence of adventitious sounds/wheezes rales or rhonchi. ABDOMEN: Soft, mild tenderness. Mostly suprapubic. No real right upper quadrant tenderness. No appreciable organomegaly or abdominal bruits. EXTREMITIES: Intact, no peripheral cyanosis, clubbing or edema. Strength is 5 out of 5 in extremities x4.. NEUROLOGICAL: Cranial nerves II through XII are grossly intact with no focal deficit elicited upon examination. Results & Data Results & Data Vital Signs (Past 12 Hours) Vital Signs Temp Pulse Pulse Resp BP BP Pulse Ox 11/05/24 16:00 37.0 C 94 H 20 107/65 96 11/05/24 15:00 93 H 20 98/72 L 94 11/05/24 13:34 86 18 96/68 L 96 11/05/24 13:34 96 11/05/24 12:53 89 11/05/24 12:28 36.8 C 98 H 20 93/63 L 98 O2 Del Method 11/05/24 16:00 Room Air 11/05/24 15:00 Room Air 11/05/24 13:34 Room Air 11/05/24 13:34 Room Air 11/05/24 12:53 11/05/24 12:28 Room Air Code Status & VTE Plan Code Status DNR/DNI. Discussed with patient at bedside. These were her wishes in October when we admitted her and these remain her wishes but she does consent for general anesthesia and ERCP if indicated. VTE Prophylaxis Plan VTE Prophylaxis will be ordered: Yes PG Care Time/CCT Total # of Minutes Spent Total Time Spent with Patient: Total time spent is greater than 50% in coordination of care (as documented) at patient's floor/unit and/or counseling patient: Coding Level of Care Code 60794 INT INP/OBS CARE 3/75MIN Diagnoses Obstructive jaundice due to cancer K83.1; C80.1
[2024-11-05] MEDS: PIPERACILLIN/TAZOBACTAM 4.5 GM/100 ML BAG IV ONE (18:24)
[2024-11-05] MEDS: MAGNESIUM SULFATE / D5W 1 GM/100 ML BAG IV SCH (18:25)
[2024-11-05] MEDS: POTASSIUM CHLORIDE / WTR 10 MEQ/100 ML PLCT IV SCH (18:26)
--- OUTSIDE RECORDS SUMMARY | 2024-11-05 19:20 | External Medical Summary | Summary of Care ---
Author Name Unknown Organization [facility] Address [address] [place] [address] Phone [phone] Care Team Providers Care Field Service Tech Name Role Phone Ganesh Maloney MD [facility] Care Provider Encounter Details Date Type Department Care Team (Late st Contact Info) Description 10/26/2024 11:30 AM EST [facility] [place] [address] Berna Turk, RN [address] [facility] [place] [address] Metastatic adenocarcinoma to stomach (HCC)* Allergies No known active allergiesdocumented as of this encounter (statuses as of 11/05/2024) Medications LORazepam 1 MG Oral Tablet (Ativan) Take 1 Tablet by mouth. As needed 09/26/19 21 Active oxyCODONE HCl 5 MG Oral Tablet (Oxy IR) Take 1 Tablet by mouth every 8 hours as needed. Active Venlafaxine HCl 75 MG Oral Tablet (Effexor) Take 1 Tablet by mouth in the morning. Active Xgeva 120 MG/1.7ML Subcutaneous Solution (Denosumab) Inject 120 mg under the skin Every Month. Active Cyanocobalamin 1000 MCG/ML Injection Solution (Cyanocobalamin) Inject 1 mL into a large muscle every 30 days. Active Venlafaxine HCl ER 150 MG Oral Capsule Extended Release 24 Hour (Effexor XR) Take 1 Capsule by mouth daily. Active fentaNYL 12 MCG/HR Transdermal Patch 72 Hour (Duragesic) Place 1 Patch topically on the skin every 3 days. Active Ondansetron 4 MG Oral Tablet Disintegrating (Zofran) Dissolve 1 Tablet on tongue every 8 hours as needed for Nausea. 30 Tablet 1 4 3:31 PM EST 08/12/20 24 Active Additional Information Patient taking differently: 8 mgOn Tongue Q8H PRN, Nausea, Reported on 10/11/2024 Famotidine 20 MG Oral Tablet (Pepcid) Take 1 Tablet by mouth in the morning and 1 Tablet before bedtime. Active Prochlorperazine Maleate 10 MG Oral Tablet (Compazine) Take 1 Tablet by mouth every 6 hours as needed for Nausea. Active OLANZapine 2.5 MG Oral Tablet (zyPREXA) Take 1 Tablet by mouth at bedtime. Only takes for 4 days over chemo tx Active Promethazine HCl 12.5 MG Oral Tablet (Phenergan) Take 1 Tablet by mouth every 6 hours as needed for Nausea. Active Docusate Sodium 250 MG Oral Capsule Take 1 Capsule by mouth at bedtime. 30 Capsule 09/09/19 25 Active Pantoprazole Sodium 40 MG Oral Tablet Delayed Release (Protonix) Take 1 Tablet by mouth in the morning and 1 Tablet before bedtime. 30 minutes before the first meal of the day. Do not crush, split or chew the tablet. 09/29/19 25 Active Sucralfate 1 GM/10ML Oral Suspension (Carafate) Take 10 mL by mouth in the morning and 10 mL at noon and 10 mL in the evening. Take before meals. 09/29/19 25 Active Sodium Chloride Flush 0.9 % Intravenous SolutionIndication s:Metastatic adenocarcinoma to stomach (HCC),Port-A-Cath in place Administer 10 mL intravenously 2 times a day as needed for Other (flush). Flush PORT before and after IV administration. Single use syringe: discard after use. Do not start before October 07, 2024. 00989 mL 5 3:25 PM EDT 10/07/19 25 026 Active Heparin Na (Pork) Lock Flsh PF 100 UNIT/ML Intravenous SolutionIndication s:Metastatic adenocarcinoma to stomach (HCC),Port-A-Cath in place Administer 5 mL intravenously 2 times a day as needed for Other (Flush). Flush PORT after IV administration, following saline flush. Flush daily when PORT is accessed but not in use. Single use syringe: discard after use. Do not start before October 07, 2024. 5000 mL 5 3:25 PM EDT 10/07/19 026 Active Sodium Chloride 0.9 % Intravenous SolutionIndication s:Metastatic adenocarcinoma to stomach (HCC),Port-A-Cath in place Administer 1,000 mL at 500 mL/hr over 2 hours intravenously as needed (1-2 times a week as needed for nausea/dehydratio n after chemotherapy). Do not start before October 07, 2024. 56824 mL 5 3:25 PM EDT 10/07/19 025 Active Potassium Chloride Hortencia ER 20 MEQ Oral Tablet Extended Release Take 1 Tablet by mouth in the morning. Active Hospital, Clinic, or Other Facility Administered Medication Ordered Dose Route Frequency Start Date End Date Status NSS 0.9% 1,000 mL bolus infusionIndications:Nausea and vomiting, unspecified vomiting type 1000 mL IV PRN 10/06/2024 Active ondansetron (Zofran) inj 4 mgIndications:Metastatic adenocarcinoma to stomach (HCC) 4 mg IV PUSH DAILY PRN 10/26/2024 Active documented as of this encounter (statuses as of 11/05/2024) Active Problems Problem Noted Date Diagnosed Date Anemia 09/28/2024 Assessment & Plan (09/29/2024 11:55 AM EST): Monitored regularly Occasionally requires transfusions Anxiety and depression 09/28/2024 Assessment & Plan (09/29/2024 11:55 AM EST): Continue effexor Breast cancer metastasized to bone 09/28/2024 Assessment & Plan (09/29/2024 11:55 AM EST): Diagnosed 2019, hx of left breast cancer 2008 s/p lumpectomy and chemoradiation Goes to [facility] and Dr. Kowalski is oncologist Continue ibrance and letrozole Labs tomorrow, treatment and oncology f/u Thursday Xgeva starting in october, on hold due to dental work Degenerative disc disease, thoracic 09/28/2024 Gastroesophageal reflux disease 09/28/2024 Assessment & Plan (09/29/2024 11:55 AM EST): Continue pantoprazole, pepcid Neutropenia 09/28/2024 Assessment & Plan (09/29/2024 11:55 AM EST): Reports on "injection to boost white blood cells", unsure of medication Primary malignant neoplasm of breast 09/28/2024 Metastatic adenocarcinoma to stomach 09/28/2024 Assessment & Plan (09/29/2024 11:55 AM EST): Follows with oncology CINV (chemotherapy-induced nausea and vomiting) 08/30/2024 Assessment & Plan (09/29/2024 11:55 AM EST): Continue alternating zofran and compazine Could consider zyprexa daily, will discuss with oncology Port-A-Cath in place 08/16/2024 Assessment & Plan (09/29/2024 11:55 AM EST): Will work on obtaining supplies for IV fluids if needed History of polymyalgia rheumatica Primary malignant neoplasm of breast with metast asis Overview (12/26/2020): multiple bone mets documented as of this encounter (statuses as of 11/05/2024) Immunizations Name Administration Dates Next Due COVID-19 mRNA, LNP-s, No Pre serve, 2-Dose Series ([facility]) 12/21/2020,12/01/2020 documented as of this encounter Social History Tobacco Use Types Packs/Day Years Used Date Smoking Tobacco: Former Cigarettes Smokeless Tobacco: Never Alcohol Use Standard Drinks/Week Comments Not Currently 0 (1 standard drink = 0.6 oz pur e alcohol) Hunger Vital Sign Answer Date Recorded Within the past 12 months, y ou worried that your food would run out before you got the money to buy more. Never true 08/27/19 25 Within the past 12 months, t he food you bought just didn't last and you didn't have money to get more. Never true 08/27/2024 Childcare Answer Date Recorded Do you feel overwhelmed with taking care of a child, family member or friend? No 08/27/2024 Does your family need help f inding childcare? (Household - for ages 0-17 years) Not on file 08/27/2024 Clothing Answer Date Recorded Have you been unable to get clothing when it was really needed? No 08/27/2024 Is your family able to get c lothes or diapers when needed? (Household - for ages 0-17 years) Not on file 08/27/2024 Personal Safety Answer Date Recorded Do you feel unsafe or have concerns for your saf ety? No 08/27/2024 Do you have concerns for you r family's safety? (Household - for ages 0-17 years) Not on file 08/27/2024 Utilities Answer Date Recorded Do you have trouble paying y our heating, water, or electric bill? No 08/27/2024 Is your family able to pay t he heat, water, or electric bill? (Household - for ages 0-17 years) Not on file 08/27/2024 Does your family have access to good internet? (Household - for ages 0-17 years) Not on file 08/27/2024 Employment Status Answer Date Recorded Are you unemployed or without regular income? No 08/27/2024 Does the household have a re gular source of income? (Household - for ages 0-17 years) Not on file 08/27/2024 Social Connections Answer Date Recorded How often do you feel lonely or isolated from th ose around you? Never 08/27/2024 Financial Resource Strain Answer Date R ecorded Do you have any trouble payi ng for your medications, or do you think you might in the future? No 08/27/2024 Does your family have troubl e paying for medicine? (Household - for ages 0-17 years) Not on file 08/27/2024 Transportation Needs Answer Date Record ed Do you have trouble getting a ride to medical visits or work? (Adult - for ages 18 years and over) Not on file 08/27/2024 Does your family have a hard time getting a ride to doctors visits? (Household - for ages 0-17 years) Not on file 08/27/2024 Has lack of transportation k ept you from medical appointments, meetings, work, or from getting things needed for daily living? Check all that apply. No 08/27/2024 Do you (or your family) have trouble finding or paying for a ride (transportation)? (Household - for ages 0-17 years) Not on file 08/27/2024 Housing Stability Answer Date Recorded Do you currently live in a s helter or have no steady place to sleep at night? No 08/27/2024 Do you think you are at risk of becoming homeless? (Adult - for ages 18 years and over) Not on file 08/27/2024 Does your family worry about paying for your home or becoming homeless? (Household - for ages 0-17 years) Not on file 0 08/27/2024 Are you homeless or worried that you might be in the future? No 08/27/2024 Are you (or your family) neva eless or worried that you might be in the future? (Household - for ages 0-17 years) Not on file Food Insecurity Answer Date Recorded Do you need food for this week? No 08/27/2024 Are you able to get enough f ood for your family? (Household - for ages 0-17 years) Not on file 08/27/2024 Does your family need food t his week? (Household - for ages 0-17 years) Not on file 08/27/2024 Do you always have enough fo od for your family? (Household - for ages 0-17 years) Not on file 08/27/2024 Food Insecurity Answer Date Recorded Within the past 12 months, y ou worried that your food would run out before you got the money to buy more. Never true 08/27/19 25 Within the past 12 months, t he food you bought just didn't last and you didn't have money to get more. Never true 08/27/2024 Do you need food for this week? No 08/27/2024 Comments No Sex and Gender Information Value Date Recorded Sex Assigned at Female 08/11/2024 2:30 PM EST Legal Sex Female 9:55 AM EST Gender Identity Female 08/11/2024 2:30 PM EST Sexual Orientation Not on file documented as of this encounter Last Filed Vital Signs Vital Sign Reading Time Taken Comments Blood Pressure 100/64 10/26/2024 11:34 AM EST Pulse 90 10/26/2024 11:34 AM EST Temperature 36.3 C (97.3 F) 10/26/2024 11:[address] Respiratory Rate 18 10/26/2024 11:34 AM EST Oxygen Saturation 97% 10/26/2024 11:34 AM EST Inhaled Oxygen Concentration - - Weight - - Height - - Body Mass Index - - documented in this encounter Progress Notes * Berna Turk RN - 10/26/2024 11:10 AM EST Current Concerns: Pt seen for HOWIE Admitted to [facility] 10/20 - 10/22/24 for anemia Pt reports she had bloodwork done prior to her scheduled chemo last week and she had a Hgb of 4 BP was also very low at 80/50 Received 3 units of PRBC's in hospital She reports she was doing okay over the weekend but today she is not feeling well, no energy, not able to eat or drink Had vomited yesterday, still has nausea today No med changes Will be having labs done weekly but not starting chemo again until end of month Left chest port accessed and flushed with NSS IV Zofran 4mg administered then started IV 1L NSS infusing at 500ml per hour will flush following administration and leave port accessed - pt is going tomorrow to have labs drawn Physical Exam: Physical Exam Constitutional: Appearance: She is ill-appearing. Cardiovascular: Rate and Rhythm: Regular rhythm. Pulses: Normal pulses. Heart sounds: Normal heart sounds. Pulmonary: Effort: Pulmonary effort is normal. Breath sounds: Normal breath sounds. Abdominal: Palpations: Abdomen is soft. Skin: General: Skin is warm and dry. Coloration: Skin is pale. Neurological: Mental Status: She is alert and oriented to person, place, and time. Review of Systems: Review of Systems Constitutional: Positive for fatigue. HENT: Negative. Respiratory: Negative. Cardiovascular: Negative. Gastrointestinal: Positive for nausea. Genitourinary: Negative. Skin: Negative. Neurological: Positive for weakness (general). Psychiatric/Behavioral: Positive for sleep disturbance. Care Plan Goal Progress: Orders Placed: No orders of the defined types were placed in this encounter. Medications Given: Care Gaps: Care Gaps Care gaps closed this contact: Home based procedures;Education;Medications;Plan of Care (POC) (10/26/24 1206) Type of education: Clinical/disease (10/26/24 120) Procedure performed: IV hydration;IV medication (10/26/24 1206) Type of medication care gap: Medication optimization (10/26/24 120) Type of plan of care (POC) care gap: Adjustment of plan of care (POC) and/or Integrated Care Plan (ICP);Education and review of exacerbation plan (10/26/24 120) documented in this encounter Plan of Treatment Upcoming Encounters Date Type Department Care Team (Late st Contact Info) Description 11/16/2024 10:00 AM EDT [facility] [address] [address] Sukhdeep Hartman PA-C [address] [place] [address] 11/24/2024 9:30 AM EDT [facility] [address] [address] [address] Berna Turk RN [address] [place] [address] Health Maintenance Due Date Last Done Comments Depression Monitoring 1972 HIV Screening 1975 Hepatitis C Screening 1978 DTap/Tdap Vaccines (1 - Tdap) 1979 Pneumococcal Vaccine: 50+ Years (1 of 2 - PCV) 1979 Pap Smear 1981 Cervical Cancer Screening [...] exists Influenza Vaccine (FLU shot) Completed , 06/17/2024, 05/23/2022, Additional history exists HPV (Gardasil) Vaccine Aged Out No lo nger eligible based on patient's age to complete this topic Hepatitis B Vaccine Aged Out No longe r eligible based on patient's age to complete this topic MENINGOCOCCAL (MENACTRA/MENVEO) Aged Out No longer eligible based on patient's age to complete this topic Meningitis B Vaccine (Bexsero/Trumemba) Aged Out No longer eligible based on patient's age to complete this topic documented as of this encounter Medical Devices Not on filedocumented as of this encounter Visit Diagnoses Diagnosis Carcinoma of right breast metastatic to bone (HCC)- Primary Metastatic adenocarcinoma to stomach (HCC) 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 CINV (chemotherapy-induced nausea and vomiting) Nausea with vomiting Chemotherapy-induced neutropenia (HCC) Drug induced neutropenia Port-A-Cath in place Other postprocedural status Anemia, unspecified type Anxiety and depression Dysthymic disorder Gastroesophageal reflux disease, unspecified whether esophagitis present Advanced care planning/counseling discussion Other specified counseling Metastatic adenocarcinoma to stomach (HCC)- Primary 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
--- OUTSIDE RECORDS SUMMARY | 2024-11-05 19:20 | External Medical Summary | Summary of Care ---
Author Name Unknown Organization [facility] Address [address] [place] [address] Phone [phone] Care Team Providers Care Roller Print Tender Name Role Phone [facility] Provider Reason for Visit * Reason Onset Date Comments [facility]: Maintenance 11/03/2024 Encounter Details Date Type Department Care Team (Late st Contact Info) Description 11/03/2024 Telephone [facility] [address] [place] [facility] [place] [address] Reina Klein, RN [address] [place] [address] [facility]: Maintenance Allergies No known active allergiesdocumented as of this encounter (statuses as of 11/03/2024) Medications LORazepam 1 MG Oral Tablet (Ativan) [...] Do not start before October 07, 2024. 30802 mL 5 3:25 PM EDT 10/07/19 25 [...] 5000 mL 5 3:25 PM EDT 10/07/19 25 026 Active Sodium Chloride 0.9 % Intravenous SolutionIndication s:Metastatic adenocarcinoma to stomach (HCC),Port-A-Cath in place Administer 1,000 mL at 500 mL/hr over 2 hours intravenously as needed (1-2 times a week as needed for nausea/dehydratio n after chemotherapy). Do not start before October 07, 2024. [address]672 mL 5 3:25 PM EDT 10/07/19 025 [...] as of this encounter (statuses as of 11/03/2024) Active Problems Problem Noted Date Diagnosed Date Anemia 09/28/2024 Assessment & Plan (09/29/2024 11:55 AM EST): Monitored regularly Occasionally requires transfusions Anxiety and depression 09/28/2024 Assessment & Plan (09/29/2024 11:55 AM EST): Continue effexor Breast cancer metastasized to bone 09/28/2024 Assessment & Plan (09/29/2024 11:55 AM EST): Diagnosed 2019, hx of left breast cancer 2008 s/p lumpectomy and chemoradiation Goes to [facility] and Dr. Kowalski is oncologist Continue ibrance and letrozole Labs tomorrow, treatment and oncology f/u Xgeva starting in october, on hold due [...] as of this encounter (statuses as of 11/03/2024) Immunizations Name Administration Dates Next Due COVID-19 mRNA, LNP-s, No Pre serve, 2-Dose Series ([employer]) 12/21/2020,12/01/2020 documented as of this encounter Social [...] encounter Miscellaneous Notes * Telephone Encounter - Reina Klein RN - 11/03/2024 4:05 PM EDT PC received from pt. She is cx HV for tomorrow for IV hydration due to needing a blood transfusion tomorrow and labs thefollowing day. Pt feels ok and she is ok with cx HV. Pt advised to call for HV for IV hydration when she feesl she needs it. Reina Klein RN GA Intake [phone] documented in this encounter Plan of Treatment Upcoming Encounters Date Type Department Care Team (Late st Contact Info) Description 11/16/2024 10:00 AM EDT [facility] [address] [place] [address] Sukhdeep Hartman PA-C [address] [place] [address] 11/24/2024 9:30 AM EDT [facility] [address] [place] [address] Berna Turk RN [address] [place] [address] Health Maintenance Due Date Last Done Comments [...] filedocumented as of this encounter Care Teams Roller Print Tender Relationship Specialty Start Date End Date Ganesh Maloney MD [address] [address] PCP - General Internal Medicine 12/26/20 documented as of this encounter
[2024-11-05] MEDS ORDERED: LORazepam 1 MG TAB PO PRN (20:26)
[2024-11-05] MEDS ORDERED: valACYclovir HCL 500 MG TABLET PO PRN (20:26)
[2024-11-05] MEDS: SUCRALFATE 1 GM/10 ML UDC PO SCH (21:06)
[2024-11-05] MEDS: ONDANSETRON 8MG OD TAB PO SCH (21:06)
[2024-11-05] MEDS: VENLAFAXINE HCL XR 75 MG CAPXR PO SCH (21:06)
[2024-11-05] MEDS: PROCHLORPERAZINE MALEATE 10 MG TAB PO SCH (21:07)
[2024-11-05] MEDS: FAMOTIDINE 20 MG TAB PO SCH (21:07)
[2024-11-05] MEDS: VENLAFAXINE HCL XR 150 MG CAPXR PO SCH (21:07)
[2024-11-05] MEDS: OLANZAPINE 2.5 MG TAB PO SCH (21:07)
[2024-11-05] MEDS: PANTOprazole 40 MG TAB PO SCH (21:07)
[2024-11-05] MEDS: PROMETHAZINE 6.25 MG/50.25 ML BAG IV ONE (21:10)
--- NOTE | 2024-11-05 21:58 | Electrocardiogram Report ---
Test Reason : Blood Pressure : */* mmHG Vent. Rate : 89 BPM Atrial Rate : 89 BPM P-R Int : 116 ms QRS Dur : 80 ms QT Int : 370 ms P-R-T Axes : 7 28 29 degrees QTcB Int : 450 ms Normal sinus rhythm Normal ECG When compared with ECG of 20-Oct-2024 16:10, Premature ventricular complexes are no longer Present Nonspecific T wave abnormality no longer evident in Anterior leads Confirmed by Ra Avila [id number]) on 11/05/2024 9:58:18 PM Referred By: REFERRED SELF Confirmed By: Ra Avila
[2024-11-05] MEDS: PIPERACILLIN/TAZOBACTAM 4.5 GM/100 ML BAG IV SCH (22:18)
[2024-11-06 04:35] LABS: Albumin Globulin Ratio 1.1 (0.9-2); Albumin Level 2.5 gm/dl (3.4-5.0); BUN Creatinine Ratio 60.5 (10-20); Bilirubin,Total 5.9 mg/dl (0.2-1.0); Calcium 8.1 mg/dl (8.6-10.3); Chol HDL Ratio 10.9 (0-5); Creatinine Clr Calc Pharmacy 123.7 ml/min; Globulin 2.2 gm/dl (2.5-4.0); Potassium 3.3 mmol/L (3.5-5.1); Total Protein 4.7 gm/dl (6.0-8.3)
[2024-11-06 04:44] LABS: INR 1.4 (0.9-1.1); Prothrombin Time 14.8 Seconds (9.0-12.0)
[2024-11-06 04:48] LABS: Thyroid Stimulating Hormone 1.249 uIu/ml (0.300-4.500)
[2024-11-06 04:58] LABS: Anisocytosis Present; Basophils # (auto) 0.02 K/uL (0.00-0.20); Basophils % (auto) 0.2 %; Eosinophils # (auto) 0.06 K/uL (0.00-0.50); Eosinophils % (auto) 0.7 %; Hematocrit (blood only) 20.3 % (37.0-47.0); Hemoglobin 7.2 g/dl (12.0-16.0); Immature Granulocytes # (auto) 0.69 K/uL (0.01-0.20); Immature Granulocytes % (auto) 7.9 %; Lymphocytes # (auto) 0.55 K/uL (1.20-3.40); Lymphocytes % (auto) 6.3 %; Mean Corpuscular Hemoglobin 29.3 pg (25.0-34.0); Mean Corpuscular Hgb Conc 35.5 g/dL (32.0-36.0); Mean Corpuscular Volume 82.5 fL (80.0-100.0); Monocytes # (auto) 0.44 K/uL (0.11-0.59); Neutrophils # (auto) 6.97 K/uL (1.40-6.50); Neutrophils % (auto) 79.9 %; Nucleated RBC # (auto) 0.09 K/uL (0.00-0.12); Platelet Count 12 K/uL (130-400); Polychromasia 1+; RDW Coefficient of Variation 22.5 % (11.5-14.5); Red Blood Count 2.46 M/uL (4.20-5.40); White Blood Count 8.73 K/ul (4.8-10.8)
[2024-11-06] MEDS: POTASSIUM CHLORIDE 10 MEQ TABCR PO SCH (09:12)
--- NOTE | 2024-11-06 09:51 | Gastroenterology Progress Note ---
Date of Service November 06, 2024 Assessment & Plan (1) Cancer, metastatic to liver: Plan: Patient has metastatic breast cancer. Appears to have large disease burden and aggressive disease. She has bone marrow disease. And symptomatic anemia and severe thrombocytopenia. There is question of biliary dilatation on her CT. MRCP was to be ordered though I do not think that is been done. Will review with hospitalist service. I think oncology should be involved. [place] discussions in regards to likelihood of further chemotherapy being of benefit should be discussed. ERCP not likely to be accomplished with obstruction at the antrum which would not even accommodate a normal forward-viewing endoscope. She would not be a good candidate for PTC based on disease in the liver and low platelets. Patient also has problems with nutrition again likely related to gastric outlet obstruction. Options to use the GI tract are limited here. Nasogastric tube potentially could be placed though risk of significant bleeding from her nose and inability to pass beyond the antrum with her known disease here is likely. She is not a candidate for PEG tube. Also unlikely to be a candidate for a jejunostomy tube with ascites peritoneal carcinomatosis and low platelets. At this point I think the only good option if it is required would be TPN. (2) Hyperbilirubinemia: (3) Thrombocytopenia: (4) Gastric mass: Admission and Anticipated Discharge Date Admission Date: November 05, 2024 Subjective Elevated liver enzymes Feeding difficulties Metastatic breast cancer Patient with large disease burden with evidence of metastases to the bone the abdominal cavity and liver. Liver enzymes have been increasing. There is imaging to suggest some level of biliary dilatation. CT questions obstruction at the distal common bile duct. There is also significant intrahepatic disease. Liver enzymes have improved overnight. Bilirubin is improved from 8.5-5.9. Alk phos from 3 60-2 74. Patient is unable to tolerate any p.o. She is also has significant drop in her hemoglobin and has required transfusions as an outpatient however she has no signs for gastrointestinal bleeding. Her vomitus is previously eaten or ingested liquids. Her bowel movements are brown. Review of previous endoscopic reports including the EGD and endoscopic u ltrasound show obstruction at the level of the antrum. With infiltrative disease. Neither scope was be able to advance beyond the antrum Oncology has not currently seen the patient. Review of Systems Review of Systems: Progressive weight loss 30 pounds in the last month or so Denies shortness of breath or chest pain. No fevers or chills. GI as noted above. Physical Exam Physical Exam: Thin frail appearing female. Alert and orientated x 3. Vital stable and afebrile. Patient has a lowish BP at 96 and 61. Heart rate is 106. Abdomen mildly protuberant. Minimal tenderness throughout. Bowel sounds present. Results & Data Results & Data Vital Signs (Past 12 Hours) Vital Signs Temp Pulse Pulse Pulse Resp BP Pulse Ox 11/06/24 09:05 106 H 91 11/06/24 08:33 36.4 C L 104 H 12 97/61 L 90 11/06/24 05:43 106 H 11/06/24 04:08 36.7 C 104 H 16 94/59 L 92 11/05/24 23:11 36.6 C 94 H 18 104/68 92 11/05/24 21:57 99 H O2 Del Method 11/06/24 09:05 Room Air 11/06/24 08:33 Room Air 11/06/24 05:43 11/06/24 04:08 Room Air 11/05/24 23:11 Room Air 11/05/24 21:57 PG Care Time/CCT Total # of Minutes Spent Total Time Spent with Patient: Total time spent is greater than 50% in coordination of care (as documented) at patient's floor/unit and/or counseling patient: Coding Level of Care Code 78947 SUB INP/OBS CARE 09/18MIN Diagnoses Cancer, metastatic to liver C78.7 Hyperbilirubinemia E80.6 Thrombocytopenia D69.6 Gastric mass K31.89
[2024-11-06] MEDS: PROMETHAZINE 6.25 MG/50.25 ML BAG IV STA (10:04)
[2024-11-06] MEDS: HEPARIN 100 UNIT/ML 5ML FLUSH FLUSH PRN (10:23)
--- NOTE | 2024-11-06 11:34 | Magnetic Resonance Report ---
HISTORY: Nausea and vomiting. History of breast cancer with spine mets and stomach mets. TECHNIQUE: Multiplanar multiecho MR imaging of the abdomen utilizing an MRCP protocol.3D rotating MIP reconstructions. COMPARISON: CT of the abdomen and pelvis dated 10/27/2024. FINDINGS: Diffuse hepatic metastatic disease. There is moderate ascites, which is likely malignant. Cholelithiasis. No significant gallbladder wall thickening. The gallbladder is mildly distended. Chandan cholecystic fluid is nonspecific in the setting of ascites. No significant biliary ductal dilation. Common bile duct measures 6 mm in diameter and tapers normally. The pancreatic duct is not dilated. The pancreas is unremarkable. The adrenal glands and kidneys are unremarkable. The spleen is unremarkable. Moderate left and small right pleural effusions. Normal heart size IMPRESSION: 1. Cholelithiasis. Mild gallbladder distention. No gallbladder wall thickening. Pericholecystic fluid is nonspecific in the setting of ascites. 2. No intra or extrahepatic biliary ductal dilation. Common bile duct measures 0.6 cm in diameter and tapers normally. No pancreatic ductal dilation. 3. Diffuse hepatic metastatic disease. Moderate abdominal ascites is likely malignant. 4. Moderate left and small right pleural effusions. Electronically signed by Gary Ward 11-06-2024 11:33 AM
[2024-11-06] MEDS: DEXTROSE 5% 1,000 ML IV SCH (12:53)
--- NOTE | 2024-11-06 14:53 | Hospitalist Progress Note ---
"Date of Service November 06, 2024 Assessment & Plan (1) Obstructive jaundice due to cancer: (2) Thrombocytopenia: (3) Anemia: (4) Breast cancer metastasized to bone: Plan Divya is a 64-year-old female with a past medical history of metastatic breast cancer (to bone and stomach), anxiety and depression who presents for abnormal outpatient laboratory studies. She follows with CCP, Dr. Kowalski, however was recently referred to [facility] for tertiary care. Abnormal labs included increasing LFTs, and low electrolytes. CT A/P showed liver metastasis, pseudocirrhosis cannot be excluded, borderline biliary dilatation and possible narrowing of the common bile duct, increase in abdominal/pelvic ascites. #Obstructive jaundice secondary to malignancy | Metastatic breast cancer LFTs improving, still elevated. Continue to trend. Tbili now 5.9 GI consulted - MRCP without obstruction, would like for oncology to weigh in. No ERCP at this time Onc Consulted - primary oncologist (dr. Kowalski) on service Wednesday 11/08, plan for discussion then if remains stable No indication for infection, Zosyn discontinued Discussed with patient possible procedures she may need in the near future, the need to have a reliable way to get nutrition. She is unsure if she would want superintendent terminal artificial nutrition/feeding tube. Has not meet with [facility] Onc yet, unsure how likely next type of chemo is to help her. Plan for discussion with Onc Friday, possible palliative consult vs transfer pending results of discussion. AM CBC, CMP, INR #thrombocytopenia/anemia - likely secondary to chemotherapy Received 2u PRBCs 11/04. Hgb 7.2 today, continue to trend Platelets 12 today - no active bleeding. continue to trend Suspect if patient needs procedure, will need transfusion prior #Electrolyte abnormalities K 2.7 on admission, improved to 3.3. Add KCl to fluids Mag given IV, recheck AM #dehydration | poor PO intake Unable to eat for the last week. Receives NSS 2x/week Start D5/ 1/2 NSS + KCL Phenergran PRN PO for nausea. Continue pepcid , carafate, protonix, compazine sheduled, zofran scheduled Mental health - continue effexor, zyprexa Dispo: Continued inpatient stay, trending labs, awaiting oncology evaluation DVT prophylaxis: chemical deferred with low platelets, encourage ambulation, SCDs Admission and Anticipated Discharge Date Admission Date: November 05, 2024 Subjective patient seen earlier this morning, had not been seen by the GI team at this time. States that she had a blood transfusion 2 days ago. Has not started chemotherapy or oncology evaluation at [place]. Denies any abdominal pain. Has not been able to eat solid food in about a week, Phenergan works best for her. Has been getting normal saline twice a week with home health. Discussed with the GI team, Dr. Ward. It is going to be most important to decide her plan of care based on the idea of how successful we think this new chemotherapy regimen is going to be. If there is a low chance that is going to improve her disease process, especially the mass in her stomach, invasive procedures with her low blood counts are very risky that will likely not improve her quality of life. I spoke with on-call oncologist, Dr. Sifuentes, unfortunately he is not her primary oncologist. Dr. Kowalski comes back on service on Friday and Dr. Sifuentes is asked if this discussion can wait until then. As of right now the patient is stable and LFTs are downtrending so we will plan for discussion with Dr. Kowalski on Friday, unless clinical status changes Revisited patient later this morning after MRCP results. Patient states that this morning was the first time that she has ever discussed a feeding tube/artificial nutrition, she is not sure if she would want this long-term. She looks to her to make large decisions and he will be in this afternoon. She seems to understand that we would be able to increase her platelets in the short-term with transfusions but this could be risky long-term as they continue to drop if she were to have a feeding tube in place. She r ealizes that feeding tube placement would be quite difficult given her obstruction and abdominal ascites, leaving her options quite limited. She is in agreement for watchful waiting until we can speak to Dr. Kowalski Review of Systems Review of Systems: All systems reviewed & are unremarkable except as noted in Subjective Physical Exam Physical Exam: General: NAD, VS as above, fatigued, cachectic Resp: normal respiratory effort, lungs clear to auscultation CV: RRR, no murmur, Abd: normal bowel sounds, soft, Extremities: Moves all extremities, Neuro: A&O x3, Results & Data Results & Data Vital Signs (Past 12 Hours) Vital Signs Temp Pulse Pulse Pulse Resp BP Pulse Ox 11/06/24 11:17 98.1 F 108 H 16 94/64 L 94 11/06/24 09:05 106 H 91 11/06/24 08:33 97.5 F L 104 H 12 97/61 L 90 11/06/24 08:08 11/06/24 05:43 106 H 11/06/24 04:08 98.1 F 104 H 16 94/59 L 92 O2 Del Method 11/06/24 11:17 Room Air 11/06/24 09:05 Room Air 11/06/24 08:33 Room Air 11/06/24 08:08 Room Air 11/06/24 05:43 11/06/24 04:08 Room Air Laboratory Results CBC, chemistry, LFTs reviewed INR reviewed Lipids reviewed Diagnostic Findings MRCP reviewed PG Care Time/CCT Total # of Minutes Spent Total Time Spent with Patient: Total time spent is greater than 50% in coordination of care (as documented) at patient's floor/unit and/or counseling patient: Coding Level of Care Code 97500 SUB INP/OBS CARE 3/50MIN Diagnoses Obstructive jaundice due to cancer K83.1; C80.1 Thrombocytopenia D69.6 Anemia D64.9 Anemia type: unspecified type Breast cancer metastasized to bone C50.919; C79.51 (3) Anemia Anemia type: unspecified type Qualified Code(s): D64.9 - Anemia, unspecified"
[2024-11-06] MEDS: PROMETHAZINE 6.25 MG/50.25 ML BAG IV PRN (22:27)
[2024-11-07] MEDS ORDERED: ACETAMINOPHEN 1,000 MG/100 ML VIAL IV PRN (00:11)
[2024-11-07] MEDS ORDERED: HYDROmorphone INJ 0.5 MG/0.5 ML SYR IV PRN (00:14)
[2024-11-07] MEDS: LORazepam 2 MG/1 ML VIAL IV PRN (00:26)
[2024-11-07] MEDS: ACETAMINOPHEN 1,000 MG/100 ML VIAL IV PRN (00:27)
[2024-11-07] MEDS: PANTOprazole 40 MG/10 ML SYR IV SCH (00:39)
[2024-11-07] MEDS: D5W AND 1/2NSS + 20MEQ KCL 20 MEQ/1,000 ML BAG IV SCH (01:03)
[2024-11-07 06:16] LABS: Hemoglobin 6.6 g/dl (12.0-16.0); Mean Corpuscular Hemoglobin 28.7 pg (25.0-34.0); Mean Corpuscular Hgb Conc 34.7 g/dL (32.0-36.0); Mean Corpuscular Volume 82.6 fL (80.0-100.0); Nucleated RBC # (auto) 0.09 K/uL (0.00-0.12); Nucleated RBC % (auto) 1.1 %; Platelet Count 12 K/uL (130-400); RDW Coefficient of Variation 23.5 % (11.5-14.5); White Blood Count 8.22 K/ul (4.8-10.8)
[2024-11-07 06:27] LABS: Albumin Level 2.5 gm/dl (3.4-5.0); Bilirubin,Total 6.1 mg/dl (0.2-1.0); Calcium 8.4 mg/dl (8.6-10.3); Magnesium 1.7 mg/dl (1.7-2.4); Potassium 3.2 mmol/L (3.5-5.1)
[2024-11-07 06:31] LABS: INR 1.5 (0.9-1.1); Prothrombin Time 15.3 Seconds (9.0-12.0)
[2024-11-07] MEDS ORDERED: SODIUM CHLORIDE 0.9% 100 ML IV PRN ×2 (06:31→12:07)
[2024-11-07] MEDS ORDERED: SODIUM CHLORIDE 0.9% 50 ML IV PRN ×2 (06:31→12:07)
[2024-11-07 06:33] LABS: Albumin Globulin Ratio 1.2 (0.9-2); Anisocytosis Present; BUN Creatinine Ratio 41.7 (10-20); Basophils # (auto) 0.04 K/uL (0.00-0.20); Basophils % (auto) 0.5 %; Creatinine Clr Calc Pharmacy 130.6 ml/min; Eosinophils # (auto) 0.16 K/uL (0.00-0.50); Eosinophils % (auto) 1.9 %; Globulin 2.1 gm/dl (2.5-4.0); Hypochromasia Present; Immature Granulocytes # (auto) 0.56 K/uL (0.01-0.20); Immature Granulocytes % (auto) 6.8 %; Lymphocytes # (auto) 0.55 K/uL (1.20-3.40); Lymphocytes % (auto) 6.7 %; Monocytes # (auto) 0.51 K/uL (0.11-0.59); Monocytes % (auto) 6.2 %; Neutrophils % (auto) 77.9 %; Total Protein 4.6 gm/dl (6.0-8.3)
--- NOTE | 2024-11-07 07:41 | Communication Note ---
Date of Service: November 07, 2024 await oncology input no indication for ercp No easy enteral options for feeding... TPN if needed or desired. GI signs off reconsult prn
[2024-11-07] MEDS: POTASSIUM CHLORIDE / WTR 20 MEQ/100 ML PLCT IV ONE (09:36)
[2024-11-07] MEDS ORDERED: SUCRALFATE 1 GM/10 ML UDC PO PRN (09:47)
[2024-11-07 11:04] LABS: Hematocrit (blood only) 23.9 % (37.0-47.0); Hemoglobin 8.2 g/dl (12.0-16.0)
--- NOTE | 2024-11-07 11:51 | Hospitalist Progress Note ---
"Date of Service November 07, 2024 Assessment & Plan (1) Obstructive jaundice due to cancer: (2) Thrombocytopenia: (3) Anemia: (4) Breast cancer metastasized to bone: Plan Divya is a 64-year-old female with a past medical history of metastatic breast cancer (to bone and stomach), anxiety and depression who presents for abnormal outpatient laboratory studies. She follows with CCP, Dr. Kowalski, however was recently referred to [facility] for tertiary care. Abnormal labs included increasing LFTs, and low electrolytes. CT A/P showed liver metastasis, pseudocirrhosis cannot be excluded, borderline biliary dilatation and possible narrowing of the common bile duct, increase in abdominal/pelvic ascites. #Obstructive jaundice secondary to malignancy | Metastatic breast cancer LFTs improving, still elevated. Continue to trend. Tbili now 5.9 GI consulted - MRCP without obstruction, would like for oncology to weigh in. No ERCP at this time Onc Consulted - primary oncologist (dr. Kowalski) on service Wednesday 11/08, plan for discussion then if remains stable No indication for infection, Zosyn discontinued Discussed with patient possible procedures she may need in the near future, the need to have a reliable way to get nutrition. 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 Has not meet with [facility] Onc yet, unsure how likely next type of chemo is to help her. Plan for discussion with Onc Friday, possible palliative consult vs transfer pending results of discussion. ? if able to have palliative radiation to stomach AM CBC, CMP, INR #thrombocytopenia/anemia - likely secondary to chemotherapy Received 2u PRBCs 11/04. Hgb 6.6 today - 2units PRBC ordered Platelets 12 today - no active bleeding. continue to trend Suspect if patient needs procedure, will need transfusion prior #Electrolyte abnormalities K 2.7 on admission, improved to 3.3. Add KCl to fluids K 3.3 again today - 20mg IV KCL Mag given IV, recheck AM #dehydration | poor PO intake Unable to eat for the last week. Receives NSS 2x/week Start D5/ 1/2 NSS + KCL Phenergran PRN PO/IV for nausea. PPI converted to IV. Home zofran and compazine discontinued as pt does not feel like its helping. Carafate changed to prn Mental health - continue effexor, zyprexa - as able to tolerate PO Dispo: Continued inpatient stay, trending labs, awaiting oncology evaluation DVT prophylaxis: chemical deferred with low platelets, encourage ambulation, SCDs Admission and Anticipated Discharge Date Admission Date: November 05, 2024 Supervising Physician Co-Signing Physician Notes Attending Attestation - Chart reviewed, care plan d/w SHERITA Gallagher. I agree w/ the reynoso components of her documentation. Myles Lemons MD Subjective Patient seen lying in bed, reports being tired has walked to the bathroom - denies lightheadedness or dizziness mild low back pain - declines heat pad Tele - SR PVCs 100s Review of Systems Review of Systems: All systems reviewed & are unremarkable except as noted in Subjective Physical Exam Physical Exam: General: NAD, VS as above, fatigued, cachectic, mild jaundice Resp: normal respiratory effort, lungs clear to auscultation CV: RRR, no murmur, Abd: normal bowel sounds, soft, Extremities: Moves all extremities, no LE or UE pitting edema Neuro: A&O x3, Results & Data Results & Data Vital Signs (Past 12 Hours) Vital Signs Temp Pulse Pulse Resp BP BP Pulse Ox 11/07/24 11:34 98.4 F 97 H 24 104/70 100 11/07/24 09:30 98.2 F 98 H 18 101/71 93 11/07/24 09:17 97.9 F 99 H 18 100/68 90 11/07/24 09:12 97.9 F 99 H 20 100/68 93 11/07/24 08:12 97.7 F 103 H 18 93/61 L 98 11/07/24 08:11 97.7 F 103 H 21 93/61 L 98 11/07/24 08:08 18 11/07/24 07:42 97.9 F 104 H 20 84/49 L 94 11/07/24 07:27 98.1 F 106 H 20 91/62 L 93 11/07/24 07:09 11/07/24 07:09 98.4 F 106 H 18 95/67 L 91 11/07/24 07:09 98.1 F 106 H 95/67 L 90 11/07/24 07:05 97.9 F 109 H 18 104/68 90 11/07/24 05:56 101 H 11/07/24 03:44 98.1 F 95 H 18 91/56 L 91 O2 Del Method O2 Flow Rate 11/07/24 11:34 Nasal Cannula 11/07/24 09:30 3 11/07/24 09:17 Room Air 11/07/24 09:12 3 11/07/24 08:12 3 11/07/24 08:11 Nasal Cannula 3 11/07/24 08:08 11/07/24 07:42 3 11/07/24 07:27 3 11/07/24 07:09 Nasal Cannula 3 11/07/24 07:09 Nasal Cannula 3 11/07/24 07:09 3 11/07/24 07:05 Nasal Cannula 11/07/24 05:56 11/07/24 03:44 Nasal Cannula 2 Laboratory Results cbc, chemistry and INR reviewed PG Care Time/CCT Total # of Minutes Spent Total Time Spent with Patient: Total time spent is greater than 50% in coordination of care (as documented) at patient's floor/unit and/or counseling patient: Coding Level of Care Code 81931 SUB INP/OBS CARE 3/50MIN Diagnoses Obstructive jaundice due to cancer K83.1; C80.1 Thrombocytopenia D69.6 Anemia D64.9 Anemia type: unspecified type Breast cancer metastasized to bone C50.919; C79.51 (3) Anemia Anemia type: unspecified type Qualified Code(s): D64.9 - Anemia, unspecified"
[2024-11-08 07:17] LABS: INR 1.5 (0.9-1.1); Prothrombin Time 15.7 Seconds (9.0-12.0)
[2024-11-08 07:20] LABS: Hematocrit (blood only) 32.4 % (37.0-47.0); Hemoglobin 11.2 g/dl (12.0-16.0); Mean Corpuscular Hemoglobin 28.2 pg (25.0-34.0); Mean Corpuscular Hgb Conc 34.6 g/dL (32.0-36.0); Mean Corpuscular Volume 81.6 fL (80.0-100.0); Nucleated RBC # (auto) 0.07 K/uL (0.00-0.12); Nucleated RBC % (auto) 0.7 %; Platelet Count 7 K/uL (130-400); RDW Coefficient of Variation 20.1 % (11.5-14.5); RDW Standard Deviation 52.2 fL (36.4-46.3); Red Blood Count 3.97 M/uL (4.20-5.40); White Blood Count 9.85 K/ul (4.8-10.8)
[2024-11-08 07:32] LABS: Albumin Level 2.9 gm/dl (3.4-5.0); Anion Gap 1 (3-11); Bilirubin,Total 11.4 mg/dl (0.2-1.0); Calcium 9.2 mg/dl (8.6-10.3); Carbon Dioxide 27 mmol/L (21-32); Chloride 106 mmol/L (98-107); Potassium 3.7 mmol/L (3.5-5.1); Sodium 134 mmol/L (136-145)
[2024-11-08 07:34] LABS: Alanine Aminotransferase 66 U/L (7-52); Albumin Globulin Ratio 1.2 (0.9-2); Alkaline Phosphatase 341 U/L (34-104); Aspartate Aminotransferase 172 U/L (13-39); BUN Creatinine Ratio 27.5 (10-20); Blood Urea Nitrogen 11 mg/dl (6-23); Creatinine Clr Calc Pharmacy 117.5 ml/min; Globulin 2.5 gm/dl (2.5-4.0); Glucose 117 mg/dl (70-99(Fasting)); Total Protein 5.4 gm/dl (6.0-8.3)
[2024-11-08 07:40] LABS: Acanthocytes 1+; Basophils # (auto) 0.08 K/uL (0.00-0.20); Basophils % (auto) 0.8 %; Immature Granulocytes # (auto) 0.56 K/uL (0.01-0.20); Immature Granulocytes % (auto) 5.7 %; Lymphocytes # (auto) 0.57 K/uL (1.20-3.40); Lymphocytes % (auto) 5.8 %; Monocytes # (auto) 0.44 K/uL (0.11-0.59); Monocytes % (auto) 4.5 %; Neutrophils % (auto) 80.2 %
[2024-11-08] MEDS ORDERED: SODIUM CHLORIDE 0.9% 100 ML IV PRN (07:57)
[2024-11-08] MEDS ORDERED: SODIUM CHLORIDE 0.9% 50 ML IV PRN (07:57)
[2024-11-08] MEDS: PROMETHAZINE HCL 12.5 MG/10 ML UDP PO PRN (09:00)
--- NOTE | 2024-11-08 09:46 | Oncology Consultation ---
Date of Consultation November 08, 2024 Assessment & Plan (1) Breast cancer metastasized to bone: Plan -Reasonable to transition to supportive care/hospice given continued decline in performance status, disease progression on imaging, severe cytopenias and abnormal LFTs. Will not be able to receive further chemotherapy due to declining performance status and significant cytopenias. This was discussed with patient and her .Support provided. Will sign off at this time. Please feel free to call if you have any further questions History of Present Illness Reason for Consultation: Metastatic breast cancer Attending Physician: Myles Lemons MD History of Present Illness 64-year-old female with metastatic breast cancer for which she was most recently on carboplatin/gemcitabine and was admitted due to declining performance status, nausea, vomiting, Severe thrombocytopenia and abnormal LFTs. Since admission, clinical condition has declined. Patient and have decided to transition to supportive care/hospice Allergies Allergy/AdvReac Type Severity Reaction Status Date / Time No Known Allergies Allergy Verified 10/29/24 07:09 Home Medications Medication Instructions Recorded Confirmed Type cyanocobalamin (vitamin B-12) 1,000 mcg IM MONTHLY 12/16/22 11/05/24 History 1,000 mcg/mL injection solution lorazepam 1 mg tablet 1 mg PO BID PRN Anxiety #30 tabs 09/04/23 11/05/24 Rx valacyclovir 1 gram tablet 2,000 mg PO BID PRN Rash 10/09/23 11/05/24 History (Valtrex) venlafaxine 150 mg 150 mg PO QPM #90 caps 05/23/24 11/05/24 Rx capsule,extended release 24 hr venlafaxine 75 mg capsule,extended 75 mg PO QPM #90 caps 05/23/24 11/05/24 Rx release 24 hr famotidine 20 mg tablet 20 mg PO BID #60 tabs 08/21/24 11/05/24 Rx olanzapine 2.5 mg tablet 2.5 mg PO QPM 09/07/24 11/05/24 History pantoprazole 40 mg tablet,delayed 40 mg PO BID 09/29/24 11/05/24 History release glycopyrrolate 1 mg tablet 1 mg PO TID PRN secretions #14 tabs 11/08/24 Rx (Robinul) lorazepam 2 mg/mL injection 1 mg (0.5 mL) sublingual Q4H PRN 11/08/24 Rx solution (Ativan) nausea or anxiety #25 mL morphine 10 mg/5 mL oral solution 5 mg (2.5 mL) PO Q3H PRN pain #100 11/08/24 Rx mL ondansetron 8 mg disintegrating 8 mg PO Q8H PRN nausea and 11/08/24 Rx tablet vomiting #30 tabs promethazine 12.5 mg tablet 12.5 - 25 mg (1 - 2 x 12.5 mg) PO 11/08/24 Rx Q6H PRN Nausea #30 tabs Patient History Medical History Hypokalemia RUQ abdominal pain Vomiting Chest discomfort Medial meniscus tear Body, loose, knee Hamstring strain Knee instability Epidermoid cyst Mass of left axilla per pt, biopsied and found to be benign Metastatic disease History of chemotherapy Doxetaxel and Cyclophosphamide x4 cycles Herceptin x1 year Letrozole with Ibrance started 09/2020 Xgeva Breast cancer metastasized to bone 2019 breast ca (new primary) with mets to spine at time of diagnosis History of postoperative nausea and vomiting can drink apple juice afterward, if drinks water, starts throwing up History of COVID-13 Jul 2023; not hospitalized; no ongoing sx COPD (chronic obstructive pulmonary disease) "mild" per pt > no inhalers Lung nodule, multiple just monitoring, " PET scans are showing they are gone" per pt Hiatal hernia "large" per pt Thoracic compression fracture T5, treated with radiation for pain in October 2023, "the pain comes and goes" Sacral fracture Jul 2023 > no pain now Leukopenia follows with Heme/Onc Osteoarthritis DDD (degenerative disc disease) Anemia follows with Heme/Onc History of breast cancer 2008 L breast: tx with lumpectomy, XRT, chemo; dx of new primary 2019 (with mets to bone at time of diagnosis): tx with oral chemo, XRT (also had L axillary LN dissection) Bipolar disorder Anxiety and depression Snores no apnea dx, no device History of back problems known mets in spine causing pain: T1, T5, T6, T7, T10 BRCA gene mutation negative Polymyalgia rheumatica saw Rheum; per pt no specific dx given; was tx with short course of oral steroids and sx resolved Rheumatoid arthritis saw Rheum; per pt no specific dx given; was tx with short course of oral steroids and sx resolved Surgical History S/P left knee arthroscopy Port-A-Cath in place (08/16/24) Insertion Access Port with Flouroscopy(Left) - Freddie Vivas DO H/O left knee surgery arthroscopy Hx of left cataract extraction History of right cataract extraction History of esophagogastroduodenoscopy (EGD) History of surgery removal of port-A-cath 2009 Hx of colonoscopy S/P wisdom tooth extraction History of biopsy (09/2020) Left Axillary Lymph Nodes History of biopsy (09/21/20) Right Breast H/O lumpectomy Left Breast (2008 and 2009) Family History Mother , Passed Age 74 Breast cancer, Onset Age: 46 COPD (chronic obstructive pulmonary disease) Hypertension Grandmother (Maternal) , Passed Age 75 Breast cancer Grandmother (Paternal) , Passed Age 45 Breast cancer, Onset Age: 42 due to complication of Breast Cancer Aunt Breast cancer Uncle Diabetes Bone cancer Myocardial infarction Father , Passed Age 92 Prostate cancer, Onset Age: 60 COPD (chronic obstructive pulmonary disease) Cancer Hypertension Aunt Breast cancer Aunt Breast cancer Brother Diabetes Thyroid disorder Brother Skin cancer Sister PONV (postoperative nausea and vomiting) Thyroid disorder Son No problems noted. Denies family history of Ovarian cancer Colorectal cancer Uterine cancer Social History Smoking Status: Former smoker Tobacco Type: Cigarettes Age Started Using Tobacco: 17; Age Quit Using Tobacco: 28; packs per day: 1; Second Hand Exposure: No; Do You Dip or Chew Tobacco: No; Hx Alcohol Use: No Hx Substance Use: Yes Prescribed Medications: Marijuana Last Used Substance: Days (ago) Last Used Substance Other:: 11/04/24, takes before bed Substance Use Type Other:: medicinal marijuana Preferred Language: Thai Communication Ability: Effective Visual Impairment: No Limitations Hearing Ability: Normal 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: No Beliefs That Will Affect Care: None marital status: Current Living Situation: Spouse Current Living Situation Comment: lives with current occupational status: employed 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 How many Children do You have: 1 Feels Safe at Home: Yes Childhood Exposure to Second-Hand Smoke: Yes (Siblings) Diet: regular caffeine: Yes (daily) during the past year weight has: remained stable Dental Care, Regularly: Yes Physical Activity Frequency: Does not Exercise Seatbelt Use: always Assistive Devices: Other Results & Data Vital Signs (Past 12 Hours) Vital Signs Temp Pulse Pulse Resp BP BP Pulse Ox 11/08/24 09:25 36.3 C L 115 H 22 134/61 90 11/08/24 09:08 36.7 C 128 H 18 111/69 94 11/08/24 07:59 37.2 C 110 H 16 100/66 90 11/08/24 07:25 11/08/24 07:00 98 H 11/07/24 23:50 36.6 C 109 H 16 99/65 L 90 11/07/24 22:00 92 H O2 Del Method O2 Flow Rate 11/08/24 09:25 2 11/08/24 09:08 11/08/24 07:59 Room Air 11/08/24 07:25 Room Air 11/08/24 07:00 11/07/24 23:50 Room Air 11/07/24 22:00
[2024-11-08] MEDS: LORazepam 2 MG/1 ML VIAL IV STA (10:10)
[2024-11-08 10:28] VITALS: RESP 22; TEMP 98.1; O2SAT 90
--- NOTE | 2024-11-08 10:59 | Hospitalist Progress Note ---
"Date of Service November 08, 2024 Assessment & Plan (1) Obstructive jaundice due to cancer: (2) Thrombocytopenia: (3) Anemia: (4) Breast cancer metastasized to bone: Plan Divya is a 64-year-old female with a past medical history of metastatic breast cancer (to bone and stomach), anxiety and depression who presents for abnormal outpatient laboratory studies. She follows with CCP, Dr. Kowalski, however was recently referred to [facility] for tertiary care. Abnormal labs included increasing LFTs, and low electrolytes. CT A/P showed liver metastasis, pseudocirrhosis cannot be excluded, borderline biliary dilatation and possible narrowing of the common bile duct, increase in abdominal/pelvic ascites. #Obstructive jaundice secondary to malignancy | Metastatic breast cancer LFTs improving, still elevated. Continue to trend. Tbili now 5.9 GI consulted - MRCP without obstruction, would like for oncology to weigh in. No ERCP at this time Onc Consulted - primary oncologist (dr. Kowalski) on service Wednesday 11/08, plan for discussion then if remains stable No indication for infection, Zosyn discontinued Discussed with patient possible procedures she may need in the near future, the need to have a reliable way to get nutrition. She is unsure if she would want intermediate manager artificial nutrition/feeding tube. Has not meet with [facility] Onc yet, unsure how likely next type of chemo is to help her. Plan for discussion with Onc Friday, possible palliative consult vs transfer pending results of discussion. ? if able to have palliative radiation to stomach AM CBC, CMP, INR #thrombocytopenia/anemia - likely secondary to chemotherapy Received 2u PRBCs 11/04. Hgb 6.6 today - 2units PRBC ordered Platelets 12 today - no active bleeding. continue to trend Suspect if patient needs procedure, will need transfusion prior #Electrolyte abnormalities K 2.7 on admission, improved to 3.3. Add KCl to fluids K 3.3 again today - 20mg IV KCL Mag given IV, recheck AM #dehydration | poor PO intake Unable to eat for the last week. Receives NSS 2x/week Start D5/ 1/2 NSS + KCL Phenergran PRN PO/IV for nausea. PPI converted to IV. Home zofran and compazine discontinued as pt does not feel like its helping. Carafate changed to prn Mental health - continue effexor, zyprexa - as able to tolerate PO Dispo: Continued inpatient stay, trending labs, awaiting oncology evaluation DVT prophylaxis: chemical deferred with low platelets, encourage ambulation, SCDs Admission and Anticipated Discharge Date Admission Date: November 05, 2024 Subjective Patient seen lying in bed, no family present at bedside. Patient reports that she is feeling better today but does not appear that way. Unable to tolerate PO, worsening nausea today. denies back pain but now with abdominal pain reports has not thought more about her goals of care, thoughts on artifical nutrition, wanting to speak to Dr. Dex olvera Tele 100-120s Review of Systems Review of Systems: All systems reviewed & are unremarkable except as noted in Subjective Physical Exam Physical Exam: General: NAD, VS as above, fatigued, cachectic, jaundice, appears fatigued HEENT: MM dry Resp: + accessory muscle use with abdominal muscles, on 2L NC, lungs clear to auscultation CV: tachycardic, no murmur, Abd: hypoactive bowel sound, + RUQ pain Extremities: Moves all extremities, no LE or UE pitting edema Neuro: A&O x3, Results & Data Results & Data Vital Signs (Past 12 Hours) Vital Signs Temp Pulse Pulse Resp BP BP Pulse Ox 11/08/24 10:10 98.1 F 119 H 22 110/61 90 11/08/24 09:40 98.2 F 113 H 20 106/72 91 11/08/24 09:25 97.3 F L 115 H 22 134/61 90 11/08/24 09:08 98.1 F 128 H 18 111/69 94 11/08/24 07:59 99.0 F 110 H 16 100/66 90 11/08/24 07:25 11/08/24 07:00 98 H 11/07/24 23:50 97.9 F 109 H 16 99/65 L 90 O2 Del Method O2 Flow Rate 11/08/24 10:10 2 11/08/24 09:40 2 11/08/24 09:25 2 11/08/24 09:08 11/08/24 07:59 Room Air 11/08/24 07:25 Room Air 11/08/24 07:00 11/07/24 23:50 Room Air Laboratory Results cbc, chemistry, LFTs, INR reviewwed PG Care Time/CCT Total # of Minutes Spent Total Time Spent with Patient: Total time spent is greater than 50% in coordination of care (as documented) at patient's floor/unit and/or counseling patient: Coding Diagnoses Obstructive jaundice due to cancer K83.1; C80.1 Thrombocytopenia D69.6 Anemia D64.9 Anemia type: unspecified type Breast cancer metastasized to bone C50.919; C79.51 (3) Anemia Anemia type: unspecified type Qualified Code(s): D64.9 - Anemia, unspecified"
--- NOTE | 2024-11-08 15:46 | Discharge Summary ---
"Discharge Summary Date of Service November 08, 2024 Principal Dx & Hospital Course #1 = Principal Diagnosis (1) Obstructive jaundice due to cancer: (2) Thrombocytopenia: (3) Anemia: (4) Breast cancer metastasized to bone: Plan #Obstructive jaundice secondary to malignancy | Metastatic breast cancer Divya is a 64-year-old female with a past medical history of metastatic breast cancer (to bone and stomach), anxiety and depression who presents for abnormal outpatient laboratory studies. She follows with [facility], Dr. Kowalski, however was recently referred to [facility] for tertiary care. Abnormal labs included increasing LFTs, and low electrolytes. CT A/P showed liver metastasis, pseudocirrhosis cannot be excluded, borderline biliary dilatation and possible narrowing of the common bile duct, increase in abdominal/pelvic ascites. LTTs/Tbili elevated on admission and initally improving, but now Tbili of 11. MRCP did not show obstruction. Also with low platelets and inability to tolerate PO intake, concern that she would not be able to tolerate further procedures or more agreesive chemo. GI consulted and oncology consult. Patient has decided with her family, to go home on hopsice. Hospice meds prescribed - ativan, morphine, phenergran, zofran, robinul Scopolamine patch placed prior to discharge #thrombocytopenia/anemia - likely secondary to chemotherapy. Received 2units PRBCs and one unit of platelets during her stay. #Electrolyte abnormalities - hypokalemia, given IV K. #dehydration | poor PO intake - Unable to eat for the last week. Receives NSS 2x/week prior to admission. Nausea best controlled with phenergran and ativan. Scopolamine patch placed prior to discharge. Mental health - continue effexor, zyprexa - as able to tolerate PO/ as desired Dispo: discharge to home with [facility] today Notes For Next Care Provider discharge with hospice Admission HPI Per Admitting Provider This is a pleasant 64-year-old female who is well-known to me from previous admission specifically October 2024 with a history of widely metastatic breast carcinoma to the bone and stomach. She is under active chemotherapy treatment. The patient has developed jaundice had outpatient laboratory studies done today which were grossly abnormal. Patient had a hemoglobin of 10. On November 03 it was 6.9 she was transfused. Platelet count of 15,000. She has recently received steroid therapy the last 2 days. Potassium level noted to be 2.7. Magnesium level noted to be 1.7. Renal function studies unremarkable. Liver function studies grossly abnormal with a total bilirubin of 8.5 with a direct bilirubin of 4.4 with an AST ALT of 164 and 76 respectively with an alkaline phosphatase of 360 and lactate dehydrogenase of 635. CT of the abdomen pelvis demonstrated a heterogeneous liver parenchyma with numerous hepatic lesions. This was stable since October. Consistent with metastatic disease. There is borderline biliary ductal dilatation with possible narrowing of the distal common bile duct. Findings consistent with obstructive jaundice. There was small amount of intrapelvic ascites. Redemonstration of multiple peritoneal and omental metastatic lesions. With gastric wall thickening unchanged from prior exam. Course in the emergency department she received some promethazine. 1.5 L of normal saline. 20 mEq potassium chloride IV. Blood cultures were obtained. GI was consulted and planning for ERCP in the morning. We were contacted to entertain admission for GI consultation as above. We have ordered 2 g of magnesium sulfate. We have ordered an additional 20 mill equivalents potassium chloride. We have starting IV Zosyn. The patient is borderline hypotensive with blood pressures 90s over 60s. Borderline tachycardic heart rate 94. Discharge Exam General: NAD, VS as above, fatigued, cachectic, mild jaundice Resp: on 2L, acessory muscle use CV: RRR, no murmur, Abd: normal bowel sounds, soft, RUQ pain Extremities: Moves all extremities, no LE or UE pitting edema Neuro: A&O x3, Discharge Plan Discharge Items Patient Disposition: Hospice - Home Reason For Visit: JAUNDICE Discharge Diagnosis: Metastatic breast cancer Activity: As commented below Activity Comment: as able Non-emergency contact: Specialist Call non-emergency contact if: you have any medication questions, your symptoms worsen and your pain is worsening Follow-up/Referrals: Ganesh Lovell MD [Primary Care Provider] - Diet: Regular Addtl Attending Provider Instructions: Ms. Colon, You were admitted after having abnormal outpatient labs, unfortunately they have continued to get worse while you were here demonstrating advancement of your disease process. You have decided to go home with hospice. Going forward, your hospice agency should the one you call with any medical questions. Someone will be available / to answer any questions you may have. They can prescribe medications and have nurses and providers who can come to your home when needed. You do not need to follow up with your PCP, oncologist or any other specialists at this point. Medications: * You can take your regular home medications as desired/as you are able to tolerate. The ones I think are going to provided you the most comfort or symptom relief are your Protonix (twice a day) and Zyprexa (if you are not sleeping well) * Nausea control - Phenergan oral (1st line), Zofran dissolvable (2nd line - or if unable to swallow), ativan * Pain control - Tylenol (if able to tolerate), morphine liquid * Anxiety/agitation/restlessness - take the Zyprexa if you can, otherwise Ativan can also be used * Secretions - Robinul can be used You will be returning home with hospice. At this point you do not need to follow up with any of your regular doctors or specialist, your hospice agency is now your main point of contact. They will be available 17/03 to answer any and all questions that you may have. They will be able to order medications and help with dosings when needed. I have sent in the following medications if needed before hospice is able to send meds: - zofran (ondansetron) - as needed for nausea - morphine - as needed for pain or air hunger - ativan (lorazepam) - as needed for anxiety/agitation or restlessness Pending Studies at Discharge: No Stand-Alone Forms: My [facility] Medications and DC Order Prescriptions: New ondansetron 8 mg tablet,disintegrating 8 mg PO Q8H PRN (Reason: nausea and vomiting) Qty: 30 0RF lorazepam [Ativan] 2 mg/mL solution 1 mg sublingual Q4H PRN (Reason: nausea or anxiety) Qty: 25 0RF morphine 10 mg/5 mL solution 5 mg PO Q3H PRN (Reason: pain) Qty: 100 0RF glycopyrrolate [Robinul] 1 mg tablet 1 mg PO TID PRN (Reason: secretions) Qty: 14 0RF Continued valacyclovir [Valtrex] 1 gram tablet 2,000 mg PO BID PRN (Reason: Rash) venlafaxine 150 mg capsule,extended release 24hr 150 mg PO QPM Qty: 90 3RF venlafaxine 75 mg capsule,extended release 24hr 75 mg PO QPM Qty: 90 3RF Rx Instructions: add to 150 mg lorazepam 1 mg tablet 1 mg PO BID PRN (Reason: Anxiety) Qty: 30 0RF olanzapine 2.5 mg tablet 2.5 mg PO QPM cyanocobalamin (vitamin B-12) 1,000 mcg/mL Solution 1,000 mcg IM MONTHLY pantoprazole 40 mg tablet,delayed release (DR/EC) 40 mg PO BID famotidine 20 mg Tablet 20 mg PO BID Qty: 60 0RF Changed promethazine 12.5 mg tablet 12.5 - 25 mg PO Q6H PRN (Reason: Nausea) Qty: 30 0RF Discontinued Xgeva 120 mg/1.7 mL (70 mg/mL) solution 125 mg subcut .qmonth Patient Comments: last dose December 30, none till after dos 01/23/24 prochlorperazine maleate [Compazine] 10 mg tablet 10 mg PO BID GemCarbo 1 dose IV DIRECTED Rx Instructions: 2 weeks on, 1 week off. CHEMO potassium chloride 10 mEq tablet extended release 10 meq PO DAILY sucralfate 100 mg/mL suspension 10 ml PO ACHS ondansetron HCl 8 mg tablet 8 mg PO BID MDD 24 MG Rx Instructions: per pt she takes bid prednisone 10 mg tablet 10 mg PO DIRECTED Discharge Orders: Discharge Order (Routine); Ordered 11/08/24 Ordered By: Hayde Gallagher Admission Data Admit Date/Time: 11/05/24 16:36 Attending Provider: Myles Lemons Admit Provider: Dong Baca Primary Care Provider: Ganesh Lovell V. Other Providers: Dong Baca; Frank Estrella; [facility] Stay Data Consultations 11/05/24 15:00 ED Decision to Admit Stat 11/05/24 16:16 Consult Gastroenterology Stat 11/06/24 09:43 Consult Oncology Routine Diagnostic Imagining Performed Abdomen/Pelvis CT 11/05/24 12:50 CT OF THE ABDOMEN AND PELVIS WITH CONTRAST CLINICAL HISTORY: worsening transaminitis, liver mets, eval biliary. Breast cancer. COMPARISON STUDY: CT of the abdomen and pelvis October 27, 2024. Right upper quadrant ultrasound October 27, 2024. PET/CT October 13, 2024. TECHNIQUE: Following IV administration of 94 mL of Optiray, axial images of the abdomen and pelvis were obtained from the lung bases to the proximal femurs. Images were reviewed in the axial, sagittal, and coronal planes. IV contrast was administered without complication. Automated exposure control was utilized for the study. A dose lowering technique was utilized adhering to the principles of ALARA. CT DOSE: 597.91 mGy.cm FINDINGS: A few small groundglass opacities within the lower lungs are present. A small left pleural effusion is unchanged since CT of October 27, 2024. There is no pneumatosis, free air or portal venous gas. Heterogeneity of the liver parenchyma is noted. There is slight nodularity of the liver surface. Numerous small hypodense hepatic lesions measure up to 1.3 cm. These appear similar to CT of October 27, 2024. The main, left and right portal veins are patent. There is borderline biliary ductal dilatation with possible narrowing of the distal common bile duct. Spleen, adrenal glands, kidneys and pancreas are unremarkable. Is no hydronephrosis. Gastric wall thickening is again noted. There is no evidence for a bowel obstruction. The gallbladder is distended. This is unchanged. A small amount of abdominal and major vasculature is patent. Numerous skeletal lesions are similar appearance to prior CT. No pathologic fractures are identified. IMPRESSION: 1. Heterogeneous liver parenchyma with numerous small hepatic lesions, similar to CT of October 27, 2024. These are consistent with metastases. Pseudocirrhosis cannot be excluded. 2. Borderline biliary ductal dilatation with possible narrowing of the distal common bile duct. Findings could be correlated with obstructive liver function tests. 3. Increase in small amount of abdominal and pelvic ascites since prior exam. Redemonstration of peritoneal/omental nodularity consistent with metastatic disease. 4. No significant change in appearance of skeletal metastases. 5. Gastric wall thickening, similar to prior exam. This could represent gastritis. Metastatic disease could appear similar. ACT 112: Negative or not required by law. Electronically signed by: Jesús Knapp M.D. 11/05/2024 2:27 PM Cholangiopancreatography MRI 11/06/24 09:38 HISTORY: Nausea and vomiting. History of breast cancer with spine mets and stomach mets. TECHNIQUE: Multiplanar multiecho MR imaging of the abdomen utilizing an MRCP protocol.3D rotating MIP reconstructions. COMPARISON: CT of the abdomen and pelvis dated 10/27/2024. FINDINGS: Diffuse hepatic metastatic disease. There is moderate ascites, which is likely malignant. Cholelithiasis. No significant gallbladder wall thickening. The gallbladder is mildly distended. Chandan cholecystic fluid is nonspecific in the setting of ascites. No significant biliary ductal dilation. Common bile duct measures 6 mm in diameter and tapers normally. The pancreatic duct is not dilated. The pancreas is unremarkable. The adrenal glands and kidneys are unremarkable. The spleen is unremarkable. Moderate left and small right pleural effusions. Normal heart size IMPRESSION: 1. Cholelithiasis. Mild gallbladder distention. No gallbladder wall thickening. Pericholecystic fluid is nonspecific in the setting of ascites. 2. No intra or extrahepatic biliary ductal dilation. Common bile duct measures 0.6 cm in diameter and tapers normally. No pancreatic ductal dilation. 3. Diffuse hepatic metastatic disease. Moderate abdominal ascites is likely malignant. 4. Moderate left and small right pleural effusions. Electronically signed by Gary Ward 11-06-2024 11:33 AM Pending Results Patient Have Any Pending Studies at Discharge: No Discharge Instructions Given to Patient (Per Discharging Provider) Ms. Colon, You were admitted after having abnormal outpatient labs, unfortunately they have continued to get worse while you were here demonstrating advancement of your disease process. You have decided to go home with hospice. Going forward, your hospice agency should the one you call with any medical questions. Someone will be available 17/03 to answer any questions you may have. They can prescribe medications and have nurses and providers who can come to your home when needed. You do not need to follow up with your PCP, oncologist or any other specialists at this point. Medications: * You can take your regular home medications as desired/as you are able to tolerate. The ones I think are going to provided you the most comfort or symptom relief are your Protonix (twice a day) and Zyprexa (if you are not sleeping well) * Nausea control - Phenergan oral (1st line), Zofran dissolvable (2nd line - or if unable to swallow), ativan * Pain control - Tylenol (if able to tolerate), morphine liquid * Anxiety/agitation/restlessness - take the Zyprexa if you can, otherwise Ativan can also be used * Secretions - Robinul can be used You will be returning home with hospice. At this point you do not need to follow up with any of your regular doctors or specialist, your hospice agency is now your main point of contact. They will be available 17/03 to answer any and all questions that you may have. They will be able to order medications and help with dosings when needed. I have sent in the following medications if needed before hospice is able to send meds: - zofran (ondansetron) - as needed for nausea - morphine - as needed for pain or air hunger - ativan (lorazepam) - as needed for anxiety/agitation or restlessness Total Time Total Time Spent Total Time Spent (In Minutes): Time spent day of discharge 45 minutes including direct patient care, medication reconciliation, documentation, review of labs and images, and coordination of care. Case discussed with Dr. Kowalski Case discussed with CM Coding Level of Care Code 85692 INP/OBS DISCH >30 MIN Diagnoses Obstructive jaundice due to cancer K83.1; C80.1 Thrombocytopenia D69.6 Anemia D64.9 Anemia type: unspecified type Breast cancer metastasized to bone C50.919; C79.51"
[2024-11-08 15:50] VITALS: BP 100/66; PULSE 106
[2024-11-08] MEDS: SCOPOLAMINE 1 MG/72 HR TDSY PATCH TD STA (16:11)
[2024-11-08] MEDS: CHECK SCOPOLAMINE PATCH PLACEMENT SCH (17:21)
[2024-11-11] MEDS ORDERED: CYANOCOBALAMIN 1000 MCG/ML VIAL IM SCH (09:00)
== END 2024-11-08 17:51 | disposition hospice, home (50) | DRG 435 ==
LOC: ED 12:24 → SUATTDRO 16:36 → 2W 16:36